=== PATIENT | female | born 1950 | race Caucasian/White ===

== ENCOUNTER 2017-08-18 22:00 | Emergency (ER) | payer BC, MEDICARE ==
[2017-08-18 23:10] LABS: BILIRUBIN,URINE NEGATIVE (NEG); CLARITY,URINE TURBID; COLOR,URINE YELLOW; GLUCOSE,URINE NEGATIVE (NEG); NITRITE,URINE POSITIVE (NEG); PH,URINE 6.5; PROTEIN,URINE 100 mg/dL (NEG-TRACE); UROBILINOGEN,URINE 0.2 mg/dL (0.2 mg/dL)
[2017-08-18 23:30] LABS: BACTERIA,URINE MANY /HPF (0-FEW); RBC,URINE 20-40 /HPF (0-2); SQUAMOUS EPITHELIAL CELL,UR FEW /LPF; WBC,URINE TNTC /HPF (0-4)
[2017-08-19] LABS: ADD MAN DIFF? NO
[2017-08-19 00:06] LABS: BASO # 0.1 x10^3/uL (0.0-0.2); BASO % 1 % (0-3); EOS % 0 % (0-3); HEMATOCRIT 37.1 % (36.0-47.0); HEMOGLOBIN 12.7 g/dL (12.0-15.5); LYMPH # 1.3 x10^3/uL (1.0-4.8); LYMPH % 17 % (24-48); MEAN CORPUSCULAR HEMOGLOBIN 34 pg (25-35); MEAN CORPUSCULAR HGB CONC 34 g/dL (31-37); MEAN CORPUSCULAR VOLUME 100 fL (79-100); MONO # 0.4 x10^3/uL (0.0-1.1); MONO % 5 % (0-9); NEUT % 77 % (31-73); PLATELET COUNT 148 x10^3/uL (140-400); RED BLOOD COUNT 3.73 x10^6/uL (3.50-5.40); RED CELL DISTRIBUTION WIDTH 17.4 % (11.5-14.5); WHITE BLOOD COUNT 7.8 x10^3/uL (4.0-11.0)
[2017-08-19 00:17] LABS: ANION GAP 8 (6-14); BLOOD UREA NITROGEN 18 mg/dL (7-20); BUN/CREATININE RATIO 16 (6-20); CALCIUM 9.2 mg/dL (8.5-10.1); CARBON DIOXIDE 25 mmol/L (21-32); CHLORIDE 104 mmol/L (98-107); CREATININE 1.1 mg/dL (0.6-1.0); GFR 49.4; GLUCOSE 127 mg/dL (70-99); POTASSIUM 3.7 mmol/L (3.5-5.1); SODIUM 137 mmol/L (136-145)
[2017-08-19 00:22] LABS: ALBUMIN 3.2 g/dL (3.4-5.0); ALBUMIN/GLOBULIN RATIO 0.7 (1.0-1.7); ALK PHOS 159 U/L (46-116); ALT (SGPT) 29 U/L (14-59); AST (SGOT) 32 U/L (15-37); TOTAL BILIRUBIN 0.9 mg/dL (0.2-1.0); TOTAL PROTEIN 7.7 g/dL (6.4-8.2)
[2017-08-19] MEDS: ERTAPENEM 1GM IVPB FOR OMNI 50 ML IV (00:52)
[2017-08-19] MEDS: HEPARIN PF 500 UNIT/5 ML DISP.SYRIN. IV (01:45)
== END 2017-08-19 01:50 | disposition home or self-care (01) ==
LOC: ER 08-19 01:50
DX: N39.0 Urinary tract infection, site not specified (principal); Z88.5 Allergy status to narcotic agent; Z88.8 Allergy status to other drugs, medicaments and biological substances; Z88.1 Allergy status to other antibiotic agents; Z91.041 Radiographic dye allergy status; M19.90 Unspecified osteoarthritis, unspecified site; E78.00 Pure hypercholesterolemia, unspecified; I11.0 Hypertensive heart disease with heart failure; I50.9 Heart failure, unspecified; J44.9 Chronic obstructive pulmonary disease, unspecified; K21.9 Gastro-esophageal reflux disease without esophagitis; Z90.710 Acquired absence of both cervix and uterus
CPT/HCPCS: 36415; 80053; 81001; 85025; 87040; 87086; 96365; 96375; 99284; J1335

== ENCOUNTER 2018-02-20 04:27 | Inpatient (IN) | payer BC, MEDICARE ==
[~2018-02-20] VITALS: Ht 174 cm; Wt 120.0 kg
[~2018-02-20 04:27] MED LIST: ACET-704 PO; ACET1TAB33 PO; ACET500T68 PO; ALKALOL NS; APIX5TAB PO; AREDIA IV; ARTHRO PO; BENZ100C PO; BENZONATATE; BISA-42 PO; BUDE8.6S NS; CARV25TA PO; CETI10TA16 PO; CHLORZOXAZONE PO; CHOL10003 PO; CHOL4000 PO; CHON250C PO; CICL12.52 NS; CYAN3000 SL; CYAN500T PO; CYCLOPHOSPHAMIDE IV; DENO120V SQ; DICL100G24 TP; DICL112S2 TP; DIPH1TAB5 PO; DIPH25CA58 PO; DIPH50CA PO; DOCO1CAP2 PO; DOCU-109 PO; DULO60CA44 PO; ERTA1VIA IJ; ESOM40CA PO; ESTA2TAB PO; EXEM25TA2 PO; FERR325T14 PO; FLEXAMIN PO; FLUOROURACIL IV; FLUT16SP NS; FULV250D IM; FURO40TA4 PO; GABA300C18 PO; GABA600T91 PO; GAS X PO; HYDR-2165 PO; HYDR-2761 PO; HYDR-2765 PO; KETO10TA PO; LACT1CAP6 PO; LETR2.5T18 PO; LEVO100T5 PO; LEVO5TAB2 PO; LEXAPRO20 MG PO; LIDO700A4 TP; LISI-334 PO; LISI-338 PO; LOPE2CAP88 PO; MANNOSE PO; MERO1VIA IV; METHOTREXATE IV; MINE120C TP; MULT-246 PO; NYST15PO9 TP; OMEG-91 PO; OMEP40CA5 PO; OXYM15MI4 NS; PALB125C PO; PHEN100T82 PO; POLY17PO29 PO; POTA20TA82 PO; POTA8CAP PO; POTA8TAB6 PO; PRAV20TA2 PO; PROC10TA57 PO; PROM118S5 PO; S AD PO; SALI44.3 MM; TRAM50TA PO; TRAS440V IV; TROS20TA2 PO; TURM500C4 PO; UBID200C27 PO; UBID200C7 PO; UREA TP; VANC125C10 PO; [UNRECOGNIZED DRUG - CODE] DT; [UNRECOGNIZED DRUG - CODE] IV; [UNRECOGNIZED DRUG - OTHER]; [UNRECOGNIZED DRUG - OTHER] IV; [UNRECOGNIZED DRUG - OTHER] PO; [UNRECOGNIZED DRUG - OTHER] PO; optiva EACHEYE
[2018-02-20] MEDS ORDERED: 0.9 % SOD CHL for STERILE FIELD 10 ML DISP.SYRIN. ONE (04:49)
--- NOTE | 2018-02-20 04:53 | PHYS DOC ---
Past Medical History Past Medical History: Arthritis, Cancer, CHF, COPD, Gallstones, GERD, High Cholesterol, Hypertension, Kidney Infection, Kidney Stone, Sinusitis, UTI Additional Past Medical Histor: PE,SLEEP APNEA, GOITER, SVT, TSS, BREAST CA METS TO COLON AND BONE Past Surgical History: Appendectomy, Cancer Surgery, Hysterectomy, Knee Replacement, Other Additional Past Surgical Histo: ureteral stent, lithotripsy, numerous nasal/ sinus surgeries, multiple other Alcohol Use: None Drug Use: None Adult General Chief Complaint Chief Complaint: MECHANICAL FALL HPI HPI Patient is a 67 year old female who presents with weakness. 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 Tonight due to weakness and diarrhea for approximately the past month she fell landing on her bottom. She notes that she is feeling weaker over time. Increased shortness of breath noted recently. No respirophasic chest pain. Patient reports that her last chemotherapy was approximately 20 days ago since she is due for her next chemotherapy in the next day or 2. She denies any fever[ ] Review of Systems Review of Systems Constitutional: Denies fever or chills [] Eyes: Denies change in visual acuity, redness, or eye pain [] HENT: Denies nasal congestion or sore throat [] Respiratory: Denies shortness of breath [] Cardiovascular: No chest pain or palpitations[] GI: See history of present illness[] : Denies dysuria or hematuria [] Musculoskeletal: Denies back pain or joint pain [] Integument: Denies rash or skin lesions [] Neurologic: Denies headache, focal weakness or sensory changes [] Endocrine: Denies polyuria or polydipsia [] All other systems were reviewed and found to be within normal limits, except as documented in this note. Current Medications Current Medications Current Medications Medications (Trade) Dose Ordered Sig/Deanna Start Time Stop Time Status Last Admin Dose Admin Acetaminophen/ Codeine Phosphate (Tylenol #3) 1 tab 0500,1400 02/20/18 14:00 UNV Acetaminophen/ Hydrocodone Bitart (Lortab 5/325) 1 tab PRN Q6HRS PRN 02/20/18 07:45 UNV Apixaban (Eliquis) 5 mg BID 02/20/18 09:00 UNV Bisacodyl (Dulcolax Tab) 5 mg PRN DAILY PRN 02/20/18 07:45 UNV Ceftriaxone Sodium (Rocephin) 1 gm 1X ONCE 02/20/18 07:45 02/20/18 07:46 UNV Docusate Sodium (Colace) 100 mg BID PRN 02/20/18 07:45 UNV Fluticasone Propionate (Flonase) 2 spray BID 02/20/18 09:00 UNV Info (CONTRAST GIVEN -- Rx MONITORING) 1 each PRN DAILY PRN 02/20/18 05:30 02/22/18 05:29 Iohexol (Omnipaque 300 Mg/ml) 75 ml 1X ONCE 02/20/18 06:00 02/20/18 06:01 DC 02/20/18 06:20 60 ML Ketorolac Tromethamine (Toradol 15mg Vial) 15 mg PRN Q6HRS PRN 02/20/18 08:00 02/25/18 07:59 UNV Levothyroxine Sodium (Synthroid) 100 mcg DAILYAC 02/21/18 07:30 UNV Non-Formulary Medication (Benzonatate (Tessalon Perle)) 200 mg PRN Q12HR PRN 02/20/18 07:45 UNV Non-Formulary Medication (Carvedilol (Coreg)) 25 mg BID 02/20/18 09:00 UNV Non-Formulary Medication (Cyanocobalamin (Vitamin B-12) (B-12)) 4,000 mcg QODAY 02/20/18 09:00 UNV Non-Formulary Medication (Diclofenac Sodium ) 100 gm PRN PRN 02/20/18 07:45 UNV Non-Formulary Medication (Duloxetine Hcl ) 60 mg HS 02/20/18 21:00 UNV Non-Formulary Medication (Esomeprazole Magnesium (Nexium Capsule)) 1 cap DAILYAC 02/21/18 07:30 UNV Non-Formulary Medication (Estazolam ) 2 mg HS 02/20/18 21:00 UNV Non-Formulary Medication (Gabapentin Enacarbil (Horizant)) 600 mg BID 02/20/18 09:00 UNV Non-Formulary Medication (Levocetirizine Dihydrochloride ) 1 tab DAILY 02/20/18 09:00 UNV Non-Formulary Medication (Lisinopril ) 1 tab QHS 02/20/18 21:00 UNV Non-Formulary Medication (Loperamide HCl (Imodium A-D)) 2 mg PRN Q6HRS PRN 02/20/18 07:45 UNV Non-Formulary Medication (Multivitamin (Multi-Vitamin Daily)) 1 each DAILY 02/20/18 09:00 UNV Non-Formulary Medication (Potassium Chloride ) 8 meq BID 02/20/18 09:00 UNV Non-Formulary Medication (Pravastatin Sodium ) 25 mg DAILY 02/20/18 09:00 UNV Non-Formulary Medication (S-Adenosylmethionine Sul Tosyl (Werner-E)) 400 mg DAILY 02/20/18 09:00 UNV Non-Formulary Medication (Trospium Chloride ) 20 mg BID 02/20/18 09:00 UNV Non-Formulary Medication (Turmeric/ Turmeric Root Extract (Turmeric 500 mg Capsule)) 1 each QHS 02/20/18 21:00 UNV Non-Formulary Medication (Ubidecarenone (Co Q-10)) 200 mg DAILY 02/20/18 09:00 UNV Non-Formulary Medication (Urea/Emollient Combination #65 (Uramaxin Gt 45% Kit)) 1 each PRN PRN 02/20/18 07:45 UNV Non-Formulary Medication ([arthro 7] ) 1 cap BID 02/20/18 09:00 UNV Non-Formulary Medication ([chloroxazone/ Parafon] ) 500 mg PRN Q6HRS PRN 02/20/18 07:45 UNV Non-Formulary Medication ([cytoxan,[id number]] ) 1 each [id number] 02/20/18 09:00 UNV Non-Formulary Medication ([gamagen] ) 50 gm Q4WK 02/20/18 09:00 UNV Non-Formulary Medication ([mannose] ) 1,500 mg DAILY07 02/21/18 07:00 UNV Nystatin (Nystop) 1 mir BID 02/20/18 09:00 UNV Sodium Chloride 1,000 ml @ 125 mls/hr 1X ONCE 02/20/18 06:15 02/20/18 14:14 Sodium Chloride (NORMAL SALINE FLUSH for STERILE FIELD) 10 ml STK-MED ONCE 02/20/18 04:49 02/20/18 04:51 DC Vitamin D (Vitamin D3) 2,000 unit DAILY 02/20/18 09:00 UNV Allergies Allergies Allergies Coded Allergies Type Severity Reaction Last Updated Verified cephalexin Allergy Intermediate 05/30/15 Yes cyclosporine Allergy Intermediate 05/30/15 Yes hydromorphone Allergy Intermediate 05/30/15 Yes morphine Allergy Intermediate 02/20/18 Yes nitrofurantoin Allergy Intermediate 05/30/15 Yes scopolamine Allergy Intermediate 05/30/15 Yes thimerosal Allergy Intermediate 05/30/15 Yes I S O L A T I O N *CONTACT* Allergy Unknown 06/19/15 Yes fentanyl Adverse Reaction Intermediate 06/19/15 Yes Physical Exam Physical Exam Constitutional: Well developed, well nourished, moderate discomfort, beebe, ashen looking.. [] HENT: Normocephalic, atraumatic, bilateral external ears normal, oropharynx moist, no oral exudates, nose normal. [] Eyes: PERRLA, EOMI, conjunctiva normal, no discharge. [] Neck: Normal range of motion, no tenderness, supple, no stridor. [] Cardiovascular:Heart rate regular rhythm, no murmur [] Lungs & Thorax: Bilateral breath sounds clear to auscultation [] Abdomen: Bowel sounds normal, tympanitic, diffuse tenderness, no masses, no pulsatile masses. [] Skin: Warm, dry, no erythema, no rash. [] Back: No tenderness, no CVA tenderness. [] Extremities: No tenderness, no cyanosis, no clubbing, ROM intact, no edema. [] Neurologic: Alert and oriented X 3, normal motor function, normal sensory function, no focal deficits noted. [] Psychologic: Affect normal, judgement normal, mood normal. [] Current Patient Data Vital Signs Vital Signs Date Time Temp Pulse Resp B/P (MAP) Pulse Ox O2 Delivery O2 Flow Rate FiO2 02/20/18 04:30 100.5 98 18 128/87 (101) 92 Nasal Cannula 3.0 100.5 Lab Values Laboratory Tests Test 02/20/18 05:13 02/20/18 05:22 02/20/18 05:57 White Blood Count 21.3 x10^3/uL (4.0-11.0) H Red Blood Count 3.48 x10^6/uL (3.50-5.40) L Hemoglobin 11.3 g/dL (12.0-15.5) L Hematocrit 34.3 % (36.0-47.0) L Mean Corpuscular Volume 99 fL (79-100) Mean Corpuscular Hemoglobin 32 pg (25-35) Mean Corpuscular Hemoglobin Concent 33 g/dL (31-37) Red Cell Distribution Width 19.0 % (11.5-14.5) H Platelet Count 180 x10^3/uL (140-400) Neutrophils (%) (Auto) 87 % (31-73) H Lymphocytes (%) (Auto) 10 % (24-48) L Monocytes (%) (Auto) 3 % (0-9) Eosinophils (%) (Auto) 0 % (0-3) Basophils (%) (Auto) 0 % (0-3) Neutrophils # (Auto) 18.6 x10^3uL (1.8-7.7) H Lymphocytes # (Auto) 2.1 x10^3/uL (1.0-4.8) Monocytes # (Auto) 0.6 x10^3/uL (0.0-1.1) Eosinophils # (Auto) 0.0 x10^3/uL (0.0-0.7) Basophils # (Auto) 0.0 x10^3/uL (0.0-0.2) Platelet Estimate Pending Sodium Level 142 mmol/L (136-145) Potassium Level 3.9 mmol/L (3.5-5.1) Chloride Level 106 mmol/L (98-107) Carbon Dioxide Level 23 mmol/L (21-32) Anion Gap 13 (6-14) Blood Urea Nitrogen 34 mg/dL (7-20) H Creatinine 1.2 mg/dL (0.6-1.0) H Estimated GFR (Cockcroft-Gault) 44.5 BUN/Creatinine Ratio 28 (6-20) H Glucose Level 135 mg/dL (70-99) H Lactic Acid Level 1.5 mmol/L (0.4-2.0) Calcium Level 9.9 mg/dL (8.5-10.1) Total Bilirubin 0.5 mg/dL (0.2-1.0) Aspartate Amino Transferase (AST) 56 U/L (15-37) H Alanine Aminotransferase (ALT) 17 U/L (14-59) Alkaline Phosphatase 254 U/L (46-116) H Troponin I Quantitative 0.022 ng/mL (0.000-0.055) GY-Kgh-S-Type Natriuretic Peptide 2343 pg/mL (0-124) H Total Protein 6.5 g/dL (6.4-8.2) Albumin 2.2 g/dL (3.4-5.0) L Albumin/Globulin Ratio 0.5 (1.0-1.7) L Lipase 29 U/L (73-393) L Prothrombin Time 15.6 SEC (11.7-14.0) H Prothrombin Time INR 1.3 (0.8-1.1) H Urine Collection Type Unknown Urine Color Arely Urine Clarity Clear Urine pH 6.0 Urine Specific Goff >=1.030 Urine Protein 30 mg/dL (NEG-TRACE) Urine Glucose (UA) Negative mg/dL (NEG) Urine Ketones (Stick) Negative mg/dL (NEG) Urine Blood Negative (NEG) Urine Nitrite Negative (NEG) Urine Bilirubin Small (NEG) Urine Urobilinogen Dipstick 0.2 mg/dL (0.2 mg/dL) Urine Leukocyte Esterase Negative (NEG) Urine RBC 0 /HPF (0-2) Urine WBC Occ /HPF (0-4) Urine Squamous Epithelial Cells Occ /LPF Urine Bacteria 0 /HPF (0-FEW) Urine Hyaline Casts Many /HPF Laboratory Tests 02/20/18 05:13 Laboratory Tests 02/20/18 05:13 EKG EKG [] Radiology/Procedures Radiology/Procedures [PROCEDURE: PORTABLE CHEST 1V AP portable chest 02/20/2018. Reason for exam: Weakness and shortness of breath. Comparison is made with a study of 08/18/2015. A right IJ central line remains in place. Depth of inspiration is much shallower. This accounts for at least some of the increased markings on each side. There may be mild infiltrate at the left base. No pleural fluid is seen. The heart appears mildly enlarged, but unchanged. IMPRESSION: Shallow inspiration. There could be mild infiltrate at the left base. ] PROCEDURE: CT ABD PELV W/ IV CONTRST ONLY PQRS Compliance statement: One or more of the following individualized dose reduction techniques were utilized for this examination: 1. Automated exposure control. 2. Adjustment of the mA and/or kV according to patient size. 3. Use of iterative reconstruction technique. Indication:breast ca with metatases to colon; increased shortness of breath-evaluate pe;nausea and vomiting, diarrhea x 3 weeks
per er physician give reduced dose iv contrast 60ml / gfr 44 02/20/2018
(pt unable to raise arms above head)

TECHNIQUE: CT angiogram of the chest with IV contrast with multiplanar MIP reformats. And CT abdomen pelvis in portal venous phase. COMPARISON: None FINDINGS: Limited exam for evaluation of PE due to breathing motion artifact and contrast bolus timing. No saddle or right and left main pulmonary artery and was. Evaluation of segmental and subsegmental pulmonary arteries is limited. Heart is normal in size. No pericardial or pleural effusion. Right chest wall Chemo-Port with its tip in the SVC. No enlarged axillary, mediastinal or hilar adenopathy. Left axillary lymph node dissection changes. Patulous esophagus with fluid. Central airways are patent. Patchy opacities are seen in the left lower lobe. No pneumothorax. Significant motion artifact is seen in the lungs limiting optimal evaluation. Sclerotic focus is seen in the right first rib. Sclerotic focus is seen in the inferior left scapula. Sclerotic appearance of the mid sternum. Multiple sclerotic foci seen in the thoracic spine. CT abdomen pelvis: Multiple low attenuating lesions are seen in the liver. Index lesions as follows: Segment 2 lesion measuring 1.6 cm (series 8 image 20). Segment 7 lesion measuring 1.5 cm (series 8 image 28). 2.6 cm lesion at the junction of the segment 2 and segment 4A (series 8 image 33). Concentrated bile or sludge is seen in the gallbladder. Spleen is unenlarged. Moderate volume ascites is seen. Pancreas is atrophic. Adrenal glands demonstrate no nodularity. No hydronephrosis or nephrolithiasis. Left significant pelvocaliectasis. No enlarged retroperitoneal or pelvic adenopathy. Status post proximal colectomy with anastomotic sutures in the right upper quadrant. Diffusely dilated small bowel loops are seen with air-fluid levels. Shotty mesenteric lymph nodes, nonspecific. No pneumoperitoneum or pneumatosis intestinalis. Urinary bladder demonstrates no radiopaque stones. Status post hysterectomy. Sclerotic focus is seen in the right femur (series 8 image 107). Lucent lesions seen in L2 vertebral body. IMPRESSION: 1. Significantly suboptimal PE study due to breathing motion artifact and contrast bolus timing. No saddle or right or left main pulmonary artery numbers. Evaluation of segmental and subsegmental pulmonary arteries is limited. 2. Patchy opacities in the left lower lobe may be secondary to aspiration, pneumonia or atelectasis. 3. Multiple liver lesions, indeterminate but in the context of malignancy may represent metastasis. Nonemergent MRI of the abdomen recommended for further evaluation. 4. Moderate volume ascites. 5. Diffusely dilated small bowel loops with air-fluid levels suggests diffuse ileus or small bowel obstruction although no discrete transition point is seen. 6. Significant left pelvocaliectasis without obstructing stone. Findings may be secondary to stricture or narrowing at left UPJ. 7. Multifocal lucent and sclerotic bony lesions concerning for osseous metastasis. Bone scan recommended. Course & Med Decision Making Course & Med Decision Making Pertinent Labs and Imaging studies reviewed. (See chart for details) ED course: Patient arrived, was placed in bed, tolerated exam well. Port-A-Cath was accessed for blood work as well as IV fluids. Patient care was endorsed to Dr. Shearer at 0600 pending laboratory testing and imaging that was previously ordered.[] 8:10 AM: Patient care was assumed from Dr. Harrison at shift change. Patient is an unfortunate 67-year-old female who presents for increasing weakness, and a fall, she slipped the floor and landed on her buttocks. She is somewhat lethargic upon my assessment, but her states she did not hit her head or injure her neck. The patient's states that she has had decreased oral intake and several episodes of vomiting, because she has developed a " bowel blockage", secondary to invasive breast cancer growing on her intestines. Her tetanus is also been reviewed. CT does show diffuse bowel enlargement without any definite transition zone. She also has large ascites. She is noted to have leukocytosis, but had similar leukocytosis earlier this month in January. I do not have a clear source of infection at this time, although given a sided spontaneous bacterial peritonitis is certainly in the differential. The patient be given an empiric dose of antibiotics to further definitive diagnosis can be obtained. The hospitalist will admit the patient for further evaluation and shooting. She remains hemodynamically stable at this time. Dragon Disclaimer Dragon Disclaimer This electronic medical record was generated, in whole or in part, using a voice recognition dictation system. Departure Departure Impression: Primary Impression: Weakness Additional Impressions: Dehydration Ileus Metastatic breast cancer Ascites Leukocytosis Acute renal insufficiency Disposition: 09 ADMITTED INPATIENT Admitting Physician: Helen Mccauley Condition: GUARDED Referrals: FRANC GONZALEZ MD (PCP) Problem Qualifiers LISSETTE HARRISON DO Feb 20, 2018 04:53 MABLE SHEARER MD Feb 20, 2018 06:39
[2018-02-20] MEDS ORDERED: CONTRAST GIVEN. MC PRN (05:30)
[2018-02-20 05:40] LABS: CALCIUM 9.9 mg/dL (8.5-10.1); CREATININE 1.2 mg/dL (0.6-1.0); GFR 44.5; POTASSIUM 3.9 mmol/L (3.5-5.1)
[2018-02-20 05:49] LABS: ALBUMIN 2.2 g/dL (3.4-5.0); ALBUMIN/GLOBULIN RATIO 0.5 (1.0-1.7); BASO % 0 % (0-3); EOS % 0 % (0-3); HEMATOCRIT 34.3 % (36.0-47.0); HEMOGLOBIN 11.3 g/dL (12.0-15.5); LYMPH # 2.1 x10^3/uL (1.0-4.8); LYMPH % 10 % (24-48); MEAN CORPUSCULAR HEMOGLOBIN 32 pg (25-35); MEAN CORPUSCULAR HGB CONC 33 g/dL (31-37); MEAN CORPUSCULAR VOLUME 99 fL (79-100); MONO # 0.6 x10^3/uL (0.0-1.1); MONO % 3 % (0-9); NEUT # 18.6 x10^3uL (1.8-7.7); NEUT % 87 % (31-73); PLATELET COUNT 180 x10^3/uL (140-400); RED BLOOD COUNT 3.48 x10^6/uL (3.50-5.40); TOTAL BILIRUBIN 0.5 mg/dL (0.2-1.0); TOTAL PROTEIN 6.5 g/dL (6.4-8.2); WHITE BLOOD COUNT 21.3 x10^3/uL (4.0-11.0)
--- NOTE | 2018-02-20 05:49 | RAD ---
AP portable chest 02/20/2018. Reason for exam: Weakness and shortness of breath. Comparison is made with a study of 08/18/2015. A right IJ central line remains in place. Depth of inspiration is much shallower. This accounts for at least some of the increased markings on each side. There may be mild infiltrate at the left base. No pleural fluid is seen. The heart appears mildly enlarged, but unchanged. IMPRESSION: Shallow inspiration. There could be mild infiltrate at the left base. Electronically signed by: Bruno Jesus Jr., MD (02/20/2018 5:45 AM) [facility]
[2018-02-20] MEDS ORDERED: IOHEXOL 300 MG/ML 100ML VIAL. IV ONE (06:00)
[2018-02-20] MEDS ORDERED: IV NORMAL SALINE 1000ML BAG 1,000 ML IV ONE (06:15)
[2018-02-20 06:17] LABS: BILIRUBIN,URINE SMALL (NEG); CLARITY,URINE CLEAR; COLOR,URINE AMBER; NITRITE,URINE NEGATIVE (NEG); PROTEIN,URINE 30 mg/dL (NEG-TRACE); UROBILINOGEN,URINE 0.2 mg/dL (0.2 mg/dL)
--- NOTE | 2018-02-20 06:20 | EKG ---
[facility] [address] [place] [address] Test Date: 2018-02-20 Test Time: 04:45:38 Pat Name: HAFSA NICHOLSON Department: Room: Gender: F Board Certified Family Physician: : [id number] Requested By: LISSETTE HICKMAN Order Number: [id number] Reading MD: Enrrique Ball Measurements Intervals [place] Rate: 99 P: [place]: QRS: -23 QRSD: 86 T: 64 QT: 398 QTc: 516 Interpretive Statements SINUS RHYTHM LEFTWARD AXIS T ABNORMALITY IN HIGH LATERAL LEADS PROLONGED QT ABNORMAL ECG Electronically Signed On 02-28-2018 8:06:17 FINANCE LECTURER by Enrrique Ball
--- NOTE | 2018-02-20 06:20 | EKG ---
[facility] [address] [place] [address] Test Date: 2018-02-20 Test Time: 06:04:42 Pat Name: HAFSA NICHOLSON Department: Room: Gender: F Data Center Operator: : [id number] Requested By: LISSETTE HICKMAN Order Number: [id number] Reading MD: Enrrique Ball Measurements Intervals [place] Rate: 99 P: -6 DE: 164 QRS: -18 QRSD: 86 T: 12 QT: 340 QTc: 441 Interpretive Statements SINUS RHYTHM COMPLEX(ES) WITH ABERRANT INTRAVENTRICULAR CONDUCTION VENTRICULAR PREMATURE COMPLEX(ES) LEFTWARD AXIS NON SPECIFIC T ABNORMALITY ABNORMAL ECG Electronically Signed On 02-28-2018 8:06:44 BOOTMAKER HAND by Enrrique Ball
[2018-02-20 06:21] LABS: PROTHROMBIN TIME PATIENT 15.6 SEC (11.7-14.0)
[2018-02-20 06:59] LABS: BACTERIA,URINE 0 /HPF (0-FEW); HYALINE CASTS, URINE MANY /HPF; RBC,URINE 0 /HPF (0-2); SQUAMOUS EPITHELIAL CELL,UR OCC /LPF; WBC,URINE OCC /HPF (0-4)
[2018-02-20] MEDS ORDERED: CHLORZOXAZONE PO PRN (07:45)
[2018-02-20] MEDS ORDERED: UREA TP PRN (07:45)
[2018-02-20] MEDS ORDERED: [UNRECOGNIZED DRUG - OTHER] TP PRN (07:45)
[2018-02-20] MEDS ORDERED: BISACODYL 5 MG TABLET.DR. PO PRN (07:45)
[2018-02-20] MEDS ORDERED: cefTRIAXone IV Push 1 GM VIAL. IVP ONE (07:45)
[2018-02-20] MEDS ORDERED: DOCUSATE SODIUM 100 MG CAPSULE. PO PRN (07:45)
[2018-02-20] MEDS ORDERED: [UNRECOGNIZED DRUG - OTHER] PO PRN (07:45)
--- NOTE | 2018-02-20 07:47 | RAD ---
PQRS Compliance statement: One or more of the following individualized dose reduction techniques were utilized for this examination: 1. Automated exposure control. 2. Adjustment of the mA and/or kV according to patient size. 3. Use of iterative reconstruction technique. Indication:breast ca with metatases to colon; increased shortness of breath-evaluate pe;nausea and vomiting, diarrhea x 3 weeks
per er physician give reduced dose iv contrast 60ml / gfr 44 02/20/2018
(pt unable to raise arms above head)

TECHNIQUE: CT angiogram of the chest with IV contrast with multiplanar MIP reformats. And CT abdomen pelvis in portal venous phase. COMPARISON: None FINDINGS: Limited exam for evaluation of PE due to breathing motion artifact and contrast bolus timing. No saddle or right and left main pulmonary artery and was. Evaluation of segmental and subsegmental pulmonary arteries is limited. Heart is normal in size. No pericardial or pleural effusion. Right chest wall Chemo-Port with its tip in the SVC. No enlarged axillary, mediastinal or hilar adenopathy. Left axillary lymph node dissection changes. Patulous esophagus with fluid. Central airways are patent. Patchy opacities are seen in the left lower lobe. No pneumothorax. Significant motion artifact is seen in the lungs limiting optimal evaluation. Sclerotic focus is seen in the right first rib. Sclerotic focus is seen in the inferior left scapula. Sclerotic appearance of the mid sternum. Multiple sclerotic foci seen in the thoracic spine. CT abdomen pelvis: Multiple low attenuating lesions are seen in the liver. Index lesions as follows: Segment 2 lesion measuring 1.6 cm (series 8 image 20). Segment 7 lesion measuring 1.5 cm (series 8 image 28). 2.6 cm lesion at the junction of the segment 2 and segment 4A (series 8 image 33). Concentrated bile or sludge is seen in the gallbladder. Spleen is unenlarged. Moderate volume ascites is seen. Pancreas is atrophic. Adrenal glands demonstrate no nodularity. No hydronephrosis or nephrolithiasis. Left significant pelvocaliectasis. No enlarged retroperitoneal or pelvic adenopathy. Status post proximal colectomy with anastomotic sutures in the right upper quadrant. Diffusely dilated small bowel loops are seen with air-fluid levels. Shotty mesenteric lymph nodes, nonspecific. No pneumoperitoneum or pneumatosis intestinalis. Urinary bladder demonstrates no radiopaque stones. Status post hysterectomy. Sclerotic focus is seen in the right femur (series 8 image 107). Lucent lesions seen in L2 vertebral body. IMPRESSION: 1. Significantly suboptimal PE study due to breathing motion artifact and contrast bolus timing. No saddle or right or left main pulmonary artery numbers. Evaluation of segmental and subsegmental pulmonary arteries is limited. 2. Patchy opacities in the left lower lobe may be secondary to aspiration, pneumonia or atelectasis. 3. Multiple liver lesions, indeterminate but in the context of malignancy may represent metastasis. Nonemergent MRI of the abdomen recommended for further evaluation. 4. Moderate volume ascites. 5. Diffusely dilated small bowel loops with air-fluid levels suggests diffuse ileus or small bowel obstruction although no discrete transition point is seen. 6. Significant left pelvocaliectasis without obstructing stone. Findings may be secondary to stricture or narrowing at left UPJ. 7. Multifocal lucent and sclerotic bony lesions concerning for osseous metastasis. Bone scan recommended. Electronically signed by: Barrett Orta DO (02/20/2018 7:42 AM) [facility]
[2018-02-20] MEDS ORDERED: KETOROLAC 15 MG/ML VIAL. IV PRN (08:00)
[2018-02-20] MEDS: PANTOPRAZOLE 40 MG TABLET.DR. PO SCH (08:30)
[2018-02-20] MEDS ORDERED: IV DEXTROSE 5%-LACT RINGERS 1,000 ML IV ONE (08:30)
[2018-02-20] MEDS ORDERED: LOPERAMIDE 2 MG CAPSULE PO PRN (08:45)
[2018-02-20 08:53] LABS: % BANDS 17 % (0-9); % LYMPHS 9 % (24-48); % METAS 3 % (0-0); % MONOS 2 % (0-10); % SEGS 69 % (35-66); NUCLEATED RBC 4
[2018-02-20 08:54] LABS: HYPOCHROMIA SLIGHT; PLT ESTIMATE ADEQUATE (ADEQUATE); POLYCHROMASIA SLIGHT
[2018-02-20 08:55] LABS: ANISOCYTOSIS SLIGHT; POIKILOCYTOSIS SLIGHT
[2018-02-20] MEDS: POTASSIUM CHLORIDE 10 MEQ TABLET.ER. PO SCH ×2 (09:00→17:00)
[2018-02-20] MEDS ORDERED: ARTHRO PO SCH (09:00)
[2018-02-20] MEDS ORDERED: [UNRECOGNIZED DRUG - OTHER] IV SCH (09:00)
[2018-02-20] MEDS ORDERED: DICLOFENAC SODIUM 1% TOPICAL GEL 100GM TUBE. TP PRN (09:00)
[2018-02-20] MEDS: MULTIVITAMIN with MINERAL TABLET. PO SCH (09:00)
[2018-02-20] MEDS ORDERED: S ADENOSYLMETHIONINE SUL TOSYL 400 MG PO SCH (09:00)
[2018-02-20] MEDS: CHOLECALCIFEROL (VITAMIN D3) 1,000 UNIT TABLET PO SCH (09:00)
[2018-02-20] MEDS ORDERED: BENZONATATE 100 MG CAPSULE. PO PRN (09:00)
[2018-02-20] MEDS ORDERED: [UNRECOGNIZED DRUG - OTHER] IV SCH (09:00)
[2018-02-20] MEDS: NYSTATIN TOPICAL POWDER 15GM BOTTLE. TP SCH ×2 (09:00→21:00)
[2018-02-20] MEDS: CYANOCOBALAMIN (VITAMIN B-12) 1,000 MCG TABLET. PO SCH (09:00)
[2018-02-20] MEDS ORDERED: NON FORMULARY ITEM (Ubidecarenone (Co Q-10) 200 MG) PO SCH (09:00)
[2018-02-20] MEDS: GABAPENTIN ENACARBIL 600 MG PO SCH ×2 (09:00→21:18)
[2018-02-20] MEDS: OXYBUTYNIN CHLORIDE 5 MG TABLET PO SCH ×3 (09:00→21:20)
[2018-02-20] MEDS: FLUTICASONE 50MCG/NASAL SPRAY 16GM BOTTLE. NS SCH ×2 (09:00→21:00)
[2018-02-20] MEDS: APIXABAN 5 MG TABLET. PO SCH ×2 (09:00→21:00)
[2018-02-20] MEDS: CETIRIZINE HCL 10 MG TABLET. PO SCH (09:00)
[2018-02-20] MEDS: IV NORMAL SALINE 1000ML BAG 1,000 ML IV SCH ×2 (09:15→21:15)
[2018-02-20] MEDS: CARVEDILOL 12.5 MG TABLET. PO SCH ×2 (09:15→17:00)
--- NOTE | 2018-02-20 09:16 | PDOC1 ---
History and Physical Date of Admission Date of Admission DATE: 02/20/18 TIME: 09:08 Identification/Chief Complaint Chief Complaint Fall at home Source Source: Caregiver, Chart review, Patient History of Present Illness History of Present Illness Most of the history obtained from the . Patient is a 67-year-old female with metastatic breast cancer to the liver and to the bone, on palliative chemotherapy, last chemotherapy December [address] Sr[address] Had a ground-level fall at home today, no presyncopal symptoms, hurt her tailbone and was unable to get up had to call the ambulance per whom the patient lives with. Otherwise patient has a walker at home and has decent quality of life. Patient is now asleep after pain management from ER. CT of the abdomen and chest etc. shows the multiple liver lesions, moderate ascites and maybe ileus or partial SBO. Patient was just here 2 weeks ago for ileus versus partial SBO treated conservatively with both GI and GS on board. Home meds I have reconciled including pain medicines antidepressants and the rest. We'll make nothing by mouth until GI sees again. NO reports of vomiting by the but there was some coughing that the thought she was aspirating and sat her up and thought that did well. There is some signs of aspiration possibly on chest imaging. Labs show maybe small signs of dehydration with a creatinine of 1.2 from 0.6 in the past and to be in of 34. WBC 21 in this chemotherapy patient. BNP is 2300 with low albumin 2.2 Past Medical History Cardiovascular: CHF, HTN, Hyperlipidemia Pulmonary: Pulmonary embolus CENTRAL NERVOUS SYSTEM: CVA GI: GERD Heme/Onc: Cancer Hepatobiliary: No pertinent hx Psych: No pertinent hx Rheumatologic: No pertinent hx Infectious disease: Other Renal/: UTI Endocrine: No pertinent hx Past Surgical History Past Surgical History: Appendectomy, Mastectomy, Total knee replacement Family History Family History: Diabetes Social History Smoke: No ALCOHOL: none Drugs: None Current Problem List Problem List Problems Medical Problems: (1) Acute renal insufficiency Status: Acute (2) Ascites Status: Acute (3) Dehydration Status: Acute (4) Ileus Status: Acute (5) Leukocytosis Status: Acute (6) Metastatic breast cancer Status: Acute (7) Weakness Status: Acute Current Medications Current Medications Current Medications Sodium Chloride (NORMAL SALINE FLUSH for STERILE FIELD) 10 ml STK-MED ONCE .ROUTE ; Start 02/20/18 at 04:49; Stop 02/20/18 at 04:51; Status DC Iohexol (Omnipaque 300 Mg/ml) 75 ml 1X ONCE IV Last administered on at 06:20; Start 02/20/18 at 06:00; Stop 02/20/18 at 06:01; Status DC Info (CONTRAST GIVEN -- Rx MONITORING) 1 each PRN DAILY PRN MC SEE COMMENTS; Start 02/20/18 at 05:30; Stop 02/22/18 at 05:29 Sodium Chloride 1,000 ml @ 125 mls/hr 1X ONCE IV ; Start 02/20/18 at 06:15; Stop 02/20/18 at 14:14 Acetaminophen/ Codeine Phosphate (Tylenol #3) 1 tab 0500,1400 PO ; Start at 14:00 Apixaban (Eliquis) 5 mg BID PO ; Start 02/20/18 at 09:00; Status UNV Bisacodyl (Dulcolax Tab) 5 mg PRN DAILY PRN PO CONSTIPATION; Start 02/20/18 at 07:45 Vitamin D (Vitamin D3) 2,000 unit DAILY PO ; Start 02/20/18 at 09:00; Status UNV Docusate Sodium (Colace) 100 mg BID PRN PO CONSTIPATION; Start 02/20/18 at 07: 45; Status UNV Fluticasone Propionate (Flonase) 2 spray BID NS ; Start 02/20/18 at 09:00; Status UNV Acetaminophen/ Hydrocodone Bitart (Lortab 5/325) 1 tab PRN Q6HRS PRN PO PAIN; Start 02/20/18 at 07:45; Status UNV Levothyroxine Sodium (Synthroid) 100 mcg DAILY06 PO ; Start 02/21/18 at 10:30; Status UNV Nystatin (Nystop) 1 bailey BID TP ; Start 02/20/18 at 09:00; Status UNV Benzonatate (Tessalon Perle) 200 mg PRN Q12HR PRN PO COUGH; Start 02/20/18 at 09:00 Carvedilol (Coreg) 25 mg BIDWMEALS PO ; Start 02/20/18 at 08:30; Status UNV Cyanocobalamin (Vitamin B-12) 4,000 mcg Q48H PO ; Start 02/20/18 at 09:00; Status UNV Diclofenac Sodium (Voltaren) 1 bailey PRN QID PRN TP JOINT PAIN; Start 02/20/18 at 09:00 Duloxetine HCl (Cymbalta) 60 mg QHS PO ; Start 02/20/18 at 21:00; Status UNV Pantoprazole Sodium (Protonix) 40 mg DAILYAC PO ; Start 02/20/18 at 08:30 Non-Formulary Medication (Estazolam ) 2 mg HS PO ; Start 02/20/18 at 21:00; Status UNV Non-Formulary Medication (Gabapentin Enacarbil (Horizant)) 600 mg BID PO ; Start 02/20/18 at 09:00; Status UNV Cetirizine HCl (ZyrTEC) 10 mg DAILY PO ; Start 02/20/18 at 09:00; Status UNV Lisinopril (Prinivil) 5 mg QHS PO ; Start 02/20/18 at 21:00; Status UNV Loperamide HCl (Imodium) 2 mg PRN Q6HRS PRN PO DIARRHEA; Start 02/20/18 at 08: 45; Status UNV Multivitamins (Thera M Plus) 1 tab DAILY PO ; Start 02/20/18 at 09:00; Status UNV Potassium Chloride (Klor-Con) 10 meq BIDWMEALS PO ; Start 02/20/18 at 09:00; Status UNV Atorvastatin Calcium (Lipitor) 5 mg QHS PO ; Start 02/20/18 at 21:00 Non-Formulary Medication (S-Adenosylmethionine Sul Tosyl (Werner-E)) 400 mg DAILY PO ; Start 02/20/18 at 09:00; Status UNV Oxybutynin Chloride (Ditropan) 5 mg GIT692 PO ; Start 02/20/18 at 09:00; Status UNV Non-Formulary Medication (Turmeric/ Turmeric Root Extract (Turmeric 500 mg Capsule)) 1 each QHS PO ; Start 02/20/18 at 21:00; Status UNV Non-Formulary Medication (Ubidecarenone (Co Q-10)) 200 mg DAILY PO ; Start at 09:00; Status UNV Non-Formulary Medication (Urea/Emollient Combination #65 (Uramaxin Gt 45% Kit)) 1 each PRN PRN TP dry skin; Start 02/20/18 at 07:45; Status UNV Non-Formulary Medication ([arthro 7] ) 1 cap BID PO ; Start 02/20/18 at 09:00; Status UNV Non-Formulary Medication ([chloroxazone/ Parafon] ) 500 mg PRN Q6HRS PRN PO MUSCLE SPASMS; Start 02/20/18 at 07:45; Status UNV Non-Formulary Medication ([cytoxan,[id number]] ) 1 each [id number] IV ; Start at 09:00; Status UNV Non-Formulary Medication ([gamagen] ) 50 gm Q4WK IV ; Start 02/20/18 at 09:00; Status UNV Non-Formulary Medication ([mannose] ) 1,500 mg DAILY07 PO ; Start 02/21/18 at 07:00; Status UNV Ketorolac Tromethamine (Toradol 15mg Vial) 15 mg PRN Q6HRS PRN IV PAIN; Start 02/20/18 at 08:00; Stop 02/25/18 at 07:59; Status UNV Ceftriaxone Sodium (Rocephin) 1 gm 1X ONCE IVP Last administered on at 08:34; Start 02/20/18 at 07:45; Stop 02/20/18 at 08:22; Status DC Dextrose/Lactated Ringer's 1,000 ml @ 125 mls/hr 1X ONCE IV ; Start 02/20/18 at 08:30; Stop 02/20/18 at 16:29; Status UNV Active Scripts Active Reported Uramaxin Gt 45% Kit (Urea/Emollient Combination #65) 1 Each Kt.crm.gel 1 Each TP PRN PRN Turmeric 500 mg Capsule (Turmeric/Turmeric Root Extract) 1 Each Capsule 1 Each PO QHS Trospium Chloride 20 Mg Tablet 20 Mg PO BID Prevident (Sodium Fluoride) 100 Ml Paste..ml. 100 Ml DT QHS Werner-E (S-Adenosylmethionine Sul Tosyl) 400 Mg Tablet 400 Mg PO DAILY Pennsaid (Diclofenac Sodium) 112 Gm Ebonie.md.informatica developer 112 Gm TP PRN PRN Nystatin 15 Gm Powder 1 Bailey TP BID [mannose] 1,500 Mg PO DAILY07 Levothyroxine Sodium 100 Mcg Tablet 1 Tab PO DAILYAC Levocetirizine Dihydrochloride 5 Mg Tablet 1 Tab PO DAILY Imodium A-D (Loperamide HCl) 2 Mg Capsule 2 Mg PO PRN Q6HRS PRN [gamagen] 50 Gm IV Q4WK Nexium Capsule (Esomeprazole Magnesium) 40 Mg Capsule. 1 Cap PO DAILYAC Dulcolax (Bisacodyl) 5 Mg Tablet.dr 5 Mg PO PRN DAILY PRN Diclofenac Sodium 100 Gm Gel..gram. 100 Gm TP PRN PRN [cytoxan,vagpgewen1IO] 1 Each IV [id number] Colace (Docusate Sodium) 100 Mg Capsule 1 Cap PO PRN PRN Coenzyme Q-10 (Ubidecarenone) 200 Mg Capsule 200 Mg PO QHS [chloroxazone/Parafon] 500 Mg PO PRN Q6HRS PRN [arthro 7] 1 Cap PO BID Eliquis (Apixaban) 5 Mg Tablet 5 Mg PO BID Vitamin D3 (Cholecalciferol (Vitamin D3)) 1,000 Unit Tablet 2,000 Unit PO DAILY Potassium Chloride 8 Meq Capsule.er 8 Meq PO BID Hydrocodone-Apap 5-325 (Hydrocodone Bit/Acetaminophen) 1 Each Tablet 1 Tab PO PRN Q6HRS PRN Acetaminophen-Cod #3 Tablet (Acetaminophen/Codeine Phosphate) 1 Each Tablet 2 Tab PO QHS Acetaminophen-Cod #3 Tablet (Acetaminophen/Codeine Phosphate) 1 Each Tablet 1 Tab PO 0500,1400 Pravastatin Sodium 20 Mg Tablet 25 Mg PO DAILY B-12 (Cyanocobalamin (Vitamin B-12)) 3,000 Mcg Tab.subl 4,000 Mcg SL QODAY Fluticasone Propionate Nasal [place] (Fluticasone Propionate) 16 Gm [place].susp 2 [place] NS BID Tessalon Perle (Benzonatate) 100 Mg Capsule 200 Mg PO PRN Q12HR PRN Eliquis (Apixaban) 5 Mg Tablet 5 Mg PO BID Horizant (Gabapentin Enacarbil) 600 Mg Tab.er.24h 600 Mg PO BID Lisinopril 5 Mg Tablet 1 Tab PO QHS Estazolam 2 Mg Tablet 2 Mg PO HS Duloxetine Hcl 60 Mg Capsule.dr 60 Mg PO HS Levothyroxine Sodium 100 Mcg Tablet 100 Mcg PO DAILYAC Multi-Vitamin Daily (Multivitamin) 1 Each Tablet 1 Each PO DAILY Co Q-10 (Ubidecarenone) 200 Mg Capsule 200 Mg PO DAILY Coreg (Carvedilol) 25 Mg Tablet 25 Mg PO BID Allergies Allergies: Coded Allergies: cephalexin (Verified Allergy, Intermediate, 05/30/15) cyclosporine (Verified Allergy, Intermediate, 05/30/15) hydromorphone (Verified Allergy, Intermediate, 05/30/15) morphine (Verified Allergy, Intermediate, 02/20/18) nitrofurantoin (Verified Allergy, Intermediate, 05/30/15) scopolamine (Verified Allergy, Intermediate, 05/30/15) thimerosal (Verified Allergy, Intermediate, 05/30/15) I S O L A T I O N *CONTACT* (Verified Allergy, Unknown, 06/19/15) ESBL + fentanyl (Verified Adverse Reaction, Intermediate, 06/19/15) headache, dizzy, nausea, lightheaded ROS Review of System Asleep I did not awaken, some coughing up,'s possible aspiration, weak, tailbone hurts otherwise rest of ROS 14 point negative Physical Exam General: No acute distress HEENT: Atraumatic, PERRLA, EOMI, Other (very pale skin, pupils equal conjunctivae) Lungs: Clear to auscultation, Normal air movement Heart: S1S2, RRR, no thrills, no rubs, no gallops, no murmurs Cardiovascular: S1, S2 Abdomen: Soft, Other (no tenderness but abdomen is quite distended and tympanitic on percussion) Rectal Exam: not examined PELVIC: Nml ext genitalia Extremities: No clubbing, No cyanosis, No edema, Normal pulses, No tenderness/ swelling Skin: No rashes, No breakdown, No significant lesion, Other (pale skin) Psych/Mental Status: Mental status NL Vitals Vitals Vital Signs Date Time Temp Pulse Resp B/P (MAP) Pulse Ox O2 Delivery O2 Flow Rate FiO2 02/20/18 04:30 100.5 98 18 128/87 (101) 92 Nasal Cannula 3.0 100.5 Labs Labs Laboratory Tests Test 02/20/18 05:13 02/20/18 05:22 02/20/18 05:57 White Blood Count 21.3 x10^3/uL (4.0-11.0) Red Blood Count 3.48 x10^6/uL (3.50-5.40) Hemoglobin 11.3 g/dL (12.0-15.5) Hematocrit 34.3 % (36.0-47.0) Mean Corpuscular Volume 99 fL (79-100) Mean Corpuscular Hemoglobin 32 pg (25-35) Mean Corpuscular Hemoglobin Concent 33 g/dL (31-37) Red Cell Distribution Width 19.0 % (11.5-14.5) Platelet Count 180 x10^3/uL (140-400) Neutrophils (%) (Auto) 87 % (31-73) Lymphocytes (%) (Auto) 10 % (24-48) Monocytes (%) (Auto) 3 % (0-9) Eosinophils (%) (Auto) 0 % (0-3) Basophils (%) (Auto) 0 % (0-3) Neutrophils # (Auto) 18.6 x10^3uL (1.8-7.7) Lymphocytes # (Auto) 2.1 x10^3/uL (1.0-4.8) Monocytes # (Auto) 0.6 x10^3/uL (0.0-1.1) Eosinophils # (Auto) 0.0 x10^3/uL (0.0-0.7) Basophils # (Auto) 0.0 x10^3/uL (0.0-0.2) Segmented Neutrophils % 69 % (35-66) Band Neutrophils % 17 % (0-9) Lymphocytes % 9 % (24-48) Monocytes % 2 % (0-10) Metamyelocytes % 3 % (0-0) Nucleated Red Blood Cells 4 Platelet Estimate Adequate (ADEQUATE) Polychromasia Slight Hypochromasia Slight Poikilocytosis Slight Anisocytosis Slight Sodium Level 142 mmol/L (136-145) Potassium Level 3.9 mmol/L (3.5-5.1) Chloride Level 106 mmol/L (98-107) Carbon Dioxide Level 23 mmol/L (21-32) Anion Gap 13 (6-14) Blood Urea Nitrogen 34 mg/dL (7-20) Creatinine 1.2 mg/dL (0.6-1.0) Estimated GFR (Cockcroft-Gault) 44.5 BUN/Creatinine Ratio 28 (6-20) Glucose Level 135 mg/dL (70-99) Lactic Acid Level 1.5 mmol/L (0.4-2.0) Calcium Level 9.9 mg/dL (8.5-10.1) Total Bilirubin 0.5 mg/dL (0.2-1.0) Aspartate Amino Transf (AST/SGOT) 56 U/L (15-37) Alanine Aminotransferase (ALT/SGPT) 17 U/L (14-59) Alkaline Phosphatase 254 U/L (46-116) Troponin I Quantitative 0.022 ng/mL (0.000-0.055) EB-Cbl-Y-Type Natriuretic Peptide 2343 pg/mL (0-124) Total Protein 6.5 g/dL (6.4-8.2) Albumin 2.2 g/dL (3.4-5.0) Albumin/Globulin Ratio 0.5 (1.0-1.7) Lipase 29 U/L (73-393) Prothrombin Time 15.6 SEC (11.7-14.0) Prothromb Time International Ratio 1.3 (0.8-1.1) Urine Collection Type Unknown Urine Color Arely Urine Clarity Clear Urine pH 6.0 Urine Specific [place] >=1.030 Urine Protein 30 mg/dL (NEG-TRACE) Urine Glucose (UA) Negative mg/dL (NEG) Urine Ketones (Stick) Negative mg/dL (NEG) Urine Blood Negative (NEG) Urine Nitrite Negative (NEG) Urine Bilirubin Small (NEG) Urine Urobilinogen Dipstick 0.2 mg/dL (0.2 mg/dL) Urine Leukocyte Esterase Negative (NEG) Urine RBC 0 /HPF (0-2) Urine WBC Occ /HPF (0-4) Urine Squamous Epithelial Cells Occ /LPF Urine Bacteria 0 /HPF (0-FEW) Urine Hyaline Casts Many /HPF Laboratory Tests Test 02/20/18 05:13 02/20/18 05:22 02/20/18 05:57 White Blood Count 21.3 x10^3/uL (4.0-11.0) Red Blood Count 3.48 x10^6/uL (3.50-5.40) Hemoglobin 11.3 g/dL (12.0-15.5) Hematocrit 34.3 % (36.0-47.0) Mean Corpuscular Volume 99 fL (79-100) Mean Corpuscular Hemoglobin 32 pg (25-35) Mean Corpuscular Hemoglobin Concent 33 g/dL (31-37) Red Cell Distribution Width 19.0 % (11.5-14.5) Platelet Count 180 x10^3/uL (140-400) Neutrophils (%) (Auto) 87 % (31-73) Lymphocytes (%) (Auto) 10 % (24-48) Monocytes (%) (Auto) 3 % (0-9) Eosinophils (%) (Auto) 0 % (0-3) Basophils (%) (Auto) 0 % (0-3) Neutrophils # (Auto) 18.6 x10^3uL (1.8-7.7) Lymphocytes # (Auto) 2.1 x10^3/uL (1.0-4.8) Monocytes # (Auto) 0.6 x10^3/uL (0.0-1.1) Eosinophils # (Auto) 0.0 x10^3/uL (0.0-0.7) Basophils # (Auto) 0.0 x10^3/uL (0.0-0.2) Segmented Neutrophils % 69 % (35-66) Band Neutrophils % 17 % (0-9) Lymphocytes % 9 % (24-48) Monocytes % 2 % (0-10) Metamyelocytes % 3 % (0-0) Nucleated Red Blood Cells 4 Platelet Estimate Adequate (ADEQUATE) Polychromasia Slight Hypochromasia Slight Poikilocytosis Slight Anisocytosis Slight Sodium Level 142 mmol/L (136-145) Potassium Level 3.9 mmol/L (3.5-5.1) Chloride Level 106 mmol/L (98-107) Carbon Dioxide Level 23 mmol/L (21-32) Anion Gap 13 (6-14) Blood Urea Nitrogen 34 mg/dL (7-20) Creatinine 1.2 mg/dL (0.6-1.0) Estimated GFR (Cockcroft-Gault) 44.5 BUN/Creatinine Ratio 28 (6-20) Glucose Level 135 mg/dL (70-99) Lactic Acid Level 1.5 mmol/L (0.4-2.0) Calcium Level 9.9 mg/dL (8.5-10.1) Total Bilirubin 0.5 mg/dL (0.2-1.0) Aspartate Amino Transf (AST/SGOT) 56 U/L (15-37) Alanine Aminotransferase (ALT/SGPT) 17 U/L (14-59) Alkaline Phosphatase 254 U/L (46-116) Troponin I Quantitative 0.022 ng/mL (0.000-0.055) MO-Eqk-V-Type Natriuretic Peptide 2343 pg/mL (0-124) Total Protein 6.5 g/dL (6.4-8.2) Albumin 2.2 g/dL (3.4-5.0) Albumin/Globulin Ratio 0.5 (1.0-1.7) Lipase 29 U/L (73-393) Prothrombin Time 15.6 SEC (11.7-14.0) Prothromb Time International Ratio 1.3 (0.8-1.1) Urine Collection Type Unknown Urine Color Arely Urine Clarity Clear Urine pH 6.0 Urine Specific [place] >=1.030 Urine Protein 30 mg/dL (NEG-TRACE) Urine Glucose (UA) Negative mg/dL (NEG) Urine Ketones (Stick) Negative mg/dL (NEG) Urine Blood Negative (NEG) Urine Nitrite Negative (NEG) Urine Bilirubin Small (NEG) Urine Urobilinogen Dipstick 0.2 mg/dL (0.2 mg/dL) Urine Leukocyte Esterase Negative (NEG) Urine RBC 0 /HPF (0-2) Urine WBC Occ /HPF (0-4) Urine Squamous Epithelial Cells Occ /LPF Urine Bacteria 0 /HPF (0-FEW) Urine Hyaline Casts Many /HPF VTE Prophylaxis Ordered VTE Prophylaxis Devices: Yes VTE Pharmacological Prophylaxi: Yes Assessment/Plan Assessment/Plan Noninjury fall at home, traumatic Metastatic cancer of breast, to bone and liver MOderate amount ascites Ileus versus partial SBO-recent ileus versus partial SBO Possible aspiration Acute on Chronic pain Moderate PCM-albumin 2.2 AK I/VMN, creatinine 1.2 Plan: Nothing by mouth since signs of aspiration clinically per 's relay and on CT chest-[employer]IAN eval IV fluid without nothing by mouth I did consult GI regarding the ileus versus SBO I held off GS consult for this patient as a poor surgical candidate anyways Nutrition consult for the moderate PCM with an albumin 2.2 I have reconciled home meds PT OT recheck creat tmr DNR dw and ER JEFF Santiago MD Feb 20, 2018 09:16
[2018-02-20] MEDS: LEVOTHYROXINE 100 MCG TABLET PO SCH (10:30)
--- NOTE | 2018-02-20 12:03 | NUR ---
Patient received to room 538 per flakito from ER accompanied by . Patient opened eyes briefly to tell RN preferred name "Taya", otherwise sleeping and admission history information obtained from patient's Michele and sisters Theodora and Ines. Patient's received information packet and patient code for release of information to family and friends. He verb. patient was on this unit a month ago and he is familiar with unit, hospital, room and routines. See admission, assessment and orders. Patient's family verb. understanding POC: continue contact isolation r/t patient history, IVF, cardiac monitoring, NPO for now. Side rails up times two, call light at hand, family at bedside. Continue cares and monitor.
--- NOTE | 2018-02-20 12:15 | NUR ---
Addendum: No scheduled oral, topical or nasal spray medications given as patient received to unit at 1030 and not responsive enough to answer questions and NPO.
[2018-02-20] MEDS ORDERED: ACETAMINOPHEN/CODEINE 300/30MG TABLET. PO SCH (14:00)
--- NOTE | 2018-02-20 14:04 | PDOC2 ---
GI CONSULT Reason For Consult: ileus on CT HPI: HPI: Most of the history obtained from sisters. Patient is a 67-year-old female with metastatic breast cancer to the liver and to the bone, on palliative chemotherapy, last chemotherapy December [address] Sr[address] Had a ground-level fall at home today, no presyncopal symptoms, hurt her tailbone and was unable to get up had to call the ambulance per whom the patient lives with. Otherwise patient has a walker at home and has decent quality of life. Patient is now asleep after pain management from ER. CT of the abdomen and chest etc. shows the multiple liver lesions, moderate ascites and maybe ileus or partial SBO. Patient was just here 2 weeks ago for ileus versus partial SBO treated conservatively with both GI and GS on board. Per her sisters, she was offered an EGD by Dr Payton, but she declined. She is scheduled to have an EGD by Dr Dixie Starks at tomorrow. NO reports of vomiting by the but there was some coughing that the thought she was aspirating and sat her up and thought that did well. There is some signs of aspiration possibly on chest imaging. GI-velasquez, h/o resection for cecal tumor @ in 2017. Last colonoscopy in 2017 showed tumor at hepatic flexure - had exploration, unfortunately inoperable. Last EGD w/ esophagitis, gastritis, and duodenitis in 03/2016 (says no Mendes's or H. pylori). H/o GERD on PPI - previously Prilosec, thinks recent switch to Protonix beneficial. Has cholelithiasis. No liver history. Atrophic pancreas on imaging. H/o C Diff x 5, most recently in 2016 and treated w/ Flagyl and vanco. Additional h/o Giardia. On Eliquis for PE, high dose Zofran for chemo-related n/v, also mentions Tigan. PMH: PMH: Past Medical History Cardiovascular: CHF, HTN, Hyperlipidemia Pulmonary: Pulmonary embolus CENTRAL NERVOUS SYSTEM: CVA GI: GERD Heme/Onc: Cancer Hepatobiliary: No pertinent hx Psych: No pertinent hx Rheumatologic: No pertinent hx Infectious disease: Other Renal/: UTI Endocrine: No pertinent hx PMH: PMH: PE, CHF< CVA, HTN, HLD, UTI, pyelonephritis, OA, neurogenic bladder s/p Botox inj, GERD, C Diff bilateral mastectomy, resection of cecal tumor/appendectomy, exploratory (for hepatic flexure tumor), hysterectomy, right tow amputation, left ankle surgery, right knee replacement, sinus surgeries, right inguinal hernia repair, port placement Past Surgical History Past Surgical History: Appendectomy, Mastectomy, Total knee replacement Family History Family History: Diabetes Social History Smoke: No ALCOHOL: none Drugs: None Current Medications Current Medications Current Medications Sodium Chloride (NORMAL SALINE FLUSH for STERILE FIELD) 10 ml STK-MED ONCE .ROUTE ; Start 02/20/18 at 04:49; Stop 02/20/18 at 04:51; Status DC Iohexol (Omnipaque 300 Mg/ml) 75 ml 1X ONCE IV Last administered on at 06:20; Start 02/20/18 at 06:00; Stop 02/20/18 at 06:01; Status DC Info (CONTRAST GIVEN -- Rx MONITORING) 1 each PRN DAILY PRN MC SEE COMMENTS; Start 02/20/18 at 05:30; Stop 02/22/18 at 05:29 Sodium Chloride 1,000 ml @ 125 mls/hr 1X ONCE IV ; Start 02/20/18 at 06:15; Stop 02/20/18 at 14:14 Acetaminophen/ Codeine Phosphate (Tylenol #3) 1 tab 0500,1400 PO ; Start at 14:00 Apixaban (Eliquis) 5 mg BID PO ; Start 02/20/18 at 09:00; Status UNV Bisacodyl (Dulcolax Tab) 5 mg PRN DAILY PRN PO CONSTIPATION; Start 02/20/18 at 07:45 Vitamin D (Vitamin D3) 2,000 unit DAILY PO ; Start 02/20/18 at 09:00; Status UNV Docusate Sodium (Colace) 100 mg BID PRN PO CONSTIPATION; Start 02/20/18 at 07: 45; Status UNV Fluticasone Propionate (Flonase) 2 spray BID NS ; Start 02/20/18 at 09:00; Status UNV Acetaminophen/ Hydrocodone Bitart (Lortab 5/325) 1 tab PRN Q6HRS PRN PO PAIN; Start 02/20/18 at 07:45; Status UNV Levothyroxine Sodium (Synthroid) 100 mcg DAILY06 PO ; Start 02/21/18 at 10:30; Status UNV Nystatin (Nystop) 1 bailey BID TP ; Start 02/20/18 at 09:00; Status UNV Benzonatate (Tessalon Perle) 200 mg PRN Q12HR PRN PO COUGH; Start 02/20/18 at 09:00 Carvedilol (Coreg) 25 mg BIDWMEALS PO ; Start 02/20/18 at 08:30; Status UNV Cyanocobalamin (Vitamin B-12) 4,000 mcg Q48H PO ; Start 02/20/18 at 09:00; Status UNV Diclofenac Sodium (Voltaren) 1 bailey PRN QID PRN TP JOINT PAIN; Start 02/20/18 at 09:00 Duloxetine HCl (Cymbalta) 60 mg QHS PO ; Start 02/20/18 at 21:00; Status UNV Pantoprazole Sodium (Protonix) 40 mg DAILYAC PO ; Start 02/20/18 at 08:30 Non-Formulary Medication (Estazolam ) 2 mg HS PO ; Start 02/20/18 at 21:00; Status UNV Non-Formulary Medication (Gabapentin Enacarbil (Horizant)) 600 mg BID PO ; Start 02/20/18 at 09:00; Status UNV Cetirizine HCl (ZyrTEC) 10 mg DAILY PO ; Start 02/20/18 at 09:00; Status UNV Lisinopril (Prinivil) 5 mg QHS PO ; Start 02/20/18 at 21:00; Status UNV Loperamide HCl (Imodium) 2 mg PRN Q6HRS PRN PO DIARRHEA; Start 02/20/18 at 08: 45; Status UNV Multivitamins (Thera M Plus) 1 tab DAILY PO ; Start 02/20/18 at 09:00; Status UNV Potassium Chloride (Klor-Con) 10 meq BIDWMEALS PO ; Start 02/20/18 at 09:00; Status UNV Atorvastatin Calcium (Lipitor) 5 mg QHS PO ; Start 02/20/18 at 21:00 Non-Formulary Medication (S-Adenosylmethionine Sul Tosyl (Werner-E)) 400 mg DAILY PO ; Start 02/20/18 at 09:00; Status UNV Oxybutynin Chloride (Ditropan) 5 mg [id number] PO ; Start 02/20/18 at 09:00; Status UNV Non-Formulary Medication (Turmeric/ Turmeric Root Extract (Turmeric 500 mg Capsule)) 1 each QHS PO ; Start 02/20/18 at 21:00; Status UNV Non-Formulary Medication (Ubidecarenone (Co Q-10)) 200 mg DAILY PO ; Start at 09:00; Status UNV Non-Formulary Medication (Urea/Emollient Combination #65 (Uramaxin Gt 45% Kit)) 1 each PRN PRN TP dry skin; Start 02/20/18 at 07:45; Status UNV Non-Formulary Medication ([arthro 7] ) 1 cap BID PO ; Start 02/20/18 at 09:00; Status UNV Non-Formulary Medication ([chloroxazone/ Parafon] ) 500 mg PRN Q6HRS PRN PO MUSCLE SPASMS; Start 02/20/18 at 07:45; Status UNV Non-Formulary Medication ([cytoxan,[id number]] ) 1 each [id number] IV ; Start at 09:00; Status UNV Non-Formulary Medication ([gamagen] ) 50 gm Q4WK IV ; Start 02/20/18 at 09:00; Status UNV Non-Formulary Medication ([mannose] ) 1,500 mg DAILY07 PO ; Start 02/21/18 at 07:00; Status UNV Ketorolac Tromethamine (Toradol 15mg Vial) 15 mg PRN Q6HRS PRN IV PAIN; Start 02/20/18 at 08:00; Stop 02/25/18 at 07:59; Status UNV Ceftriaxone Sodium (Rocephin) 1 gm 1X ONCE IVP Last administered on at 08:34; Start 02/20/18 at 07:45; Stop 02/20/18 at 08:22; Status DC Dextrose/Lactated Ringer's 1,000 ml @ 125 mls/hr 1X ONCE IV ; Start 02/20/18 at 08:30; Stop 02/20/18 at 16:29; Status UNV Active Scripts Active Reported Uramaxin Gt 45% Kit (Urea/Emollient Combination #65) 1 Each Kt.crm.gel 1 Each TP PRN PRN Turmeric 500 mg Capsule (Turmeric/Turmeric Root Extract) 1 Each Capsule 1 Each PO QHS Trospium Chloride 20 Mg Tablet 20 Mg PO BID Prevident (Sodium Fluoride) 100 Ml Paste..ml. 100 Ml DT QHS Werner-E (S-Adenosylmethionine Sul Tosyl) 400 Mg Tablet 400 Mg PO DAILY Pennsaid (Diclofenac Sodium) 112 Gm Ebonie.md.grain loader 112 Gm TP PRN PRN Nystatin 15 Gm Powder 1 Bailey TP BID [mannose] 1,500 Mg PO DAILY07 Levothyroxine Sodium 100 Mcg Tablet 1 Tab PO DAILYAC Levocetirizine Dihydrochloride 5 Mg Tablet 1 Tab PO DAILY Imodium A-D (Loperamide HCl) 2 Mg Capsule 2 Mg PO PRN Q6HRS PRN [gamagen] 50 Gm IV Q4WK Nexium Capsule (Esomeprazole Magnesium) 40 Mg Capsule. 1 Cap PO DAILYAC Dulcolax (Bisacodyl) 5 Mg Tablet.dr 5 Mg PO PRN DAILY PRN Diclofenac Sodium 100 Gm Gel..gram. 100 Gm TP PRN PRN [cytoxan,[id number]] 1 Each IV [id number] Colace (Docusate Sodium) 100 Mg Capsule 1 Cap PO PRN PRN Coenzyme Q-10 (Ubidecarenone) 200 Mg Capsule 200 Mg PO QHS [chloroxazone/Parafon] 500 Mg PO PRN Q6HRS PRN [arthro 7] 1 Cap PO BID Eliquis (Apixaban) 5 Mg Tablet 5 Mg PO BID Vitamin D3 (Cholecalciferol (Vitamin D3)) 1,000 Unit Tablet 2,000 Unit PO DAILY Potassium Chloride 8 Meq Capsule.er 8 Meq PO BID Hydrocodone-Apap 5-325 (Hydrocodone Bit/Acetaminophen) 1 Each Tablet 1 Tab PO PRN Q6HRS PRN Acetaminophen-Cod #3 Tablet (Acetaminophen/Codeine Phosphate) 1 Each Tablet 2 Tab PO QHS Acetaminophen-Cod #3 Tablet (Acetaminophen/Codeine Phosphate) 1 Each Tablet 1 Tab PO 0500,1400 Pravastatin Sodium 20 Mg Tablet 25 Mg PO DAILY B-12 (Cyanocobalamin (Vitamin B-12)) 3,000 Mcg Tab.subl 4,000 Mcg SL QODAY Fluticasone Propionate Nasal Pony (Fluticasone Propionate) 16 Gm Pony.susp 2 Pony NS BID Tessalon Perle (Benzonatate) 100 Mg Capsule 200 Mg PO PRN Q12HR PRN Eliquis (Apixaban) 5 Mg Tablet 5 Mg PO BID Horizant (Gabapentin Enacarbil) 600 Mg Tab.er.24h 600 Mg PO BID Lisinopril 5 Mg Tablet 1 Tab PO QHS Estazolam 2 Mg Tablet 2 Mg PO HS Duloxetine Hcl 60 Mg Capsule.dr 60 Mg PO HS Levothyroxine Sodium 100 Mcg Tablet 100 Mcg PO DAILYAC Multi-Vitamin Daily (Multivitamin) 1 Each Tablet 1 Each PO DAILY Co Q-10 (Ubidecarenone) 200 Mg Capsule 200 Mg PO DAILY Coreg (Carvedilol) 25 Mg Tablet 25 Mg PO BID Allergies Allergies: Coded Allergies: cephalexin (Verified Allergy, Intermediate, 05/30/15) cyclosporine (Verified Allergy, Intermediate, 05/30/15) hydromorphone (Verified Allergy, Intermediate, 05/30/15) morphine (Verified Allergy, Intermediate, 02/20/18) nitrofurantoin (Verified Allergy, Intermediate, 05/30/15) scopolamine (Verified Allergy, Intermediate, 05/30/15) thimerosal (Verified Allergy, Intermediate, 05/30/15) I S O L A T I O N *CONTACT* (Verified Allergy, Unknown, 06/19/15) ESBL + fentanyl (Verified Adverse Reaction, Intermediate, 06/19/15) headache, dizzy, nausea, lightheaded Social History: Smoke: No ALCOHOL: none Drugs: None ROS: ROS Review of System Asleep I did not awaken, some coughing up,'s possible aspiration, weak, tailbone hurts otherwise rest of ROS 14 point negative VItals: Vitals: Vital Signs Date Time Temp Pulse Resp B/P (MAP) Pulse Ox O2 Delivery O2 Flow Rate FiO2 02/20/18 09:30 92 18 93 02/20/18 04:30 100.5 128/87 (101) Nasal Cannula 3.0 100.5 Labs: Labs: Laboratory Tests Test 02/20/18 05:13 02/20/18 05:22 02/20/18 05:57 White Blood Count 21.3 x10^3/uL (4.0-11.0) Red Blood Count 3.48 x10^6/uL (3.50-5.40) Hemoglobin 11.3 g/dL (12.0-15.5) Hematocrit 34.3 % (36.0-47.0) Mean Corpuscular Volume 99 fL (79-100) Mean Corpuscular Hemoglobin 32 pg (25-35) Mean Corpuscular Hemoglobin Concent 33 g/dL (31-37) Red Cell Distribution Width 19.0 % (11.5-14.5) Platelet Count 180 x10^3/uL (140-400) Neutrophils (%) (Auto) 87 % (31-73) Lymphocytes (%) (Auto) 10 % (24-48) Monocytes (%) (Auto) 3 % (0-9) Eosinophils (%) (Auto) 0 % (0-3) Basophils (%) (Auto) 0 % (0-3) Neutrophils # (Auto) 18.6 x10^3uL (1.8-7.7) Lymphocytes # (Auto) 2.1 x10^3/uL (1.0-4.8) Monocytes # (Auto) 0.6 x10^3/uL (0.0-1.1) Eosinophils # (Auto) 0.0 x10^3/uL (0.0-0.7) Basophils # (Auto) 0.0 x10^3/uL (0.0-0.2) Segmented Neutrophils % 69 % (35-66) Band Neutrophils % 17 % (0-9) Lymphocytes % 9 % (24-48) Monocytes % 2 % (0-10) Metamyelocytes % 3 % (0-0) Nucleated Red Blood Cells 4 Platelet Estimate Adequate (ADEQUATE) Polychromasia Slight Hypochromasia Slight Poikilocytosis Slight Anisocytosis Slight Sodium Level 142 mmol/L (136-145) Potassium Level 3.9 mmol/L (3.5-5.1) Chloride Level 106 mmol/L (98-107) Carbon Dioxide Level 23 mmol/L (21-32) Anion Gap 13 (6-14) Blood Urea Nitrogen 34 mg/dL (7-20) Creatinine 1.2 mg/dL (0.6-1.0) Estimated GFR (Cockcroft-Gault) 44.5 BUN/Creatinine Ratio 28 (6-20) Glucose Level 135 mg/dL (70-99) Lactic Acid Level 1.5 mmol/L (0.4-2.0) Calcium Level 9.9 mg/dL (8.5-10.1) Total Bilirubin 0.5 mg/dL (0.2-1.0) Aspartate Amino Transf (AST/SGOT) 56 U/L (15-37) Alanine Aminotransferase (ALT/SGPT) 17 U/L (14-59) Alkaline Phosphatase 254 U/L (46-116) Troponin I Quantitative 0.022 ng/mL (0.000-0.055) NQ-Kyq-G-Type Natriuretic Peptide 2343 pg/mL (0-124) Total Protein 6.5 g/dL (6.4-8.2) Albumin 2.2 g/dL (3.4-5.0) Albumin/Globulin Ratio 0.5 (1.0-1.7) Lipase 29 U/L (73-393) Prothrombin Time 15.6 SEC (11.7-14.0) Prothromb Time International Ratio 1.3 (0.8-1.1) Urine Collection Type Unknown Urine Color Arely Urine Clarity Clear Urine pH 6.0 Urine Specific [place] >=1.030 Urine Protein 30 mg/dL (NEG-TRACE) Urine Glucose (UA) Negative mg/dL (NEG) Urine Ketones (Stick) Negative mg/dL (NEG) Urine Blood Negative (NEG) Urine Nitrite Negative (NEG) Urine Bilirubin Small (NEG) Urine Urobilinogen Dipstick 0.2 mg/dL (0.2 mg/dL) Urine Leukocyte Esterase Negative (NEG) Urine RBC 0 /HPF (0-2) Urine WBC Occ /HPF (0-4) Urine Squamous Epithelial Cells Occ /LPF Urine Bacteria 0 /HPF (0-FEW) Urine Hyaline Casts Many /HPF Imaging: Imaging: CT A/P MPRESSION: 1. Significantly suboptimal PE study due to breathing motion artifact and contrast bolus timing. No saddle or right or left main pulmonary artery numbers. Evaluation of segmental and subsegmental pulmonary arteries is limited. 2. Patchy opacities in the left lower lobe may be secondary to aspiration, pneumonia or atelectasis. 3. Multiple liver lesions, indeterminate but in the context of malignancy may represent metastasis. Nonemergent MRI of the abdomen recommended for further evaluation. 4. Moderate volume ascites. 5. Diffusely dilated small bowel loops with air-fluid levels suggests diffuse ileus or small bowel obstruction although no discrete transition point is seen. 6. Significant left pelvocaliectasis without obstructing stone. Findings may be secondary to stricture or narrowing at left UPJ. 7. Multifocal lucent and sclerotic bony lesions concerning for osseous metastasis. Bone scan recommended. PE: Physical Exam General: Somnolent HEENT: Atraumatic, PERRLA, EOMI, Other (very pale skin, pupils equal conjunctivae) Lungs: Clear to auscultation, Normal air movement Heart: S1S2, RRR, no thrills, no rubs, no gallops, no murmurs Cardiovascular: S1, S2 Abdomen: Soft, Distended and nontender Rectal Exam: not examined PELVIC: Nml ext genitalia Extremities: No clubbing, No cyanosis, No edema, Normal pulses, No tenderness/ swelling A/P: A/P: A) 1) N/V 2) Diarrhea 3) Ileus vs SBO on imaging P 1) she has previously declined EGD with Dr Payton. Per her sisters, her wants to pursue in house EGD. Sisters are not DPOA. Will discuss with Dr Payton and defer EGD plan to him SHANDA MORROW MD Feb 20, 2018 14:04
[2018-02-20 15:00] VITALS: BP 122/63
--- NOTE | 2018-02-20 15:16 | NUR ---
No further orders per [facility] with positive sepsis screen.
--- NOTE | 2018-02-20 16:39 | NUR ---
Patient's brought patient medications not available, sent to pharmacy and labeled for inpatient use.
--- NOTE | 2018-02-20 17:42 | NUR ---
Patient moved to P500 bed per protocol. Patient able to take Coreg with sips water. See orders. Patient remains very sleepy when not aroused. at bedside. Continue cares and monitor.
[2018-02-20 19:00] VITALS: BP 122/72
[2018-02-20] MEDS: ESTAZOLAM 2 MG PO SCH (21:00)
[2018-02-20] MEDS ORDERED: NON FORMULARY ITEM (Turmeric/Turmeric Root Extract (Turmeric 500 mg Capsule) 1 EACH) PO SCH (21:00)
[2018-02-20] MEDS: DULoxetine HCL 30 MG CAPSULE.DR PO SCH (21:19)
[2018-02-20] MEDS: ATORVASTATIN CALCIUM 10 MG TABLET. PO SCH (21:22)
[2018-02-20] MEDS: LISINOPRIL 5 MG TABLET. PO SCH (21:22)
[2018-02-20] MEDS: HYDROcodone/APAP 5/325MG 1 TAB TABLET PO PRN (21:25)
[2018-02-20] MEDS ORDERED: ACETAMINOPHEN/CODEINE 300/30MG TABLET. PO PRN (22:15)
[2018-02-20 23:00] VITALS: BP 98/60
[2018-02-21 03:07] VITALS: BP 95/53
[2018-02-21] MEDS: LEVOTHYROXINE 100 MCG TABLET PO SCH (05:23)
[2018-02-21 06:10] LABS: CALCIUM 9.1 mg/dL (8.5-10.1); CREATININE 0.9 mg/dL (0.6-1.0); GFR 62.1; POTASSIUM 3.7 mmol/L (3.5-5.1)
[2018-02-21 07:00] VITALS: BP 107/56
[2018-02-21] MEDS ORDERED: MANNOSE PO SCH (07:00)
--- NOTE | 2018-02-21 07:53 | PDOC ---
G I PROGRESS NOTE Reason for Follow-up N/V with peritoneal carcinomatosis Subjective More alert today s/p fall/concussion Physical Exam Lungs decreased BS CV S1 S2 ABD distended, hypoactive BS Review of Relevant I have reviewed the following items declan (where applicable) has been applied. Labs Laboratory Tests Test 02/20/18 05:13 02/20/18 05:22 02/20/18 05:57 02/21/18 05:05 White Blood Count 21.3 x10^3/uL (4.0-11.0) Red Blood Count 3.48 x10^6/uL (3.50-5.40) Hemoglobin 11.3 g/dL (12.0-15.5) Hematocrit 34.3 % (36.0-47.0) Mean Corpuscular Volume 99 fL (79-100) Mean Corpuscular Hemoglobin 32 pg (25-35) Mean Corpuscular Hemoglobin Concent 33 g/dL (31-37) Red Cell Distribution Width 19.0 % (11.5-14.5) Platelet Count 180 x10^3/uL (140-400) Neutrophils (%) (Auto) 87 % (31-73) Lymphocytes (%) (Auto) 10 % (24-48) Monocytes (%) (Auto) 3 % (0-9) Eosinophils (%) (Auto) 0 % (0-3) Basophils (%) (Auto) 0 % (0-3) Neutrophils # (Auto) 18.6 x10^3uL (1.8-7.7) Lymphocytes # (Auto) 2.1 x10^3/uL (1.0-4.8) Monocytes # (Auto) 0.6 x10^3/uL (0.0-1.1) Eosinophils # (Auto) 0.0 x10^3/uL (0.0-0.7) Basophils # (Auto) 0.0 x10^3/uL (0.0-0.2) Segmented Neutrophils % 69 % (35-66) Band Neutrophils % 17 % (0-9) Lymphocytes % 9 % (24-48) Monocytes % 2 % (0-10) Metamyelocytes % 3 % (0-0) Nucleated Red Blood Cells 4 Platelet Estimate Adequate (ADEQUATE) Polychromasia Slight Hypochromasia Slight Poikilocytosis Slight Anisocytosis Slight Sodium Level 142 mmol/L (136-145) 146 mmol/L (136-145) Potassium Level 3.9 mmol/L (3.5-5.1) 3.7 mmol/L (3.5-5.1) Chloride Level 106 mmol/L (98-107) 111 mmol/L (98-107) Carbon Dioxide Level 23 mmol/L (21-32) 26 mmol/L (21-32) Anion Gap 13 (6-14) 9 (6-14) Blood Urea Nitrogen 34 mg/dL (7-20) 28 mg/dL (7-20) Creatinine 1.2 mg/dL (0.6-1.0) 0.9 mg/dL (0.6-1.0) Estimated GFR (Cockcroft-Gault) 44.5 62.1 BUN/Creatinine Ratio 28 (6-20) Glucose Level 135 mg/dL (70-99) 99 mg/dL (70-99) Lactic Acid Level 1.5 mmol/L (0.4-2.0) Calcium Level 9.9 mg/dL (8.5-10.1) 9.1 mg/dL (8.5-10.1) Total Bilirubin 0.5 mg/dL (0.2-1.0) Aspartate Amino Transf (AST/SGOT) 56 U/L (15-37) Alanine Aminotransferase (ALT/SGPT) 17 U/L (14-59) Alkaline Phosphatase 254 U/L (46-116) Troponin I Quantitative 0.022 ng/mL (0.000-0.055) YX-Rij-[id number]-Type Natriuretic Peptide 2343 pg/mL (0-124) Total Protein 6.5 g/dL (6.4-8.2) Albumin 2.2 g/dL (3.4-5.0) Albumin/Globulin Ratio 0.5 (1.0-1.7) Lipase 29 U/L (73-393) Prothrombin Time 15.6 SEC (11.7-14.0) Prothromb Time International Ratio 1.3 (0.8-1.1) Urine Collection Type Unknown Urine Color Arely Urine Clarity Clear Urine pH 6.0 Urine Specific [place] >=1.030 Urine Protein 30 mg/dL (NEG-TRACE) Urine Glucose (UA) Negative mg/dL (NEG) Urine Ketones (Stick) Negative mg/dL (NEG) Urine Blood Negative (NEG) Urine Nitrite Negative (NEG) Urine Bilirubin Small (NEG) Urine Urobilinogen Dipstick 0.2 mg/dL (0.2 mg/dL) Urine Leukocyte Esterase Negative (NEG) Urine RBC 0 /HPF (0-2) Urine WBC Occ /HPF (0-4) Urine Squamous Epithelial Cells Occ /LPF Urine Bacteria 0 /HPF (0-FEW) Urine Hyaline Casts Many /HPF Laboratory Tests Test 02/21/18 05:05 Sodium Level 146 mmol/L (136-145) Potassium Level 3.7 mmol/L (3.5-5.1) Chloride Level 111 mmol/L (98-107) Carbon Dioxide Level 26 mmol/L (21-32) Anion Gap 9 (6-14) Blood Urea Nitrogen 28 mg/dL (7-20) Creatinine 0.9 mg/dL (0.6-1.0) Estimated GFR (Cockcroft-Gault) 62.1 Glucose Level 99 mg/dL (70-99) Calcium Level 9.1 mg/dL (8.5-10.1) Microbiology 02/20/18 Blood Culture - Preliminary, Resulted NO GROWTH AFTER 1 DAY Medications Current Medications Sodium Chloride (NORMAL SALINE FLUSH for STERILE FIELD) 10 ml Virtual Event Bags-MED ONCE .ROUTE ; Start 02/20/18 at 04:49; Stop 02/20/18 at 04:51; Status DC Iohexol (Omnipaque 300 Mg/ml) 75 ml 1X ONCE IV Last administered on at 06:20; Start 02/20/18 at 06:00; Stop 02/20/18 at 06:01; Status DC Info (CONTRAST GIVEN -- Rx MONITORING) 1 each PRN DAILY PRN MC SEE COMMENTS; Start 02/20/18 at 05:30; Stop 02/22/18 at 05:29 Sodium Chloride 1,000 ml @ 125 mls/hr 1X ONCE IV Last administered on at 06:15; Start 02/20/18 at 06:15; Stop 02/20/18 at 14:14; Status DC Acetaminophen/ Codeine Phosphate (Tylenol #3) 1 tab 0500,1400 PO ; Start at 14:00; Stop 02/20/18 at 22:13; Status DC Apixaban (Eliquis) 5 mg BID PO ; Start 02/20/18 at 09:00 Bisacodyl (Dulcolax Tab) 5 mg PRN DAILY PRN PO CONSTIPATION; Start 02/20/18 at 07:45 Vitamin D (Vitamin D3) 2,000 unit DAILY PO ; Start 02/20/18 at 09:00 Docusate Sodium (Colace) 100 mg PRN BID PRN PO CONSTIPATION; Start 02/20/18 at 07:45 Fluticasone Propionate (Flonase) 1 spray BID NS ; Start 02/20/18 at 09:00 Acetaminophen/ Hydrocodone Bitart (Lortab 5/325) 1 tab PRN Q6HRS PRN PO MODERATE PAIN Last administered on 02/20/18at 21:25; Start 02/20/18 at 07:45 Levothyroxine Sodium (Synthroid) 100 mcg DAILY06 PO Last administered on at 05:23; Start 02/20/18 at 10:30 Nystatin (Nystop) 1 bailey BID TP ; Start 02/20/18 at 09:00 Benzonatate (Tessalon Perle) 200 mg PRN Q12HR PRN PO COUGH; Start 02/20/18 at 09:00 Carvedilol (Coreg) 25 mg BIDWMEALS PO Last administered on 02/20/18at 17:00; Start 02/20/18 at 09:15 Cyanocobalamin (Vitamin B-12) 4,000 mcg Q48H PO ; Start 02/20/18 at 09:00 Diclofenac Sodium (Voltaren) 1 bailey PRN QID PRN TP JOINT PAIN; Start 02/20/18 at 09:00 Duloxetine HCl (Cymbalta) 60 mg QHS PO Last administered on 02/20/18at 21:19; Start 02/20/18 at 21:00 Pantoprazole Sodium (Protonix) 40 mg DAILYAC PO ; Start 02/20/18 at 08:30 Non-Formulary Medication (Estazolam ) 2 mg HS PO ; Start 02/20/18 at 21:00 Non-Formulary Medication (Gabapentin Enacarbil (Horizant)) 600 mg BID PO Last administered on 02/20/18at 21:18; Start 02/20/18 at 09:00 Cetirizine HCl (ZyrTEC) 10 mg DAILY PO ; Start 02/20/18 at 09:00 Lisinopril (Prinivil) 5 mg QHS PO Last administered on 02/20/18at 21:22; Start 02/20/18 at 21:00 Loperamide HCl (Imodium) 2 mg PRN Q6HRS PRN PO DIARRHEA; Start 02/20/18 at 08: 45 Multivitamins (Thera M Plus) 1 tab DAILY PO ; Start 02/20/18 at 09:00 Potassium Chloride (Klor-Con) 10 meq BIDWMEALS PO ; Start 02/20/18 at 09:00 Atorvastatin Calcium (Lipitor) 5 mg QHS PO Last administered on 02/20/18at 21: 22; Start 02/20/18 at 21:00 Non-Formulary Medication (S-Adenosylmethionine Sul Tosyl (Werner-E)) 400 mg DAILY PO ; Start 02/20/18 at 09:00; Status UNV Oxybutynin Chloride (Ditropan) 5 mg [id number] PO Last administered on 02/20/18at 21:20; Start 02/20/18 at 09:00 Non-Formulary Medication (Turmeric/ Turmeric Root Extract (Turmeric 500 mg Capsule)) 1 each QHS PO ; Start 02/20/18 at 21:00; Status UNV Non-Formulary Medication (Ubidecarenone (Co Q-10)) 200 mg DAILY PO ; Start at 09:00; Status UNV Non-Formulary Medication (Urea/Emollient Combination #65 (Uramaxin Gt 45% Kit)) 1 each PRN PRN TP dry skin; Start 02/20/18 at 07:45; Stop 02/20/18 at 11:58; Status DC Non-Formulary Medication ([arthro 7] ) 1 cap BID PO ; Start 02/20/18 at 09:00; Status UNV Non-Formulary Medication ([chloroxazone/ Parafon] ) 500 mg PRN Q6HRS PRN PO MUSCLE SPASMS; Start 02/20/18 at 07:45; Status UNV Non-Formulary Medication ([cytoxan,[id number]] ) 1 each [id number] IV ; Start at 09:00; Stop 02/20/18 at 11:57; Status DC Non-Formulary Medication ([gamagen] ) 50 gm Q4WK IV ; Start 02/20/18 at 09:00; Stop 02/20/18 at 11:57; Status DC Non-Formulary Medication ([mannose] ) 1,500 mg DAILY07 PO ; Start 02/21/18 at 07:00; Status UNV Ketorolac Tromethamine (Toradol 15mg Vial) 15 mg PRN Q6HRS PRN IV PAIN; Start 02/20/18 at 08:00; Stop 02/25/18 at 07:59 Ceftriaxone Sodium (Rocephin) 1 gm 1X ONCE IVP Last administered on at 08:34; Start 02/20/18 at 07:45; Stop 02/20/18 at 08:22; Status DC Dextrose/Lactated Ringer's 1,000 ml @ 125 mls/hr 1X ONCE IV Last administered on 02/20/18at 14:53; Start 02/20/18 at 08:30; Stop 02/20/18 at 16 :29; Status DC Sodium Chloride 1,000 ml @ 100 mls/hr Q10H IV Last administered on 02/20/18at 21:15; Start 02/20/18 at 09:15 Info (Anti-Coagulation Monitoring By Pharmacy) 1 each PRN DAILY PRN MC SEE COMMENTS; Start 02/20/18 at 09:15 Acetaminophen/ Codeine Phosphate (Tylenol #3) 1 tab PRN BID PRN PO MODERATE PAIN; Start 02/20/18 at 22:15 Active Scripts Active Reported Uramaxin Gt 45% Kit (Urea/Emollient Combination #65) 1 Each Kt.crm.gel 1 Each TP PRN PRN Turmeric 500 mg Capsule (Turmeric/Turmeric Root Extract) 1 Each Capsule 1 Each PO QHS Trospium Chloride 20 Mg Tablet 20 Mg PO BID Prevident (Sodium Fluoride) 100 Ml Paste..ml. 100 Ml DT QHS Werner-E (S-Adenosylmethionine Sul Tosyl) 400 Mg Tablet 400 Mg PO DAILY Pennsaid (Diclofenac Sodium) 112 Gm [place].md.manufacturing leader 112 Gm TP PRN PRN Nystatin 15 Gm Powder 1 Bailey TP BID [mannose] 1,500 Mg PO DAILY07 Levothyroxine Sodium 100 Mcg Tablet 1 Tab PO DAILYAC Levocetirizine Dihydrochloride 5 Mg Tablet 1 Tab PO DAILY Imodium A-D (Loperamide HCl) 2 Mg Capsule 2 Mg PO PRN Q6HRS PRN [gamagen] 50 Gm IV Q4WK Nexium Capsule (Esomeprazole Magnesium) 40 Mg Capsule.dr 1 Cap PO DAILYAC Dulcolax (Bisacodyl) 5 Mg Tablet.dr 5 Mg PO PRN DAILY PRN Diclofenac Sodium 100 Gm Gel..gram. 100 Gm TP PRN PRN [cytoxan,[id number]] 1 Each IV [id number] Colace (Docusate Sodium) 100 Mg Capsule 1 Cap PO PRN PRN Coenzyme Q-10 (Ubidecarenone) 200 Mg Capsule 200 Mg PO QHS [chloroxazone/Parafon] 500 Mg PO PRN Q6HRS PRN [arthro 7] 1 Cap PO BID Eliquis (Apixaban) 5 Mg Tablet 5 Mg PO BID Vitamin D3 (Cholecalciferol (Vitamin D3)) 1,000 Unit Tablet 2,000 Unit PO DAILY Potassium Chloride 8 Meq Capsule.er 8 Meq PO BID Hydrocodone-Apap 5-325 (Hydrocodone Bit/Acetaminophen) 1 Each Tablet 1 Tab PO PRN Q6HRS PRN Acetaminophen-Cod #3 Tablet (Acetaminophen/Codeine Phosphate) 1 Each Tablet 2 Tab PO QHS Acetaminophen-Cod #3 Tablet (Acetaminophen/Codeine Phosphate) 1 Each Tablet 1 Tab PO 0500,1400 Pravastatin Sodium 20 Mg Tablet 25 Mg PO DAILY B-12 (Cyanocobalamin (Vitamin B-12)) 3,000 Mcg Tab.subl 4,000 Mcg SL QODAY Fluticasone Propionate Nasal [place] (Fluticasone Propionate) 16 Gm [place].susp 2 [place] NS BID Tessalon Perle (Benzonatate) 100 Mg Capsule 200 Mg PO PRN Q12HR PRN Eliquis (Apixaban) 5 Mg Tablet 5 Mg PO BID Horizant (Gabapentin Enacarbil) 600 Mg Tab.er.24h 600 Mg PO BID Lisinopril 5 Mg Tablet 1 Tab PO QHS Estazolam 2 Mg Tablet 2 Mg PO HS Duloxetine Hcl 60 Mg Capsule.dr 60 Mg PO HS Levothyroxine Sodium 100 Mcg Tablet 100 Mcg PO DAILYAC Multi-Vitamin Daily (Multivitamin) 1 Each Tablet 1 Each PO DAILY Co Q-10 (Ubidecarenone) 200 Mg Capsule 200 Mg PO DAILY Coreg (Carvedilol) 25 Mg Tablet 25 Mg PO BID Vitals/I & O Vital Sign - Last 24 Hours 02/20/18 02/20/18 02/20/18 02/20/18 08:30 09:30 10:30 15:00 Temp 98.9 98.9 Pulse 87 92 87 Resp 18 B/P (MAP) 122/63 (82) Pulse Ox 92 93 94 O2 Delivery Nasal Cannula Nasal Cannula O2 Flow Rate 4.0 02/20/18 02/20/18 02/20/18 02/20/18 17:00 19:00 20:00 21:22 Temp 98.3 98.3 Pulse 98 82 82 Resp 20 B/P (MAP) 122/63 122/72 (89) 122/72 Pulse Ox 95 O2 Delivery Nasal Cannula Nasal Cannula O2 Flow Rate 4.0 02/20/18 02/20/18 02/20/18 02/21/18 21:25 22:25 23:00 03:07 Temp 98.4 97.5 98.4 97.5 Pulse 79 67 Resp 18 18 20 20 B/P (MAP) 98/60 (73) 95/53 (67) Pulse Ox 95 95 96 95 O2 Delivery Nasal Cannula Nasal Cannula Nasal Cannula Nasal Cannula O2 Flow Rate 4.0 4.0 Intake and Output 02/20/18 02/20/18 02/21/18 15:01 23:01 07:01 Intake Total 1000 ml 1100 ml Output Total 0 ml Balance 1000 ml 1100 ml 0 ml Problem List Problems Medical Problems: (1) Acute renal insufficiency Status: Acute (2) Ascites Status: Acute (3) Dehydration Status: Acute (4) Ileus Status: Acute (5) Leukocytosis Status: Acute (6) Metastatic breast cancer Status: Acute (7) Weakness Status: Acute Assessment SBO- with peritneal carcinomatosis, longterm porgnosis poor, patient defers NG tube but is willing to proceed with TPN with h er increasing muscle weakness, oncology input regarding any further adjuvant therapy needed versus hospice STEPHANIE LINDSEY MD Feb 21, 2018 07:53
[2018-02-21] MEDS: POTASSIUM CHLORIDE 10 MEQ TABLET.ER. PO SCH ×2 (08:45→17:29)
[2018-02-21] MEDS: MULTIVITAMIN with MINERAL TABLET. PO SCH (08:45)
[2018-02-21] MEDS: CARVEDILOL 12.5 MG TABLET. PO SCH ×2 (08:46→17:29)
[2018-02-21] MEDS: CHOLECALCIFEROL (VITAMIN D3) 1,000 UNIT TABLET PO SCH (08:46)
[2018-02-21] MEDS: PANTOPRAZOLE 40 MG TABLET.DR. PO SCH (08:46)
[2018-02-21] MEDS: OXYBUTYNIN CHLORIDE 5 MG TABLET PO SCH ×3 (08:47→20:56)
[2018-02-21] MEDS: GABAPENTIN ENACARBIL 600 MG PO SCH ×2 (08:47→20:56)
[2018-02-21] MEDS: CETIRIZINE HCL 10 MG TABLET. PO SCH (08:47)
[2018-02-21] MEDS: FLUTICASONE 50MCG/NASAL SPRAY 16GM BOTTLE. NS SCH ×2 (08:48→20:53)
[2018-02-21] MEDS: IV NORMAL SALINE 1000ML BAG 1,000 ML IV SCH ×3 (08:48→20:30)
[2018-02-21] MEDS: NYSTATIN TOPICAL POWDER 15GM BOTTLE. TP SCH ×2 (08:48→20:54)
[2018-02-21] MEDS: APIXABAN 5 MG TABLET. PO SCH (08:57)
--- NOTE | 2018-02-21 10:02 | NUR ---
IP: Pt has a hx of ESBL in urine in 2016. Pt last urine culture 08/18/17 was sensitive. Pt to remain in contact precautions until a second urine culture is verified.
--- NOTE | 2018-02-21 10:48 | PDOC ---
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 She is able to do the TPN by herself. They have been thinking about hospice for 2 years now. Sounds like she will continue with palliative chemotherapy with Dr. Sr as outpatient Plan: PICC line TPN, [facility] home tomorrow with home health with PICC line/TPN Discussed with her and multiple family at bedside, time 31 minutes at least in room alone NPO as per GI dw RN Vitals Vitals Vital Signs Date Time Temp Pulse Resp B/P (MAP) Pulse Ox O2 Delivery O2 Flow Rate FiO2 02/21/18 08:46 77 107/56 02/21/18 07:00 98.3 18 97 Nasal Cannula 98.3 02/20/18 22:25 4.0 Physical Exam General: Alert, Oriented X3, Cooperative, No acute distress Heart: Regular rate Lungs: Clear, Other Abdomen: Soft, Other (no tenderness but abdomen is quite distended and tympanitic on percussion) Extremities: No clubbing, No cyanosis, No edema, Normal pulses, No tenderness/ swelling Skin: No rashes, No breakdown, No significant lesion, Other (pale skin) Labs LABS Laboratory Tests Test 02/20/18 11:30 02/21/18 05:05 Nasal Screen MRSA (PCR) Negative (Negative) Sodium Level 146 mmol/L (136-145) Potassium Level 3.7 mmol/L (3.5-5.1) Chloride Level 111 mmol/L (98-107) Carbon Dioxide Level 26 mmol/L (21-32) Anion Gap 9 (6-14) Blood Urea Nitrogen 28 mg/dL (7-20) Creatinine 0.9 mg/dL (0.6-1.0) Estimated GFR (Cockcroft-Gault) 62.1 Glucose Level 99 mg/dL (70-99) Calcium Level 9.1 mg/dL (8.5-10.1) Review of Systems Review of Systems A 14 point ROS was completed with the following noted as positive: Other systems reviewed and negative. \CONSTITUTIONAL: No fever or chills EYES: No recent changes SKIN: No rash or itching CARDIOVASCULAR: No chest pain, syncope, palpitations, or edema RESPIRATORY: No SOB or cough GASTROINTESTINAL: No nausea, vomiting or abdominal pain NEUROLOGICAL: No headaches or weakness ENDOCRINE: No cold or heat intolerance GENITOURINARY: No urgency or frequency of urination MUSCULOSKELETAL: No back pain or joint pain LYMPHATICS: No enlarged lymph nodes PSYCHIATRIC: No anxiety or depression Assessment and Plan Assessmemt and Plan Problems Medical Problems: (1) Acute renal insufficiency Status: Acute (2) Ascites Status: Acute (3) Dehydration Status: Acute (4) Ileus Status: Acute (5) Leukocytosis Status: Acute (6) Metastatic breast cancer Status: Acute (7) Weakness Status: Acute Comment Review of Relevant I have reviewed the following items edclan (where applicable) has been applied. Labs Laboratory Tests Test 02/20/18 05:13 02/20/18 05:22 02/20/18 05:57 02/20/18 11:30 White Blood Count 21.3 x10^3/uL (4.0-11.0) Red Blood Count 3.48 x10^6/uL (3.50-5.40) Hemoglobin 11.3 g/dL (12.0-15.5) Hematocrit 34.3 % (36.0-47.0) Mean Corpuscular Volume 99 fL (79-100) Mean Corpuscular Hemoglobin 32 pg (25-35) Mean Corpuscular Hemoglobin Concent 33 g/dL (31-37) Red Cell Distribution Width 19.0 % (11.5-14.5) Platelet Count 180 x10^3/uL (140-400) Neutrophils (%) (Auto) 87 % (31-73) Lymphocytes (%) (Auto) 10 % (24-48) Monocytes (%) (Auto) 3 % (0-9) Eosinophils (%) (Auto) 0 % (0-3) Basophils (%) (Auto) 0 % (0-3) Neutrophils # (Auto) 18.6 x10^3uL (1.8-7.7) Lymphocytes # (Auto) 2.1 x10^3/uL (1.0-4.8) Monocytes # (Auto) 0.6 x10^3/uL (0.0-1.1) Eosinophils # (Auto) 0.0 x10^3/uL (0.0-0.7) Basophils # (Auto) 0.0 x10^3/uL (0.0-0.2) Segmented Neutrophils % 69 % (35-66) Band Neutrophils % 17 % (0-9) Lymphocytes % 9 % (24-48) Monocytes % 2 % (0-10) Metamyelocytes % 3 % (0-0) Nucleated Red Blood Cells 4 Platelet Estimate Adequate (ADEQUATE) Polychromasia Slight Hypochromasia Slight Poikilocytosis Slight Anisocytosis Slight Sodium Level 142 mmol/L (136-145) Potassium Level 3.9 mmol/L (3.5-5.1) Chloride Level 106 mmol/L (98-107) Carbon Dioxide Level 23 mmol/L (21-32) Anion Gap 13 (6-14) Blood Urea Nitrogen 34 mg/dL (7-20) Creatinine 1.2 mg/dL (0.6-1.0) Estimated GFR (Cockcroft-Gault) 44.5 BUN/Creatinine Ratio 28 (6-20) Glucose Level 135 mg/dL (70-99) Lactic Acid Level 1.5 mmol/L (0.4-2.0) Calcium Level 9.9 mg/dL (8.5-10.1) Total Bilirubin 0.5 mg/dL (0.2-1.0) Aspartate Amino Transf (AST/SGOT) 56 U/L (15-37) Alanine Aminotransferase (ALT/SGPT) 17 U/L (14-59) Alkaline Phosphatase 254 U/L (46-116) Troponin I Quantitative 0.022 ng/mL (0.000-0.055) IF-Jzu-[id number]-Type Natriuretic Peptide 2343 pg/mL (0-124) Total Protein 6.5 g/dL (6.4-8.2) Albumin 2.2 g/dL (3.4-5.0) Albumin/Globulin Ratio 0.5 (1.0-1.7) Lipase 29 U/L (73-393) Prothrombin Time 15.6 SEC (11.7-14.0) Prothromb Time International Ratio 1.3 (0.8-1.1) Urine Collection Type Unknown Urine Color Arely Urine Clarity Clear Urine pH 6.0 Urine Specific Maiden >=1.030 Urine Protein 30 mg/dL (NEG-TRACE) Urine Glucose (UA) Negative mg/dL (NEG) Urine Ketones (Stick) Negative mg/dL (NEG) Urine Blood Negative (NEG) Urine Nitrite Negative (NEG) Urine Bilirubin Small (NEG) Urine Urobilinogen Dipstick 0.2 mg/dL (0.2 mg/dL) Urine Leukocyte Esterase Negative (NEG) Urine RBC 0 /HPF (0-2) Urine WBC Occ /HPF (0-4) Urine Squamous Epithelial Cells Occ /LPF Urine Bacteria 0 /HPF (0-FEW) Urine Hyaline Casts Many /HPF Nasal Screen MRSA (PCR) Negative (Negative) Test 02/21/18 05:05 Sodium Level 146 mmol/L (136-145) Potassium Level 3.7 mmol/L (3.5-5.1) Chloride Level 111 mmol/L (98-107) Carbon Dioxide Level 26 mmol/L (21-32) Anion Gap 9 (6-14) Blood Urea Nitrogen 28 mg/dL (7-20) Creatinine 0.9 mg/dL (0.6-1.0) Estimated GFR (Cockcroft-Gault) 62.1 Glucose Level 99 mg/dL (70-99) Calcium Level 9.1 mg/dL (8.5-10.1) Laboratory Tests Test 02/20/18 11:30 02/21/18 05:05 Nasal Screen MRSA (PCR) Negative (Negative) Sodium Level 146 mmol/L (136-145) Potassium Level 3.7 mmol/L (3.5-5.1) Chloride Level 111 mmol/L (98-107) Carbon Dioxide Level 26 mmol/L (21-32) Anion Gap 9 (6-14) Blood Urea Nitrogen 28 mg/dL (7-20) Creatinine 0.9 mg/dL (0.6-1.0) Estimated GFR (Cockcroft-Gault) 62.1 Glucose Level 99 mg/dL (70-99) Calcium Level 9.1 mg/dL (8.5-10.1) Microbiology 02/20/18 Blood Culture - Preliminary, Resulted NO GROWTH AFTER 1 DAY Medications Current Medications Sodium Chloride (NORMAL SALINE FLUSH for STERILE FIELD) 10 ml STK-MED ONCE .ROUTE ; Start 02/20/18 at 04:49; Stop 02/20/18 at 04:51; Status DC Iohexol (Omnipaque 300 Mg/ml) 75 ml 1X ONCE IV Last administered on at 06:20; Start 02/20/18 at 06:00; Stop 02/20/18 at 06:01; Status DC Info (CONTRAST GIVEN -- Rx MONITORING) 1 each PRN DAILY PRN MC SEE COMMENTS; Start 02/20/18 at 05:30; Stop 02/22/18 at 05:29 Sodium Chloride 1,000 ml @ 125 mls/hr 1X ONCE IV Last administered on at 06:15; Start 02/20/18 at 06:15; Stop 02/20/18 at 14:14; Status DC Acetaminophen/ Codeine Phosphate (Tylenol #3) 1 tab 0500,1400 PO ; Start at 14:00; Stop 02/20/18 at 22:13; Status DC Apixaban (Eliquis) 5 mg BID PO ; Start 02/20/18 at 09:00 Bisacodyl (Dulcolax Tab) 5 mg PRN DAILY PRN PO CONSTIPATION; Start 02/20/18 at 07:45 Vitamin D (Vitamin D3) 2,000 unit DAILY PO Last administered on 02/21/18at 08: 46; Start 02/20/18 at 09:00 Docusate Sodium (Colace) 100 mg PRN BID PRN PO CONSTIPATION; Start 02/20/18 at 07:45 Fluticasone Propionate (Flonase) 1 spray BID NS Last administered on at 08:48; Start 02/20/18 at 09:00 Acetaminophen/ Hydrocodone Bitart (Lortab 5/325) 1 tab PRN Q6HRS PRN PO MODERATE PAIN Last administered on 02/20/18at 21:25; Start 02/20/18 at 07:45 Levothyroxine Sodium (Synthroid) 100 mcg DAILY06 PO Last administered on at 05:23; Start 02/20/18 at 10:30 Nystatin (Nystop) 1 bailey BID TP Last administered on 02/21/18at 08:48; Start at 09:00 Benzonatate (Tessalon Perle) 200 mg PRN Q12HR PRN PO COUGH; Start 02/20/18 at 09:00 Carvedilol (Coreg) 25 mg BIDWMEALS PO Last administered on 02/21/18 08:46; Start 02/20/18 at 09:15 Cyanocobalamin (Vitamin B-12) 4,000 mcg Q48H PO ; Start 02/20/18 at 09:00 Diclofenac Sodium (Voltaren) 1 bailey PRN QID PRN TP JOINT PAIN; Start 02/20/18 at 09:00 Duloxetine HCl (Cymbalta) 60 mg QHS PO Last administered on 02/20/18 21:19; Start 02/20/18 at 21:00 Pantoprazole Sodium (Protonix) 40 mg DAILYAC PO Last administered on 08:46; Start 02/20/18 at 08:30 Non-Formulary Medication (Estazolam ) 2 mg HS PO ; Start 02/20/18 at 21:00 Non-Formulary Medication (Gabapentin Enacarbil (Horizant)) 600 mg BID PO Last administered on 02/21/18 08:47; Start 02/20/18 at 09:00 Cetirizine HCl (ZyrTEC) 10 mg DAILY PO Last administered on 02/21/18 08:47; Start 02/20/18 at 09:00 Lisinopril (Prinivil) 5 mg QHS PO Last administered on 02/20/18 21:22; Start 02/20/18 at 21:00 Loperamide HCl (Imodium) 2 mg PRN Q6HRS PRN PO DIARRHEA; Start 02/20/18 at 08: 45 Multivitamins (Thera M Plus) 1 tab DAILY PO Last administered on 02/21/18at 08: 45; Start 02/20/18 at 09:00 Potassium Chloride (Klor-Con) 10 meq BIDWMEALS PO Last administered on at 08:45; Start 02/20/18 at 09:00 Atorvastatin Calcium (Lipitor) 5 mg QHS PO Last administered on 02/20/18at 21: 22; Start 02/20/18 at 21:00 Non-Formulary Medication (S-Adenosylmethionine Sul Tosyl (Werner-E)) 400 mg DAILY PO ; Start 02/20/18 at 09:00; Status UNV Oxybutynin Chloride (Ditropan) 5 mg [id number] PO Last administered on 02/21/18at 08:47; Start 02/20/18 at 09:00 Non-Formulary Medication (Turmeric/ Turmeric Root Extract (Turmeric 500 mg Capsule)) 1 each QHS PO ; Start 02/20/18 at 21:00; Status UNV Non-Formulary Medication (Ubidecarenone (Co Q-10)) 200 mg DAILY PO ; Start at 09:00; Status UNV Non-Formulary Medication (Urea/Emollient Combination #65 (Uramaxin Gt 45% Kit)) 1 each PRN PRN TP dry skin; Start 02/20/18 at 07:45; Stop 02/20/18 at 11:58; Status DC Non-Formulary Medication ([arthro 7] ) 1 cap BID PO ; Start 02/20/18 at 09:00; Status UNV Non-Formulary Medication ([chloroxazone/ Parafon] ) 500 mg PRN Q6HRS PRN PO MUSCLE SPASMS; Start 02/20/18 at 07:45; Status UNV Non-Formulary Medication ([cytoxan,[id number]] ) 1 each [id number] IV ; Start at 09:00; Stop 02/20/18 at 11:57; Status DC Non-Formulary Medication ([gamagen] ) 50 gm Q4WK IV ; Start 02/20/18 at 09:00; Stop 02/20/18 at 11:57; Status DC Non-Formulary Medication ([mannose] ) 1,500 mg DAILY07 PO ; Start 02/21/18 at 07:00; Status UNV Ketorolac Tromethamine (Toradol 15mg Vial) 15 mg PRN Q6HRS PRN IV PAIN; Start 02/20/18 at 08:00; Stop 02/25/18 at 07:59 Ceftriaxone Sodium (Rocephin) 1 gm 1X ONCE IVP Last administered on at 08:34; Start 02/20/18 at 07:45; Stop 02/20/18 at 08:22; Status DC Dextrose/Lactated Ringer's 1,000 ml @ 125 mls/hr 1X ONCE IV Last administered on 02/20/18at 14:53; Start 02/20/18 at 08:30; Stop 02/20/18 at 16 :29; Status DC Sodium Chloride 1,000 ml @ 100 mls/hr Q10H IV Last administered on 02/21/18at 08:48; Start 02/20/18 at 09:15 Info (Anti-Coagulation Monitoring By Pharmacy) 1 each PRN DAILY PRN MC SEE COMMENTS; Start 02/20/18 at 09:15 Acetaminophen/ Codeine Phosphate (Tylenol #3) 1 tab PRN BID PRN PO MODERATE PAIN; Start 02/20/18 at 22:15 Active Scripts Active Reported Uramaxin Gt 45% Kit (Urea/Emollient Combination #65) 1 Each Kt.crm.gel 1 Each TP PRN PRN Turmeric 500 mg Capsule (Turmeric/Turmeric Root Extract) 1 Each Capsule 1 Each PO QHS Trospium Chloride 20 Mg Tablet 20 Mg PO BID Prevident (Sodium Fluoride) 100 Ml Paste..ml. 100 Ml DT QHS Werner-E (S-Adenosylmethionine Sul Tosyl) 400 Mg Tablet 400 Mg PO DAILY Pennsaid (Diclofenac Sodium) 112 Gm Ebonie.md.rubberizing mechanic 112 Gm TP PRN PRN Nystatin 15 Gm Powder 1 Bailey TP BID [mannose] 1,500 Mg PO DAILY07 Levothyroxine Sodium 100 Mcg Tablet 1 Tab PO DAILYAC Levocetirizine Dihydrochloride 5 Mg Tablet 1 Tab PO DAILY Imodium A-D (Loperamide HCl) 2 Mg Capsule 2 Mg PO PRN Q6HRS PRN [gamagen] 50 Gm IV Q4WK Nexium Capsule (Esomeprazole Magnesium) 40 Mg Capsule. 1 Cap PO DAILYAC Dulcolax (Bisacodyl) 5 Mg Tablet.dr 5 Mg PO PRN DAILY PRN Diclofenac Sodium 100 Gm Gel..gram. 100 Gm TP PRN PRN [cytoxan,[id number]] 1 Each IV [id number] Colace (Docusate Sodium) 100 Mg Capsule 1 Cap PO PRN PRN Coenzyme Q-10 (Ubidecarenone) 200 Mg Capsule 200 Mg PO QHS [chloroxazone/Parafon] 500 Mg PO PRN Q6HRS PRN [arthro 7] 1 Cap PO BID Eliquis (Apixaban) 5 Mg Tablet 5 Mg PO BID Vitamin D3 (Cholecalciferol (Vitamin D3)) 1,000 Unit Tablet 2,000 Unit PO DAILY Potassium Chloride 8 Meq Capsule.er 8 Meq PO BID Hydrocodone-Apap 5-325 (Hydrocodone Bit/Acetaminophen) 1 Each Tablet 1 Tab PO PRN Q6HRS PRN Acetaminophen-Cod #3 Tablet (Acetaminophen/Codeine Phosphate) 1 Each Tablet 2 Tab PO QHS Acetaminophen-Cod #3 Tablet (Acetaminophen/Codeine Phosphate) 1 Each Tablet 1 Tab PO 0500,1400 Pravastatin Sodium 20 Mg Tablet 25 Mg PO DAILY B-12 (Cyanocobalamin (Vitamin B-12)) 3,000 Mcg Tab.subl 4,000 Mcg SL QODAY Fluticasone Propionate Nasal [place] (Fluticasone Propionate) 16 Gm [place].susp 2 [place] NS BID Tessalon Perle (Benzonatate) 100 Mg Capsule 200 Mg PO PRN Q12HR PRN Eliquis (Apixaban) 5 Mg Tablet 5 Mg PO BID Horizant (Gabapentin Enacarbil) 600 Mg Tab.er.24h 600 Mg PO BID Lisinopril 5 Mg Tablet 1 Tab PO QHS Estazolam 2 Mg Tablet 2 Mg PO HS Duloxetine Hcl 60 Mg Capsule.dr 60 Mg PO HS Levothyroxine Sodium 100 Mcg Tablet 100 Mcg PO DAILYAC Multi-Vitamin Daily (Multivitamin) 1 Each Tablet 1 Each PO DAILY Co Q-10 (Ubidecarenone) 200 Mg Capsule 200 Mg PO DAILY Coreg (Carvedilol) 25 Mg Tablet 25 Mg PO BID Vitals/I & O Vital Sign - Last 24 Hours 02/20/18 02/20/18 02/20/18 02/20/18 15:00 17:00 19:00 20:00 Temp 98.9 98.3 98.9 98.3 Pulse 87 98 82 Resp 18 20 B/P (MAP) 122/63 (82) 122/63 122/72 (89) Pulse Ox 94 95 O2 Delivery Nasal Cannula Nasal Cannula Nasal Cannula O2 Flow Rate 4.0 02/20/18 02/20/18 02/20/18 02/20/18 21:22 21:25 22:25 23:00 Temp 98.4 98.4 Pulse 82 79 Resp 18 18 20 B/P (MAP) 122/72 98/60 (73) Pulse Ox 95 95 96 O2 Delivery Nasal Cannula Nasal Cannula Nasal Cannula O2 Flow Rate 4.0 4.0 02/21/18 02/21/18 02/21/18 03:07 07:00 08:46 Temp 97.5 98.3 97.5 98.3 Pulse 67 77 77 Resp 20 18 B/P (MAP) 95/53 (67) 107/56 (73) 107/56 Pulse Ox 95 97 O2 Delivery Nasal Cannula Nasal Cannula Intake and Output 02/20/18 02/20/18 02/21/18 15:01 23:01 07:01 Intake Total 1000 ml 1100 ml Output Total 0 ml Balance 1000 ml 1100 ml 0 ml JEFF RIVERA MD Feb 21, 2018 10:48
[2018-02-21 11:00] VITALS: BP 102/62
[2018-02-21 13:37] LABS: MAGNESIUM 1.5 mg/dL (1.8-2.4); PHOSPHORUS 4.3 mg/dL (2.6-4.7)
[2018-02-21] MEDS: TPN PER PHARMACY MC PRN (13:48)
--- NOTE | 2018-02-21 13:51 | NUR ---
Pharmacy TPN Dosing Note S: BROTHERS,HAFSA is a 67 year old F Currently receiving Central Continuous TPN started 02/21/18 B:Pertinent PMH: Ileus vs. SBO Height: 5 feet, 8.5 inches Weight: 115.4 kg Current diet: NPO LABS: Sodium: 146 Potassium: 3.7 Chloride: 111 Calcium: 9.1 Corrected Calcium: 10.54 Magnesium: 1.5 CO2: 26 SCr: 0.9 Glucose: 99 Albumin: 2.2 AST: 56 ALT: 17 TPN FORMULA: TPN TYPE: Central Continuous AMINO ACIDS: 60 gm DEXTROSE: 195 gm LIPIDS: 20 gm SODIUM CHLORIDE: 20 mEq SODIUM ACETATE: 70 mEq POTASSIUM CHLORIDE: 50 mEq POTASSIUM PHOSPHATE: 13.6 mmol MAGNESIUM: 10 mEq CALCIUM: 10 mEq MULTIPLE VITAMIN: 10 ml TRACE ELEMENTS: 1 ml TPN PLAN: Initiate house formula TPN with sodium split over chloride/acetate salt forms. Magnesium replaced per labs w/1g IVPB 1x dose today. Labs ordered for am. R: Begin TPN Will monitor electrolytes, glucose, and tolerance to TPN. Melba Merrill [facility]MERLY [facility] [place], 02/21/18 [id number]
[2018-02-21] MEDS ORDERED: MAGNESIUM SULFATE 1GM 100 ML IV ONE (14:00)
[2018-02-21 15:00] VITALS: BP 109/53
[2018-02-21] MEDS: ANTI-COAG MONITOR BY PHARMACY. MC PRN (15:26)
[2018-02-21 19:10] VITALS: BP 77/64
--- NOTE | 2018-02-21 19:11 | PDOC2 ---
CONSULT Date of Consult Date of Consult DATE: 02/21/18 TIME: 18:59 Reason for consultation: Cancer patient, consider pall chemo? Consult: Hematology oncology, Dr. Elías Lugo covering for Dr Sr History of present illness: She is a 67-year-old female with metastatic breast cancer, on palliative chemotherapy, admitted with concern ileus/small bowel obstruction, with abdominal pain, diffuse extending to rest of abdomen, acute on chronic, associated with diarrhea and nausea, and weakness, has worsened over time, and will be starting TPN tonight. Her physicians have wanted to consider hospice and we were consulted. Dr. rS is her primary oncologist and he will return in the morning. Past medical history: SVT Back pain Metastatic breast cancer Bipolar Carpal tunnel syndrome Cataracts Chronic kidney disease Chronic headaches Colon polyps Depression Hyperlipidemia Fibromyalgia History of foot ulcer High blood pressure Kidney stones Possible prior inflammatory bowel disease? History of Lyme disease Miscarriage Obstructive sleep apnea Osteoarthritis Osteoporosis Panic disorder Peripheral neuropathy History of pulmonary embolism 2013 History of recurrent infections with hypogammaglobinemia History of TIA in 2004 Thyroid disorder History of UTI History of colon cancer SBO/ileus Past surgical history: sinus surgery foot surgery Mastectomy Hysterectomy Back surgery Knee surgery Ureteral stent Port placement Colonoscopy Upper endoscopy Right hemicolectomy Ankle surgery Bladder surgery Breast biopsy Hand surgery Hemorrhoidectomy Hernia repair Cataract surgery History of D&C Tonsillectomy Tubal ligation Kidney stents Oophorectomy Rectal sphincterotomy Allergies: Multiple, list reviewed Medications: See attached list Social history: , never smoker, very rare alcohol, 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 difficile, otherwise rest of review of systems negative. Physical exam: Vitals reviewed Gen.: obese elderly female resting in bed in no acute distress, on the phone HEENT: mucous membranes moist, head normocephalic atraumatic Neck: Supple Lungs: Breathing comfortably on NCO2, no evidence of respiratory distress Heart: tachycardia Abdomen: tender to palpation diffuse w/o rebound, distended, umbilical hernia Extremities: No cyanosis, does have BLE edema Skin: No obvious rashes or skin breakdown Neuro: Alert and oriented 3 Psych: talkative mood and affect Lab reviewed: White count 21, hemoglobin 11.3, platelets 180, creatinine 0.9 Rads reviewed: [address] angiogram abdomen and pelvis showed patchy opacities left lower lobe, suboptimal for PE, liver lesions, ascites, ileus/ possible small bowel obstruction, bony lesions Case discussed with: Patient, my nurse, records reviewed in [facility], including labs and radiology, please see note for summary details. Assessment and Plan: She is a 67-year-old female with metastatic breast cancer w / peritoneal carcinomatosis, on palliative chemotherapy, admitted with ileus symptoms, starting TPN tonight, with concern for potential transition to palliative care. Breast cancer: Chemotherapy on hold, for current admit, Dr. Sr will return in the morning to discuss further goals of care abdominal pain: TPN beginning tonight, GI is involved, their help is appreciated Prophylaxis: Currently on apixaban Thank you kindly for this consultation, and please don't hesitate to call with further questions. Past Medical History Cardiovascular: CHF, HTN, Hyperlipidemia Pulmonary: Pulmonary embolus CENTRAL NERVOUS SYSTEM: CVA GI: GERD Heme/Onc: Cancer Hepatobiliary: No pertinent hx Psych: No pertinent hx Rheumatologic: No pertinent hx Infectious disease: Other Renal/: UTI Endocrine: No pertinent hx Past Surgical History Past Surgical History: Appendectomy, Mastectomy, Total knee replacement Family History Family History: Diabetes Social History No ALCOHOL: none Drugs: None Current Problem List Problem List Problems Medical Problems: (1) Acute renal insufficiency Status: Acute (2) Ascites Status: Acute (3) Dehydration Status: Acute (4) Ileus Status: Acute (5) Leukocytosis Status: Acute (6) Metastatic breast cancer Status: Acute (7) Weakness Status: Acute Current Medications Current Medications Current Medications Sodium Chloride (NORMAL SALINE FLUSH for STERILE FIELD) 10 ml E96-MED ONCE .ROUTE ; Start 02/20/18 at 04:49; Stop 02/20/18 at 04:51; Status DC Iohexol (Omnipaque 300 Mg/ml) 75 ml 1X ONCE IV Last administered on at 06:20; Start 02/20/18 at 06:00; Stop 02/20/18 at 06:01; Status DC Info (CONTRAST GIVEN -- Rx MONITORING) 1 each PRN DAILY PRN MC SEE COMMENTS; Start 02/20/18 at 05:30; Stop 02/22/18 at 05:29 Sodium Chloride 1,000 ml @ 125 mls/hr 1X ONCE IV Last administered on at 06:15; Start 02/20/18 at 06:15; Stop 02/20/18 at 14:14; Status DC Acetaminophen/ Codeine Phosphate (Tylenol #3) 1 tab 0500,1400 PO ; Start at 14:00; Stop 02/20/18 at 22:13; Status DC Apixaban (Eliquis) 5 mg BID PO ; Start 02/20/18 at 09:00 Bisacodyl (Dulcolax Tab) 5 mg PRN DAILY PRN PO CONSTIPATION; Start 02/20/18 at 07:45 Vitamin D (Vitamin D3) 2,000 unit DAILY PO Last administered on 02/21/18at 08: 46; Start 02/20/18 at 09:00 Docusate Sodium (Colace) 100 mg PRN BID PRN PO HARD STOOLS; Start 02/20/18 at 07:45 Fluticasone Propionate (Flonase) 1 spray BID NS Last administered on at 08:48; Start 02/20/18 at 09:00 Acetaminophen/ Hydrocodone Bitart (Lortab 5/325) 1 tab PRN Q6HRS PRN PO SEVERE PAIN Last administered on 02/20/18at 21:25; Start 02/20/18 at 07:45 Levothyroxine Sodium (Synthroid) 100 mcg DAILY06 PO Last administered on at 05:23; Start 02/20/18 at 10:30 Nystatin (Nystop) 1 bailey BID TP Last administered on 02/21/18at 08:48; Start at 09:00 Benzonatate (Tessalon Perle) 200 mg PRN Q12HR PRN PO COUGH; Start 02/20/18 at 09:00 Carvedilol (Coreg) 25 mg BIDWMEALS PO Last administered on 02/21/18at 17:29; Start 02/20/18 at 09:15 Cyanocobalamin (Vitamin B-12) 4,000 mcg Q48H PO ; Start 02/20/18 at 09:00 Diclofenac Sodium (Voltaren) 1 bailey PRN QID PRN TP JOINT PAIN; Start 02/20/18 at 09:00 Duloxetine HCl (Cymbalta) 60 mg QHS PO Last administered on 02/20/18 21:19; Start 02/20/18 at 21:00 Pantoprazole Sodium (Protonix) 40 mg DAILYAC PO Last administered on at 08:46; Start 02/20/18 at 08:30 Non-Formulary Medication (Estazolam ) 2 mg HS PO ; Start 02/20/18 at 21:00 Non-Formulary Medication (Gabapentin Enacarbil (Horizant)) 600 mg BID PO Last administered on 02/21/18at 08:47; Start 02/20/18 at 09:00 Cetirizine HCl (ZyrTEC) 10 mg DAILY PO Last administered on 02/21/18 08:47; Start 02/20/18 at 09:00 Lisinopril (Prinivil) 5 mg QHS PO Last administered on 02/20/18 21:22; Start 02/20/18 at 21:00 Loperamide HCl (Imodium) 2 mg PRN Q6HRS PRN PO DIARRHEA; Start 02/20/18 at 08: 45 Multivitamins (Thera M Plus) 1 tab DAILY PO Last administered on 02/21/18at 08: 45; Start 02/20/18 at 09:00; Stop 02/21/18 at 13:47; Status DC Potassium Chloride (Klor-Con) 10 meq BIDWMEALS PO Last administered on at 17:29; Start 02/20/18 at 09:00 Atorvastatin Calcium (Lipitor) 5 mg QHS PO Last administered on 02/20/18at 21: 22; Start 02/20/18 at 21:00 Non-Formulary Medication (S-Adenosylmethionine Sul Tosyl (Werner-E)) 400 mg DAILY PO ; Start 02/20/18 at 09:00; Status UNV Oxybutynin Chloride (Ditropan) 5 mg [id number] PO Last administered on 02/21/18at 14:25; Start 02/20/18 at 09:00 Non-Formulary Medication (Turmeric/ Turmeric Root Extract (Turmeric 500 mg Capsule)) 1 each QHS PO ; Start 02/20/18 at 21:00; Status UNV Non-Formulary Medication (Ubidecarenone (Co Q-10)) 200 mg DAILY PO ; Start at 09:00; Status UNV Non-Formulary Medication (Urea/Emollient Combination #65 (Uramaxin Gt 45% Kit)) 1 each PRN PRN TP dry skin; Start 02/20/18 at 07:45; Stop 02/20/18 at 11:58; Status DC Non-Formulary Medication ([arthro 7] ) 1 cap BID PO ; Start 02/20/18 at 09:00; Status UNV Non-Formulary Medication ([chloroxazone/ Parafon] ) 500 mg PRN Q6HRS PRN PO MUSCLE SPASMS; Start 02/20/18 at 07:45; Status UNV Non-Formulary Medication ([cytoxan,[id number]] ) 1 each [id number] IV ; Start at 09:00; Stop 02/20/18 at 11:57; Status DC Non-Formulary Medication ([gamagen] ) 50 gm Q4WK IV ; Start 02/20/18 at 09:00; Stop 02/20/18 at 11:57; Status DC Non-Formulary Medication ([mannose] ) 1,500 mg DAILY07 PO ; Start 02/21/18 at 07:00; Status UNV Ketorolac Tromethamine (Toradol 15mg Vial) 15 mg PRN Q6HRS PRN IV PAIN; Start 02/20/18 at 08:00; Stop 02/25/18 at 07:59 Ceftriaxone Sodium (Rocephin) 1 gm 1X ONCE IVP Last administered on at 08:34; Start 02/20/18 at 07:45; Stop 02/20/18 at 08:22; Status DC Dextrose/Lactated Ringer's 1,000 ml @ 125 mls/hr 1X ONCE IV Last administered on 02/20/18at 14:53; Start 02/20/18 at 08:30; Stop 02/20/18 at 16 :29; Status DC Sodium Chloride 1,000 ml @ 100 mls/hr Q10H IV Last administered on 02/21/18at 17:30; Start 02/20/18 at 09:15; Stop 02/21/18 at 21:59 Info (Anti-Coagulation Monitoring By Pharmacy) 1 each PRN DAILY PRN MC SEE COMMENTS Last administered on 02/21/18at 15:26; Start 02/20/18 at 09:15 Acetaminophen/ Codeine Phosphate (Tylenol #3) 1 tab PRN BID PRN PO MODERATE PAIN; Start 02/20/18 at 22:15 Info (Tpn Per Pharmacy) 1 each PRN DAILY PRN MC SEE COMMENTS Last administered on 02/21/18at 13:48; Start 02/21/18 at 12:00 Magnesium Sulfate/ Dextrose 100 ml @ 100 mls/hr 1X ONCE IV Last administered on 02/21/18at 14:25; Start 02/21/18 at 14:00; Stop 02/21/18 at 14:59; Status DC Sodium Chloride 20 meq/Sodium Acetate 70 meq/ Potassium Chloride 50 meq/ Potassium Phosphate 13.6 mmol/Magnesium Sulfate 10 meq/ Calcium Gluconate 10 meq / Multivitamins 10 ml/Chromium/ Copper/Manganese/ Seleni/Zn 1 ml/ Total Parenteral Nutrition/Amino Acids/Dextrose/ Fat Emuls... 1,512 ml @ 63 mls/hr TPN CONT IV ; Start 02/21/18 at 22:00; Stop 02/22/18 at 21:59 Active Scripts Active Reported Uramaxin Gt 45% Kit (Urea/Emollient Combination #65) 1 Each Kt.crm.gel 1 Each TP PRN PRN Turmeric 500 mg Capsule (Turmeric/Turmeric Root Extract) 1 Each Capsule 1 Each PO QHS Trospium Chloride 20 Mg Tablet 20 Mg PO BID Prevident (Sodium Fluoride) 100 Ml Paste..ml. 100 Ml DT QHS Werner-E (S-Adenosylmethionine Sul Tosyl) 400 Mg Tablet 400 Mg PO DAILY [place] (Diclofenac Sodium) 112 Gm [place]..transportation agent 112 Gm TP PRN PRN Nystatin 15 Gm Powder 1 Bailey TP BID [mannose] 1,500 Mg PO DAILY07 Levothyroxine Sodium 100 Mcg Tablet 1 Tab PO DAILYAC Levocetirizine Dihydrochloride 5 Mg Tablet 1 Tab PO DAILY Imodium A-D (Loperamide HCl) 2 Mg Capsule 2 Mg PO PRN Q6HRS PRN [gamagen] 50 Gm IV Q4WK Nexium Capsule (Esomeprazole Magnesium) 40 Mg Capsule.dr 1 Cap PO DAILYAC Dulcolax (Bisacodyl) 5 Mg Tablet.dr 5 Mg PO PRN DAILY PRN Diclofenac Sodium 100 Gm Gel..gram. 100 Gm TP PRN PRN [cytoxan,[id number]] 1 Each IV [id number] Colace (Docusate Sodium) 100 Mg Capsule 1 Cap PO PRN PRN Coenzyme Q-10 (Ubidecarenone) 200 Mg Capsule 200 Mg PO QHS [chloroxazone/Parafon] 500 Mg PO PRN Q6HRS PRN [arthro 7] 1 Cap PO BID Eliquis (Apixaban) 5 Mg Tablet 5 Mg PO BID Vitamin D3 (Cholecalciferol (Vitamin D3)) 1,000 Unit Tablet 2,000 Unit PO DAILY Potassium Chloride 8 Meq Capsule.er 8 Meq PO BID Hydrocodone-Apap 5-325 (Hydrocodone Bit/Acetaminophen) 1 Each Tablet 1 Tab PO PRN Q6HRS PRN Acetaminophen-Cod #3 Tablet (Acetaminophen/Codeine Phosphate) 1 Each Tablet 2 Tab PO QHS Acetaminophen-Cod #3 Tablet (Acetaminophen/Codeine Phosphate) 1 Each Tablet 1 Tab PO 0500,1400 Pravastatin Sodium 20 Mg Tablet 25 Mg PO DAILY B-12 (Cyanocobalamin (Vitamin B-12)) 3,000 Mcg Tab.subl 4,000 Mcg SL QODAY Fluticasone Propionate Nasal [place] (Fluticasone Propionate) 16 Gm [place].susp 2 [place] NS BID Tessalon Perle (Benzonatate) 100 Mg Capsule 200 Mg PO PRN Q12HR PRN Eliquis (Apixaban) 5 Mg Tablet 5 Mg PO BID Horizant (Gabapentin Enacarbil) 600 Mg Tab.er.24h 600 Mg PO BID Lisinopril 5 Mg Tablet 1 Tab PO QHS Estazolam 2 Mg Tablet 2 Mg PO HS Duloxetine Hcl 60 Mg Capsule.dr 60 Mg PO HS Levothyroxine Sodium 100 Mcg Tablet 100 Mcg PO DAILYAC Multi-Vitamin Daily (Multivitamin) 1 Each Tablet 1 Each PO DAILY Co Q-10 (Ubidecarenone) 200 Mg Capsule 200 Mg PO DAILY Coreg (Carvedilol) 25 Mg Tablet 25 Mg PO BID Allergies Allergies: Coded Allergies: cephalexin (Verified Allergy, Intermediate, 05/30/15) cyclosporine (Verified Allergy, Intermediate, 05/30/15) hydromorphone (Verified Allergy, Intermediate, 05/30/15) morphine (Verified Allergy, Intermediate, 02/20/18) nitrofurantoin (Verified Allergy, Intermediate, 05/30/15) scopolamine (Verified Allergy, Intermediate, 05/30/15) thimerosal (Verified Allergy, Intermediate, 05/30/15) I S O L A T I O N *CONTACT* (Verified Allergy, Unknown, 06/19/15) ESBL + fentanyl (Verified Adverse Reaction, Intermediate, 06/19/15) headache, dizzy, nausea, lightheaded Vitals VITALS Vital Signs Date Time Temp Pulse Resp B/P (MAP) Pulse Ox O2 Delivery O2 Flow Rate FiO2 02/21/18 17:29 161 109/53 02/21/18 15:00 98.4 20 95 Nasal Cannula 98.4 02/21/18 08:00 4.0 Labs Labs Laboratory Tests Test 02/20/18 05:13 02/20/18 05:22 02/20/18 05:57 02/20/18 11:30 White Blood Count 21.3 x10^3/uL (4.0-11.0) Red Blood Count 3.48 x10^6/uL (3.50-5.40) Hemoglobin 11.3 g/dL (12.0-15.5) Hematocrit 34.3 % (36.0-47.0) Mean Corpuscular Volume 99 fL (79-100) Mean Corpuscular Hemoglobin 32 pg (25-35) Mean Corpuscular Hemoglobin Concent 33 g/dL (31-37) Red Cell Distribution Width 19.0 % (11.5-14.5) Platelet Count 180 x10^3/uL (140-400) Neutrophils (%) (Auto) 87 % (31-73) Lymphocytes (%) (Auto) 10 % (24-48) Monocytes (%) (Auto) 3 % (0-9) Eosinophils (%) (Auto) 0 % (0-3) Basophils (%) (Auto) 0 % (0-3) Neutrophils # (Auto) 18.6 x10^3uL (1.8-7.7) Lymphocytes # (Auto) 2.1 x10^3/uL (1.0-4.8) Monocytes # (Auto) 0.6 x10^3/uL (0.0-1.1) Eosinophils # (Auto) 0.0 x10^3/uL (0.0-0.7) Basophils # (Auto) 0.0 x10^3/uL (0.0-0.2) Segmented Neutrophils % 69 % (35-66) Band Neutrophils % 17 % (0-9) Lymphocytes % 9 % (24-48) Monocytes % 2 % (0-10) Metamyelocytes % 3 % (0-0) Nucleated Red Blood Cells 4 Platelet Estimate Adequate (ADEQUATE) Polychromasia Slight Hypochromasia Slight Poikilocytosis Slight Anisocytosis Slight Sodium Level 142 mmol/L (136-145) Potassium Level 3.9 mmol/L (3.5-5.1) Chloride Level 106 mmol/L (98-107) Carbon Dioxide Level 23 mmol/L (21-32) Anion Gap 13 (6-14) Blood Urea Nitrogen 34 mg/dL (7-20) Creatinine 1.2 mg/dL (0.6-1.0) Estimated GFR (Cockcroft-Gault) 44.5 BUN/Creatinine Ratio 28 (6-20) Glucose Level 135 mg/dL (70-99) Lactic Acid Level 1.5 mmol/L (0.4-2.0) Calcium Level 9.9 mg/dL (8.5-10.1) Total Bilirubin 0.5 mg/dL (0.2-1.0) Aspartate Amino Transf (AST/SGOT) 56 U/L (15-37) Alanine Aminotransferase (ALT/SGPT) 17 U/L (14-59) Alkaline Phosphatase 254 U/L (46-116) Troponin I Quantitative 0.022 ng/mL (0.000-0.055) AG-Sfu-A-Type Natriuretic Peptide 2343 pg/mL (0-124) Total Protein 6.5 g/dL (6.4-8.2) Albumin 2.2 g/dL (3.4-5.0) Albumin/Globulin Ratio 0.5 (1.0-1.7) Lipase 29 U/L (73-393) Prothrombin Time 15.6 SEC (11.7-14.0) Prothromb Time International Ratio 1.3 (0.8-1.1) Urine Collection Type Unknown Urine Color Raely Urine Clarity Clear Urine pH 6.0 Urine Specific [place] >=1.030 Urine Protein 30 mg/dL (NEG-TRACE) Urine Glucose (UA) Negative mg/dL (NEG) Urine Ketones (Stick) Negative mg/dL (NEG) Urine Blood Negative (NEG) Urine Nitrite Negative (NEG) Urine Bilirubin Small (NEG) Urine Urobilinogen Dipstick 0.2 mg/dL (0.2 mg/dL) Urine Leukocyte Esterase Negative (NEG) Urine RBC 0 /HPF (0-2) Urine WBC Occ /HPF (0-4) Urine Squamous Epithelial Cells Occ /LPF Urine Bacteria 0 /HPF (0-FEW) Urine Hyaline Casts Many /HPF Nasal Screen MRSA (PCR) Negative (Negative) Test 02/21/18 05:05 Sodium Level 146 mmol/L (136-145) Potassium Level 3.7 mmol/L (3.5-5.1) Chloride Level 111 mmol/L (98-107) Carbon Dioxide Level 26 mmol/L (21-32) Anion Gap 9 (6-14) Blood Urea Nitrogen 28 mg/dL (7-20) Creatinine 0.9 mg/dL (0.6-1.0) Estimated GFR (Cockcroft-Gault) 62.1 Glucose Level 99 mg/dL (70-99) Calcium Level 9.1 mg/dL (8.5-10.1) Phosphorus Level 4.3 mg/dL (2.6-4.7) Magnesium Level 1.5 mg/dL (1.8-2.4) Laboratory Tests Test 02/21/18 05:05 Sodium Level 146 mmol/L (136-145) Potassium Level 3.7 mmol/L (3.5-5.1) Chloride Level 111 mmol/L (98-107) Carbon Dioxide Level 26 mmol/L (21-32) Anion Gap 9 (6-14) Blood Urea Nitrogen 28 mg/dL (7-20) Creatinine 0.9 mg/dL (0.6-1.0) Estimated GFR (Cockcroft-Gault) 62.1 Glucose Level 99 mg/dL (70-99) Calcium Level 9.1 mg/dL (8.5-10.1) Phosphorus Level 4.3 mg/dL (2.6-4.7) Magnesium Level 1.5 mg/dL (1.8-2.4) ELÍAS LUGO MD Feb 21, 2018 19:11
--- NOTE | 2018-02-21 19:23 | NUR ---
This Patient was in Sinus Tachycardia (160s) starting around 1700, this RN gave the scheduled Coreg due. Patient's HR stayed in the 160s. This RN paged Dr. Washington, who gave this RN orders to consult cardiology and see what they think about a cardizem drip as well as an EKG. Dr. Washington gave ok to transfer to Cardiac unit. This RN spoke with Dr. Barillas, who agreed that patient needed to be on the cardiac floor and that he will come see patient and see about the possibility of a cardizem drip. This RN gave report to Maria G TORRES regarding patient history and plan of care. Dr. Barillas to see patient. Patient aware of plans and agreeable. This RN transported patient downstairs with help of Snow MURDOCK. All belongings with patient.
--- NOTE | 2018-02-21 19:35 | NUR ---
Pt transferred to room 201 per bed. tele monitor applied to pt vs obtained pt hr 157,bp 77/64 pt in svt call placed to cardiology re: pt heart rate and rhythm. Call light placed in reach assessment completed pt denies chest pain will resume care and continue to monitor pt.
--- NOTE | 2018-02-21 19:36 | NUR ---
Call placed to Dr. Nieves re orders for pt in svt
[2018-02-21] MEDS ORDERED: ADENOSINE 6 MG/2 ML VIAL. IV ONE (19:45)
--- NOTE | 2018-02-21 19:55 | NUR ---
Dr. Martinez returned call orders received. Adenosine 6mg iv given pt hr 90, bp 87/55 post adenosine
[2018-02-21] MEDS: LISINOPRIL 5 MG TABLET. PO SCH (20:54)
[2018-02-21] MEDS: DULoxetine HCL 30 MG CAPSULE.DR PO SCH (20:56)
[2018-02-21] MEDS: ESTAZOLAM 2 MG PO SCH (20:56)
[2018-02-21] MEDS: ATORVASTATIN CALCIUM 10 MG TABLET. PO SCH (20:56)
[2018-02-21] MEDS ORDERED: DEXTROSE 70% IV SCH ×11 (22:00)
[2018-02-21] MEDS ORDERED: [UNRECOGNIZED DRUG - OTHER] IV SCH ×11 (22:00)
[2018-02-21] MEDS ORDERED: AMINO ACID IV SCH ×11 (22:00)
[2018-02-21] MEDS ORDERED: TOTAL PARENTERAL NUTRITION IV SCH ×11 (22:00)
[2018-02-21 23:18] VITALS: BP 93/62
[2018-02-22 03:00] VITALS: BP 119/79
[2018-02-22 05:32] LABS: CALCIUM 8.4 mg/dL (8.5-10.1); CREATININE 0.8 mg/dL (0.6-1.0); GFR 71.1; MAGNESIUM 1.5 mg/dL (1.8-2.4); PHOSPHORUS 3.1 mg/dL (2.6-4.7); POTASSIUM 3.9 mmol/L (3.5-5.1)
[2018-02-22] MEDS: PANTOPRAZOLE 40 MG TABLET.DR. PO SCH (07:09)
[2018-02-22] MEDS: LEVOTHYROXINE 100 MCG TABLET PO SCH (07:09)
[2018-02-22 07:29] VITALS: BP 123/65
--- NOTE | 2018-02-22 07:41 | PDOC ---
Provider Note Provider Note IR NOTE Spoke with the patient about the use of her port, vs placement of a separate line for administration of tpn. Ultimately she decided to go ahead and use the port for now. Please don't hesitate to call if there are any additional questions. KONG RUBALCAVA MD Feb 22, 2018 07:41
--- NOTE | 2018-02-22 08:57 | PDOC ---
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 She is able to do the TPN by herself. They have been thinking about hospice for 2 years now. Sounds like she will continue with palliative chemotherapy with Dr. Sr as outpatient and is looking into Last night she was noted via tele with HR in the 180s but she was asymptomatic at that time. She tried vagal maneuver but did not work and was given adenosine which resolved her SVT. She recalls PSVT since age 9, declined EP ablation in the past. Plan: PICC line TPN - she d/w IR would like to use her port for TPN Discussed with her and multiple family at bedside, time 44 minutes at least in room alone NPO as per GI, she is considering EGD, requesting this dw RN Vitals Vitals Vital Signs Date Time Temp Pulse Resp B/P (MAP) Pulse Ox O2 Delivery O2 Flow Rate FiO2 02/22/18 07:50 96 4.0 02/22/18 07:29 98.0 80 22 123/65 (84) Nasal Cannula 98.0 Physical Exam General: Alert, Oriented X3, Cooperative, No acute distress Heart: Regular rate Lungs: Clear, Other Abdomen: Soft, Other (no tenderness but abdomen is quite distended and tympanitic on percussion) Extremities: No clubbing, No cyanosis, No edema, Normal pulses, No tenderness/ swelling Skin: No rashes, No breakdown, No significant lesion, Other (pale skin) Labs LABS Laboratory Tests Test 02/22/18 04:40 Sodium Level 144 mmol/L (136-145) Potassium Level 3.9 mmol/L (3.5-5.1) Chloride Level 110 mmol/L (98-107) Carbon Dioxide Level 25 mmol/L (21-32) Anion Gap 9 (6-14) Blood Urea Nitrogen 25 mg/dL (7-20) Creatinine 0.8 mg/dL (0.6-1.0) Estimated GFR (Cockcroft-Gault) 71.1 Glucose Level 109 mg/dL (70-99) Calcium Level 8.4 mg/dL (8.5-10.1) Phosphorus Level 3.1 mg/dL (2.6-4.7) Magnesium Level 1.5 mg/dL (1.8-2.4) Triglycerides Level 125 mg/dL (0-150) Assessment and Plan Assessmemt and Plan Problems Medical Problems: (1) Acute renal insufficiency Status: Acute (2) Ascites Status: Acute (3) Dehydration Status: Acute (4) Ileus Status: Acute (5) Leukocytosis Status: Acute (6) Metastatic breast cancer Status: Acute (7) Weakness Status: Acute Comment Review of Relevant I have reviewed the following items declan (where applicable) has been applied. Labs Laboratory Tests Test 02/20/18 11:30 02/21/18 05:05 02/22/18 04:40 Nasal Screen MRSA (PCR) Negative (Negative) Sodium Level 146 mmol/L (136-145) 144 mmol/L (136-145) Potassium Level 3.7 mmol/L (3.5-5.1) 3.9 mmol/L (3.5-5.1) Chloride Level 111 mmol/L (98-107) 110 mmol/L (98-107) Carbon Dioxide Level 26 mmol/L (21-32) 25 mmol/L (21-32) Anion Gap 9 (6-14) 9 (6-14) Blood Urea Nitrogen 28 mg/dL (7-20) 25 mg/dL (7-20) Creatinine 0.9 mg/dL (0.6-1.0) 0.8 mg/dL (0.6-1.0) Estimated GFR (Cockcroft-Gault) 62.1 71.1 Glucose Level 99 mg/dL (70-99) 109 mg/dL (70-99) Calcium Level 9.1 mg/dL (8.5-10.1) 8.4 mg/dL (8.5-10.1) Phosphorus Level 4.3 mg/dL (2.6-4.7) 3.1 mg/dL (2.6-4.7) Magnesium Level 1.5 mg/dL (1.8-2.4) 1.5 mg/dL (1.8-2.4) Triglycerides Level 125 mg/dL (0-150) Laboratory Tests Test 02/22/18 04:40 Sodium Level 144 mmol/L (136-145) Potassium Level 3.9 mmol/L (3.5-5.1) Chloride Level 110 mmol/L (98-107) Carbon Dioxide Level 25 mmol/L (21-32) Anion Gap 9 (6-14) Blood Urea Nitrogen 25 mg/dL (7-20) Creatinine 0.8 mg/dL (0.6-1.0) Estimated GFR (Cockcroft-Gault) 71.1 Glucose Level 109 mg/dL (70-99) Calcium Level 8.4 mg/dL (8.5-10.1) Phosphorus Level 3.1 mg/dL (2.6-4.7) Magnesium Level 1.5 mg/dL (1.8-2.4) Triglycerides Level 125 mg/dL (0-150) Microbiology 02/20/18 Blood Culture - Preliminary, Resulted NO GROWTH AFTER 2 DAYS Medications Current Medications Sodium Chloride (NORMAL SALINE FLUSH for STERILE FIELD) 10 ml STK-MED ONCE .ROUTE ; Start 02/20/18 at 04:49; Stop 02/20/18 at 04:51; Status DC Iohexol (Omnipaque 300 Mg/ml) 75 ml 1X ONCE IV Last administered on at 06:20; Start 02/20/18 at 06:00; Stop 02/20/18 at 06:01; Status DC Info (CONTRAST GIVEN -- Rx MONITORING) 1 each PRN DAILY PRN MC SEE COMMENTS; Start 02/20/18 at 05:30; Stop 02/22/18 at 05:29; Status DC Sodium Chloride 1,000 ml @ 125 mls/hr 1X ONCE IV Last administered on at 06:15; Start 02/20/18 at 06:15; Stop 02/20/18 at 14:14; Status DC Acetaminophen/ Codeine Phosphate (Tylenol #3) 1 tab 0500,1400 PO ; Start at 14:00; Stop 02/20/18 at 22:13; Status DC Apixaban (Eliquis) 5 mg BID PO ; Start 02/20/18 at 09:00; Stop 02/21/18 at 19: 45; Status DC Bisacodyl (Dulcolax Tab) 5 mg PRN DAILY PRN PO CONSTIPATION; Start 02/20/18 at 07:45 Vitamin D (Vitamin D3) 2,000 unit DAILY PO Last administered on 02/21/18at 08: 46; Start 02/20/18 at 09:00 Docusate Sodium (Colace) 100 mg PRN BID PRN PO HARD STOOLS; Start 02/20/18 at 07:45 Fluticasone Propionate (Flonase) 1 spray BID NS Last administered on at 08:48; Start 02/20/18 at 09:00 Acetaminophen/ Hydrocodone Bitart (Lortab 5/325) 1 tab PRN Q6HRS PRN PO SEVERE PAIN Last administered on 02/20/18at 21:25; Start 02/20/18 at 07:45 Levothyroxine Sodium (Synthroid) 100 mcg DAILY06 PO Last administered on at 07:09; Start 02/20/18 at 10:30 Nystatin (Nystop) 1 bailey BID TP Last administered on 02/21/18at 08:48; Start at 09:00 Benzonatate (Tessalon Perle) 200 mg PRN Q12HR PRN PO COUGH; Start 02/20/18 at 09:00 Carvedilol (Coreg) 25 mg BIDWMEALS PO Last administered on 02/21/18at 17:29; Start 02/20/18 at 09:15 Cyanocobalamin (Vitamin B-12) 4,000 mcg Q48H PO ; Start 02/20/18 at 09:00 Diclofenac Sodium (Voltaren) 1 bailey PRN QID PRN TP JOINT PAIN; Start 02/20/18 at 09:00 Duloxetine HCl (Cymbalta) 60 mg QHS PO Last administered on 02/21/18at 20:56; Start 02/20/18 at 21:00 Pantoprazole Sodium (Protonix) 40 mg DAILYAC PO Last administered on at 07:09; Start 02/20/18 at 08:30 Non-Formulary Medication (Estazolam ) 2 mg HS PO Last administered on at 20:56; Start 02/20/18 at 21:00 Non-Formulary Medication (Gabapentin Enacarbil (Horizant)) 600 mg BID PO Last administered on 02/21/18at 20:56; Start 02/20/18 at 09:00 Cetirizine HCl (ZyrTEC) 10 mg DAILY PO Last administered on 02/21/18at 08:47; Start 02/20/18 at 09:00 Lisinopril (Prinivil) 5 mg QHS PO Last administered on 02/20/18at 21:22; Start 02/20/18 at 21:00 Loperamide HCl (Imodium) 2 mg PRN Q6HRS PRN PO DIARRHEA; Start 02/20/18 at 08: 45 Multivitamins (Thera M Plus) 1 tab DAILY PO Last administered on 02/21/18at 08: 45; Start 02/20/18 at 09:00; Stop 02/21/18 at 13:47; Status DC Potassium Chloride (Klor-Con) 10 meq BIDWMEALS PO Last administered on at 17:29; Start 02/20/18 at 09:00 Atorvastatin Calcium (Lipitor) 5 mg QHS PO Last administered on 02/21/18at 20: 56; Start 02/20/18 at 21:00 Non-Formulary Medication (S-Adenosylmethionine Sul Tosyl (Werner-E)) 400 mg DAILY PO ; Start 02/20/18 at 09:00; Status UNV Oxybutynin Chloride (Ditropan) 5 mg [id number] PO Last administered on 02/21/18at 20:56; Start 02/20/18 at 09:00 Non-Formulary Medication (Turmeric/ Turmeric Root Extract (Turmeric 500 mg Capsule)) 1 each QHS PO ; Start 02/20/18 at 21:00; Status UNV Non-Formulary Medication (Ubidecarenone (Co Q-10)) 200 mg DAILY PO ; Start at 09:00; Status UNV Non-Formulary Medication (Urea/Emollient Combination #65 (Uramaxin Gt 45% Kit)) 1 each PRN PRN TP dry skin; Start 02/20/18 at 07:45; Stop 02/20/18 at 11:58; Status DC Non-Formulary Medication ([arthro 7] ) 1 cap BID PO ; Start 02/20/18 at 09:00; Status UNV Non-Formulary Medication ([chloroxazone/ Parafon] ) 500 mg PRN Q6HRS PRN PO MUSCLE SPASMS; Start 02/20/18 at 07:45; Status UNV Non-Formulary Medication ([cytoxan,[id number]] ) 1 each [id number] IV ; Start at 09:00; Stop 02/20/18 at 11:57; Status DC Non-Formulary Medication ([gamagen] ) 50 gm Q4WK IV ; Start 02/20/18 at 09:00; Stop 02/20/18 at 11:57; Status DC Non-Formulary Medication ([mannose] ) 1,500 mg DAILY07 PO ; Start 02/21/18 at 07:00; Status UNV Ketorolac Tromethamine (Toradol 15mg Vial) 15 mg PRN Q6HRS PRN IV PAIN; Start 02/20/18 at 08:00; Stop 02/25/18 at 07:59 Ceftriaxone Sodium (Rocephin) 1 gm 1X ONCE IVP Last administered on at 08:34; Start 02/20/18 at 07:45; Stop 02/20/18 at 08:22; Status DC Dextrose/Lactated Ringer's 1,000 ml @ 125 mls/hr 1X ONCE IV Last administered on 02/20/18at 14:53; Start 02/20/18 at 08:30; Stop 02/20/18 at 16 :29; Status DC Sodium Chloride 1,000 ml @ 100 mls/hr Q10H IV Last administered on 02/21/18at 17:30; Start 02/20/18 at 09:15; Stop 02/21/18 at 21:59; Status DC Info (Anti-Coagulation Monitoring By Pharmacy) 1 each PRN DAILY PRN MC SEE COMMENTS Last administered on 02/21/18at 15:26; Start 02/20/18 at 09:15 Acetaminophen/ Codeine Phosphate (Tylenol #3) 1 tab PRN BID PRN PO MODERATE PAIN; Start 02/20/18 at 22:15 Info (Tpn Per Pharmacy) 1 each PRN DAILY PRN MC SEE COMMENTS Last administered on 02/21/18at 13:48; Start 02/21/18 at 12:00 Magnesium Sulfate/ Dextrose 100 ml @ 100 mls/hr 1X ONCE IV Last administered on 02/21/18at 14:25; Start 02/21/18 at 14:00; Stop 02/21/18 at 14:59; Status DC Sodium Chloride 20 meq/Sodium Acetate 70 meq/ Potassium Chloride 50 meq/ Potassium Phosphate 13.6 mmol/Magnesium Sulfate 10 meq/ Calcium Gluconate 10 meq / Multivitamins 10 ml/Chromium/ Copper/Manganese/ Seleni/Zn 1 ml/ Total Parenteral Nutrition/Amino Acids/Dextrose/ Fat Emuls... 1,512 ml @ 63 mls/hr TPN CONT IV Last administered on 02/21/18at 23:13; Start 02/21/18 at 22:00; Stop 02/22/18 at 21:59 Adenosine (Adenocard) 6 mg 1X ONCE IV Last administered on 02/21/18at 20:01; Start 02/21/18 at 19:45; Stop 02/21/18 at 19:46; Status DC Sodium Chloride 1,000 ml @ 27 mls/hr Q24H IV Last administered on 02/21/18at 20:30; Start 02/21/18 at 20:15 Active Scripts Active Reported Uramaxin Gt 45% Kit (Urea/Emollient Combination #65) 1 Each Kt.crm.gel 1 Each TP PRN PRN Turmeric 500 mg Capsule (Turmeric/Turmeric Root Extract) 1 Each Capsule 1 Each PO QHS Trospium Chloride 20 Mg Tablet 20 Mg PO BID Prevident (Sodium Fluoride) 100 Ml Paste..ml. 100 Ml DT QHS Werner-E (S-Adenosylmethionine Sul Tosyl) 400 Mg Tablet 400 Mg PO DAILY Pennsaid (Diclofenac Sodium) 112 Gm Ebonie..frickertron checker 112 Gm TP PRN PRN Nystatin 15 Gm Powder 1 Bailey TP BID [mannose] 1,500 Mg PO DAILY07 Levothyroxine Sodium 100 Mcg Tablet 1 Tab PO DAILYAC Levocetirizine Dihydrochloride 5 Mg Tablet 1 Tab PO DAILY Imodium A-D (Loperamide HCl) 2 Mg Capsule 2 Mg PO PRN Q6HRS PRN [gamagen] 50 Gm IV Q4WK Nexium Capsule (Esomeprazole Magnesium) 40 Mg Capsule. 1 Cap PO DAILYAC Dulcolax (Bisacodyl) 5 Mg Tablet.dr 5 Mg PO PRN DAILY PRN Diclofenac Sodium 100 Gm Gel..gram. 100 Gm TP PRN PRN [cytoxan,[id number]] 1 Each IV [id number] Colace (Docusate Sodium) 100 Mg Capsule 1 Cap PO PRN PRN Coenzyme Q-10 (Ubidecarenone) 200 Mg Capsule 200 Mg PO QHS [chloroxazone/Parafon] 500 Mg PO PRN Q6HRS PRN [arthro 7] 1 Cap PO BID Eliquis (Apixaban) 5 Mg Tablet 5 Mg PO BID Vitamin D3 (Cholecalciferol (Vitamin D3)) 1,000 Unit Tablet 2,000 Unit PO DAILY Potassium Chloride 8 Meq Capsule.er 8 Meq PO BID Hydrocodone-Apap 5-325 (Hydrocodone Bit/Acetaminophen) 1 Each Tablet 1 Tab PO PRN Q6HRS PRN Acetaminophen-Cod #3 Tablet (Acetaminophen/Codeine Phosphate) 1 Each Tablet 2 Tab PO QHS Acetaminophen-Cod #3 Tablet (Acetaminophen/Codeine Phosphate) 1 Each Tablet 1 Tab PO 0500,1400 Pravastatin Sodium 20 Mg Tablet 25 Mg PO DAILY B-12 (Cyanocobalamin (Vitamin B-12)) 3,000 Mcg Tab.subl 4,000 Mcg SL QODAY Fluticasone Propionate Nasal [place] (Fluticasone Propionate) 16 Gm [place].susp 2 [place] NS BID Tessalon Perle (Benzonatate) 100 Mg Capsule 200 Mg PO PRN Q12HR PRN Eliquis (Apixaban) 5 Mg Tablet 5 Mg PO BID Horizant (Gabapentin Enacarbil) 600 Mg Tab.er.24h 600 Mg PO BID Lisinopril 5 Mg Tablet 1 Tab PO QHS Estazolam 2 Mg Tablet 2 Mg PO HS Duloxetine Hcl 60 Mg Capsule.dr 60 Mg PO HS Levothyroxine Sodium 100 Mcg Tablet 100 Mcg PO DAILYAC Multi-Vitamin Daily (Multivitamin) 1 Each Tablet 1 Each PO DAILY Co Q-10 (Ubidecarenone) 200 Mg Capsule 200 Mg PO DAILY Coreg (Carvedilol) 25 Mg Tablet 25 Mg PO BID Vitals/I & O Vital Sign - Last 24 Hours 02/21/18 02/21/18 02/21/18 02/21/18 11:00 15:00 17:29 19:10 Temp 96.4 98.4 98.3 96.4 98.4 98.3 Pulse 81 73 161 157 Resp 20 20 18 B/P (MAP) 102/62 (75) 109/53 (71) 109/53 77/64 (68) Pulse Ox 95 95 97 O2 Delivery Nasal Cannula Nasal Cannula Nasal Cannula O2 Flow Rate 4.0 02/21/18 02/21/18 02/21/18 02/22/18 19:20 20:54 23:18 03:00 Temp 98.3 98.3 98.3 98.3 Pulse 91 83 82 Resp 18 18 B/P (MAP) 81/47 93/62 (72) 119/79 (92) Pulse Ox 94 90 O2 Delivery Nasal Cannula Room Air BiPAP/CPAP O2 Flow Rate 4.0 4.0 02/22/18 02/22/18 07:29 07:50 Temp 98.0 98.0 Pulse 80 Resp 22 B/P (MAP) 123/65 (84) Pulse Ox 96 O2 Delivery Nasal Cannula O2 Flow Rate 4.0 4.0 Intake and Output 02/21/18 02/21/18 02/22/18 15:01 23:01 07:01 Intake Total 0 ml Output Total 1 ml 200 ml Balance -1 ml -200 ml MASOUD DUVAL MD Feb 22, 2018 08:57
[2018-02-22] MEDS: FLUTICASONE 50MCG/NASAL SPRAY 16GM BOTTLE. NS SCH ×2 (09:00→20:58)
[2018-02-22] MEDS: GABAPENTIN ENACARBIL 600 MG PO SCH ×2 (09:06→20:59)
[2018-02-22] MEDS: CYANOCOBALAMIN (VITAMIN B-12) 1,000 MCG TABLET. PO SCH (09:07)
[2018-02-22] MEDS: NYSTATIN TOPICAL POWDER 15GM BOTTLE. TP SCH ×2 (09:07→21:00)
[2018-02-22] MEDS: CETIRIZINE HCL 10 MG TABLET. PO SCH (09:08)
[2018-02-22] MEDS: OXYBUTYNIN CHLORIDE 5 MG TABLET PO SCH ×3 (09:08→20:57)
[2018-02-22] MEDS: CHOLECALCIFEROL (VITAMIN D3) 1,000 UNIT TABLET PO SCH (09:08)
[2018-02-22] MEDS: POTASSIUM CHLORIDE 10 MEQ TABLET.ER. PO SCH ×2 (09:09→17:53)
[2018-02-22] MEDS: CARVEDILOL 12.5 MG TABLET. PO SCH ×2 (09:09→17:52)
--- NOTE | 2018-02-22 10:11 | PDOC2 ---
CARDIAC CONSULT DATE OF CONSULT Date of Consult DATE: 02/22/18 TIME: 09:50 REASON FOR CONSULT Reason for Consult: Tachycardia REFERRING PHYSICIAN Referring Physician: Padmini SOURCE Source: Chart review, Patient HISTORY OF PRESENT ILLNESS HISTORY OF PRESENT ILLNESS This is a pleasant 67 yo female admitted for fall due to weakness and has been having diarrhea. Upon admission she was also noted with ileus. Last night she was noted via tele with HR in the 180s but she was asymptomatic at that time. she does have hx of PSVT to which she refused EP ablation in the past and currently does have coreg in her regimen. She tried vagal maneuver but did not work and was given adenosine which resolved her SVT. At home she has been having intermittent palpitations and sometimes she feels flushed when this happens and vagal maneuvers worked for her. This have been occurring frequently but at the same time she has been having diarrhea. Her falls is not related to dizziness or passing out. PAST MEDICAL HISTORY Past Medical History SVT Back pain Metastatic breast cancer Bipolar Carpal tunnel syndrome Cataracts Chronic kidney disease Chronic headaches Colon polyps Depression Hyperlipidemia Fibromyalgia History of foot ulcer High blood pressure Kidney stones Possible prior inflammatory bowel disease? History of Lyme disease Miscarriage Obstructive sleep apnea Osteoarthritis Osteoporosis Panic disorder Peripheral neuropathy History of pulmonary embolism 2013 History of recurrent infections with hypogammaglobinemia History of TIA in 2004 Thyroid disorder History of UTI History of colon cancer SBO/ileus ENT: Other (cataract) PAST SURGICAL HISTORY Past Surgical History sinus surgery foot surgery Mastectomy Hysterectomy Back surgery Knee surgery Ureteral stent Port placement Colonoscopy Upper endoscopy Right hemicolectomy Ankle surgery Bladder surgery Breast biopsy Hand surgery Hemorrhoidectomy Hernia repair Cataract surgery History of D&C Tonsillectomy Tubal ligation Kidney stents Oophorectomy Rectal sphincterotomy FAMILY HISTORY Family History: Diabetes, Other SOCIAL HISTORY Smoke: No ALCOHOL: none Drugs: None CURRENT MEDICATIONS CURRENT MEDICATIONS Current Medications Medications (Trade) Dose Ordered Sig/Deanna Route PRN Reason Start Time Stop Time Status Last Admin Dose Admin Info (Tpn Per Pharmacy) 1 each PRN DAILY PRN MC SEE COMMENTS 02/21/18 12:00 02/21/18 13:48 Magnesium Sulfate/ Dextrose 100 ml @ 100 mls/hr 1X ONCE IV 02/21/18 14:00 02/21/18 14:59 DC 02/21/18 14:25 Sodium Chloride 20 meq/Sodium Acetate 70 meq/ Potassium Chloride 50 meq/ Potassium Phosphate 13.6 mmol/Magnesium Sulfate 10 meq/ Calcium Gluconate 10 meq/ Multivitamins 10 ml/Chromium/ Copper/Manganese/ Seleni/Zn 1 ml/ Total Parenteral Nutrition/Amino Acids/Dextrose/ Fat Emuls... 1,512 ml @ 63 mls/hr TPN CONT IV 02/21/18 22:00 02/22/18 21:59 02/21/18 23:13 Adenosine (Adenocard) 6 mg 1X ONCE IV 02/21/18 19:45 02/21/18 19:46 DC 02/21/18 20:01 Sodium Chloride 1,000 ml @ 27 mls/hr Q24H IV 02/21/18 20:15 02/21/18 20:30 ALLERGIES ALLERGIES: Coded Allergies: cephalexin (Verified Allergy, Intermediate, 05/30/15) cyclosporine (Verified Allergy, Intermediate, 05/30/15) hydromorphone (Verified Allergy, Intermediate, 05/30/15) morphine (Verified Allergy, Intermediate, 02/20/18) nitrofurantoin (Verified Allergy, Intermediate, 05/30/15) scopolamine (Verified Allergy, Intermediate, 05/30/15) thimerosal (Verified Allergy, Intermediate, 05/30/15) I S O L A T I O N *CONTACT* (Verified Allergy, Unknown, 06/19/15) ESBL + fentanyl (Verified Adverse Reaction, Intermediate, 06/19/15) headache, dizzy, nausea, lightheaded ROS Review of System 14 point ROS evaluated with pertinent positives noted per HPI PHYSICAL EXAM General: Alert, Oriented X3, Cooperative, No acute distress HEENT: Atraumatic, Mucous membr. moist/pink Lungs: Clear to auscultation, Normal air movement Heart: Regular rate (SR), Normal S1, Normal S2, No murmurs Abdomen: Soft, No tenderness Extremities: No cyanosis, No edema Skin: No significant lesion Neuro: Normal speech, Sensation intact Psych/Mental Status: Mental status NL, Mood NL MUSCULOSKELETAL: Osteoarthritic changes both hands VITALS VITALS Vital Signs Date Time Temp Pulse Resp B/P (MAP) Pulse Ox O2 Delivery O2 Flow Rate FiO2 02/22/18 09:09 80 123/65 02/22/18 07:50 96 4.0 02/22/18 07:29 98.0 22 Nasal Cannula 98.0 LABS Lab: Laboratory Tests Test 02/22/18 04:40 Sodium Level 144 mmol/L (136-145) Potassium Level 3.9 mmol/L (3.5-5.1) Chloride Level 110 mmol/L (98-107) Carbon Dioxide Level 25 mmol/L (21-32) Anion Gap 9 (6-14) Blood Urea Nitrogen 25 mg/dL (7-20) Creatinine 0.8 mg/dL (0.6-1.0) Estimated GFR (Cockcroft-Gault) 71.1 Glucose Level 109 mg/dL (70-99) Calcium Level 8.4 mg/dL (8.5-10.1) Phosphorus Level 3.1 mg/dL (2.6-4.7) Magnesium Level 1.5 mg/dL (1.8-2.4) Triglycerides Level 125 mg/dL (0-150) ASSESSMENT/PLAN ASSESSMENT/PLAN 1. PSVT: Known AVNRT. multifactorial induced by fluid/lyte shifts and below. Maintaining SR. 2. Ileus 3. Possible aspiration 4. Metastatic breast CA 5. [place] with low mg: with depleted volume 6. Ascites 7. Hypothyroidism: on replacement Recommendations 1. Continue current regimen coreg. Replace Mg. TPN ongoing. 2. TTE today. Check TSH. 3. Supportive care. Encouraged vagal maneuver. [facility] Feb 22, 2018 10:11
[2018-02-22] MEDS ORDERED: MAGNESIUM SULFATE 1GM 100 ML IV ONE (10:30)
[2018-02-22 11:00] VITALS: BP 129/85
--- NOTE | 2018-02-22 11:22 | EKG ---
[facility] [address] [place] [address] Test Date: 2018-02-22 Test Time: 09:31:00 Pat Name: HAFSA NICHOLSON Department: Room: 201 1 Gender: F [employer]: KIRAN : 1950 Requested By: ZO VYAS Order Number: [id number] Reading MD: Bruno Currie Measurements Intervals [place] Rate: 80 P: 22 GA: 180 QRS: -3 QRSD: 94 T: 36 QT: 376 QTc: 437 Interpretive Statements SINUS RHYTHM LEFTWARD AXIS NONSPECIFIC ST-T WAVE CHANGES Electronically Signed On 02-28-2018 14:27:29 SPLICER APPRENTICE by Bruno Currie
--- NOTE | 2018-02-22 11:40 | CARD ---
MR#: [id number] Date of Study: 02/22/2018 Ordering Physician: ABDI CURRIE, Referring Physician: JEFF RIVERA Tech: Stefania Oreilly [facility] APPROVED REPORT EXAM: Two-dimensional and M-mode echocardiogram with Doppler and color Doppler. Other Information Quality : Good INDICATION Tachycardia 2D DIMENSIONS RVDd2.5 (2.9-3.5cm)Left Atrium(2D)3.9 (1.6-4.0cm) IVSd1.0 (0.7-1.1cm)Aortic Root(2D)3.1 (2.0-3.7cm) LVDd4.8 (3.9-5.9cm)LVOT Diameter2.3 (1.8-2.4cm) PWd1.0 (0.7-1.1cm)LVDs3.7 (2.5-4.0cm) FS (%) 30.0 %SV47.5 ml LVEF(%)60.0 (>50%) Aortic Valve AoV Peak Tanner.165.9cm/sAoV VTI34.5cm AO Peak GR.11.0mmHgLVOT VTI 18.51cm AO Mean GR.6mmHgAVA (VTI)2.20cm2 Mitral Valve MV E Oqnuqwzm99.9cm/sMV DECEL ERPO555vw MV A Wmgnmurx21.7cm/sE/A Ratio1.3 TDI Lateral E' P. V12.16cm/sMedial E' P. V7.34cm/s E/Lateral E'7.4E/Medial E'12.2 Tricuspid Valve TR P. Snlqqapq589rn/sRAP STVISVOR1vqHv TR Peak Gr.41mfMnCIYG11xzCp Pulmonary Vein S1 Khteuwpd73.6cm/sS2 Efzvnyup61.24cm/s D2 Kmegboyk44.2cm/s LEFT VENTRICLE The left ventricle is normal size. There is normal left ventricular wall thickness. The left ventricu lar systolic function is normal and the ejection fraction is within normal range. Left ventricular ej ection fraction is 55-60%. There is normal LV segmental wall motion. RIGHT VENTRICLE The right ventricle is normal size. The right ventricular systolic function is normal. ATRIA The left atrium size is normal. The right atrium size is normal. The interatrial septum is intact wit h no evidence for an atrial septal defect or patent foramen ovale as noted on 2-D or Doppler imaging. AORTIC VALVE The aortic valve is calcified but opens well. Doppler and Color Flow revealed no significant aortic r egurgitation. There is no significant aortic valvular stenosis. MITRAL VALVE The mitral valve is calcified but opens well. There is no evidence of mitral valve prolapse. There is no mitral valve stenosis. Doppler and Color-flow revealed trace mitral regurgitation. TRICUSPID VALVE The tricuspid valve is normal in structure and function. Doppler and Color Flow revealed trace to mil d tricuspid regurgitation. The PA pressure was estimated at 37 mmHg. There is no tricuspid valve sten osis. PULMONIC VALVE The pulmonic valve is not well visualized. Doppler and Color Flow revealed trace pulmonic valvular re gurgitation. There is no pulmonic valvular stenosis. GREAT VESSELS The aortic root is normal in size. The ascending aorta is mildly dilated at 3.5 cm. The IVC is normal in size and collapses >50% with inspiration. PERICARDIAL EFFUSION There is no evidence of significant pericardial effusion. Critical Notification Critical Value: No <Conclusion> The left ventricle is normal size. The left ventricular systolic function is normal and the ejection fraction is within normal range. Left ventricular ejection fraction is 55-60%. There is no significant aortic valvular stenosis. Doppler and Color Flow revealed no significant aortic regurgitation. Doppler and Color-flow revealed trace mitral regurgitation. Doppler and Color Flow revealed trace to mild tricuspid regurgitation. The PA pressure was estimated at 37 mmHg. The ascending aorta is mildly dilated at 3.5 cm. Signed by : Abdi Currie MD Electronically Approved : 02/22/2018 11:39:08
--- NOTE | 2018-02-22 12:20 | PDOC ---
PROGRESS NOTES Subjective Subjective HPI - f/u of Metastatic breast cancer w/ peritoneal carcinomatosis ROS - abd pain better Objective Objective Vital Signs Date Time Temp Pulse Resp B/P (MAP) Pulse Ox O2 Delivery O2 Flow Rate FiO2 02/22/18 11:00 98.6 78 22 129/85 (100) 96 Nasal Cannula 4.0 98.6 Intake and Output 02/22/18 07:01 Intake Total 0 ml Output Total 201 ml Balance -201 ml Intake Oral 0 ml Output Urine Total 201 ml # Voids 5 Physical Exam Heart: Normal S1, Normal S2 General: Alert, No acute distress Neuro: Normal speech Psych/Mental Status: Mental status NL Assessment Assessment Problems Medical Problems: (1) Acute renal insufficiency Status: Acute (2) Ascites Status: Acute (3) Dehydration Status: Acute (4) Ileus Status: Acute (5) Leukocytosis Status: Acute (6) Metastatic breast cancer Status: Acute (7) Weakness Status: Acute 1. Metastatic breast cancer w/ peritoneal carcinomatosis, on palliative chemotherapy, admitted with ileus symptoms, started TPN. I recommended hospice and transition to palliative care. She will think about it. agrees. I will consult palliative care. 2. N/V - ileus, GI is involved, their help is appreciated Comment Review of Relevant I have reviewed the following items declan (where applicable) has been applied. Labs Laboratory Tests Test 02/21/18 05:05 02/22/18 04:40 Sodium Level 146 mmol/L (136-145) 144 mmol/L (136-145) Potassium Level 3.7 mmol/L (3.5-5.1) 3.9 mmol/L (3.5-5.1) Chloride Level 111 mmol/L (98-107) 110 mmol/L (98-107) Carbon Dioxide Level 26 mmol/L (21-32) 25 mmol/L (21-32) Anion Gap 9 (6-14) 9 (6-14) Blood Urea Nitrogen 28 mg/dL (7-20) 25 mg/dL (7-20) Creatinine 0.9 mg/dL (0.6-1.0) 0.8 mg/dL (0.6-1.0) Estimated GFR (Cockcroft-Gault) 62.1 71.1 Glucose Level 99 mg/dL (70-99) 109 mg/dL (70-99) Calcium Level 9.1 mg/dL (8.5-10.1) 8.4 mg/dL (8.5-10.1) Phosphorus Level 4.3 mg/dL (2.6-4.7) 3.1 mg/dL (2.6-4.7) Magnesium Level 1.5 mg/dL (1.8-2.4) 1.5 mg/dL (1.8-2.4) Triglycerides Level 125 mg/dL (0-150) Thyroid Stimulating Hormone (TSH) 0.161 uIU/mL (0.358-3.74) Laboratory Tests Test 02/22/18 04:40 Sodium Level 144 mmol/L (136-145) Potassium Level 3.9 mmol/L (3.5-5.1) Chloride Level 110 mmol/L (98-107) Carbon Dioxide Level 25 mmol/L (21-32) Anion Gap 9 (6-14) Blood Urea Nitrogen 25 mg/dL (7-20) Creatinine 0.8 mg/dL (0.6-1.0) Estimated GFR (Cockcroft-Gault) 71.1 Glucose Level 109 mg/dL (70-99) Calcium Level 8.4 mg/dL (8.5-10.1) Phosphorus Level 3.1 mg/dL (2.6-4.7) Magnesium Level 1.5 mg/dL (1.8-2.4) Triglycerides Level 125 mg/dL (0-150) Thyroid Stimulating Hormone (TSH) 0.161 uIU/mL (0.358-3.74) Microbiology 02/20/18 Blood Culture - Preliminary, Resulted NO GROWTH AFTER 2 DAYS Medications Current Medications Sodium Chloride (NORMAL SALINE FLUSH for STERILE FIELD) 10 ml STK-MED ONCE .ROUTE ; Start 02/20/18 at 04:49; Stop 02/20/18 at 04:51; Status DC Iohexol (Omnipaque 300 Mg/ml) 75 ml 1X ONCE IV Last administered on at 06:20; Start 02/20/18 at 06:00; Stop 02/20/18 at 06:01; Status DC Info (CONTRAST GIVEN -- Rx MONITORING) 1 each PRN DAILY PRN MC SEE COMMENTS; Start 02/20/18 at 05:30; Stop 02/22/18 at 05:29; Status DC Sodium Chloride 1,000 ml @ 125 mls/hr 1X ONCE IV Last administered on at 06:15; Start 02/20/18 at 06:15; Stop 02/20/18 at 14:14; Status DC Acetaminophen/ Codeine Phosphate (Tylenol #3) 1 tab 0500,1400 PO ; Start at 14:00; Stop 02/20/18 at 22:13; Status DC Apixaban (Eliquis) 5 mg BID PO ; Start 02/20/18 at 09:00; Stop 02/21/18 at 19: 45; Status DC Bisacodyl (Dulcolax Tab) 5 mg PRN DAILY PRN PO CONSTIPATION; Start 02/20/18 at 07:45 Vitamin D (Vitamin D3) 2,000 unit DAILY PO Last administered on 02/22/18at 09: 08; Start 02/20/18 at 09:00 Docusate Sodium (Colace) 100 mg PRN BID PRN PO HARD STOOLS; Start 02/20/18 at 07:45 Fluticasone Propionate (Flonase) 1 spray BID NS Last administered on at 08:48; Start 02/20/18 at 09:00 Acetaminophen/ Hydrocodone Bitart (Lortab 5/325) 1 tab PRN Q6HRS PRN PO SEVERE PAIN Last administered on 02/20/18at 21:25; Start 02/20/18 at 07:45 Levothyroxine Sodium (Synthroid) 100 mcg DAILY06 PO Last administered on at 07:09; Start 02/20/18 at 10:30 Nystatin (Nystop) 1 bailey BID TP Last administered on 02/22/18at 09:07; Start at 09:00 Benzonatate (Tessalon Perle) 200 mg PRN Q12HR PRN PO COUGH; Start 02/20/18 at 09:00 Carvedilol (Coreg) 25 mg BIDWMEALS PO Last administered on 02/22/18at 09:09; Start 02/20/18 at 09:15 Cyanocobalamin (Vitamin B-12) 4,000 mcg Q48H PO Last administered on at 09:07; Start 02/20/18 at 09:00 Diclofenac Sodium (Voltaren) 1 bailey PRN QID PRN TP JOINT PAIN; Start 02/20/18 at 09:00 Duloxetine HCl (Cymbalta) 60 mg QHS PO Last administered on 02/21/18 20:56; Start 02/20/18 at 21:00 Pantoprazole Sodium (Protonix) 40 mg DAILYAC PO Last administered on 07:09; Start 02/20/18 at 08:30 Non-Formulary Medication (Estazolam ) 2 mg HS PO Last administered on 20:56; Start 02/20/18 at 21:00 Non-Formulary Medication (Gabapentin Enacarbil (Horizant)) 600 mg BID PO Last administered on 02/22/18 09:06; Start 02/20/18 at 09:00 Cetirizine HCl (ZyrTEC) 10 mg DAILY PO Last administered on 02/22/18 09:08; Start 02/20/18 at 09:00 Lisinopril (Prinivil) 5 mg QHS PO Last administered on 02/20/18 21:22; Start 02/20/18 at 21:00 Loperamide HCl (Imodium) 2 mg PRN Q6HRS PRN PO DIARRHEA; Start 02/20/18 at 08: 45 Multivitamins (Thera M Plus) 1 tab DAILY PO Last administered on 02/21/18 08: 45; Start 02/20/18 at 09:00; Stop 02/21/18 at 13:47; Status DC Potassium Chloride (Klor-Con) 10 meq BIDWMEALS PO Last administered on 09:09; Start 02/20/18 at 09:00 Atorvastatin Calcium (Lipitor) 5 mg QHS PO Last administered on 02/21/18 20: 56; Start 02/20/18 at 21:00 Non-Formulary Medication (S-Adenosylmethionine Sul Tosyl (Werner-E)) 400 mg DAILY PO ; Start 02/20/18 at 09:00; Status UNV Oxybutynin Chloride (Ditropan) 5 mg [id number] PO Last administered on 02/22/18 09:08; Start 02/20/18 at 09:00 Non-Formulary Medication (Turmeric/ Turmeric Root Extract (Turmeric 500 mg Capsule)) 1 each QHS PO ; Start 02/20/18 at 21:00; Status UNV Non-Formulary Medication (Ubidecarenone (Co Q-10)) 200 mg DAILY PO ; Start at 09:00; Status UNV Non-Formulary Medication (Urea/Emollient Combination #65 (Uramaxin Gt 45% Kit)) 1 each PRN PRN TP dry skin; Start 02/20/18 at 07:45; Stop 02/20/18 at 11:58; Status DC Non-Formulary Medication ([arthro 7] ) 1 cap BID PO ; Start 02/20/18 at 09:00; Status UNV Non-Formulary Medication ([chloroxazone/ Parafon] ) 500 mg PRN Q6HRS PRN PO MUSCLE SPASMS; Start 02/20/18 at 07:45; Status UNV Non-Formulary Medication ([cytoxan,[id number]] ) 1 each [id number] IV ; Start at 09:00; Stop 02/20/18 at 11:57; Status DC Non-Formulary Medication ([gamagen] ) 50 gm Q4WK IV ; Start 02/20/18 at 09:00; Stop 02/20/18 at 11:57; Status DC Non-Formulary Medication ([mannose] ) 1,500 mg DAILY07 PO ; Start 02/21/18 at 07:00; Status UNV Ketorolac Tromethamine (Toradol 15mg Vial) 15 mg PRN Q6HRS PRN IV PAIN; Start 02/20/18 at 08:00; Stop 02/25/18 at 07:59 Ceftriaxone Sodium (Rocephin) 1 gm 1X ONCE IVP Last administered on at 08:34; Start 02/20/18 at 07:45; Stop 02/20/18 at 08:22; Status DC Dextrose/Lactated Ringer's 1,000 ml @ 125 mls/hr 1X ONCE IV Last administered on 02/20/18at 14:53; Start 02/20/18 at 08:30; Stop 02/20/18 at 16 :29; Status DC Sodium Chloride 1,000 ml @ 100 mls/hr Q10H IV Last administered on 02/21/18at 17:30; Start 02/20/18 at 09:15; Stop 02/21/18 at 21:59; Status DC Info (Anti-Coagulation Monitoring By Pharmacy) 1 each PRN DAILY PRN MC SEE COMMENTS Last administered on 02/21/18at 15:26; Start 02/20/18 at 09:15 Acetaminophen/ Codeine Phosphate (Tylenol #3) 1 tab PRN BID PRN PO MODERATE PAIN; Start 02/20/18 at 22:15 Info (Tpn Per Pharmacy) 1 each PRN DAILY PRN MC SEE COMMENTS Last administered on 02/21/18at 13:48; Start 02/21/18 at 12:00 Magnesium Sulfate/ Dextrose 100 ml @ 100 mls/hr 1X ONCE IV Last administered on 02/21/18at 14:25; Start 02/21/18 at 14:00; Stop 02/21/18 at 14:59; Status DC Sodium Chloride 20 meq/Sodium Acetate 70 meq/ Potassium Chloride 50 meq/ Potassium Phosphate 13.6 mmol/Magnesium Sulfate 10 meq/ Calcium Gluconate 10 meq / Multivitamins 10 ml/Chromium/ Copper/Manganese/ Seleni/Zn 1 ml/ Total Parenteral Nutrition/Amino Acids/Dextrose/ Fat Emuls... 1,512 ml @ 63 mls/hr TPN CONT IV Last administered on 02/21/18at 23:13; Start 02/21/18 at 22:00; Stop 02/22/18 at 21:59 Adenosine (Adenocard) 6 mg 1X ONCE IV Last administered on 02/21/18at 20:01; Start 02/21/18 at 19:45; Stop 02/21/18 at 19:46; Status DC Sodium Chloride 1,000 ml @ 27 mls/hr Q24H IV Last administered on 02/21/18at 20:30; Start 02/21/18 at 20:15 Magnesium Sulfate/ Dextrose 100 ml @ 100 mls/hr 1X ONCE IV Last administered on 02/22/18at 11:24; Start 02/22/18 at 10:30; Stop 02/22/18 at 11:29; Status DC Active Scripts Active Reported Uramaxin Gt 45% Kit (Urea/Emollient Combination #65) 1 Each Kt.crm.gel 1 Each TP PRN PRN Turmeric 500 mg Capsule (Turmeric/Turmeric Root Extract) 1 Each Capsule 1 Each PO QHS Trospium Chloride 20 Mg Tablet 20 Mg PO BID Prevident (Sodium Fluoride) 100 Ml Paste..ml. 100 Ml DT QHS Werner-E (S-Adenosylmethionine Sul Tosyl) 400 Mg Tablet 400 Mg PO DAILY Pennsaid (Diclofenac Sodium) 112 Gm Ebonie.md.natural gas basis trader 112 Gm TP PRN PRN Nystatin 15 Gm Powder 1 Bailey TP BID [mannose] 1,500 Mg PO DAILY07 Levothyroxine Sodium 100 Mcg Tablet 1 Tab PO DAILYAC Levocetirizine Dihydrochloride 5 Mg Tablet 1 Tab PO DAILY Imodium A-D (Loperamide HCl) 2 Mg Capsule 2 Mg PO PRN Q6HRS PRN [gamagen] 50 Gm IV Q4WK Nexium Capsule (Esomeprazole Magnesium) 40 Mg Capsule.dr 1 Cap PO DAILYAC Dulcolax (Bisacodyl) 5 Mg Tablet.dr 5 Mg PO PRN DAILY PRN Diclofenac Sodium 100 Gm Gel..gram. 100 Gm TP PRN PRN [cytoxan,[id number]] 1 Each IV [id number] Colace (Docusate Sodium) 100 Mg Capsule 1 Cap PO PRN PRN Coenzyme Q-10 (Ubidecarenone) 200 Mg Capsule 200 Mg PO QHS [chloroxazone/Parafon] 500 Mg PO PRN Q6HRS PRN [arthro 7] 1 Cap PO BID Eliquis (Apixaban) 5 Mg Tablet 5 Mg PO BID Vitamin D3 (Cholecalciferol (Vitamin D3)) 1,000 Unit Tablet 2,000 Unit PO DAILY Potassium Chloride 8 Meq Capsule.er 8 Meq PO BID Hydrocodone-Apap 5-325 (Hydrocodone Bit/Acetaminophen) 1 Each Tablet 1 Tab PO PRN Q6HRS PRN Acetaminophen-Cod #3 Tablet (Acetaminophen/Codeine Phosphate) 1 Each Tablet 2 Tab PO QHS Acetaminophen-Cod #3 Tablet (Acetaminophen/Codeine Phosphate) 1 Each Tablet 1 Tab PO 0500,1400 Pravastatin Sodium 20 Mg Tablet 25 Mg PO DAILY B-12 (Cyanocobalamin (Vitamin B-12)) 3,000 Mcg Tab.subl 4,000 Mcg SL QODAY Fluticasone Propionate Nasal [place] (Fluticasone Propionate) 16 Gm [place].susp 2 [place] NS BID Tessalon Perle (Benzonatate) 100 Mg Capsule 200 Mg PO PRN Q12HR PRN Eliquis (Apixaban) 5 Mg Tablet 5 Mg PO BID Horizant (Gabapentin Enacarbil) 600 Mg Tab.er.24h 600 Mg PO BID Lisinopril 5 Mg Tablet 1 Tab PO QHS Estazolam 2 Mg Tablet 2 Mg PO HS Duloxetine Hcl 60 Mg Capsule.dr 60 Mg PO HS Levothyroxine Sodium 100 Mcg Tablet 100 Mcg PO DAILYAC Multi-Vitamin Daily (Multivitamin) 1 Each Tablet 1 Each PO DAILY Co Q-10 (Ubidecarenone) 200 Mg Capsule 200 Mg PO DAILY Coreg (Carvedilol) 25 Mg Tablet 25 Mg PO BID Vitals/I & O Vital Sign - Last 24 Hours 02/21/18 02/21/18 02/21/18 02/21/18 15:00 17:29 19:10 19:20 Temp 98.4 98.3 98.4 98.3 Pulse 73 161 157 Resp 20 18 B/P (MAP) 109/53 (71) 109/53 77/64 (68) Pulse Ox 95 97 O2 Delivery Nasal Cannula Nasal Cannula Nasal Cannula O2 Flow Rate 4.0 4.0 02/21/18 02/21/18 02/22/18 02/22/18 20:54 23:18 03:00 07:29 Temp 98.3 98.3 98.0 98.3 98.3 98.0 Pulse 91 83 82 80 Resp 18 18 22 B/P (MAP) 81/47 93/62 (72) 119/79 (92) 123/65 (84) Pulse Ox 94 90 O2 Delivery Room Air BiPAP/CPAP Nasal Cannula O2 Flow Rate 4.0 4.0 02/22/18 02/22/18 02/22/18 02/22/18 07:50 08:00 09:09 11:00 Temp 98.6 98.6 Pulse 80 78 Resp 22 B/P (MAP) 123/65 129/85 (100) Pulse Ox 96 96 O2 Delivery Nasal Cannula Nasal Cannula O2 Flow Rate 4.0 4.0 4.0 Intake and Output 02/21/18 02/21/18 02/22/18 15:01 23:01 07:01 Intake Total 0 ml Output Total 1 ml 200 ml Balance -1 ml -200 ml DYANA BILLINGSLEY MD Feb 22, 2018 12:20
[2018-02-22] MEDS ORDERED: ADENOSINE 6 MG/2 ML VIAL. IV ONE (12:30)
[2018-02-22] MEDS: TPN PER PHARMACY MC PRN (12:53)
--- NOTE | 2018-02-22 12:57 | NUR ---
Pharmacy TPN Dosing Note S: BROTHERS,HAFSA is a 67 year old F Currently receiving Central Continuous TPN started 02/21/18 B:Pertinent PMH: Ileus vs. SBO Height: 5 feet, 8.5 inches Weight: 116.894628 kg Current diet: NPO LABS: Sodium: 144 Potassium: 3.9 Chloride: 110 Calcium: 8.4 Corrected Calcium: 9.84 Magnesium: 1.5 CO2: 25 SCr: 0.8 Glucose: 99-109 Albumin: 2.2 AST: 56 (02/20) ALT: 17 ( TPN FORMULA: TPN TYPE: Central Continuous AMINO ACIDS: 60 gm DEXTROSE: 195 gm LIPIDS: 20 gm SODIUM CHLORIDE: 20 mEq SODIUM ACETATE: 70 mEq SODIUM PHOSPHATE: - mmol POTASSIUM CHLORIDE: 40 mEq POTASSIUM ACETATE: - mEq POTASSIUM PHOSPHATE: 20 mmol MAGNESIUM: 12 mEq CALCIUM: 10 mEq INSULIN: - units MULTIPLE VITAMIN: 10 ml TRACE ELEMENTS: 1 ml(s) TPN PLAN: -Per Dietitian continue standard TPN Macros (60 g AA, 20 g lipids, 195 g Dextrose) -Magnesium replaced per labs w/1g IVPB 1x dose today outside of TPN. Mag increased slightly in TPN. -Phos trending down. KPhos increased in TPN and KCl decreased to equal same total amount of potassium in TPN. -NS outside of TPN changed to 27 mL/hour and sodium trending down no additional changes to TPN at this time. -BMP, Mag, Phos and Ca ordered for 02/23/18 R: Continue TPN with increase in Mag and KPhos and decrease in KCl. Will monitor electrolytes, glucose, and tolerance to TPN. CONNIE SULLIVAN, [facility], 02/22/18 [id number]
--- NOTE | 2018-02-22 12:59 | PDOC ---
Subjective: Subjective: No n/v. Feels less distended w/ less abdominal discomfort. Passing gas, no stool (for 1.5 weeks). Objective: Vital Signs: Vital Signs Date Time Temp Pulse Resp B/P (MAP) Pulse Ox O2 Delivery O2 Flow Rate FiO2 02/22/18 11:00 98.6 78 22 129/85 (100) 96 Nasal Cannula 4.0 98.6 Labs: Laboratory Tests Test 02/22/18 04:40 Sodium Level 144 mmol/L Potassium Level 3.9 mmol/L Chloride Level 110 mmol/L Carbon Dioxide Level 25 mmol/L Anion Gap 9 Blood Urea Nitrogen 25 mg/dL Creatinine 0.8 mg/dL Estimated GFR (Cockcroft-Gault) 71.1 Glucose Level 109 mg/dL Calcium Level 8.4 mg/dL Phosphorus Level 3.1 mg/dL Magnesium Level 1.5 mg/dL Triglycerides Level 125 mg/dL Thyroid Stimulating Hormone (TSH) 0.161 uIU/mL PE: GEN: NAD LUNGS: NC HEART: tachycardic ABD: distended, soft, BS+ (some tympanic to right) NEURO/PSYCH: A & O 3 A/P: Metastatic breast cancer, peritoneal carcinomatosis N/v - resolved Ileus -- Spent significant time in room listening. Reviewed oncology note w/ recs for hospice/palliative care. The patient is interested in an EGD and flexible sigmoidoscopy along w/ Dr. Payton's recommendations on what she can eat (while on TPN). She also says another doctor at told her to ask about the possibility of G-tube placement for drainage. HR currently 147. ROBBIE HERNANDEZ Feb 22, 2018 12:59
--- NOTE | 2018-02-22 13:27 | NUR ---
Patients heart rate jumped up between 140's and 150's.Paged Sofia overhead and called the phone. no answer or call back received. Orders received per . Patient converted without giving Adenosine. Patient asymptomatic at this time. Will continue to monitor.
[2018-02-22] MEDS: ANTI-COAG MONITOR BY PHARMACY. MC PRN (14:20)
[2018-02-22 15:22] VITALS: BP 115/79
--- NOTE | 2018-02-22 16:25 | PDOC2 ---
PALLIATIVE CARE Palliative Care Note Palliative Care Consult requested by Dr. Sr to address plan of care. Medical Assessment per medical record; Metastatic breast cancer w/ peritoneal carcinomatosis, on palliative chemotherapy, admitted with ileus symptoms, started TPN. Hospice and transition to palliative care recommended. Met with patient and sister. Plan family meeting tomorrow at 10am. SARAH RAYO Feb 22, 2018 16:25
[2018-02-22 19:15] VITALS: BP 134/77
[2018-02-22] MEDS: DULoxetine HCL 30 MG CAPSULE.DR PO SCH (20:57)
[2018-02-22] MEDS: APIXABAN 5 MG TABLET. PO SCH (20:57)
[2018-02-22] MEDS: ATORVASTATIN CALCIUM 10 MG TABLET. PO SCH (20:57)
[2018-02-22] MEDS: LISINOPRIL 5 MG TABLET. PO SCH (20:58)
[2018-02-22] MEDS: ESTAZOLAM 2 MG PO SCH (21:00)
[2018-02-22] MEDS: IV NORMAL SALINE 1000ML BAG 1,000 ML IV SCH (21:01)
[2018-02-22] MEDS ORDERED: DEXTROSE 70% IV SCH ×11 (22:00)
[2018-02-22] MEDS ORDERED: AMINO ACID IV SCH ×11 (22:00)
[2018-02-22] MEDS ORDERED: TOTAL PARENTERAL NUTRITION IV SCH ×11 (22:00)
[2018-02-22] MEDS ORDERED: [UNRECOGNIZED DRUG - OTHER] IV SCH ×11 (22:00)
[2018-02-22 23:09] VITALS: BP 127/72
[2018-02-23 03:00] VITALS: BP 128/77
[2018-02-23] MEDS: PANTOPRAZOLE 40 MG TABLET.DR. PO SCH (06:08)
[2018-02-23] MEDS: LEVOTHYROXINE 100 MCG TABLET PO SCH (06:08)
[2018-02-23 06:41] LABS: CALCIUM 8.8 mg/dL (8.5-10.1); CREATININE 0.7 mg/dL (0.6-1.0); MAGNESIUM 1.6 mg/dL (1.8-2.4); PHOSPHORUS 2.8 mg/dL (2.6-4.7); POTASSIUM 4.2 mmol/L (3.5-5.1)
[2018-02-23 07:00] VITALS: BP 114/74
[2018-02-23] MEDS: OXYBUTYNIN CHLORIDE 5 MG TABLET PO SCH ×3 (08:48→20:58)
[2018-02-23] MEDS: POTASSIUM CHLORIDE 10 MEQ TABLET.ER. PO SCH ×2 (08:48→17:37)
[2018-02-23] MEDS: CETIRIZINE HCL 10 MG TABLET. PO SCH (08:49)
[2018-02-23] MEDS: CHOLECALCIFEROL (VITAMIN D3) 1,000 UNIT TABLET PO SCH (08:49)
[2018-02-23] MEDS: GABAPENTIN ENACARBIL 600 MG PO SCH ×2 (08:50→21:00)
[2018-02-23] MEDS: CARVEDILOL 12.5 MG TABLET. PO SCH ×2 (08:50→17:34)
[2018-02-23] MEDS: FLUTICASONE 50MCG/NASAL SPRAY 16GM BOTTLE. NS SCH ×3 (08:53→21:00)
[2018-02-23] MEDS: APIXABAN 5 MG TABLET. PO SCH ×2 (08:53→21:00)
[2018-02-23] MEDS: NYSTATIN TOPICAL POWDER 15GM BOTTLE. TP SCH ×3 (08:56→21:01)
--- NOTE | 2018-02-23 09:33 | PDOC ---
PROGRESS NOTES Subjective Subjective HPI - f/u of Metastatic breast cancer w/ peritoneal carcinomatosis ROS - had BM, feels better Objective Objective Vital Signs Date Time Temp Pulse Resp B/P (MAP) Pulse Ox O2 Delivery O2 Flow Rate FiO2 02/23/18 08:50 102 114/74 02/23/18 07:00 98.3 20 95 Nasal Cannula 4.0 98.3 Intake and Output 02/23/18 07:01 Intake Total 60 ml Output Total 475 ml Balance -415 ml Intake Oral 60 ml Output Urine Total 475 ml # Voids 8 # Bowel Movements 1 Physical Exam General: Alert, Oriented X3, No acute distress Neuro: Normal speech Psych/Mental Status: Mental status NL Assessment Assessment Problems Medical Problems: (1) Acute renal insufficiency Status: Acute (2) Ascites Status: Acute (3) Dehydration Status: Acute (4) Ileus Status: Acute (5) Leukocytosis Status: Acute (6) Metastatic breast cancer Status: Acute (7) Weakness Status: Acute Imp/Plan: 1. Metastatic breast cancer w/ peritoneal carcinomatosis, on palliative chemotherapy, admitted with ileus symptoms, started TPN. I recommended hospice and transition to palliative care but she wants to wait. Palliative care meeting today at 10 am. 2. N/V - ileus, GI is involved, their help is appreciated Comment Review of Relevant I have reviewed the following items declan (where applicable) has been applied. Labs Laboratory Tests Test 02/22/18 04:40 02/23/18 06:05 Sodium Level 144 mmol/L (136-145) 145 mmol/L (136-145) Potassium Level 3.9 mmol/L (3.5-5.1) 4.2 mmol/L (3.5-5.1) Chloride Level 110 mmol/L (98-107) 109 mmol/L (98-107) Carbon Dioxide Level 25 mmol/L (21-32) 26 mmol/L (21-32) Anion Gap 9 (6-14) 10 (6-14) Blood Urea Nitrogen 25 mg/dL (7-20) 16 mg/dL (7-20) Creatinine 0.8 mg/dL (0.6-1.0) 0.7 mg/dL (0.6-1.0) Estimated GFR (Cockcroft-Gault) 71.1 83.0 Glucose Level 109 mg/dL (70-99) 130 mg/dL (70-99) Calcium Level 8.4 mg/dL (8.5-10.1) 8.8 mg/dL (8.5-10.1) Phosphorus Level 3.1 mg/dL (2.6-4.7) 2.8 mg/dL (2.6-4.7) Magnesium Level 1.5 mg/dL (1.8-2.4) 1.6 mg/dL (1.8-2.4) Triglycerides Level 125 mg/dL (0-150) Thyroid Stimulating Hormone (TSH) 0.161 uIU/mL (0.358-3.74) Laboratory Tests Test 02/23/18 06:05 Sodium Level 145 mmol/L (136-145) Potassium Level 4.2 mmol/L (3.5-5.1) Chloride Level 109 mmol/L (98-107) Carbon Dioxide Level 26 mmol/L (21-32) Anion Gap 10 (6-14) Blood Urea Nitrogen 16 mg/dL (7-20) Creatinine 0.7 mg/dL (0.6-1.0) Estimated GFR (Cockcroft-Gault) 83.0 Glucose Level 130 mg/dL (70-99) Calcium Level 8.8 mg/dL (8.5-10.1) Phosphorus Level 2.8 mg/dL (2.6-4.7) Magnesium Level 1.6 mg/dL (1.8-2.4) Microbiology 02/20/18 Blood Culture - Preliminary, Resulted NO GROWTH AFTER 3 DAYS Medications Current Medications Sodium Chloride (NORMAL SALINE FLUSH for STERILE FIELD) 10 ml [employer]-MED ONCE .ROUTE ; Start 02/20/18 at 04:49; Stop 02/20/18 at 04:51; Status DC Iohexol (Omnipaque 300 Mg/ml) 75 ml 1X ONCE IV Last administered on at 06:20; Start 02/20/18 at 06:00; Stop 02/20/18 at 06:01; Status DC Info (CONTRAST GIVEN -- Rx MONITORING) 1 each PRN DAILY PRN MC SEE COMMENTS; Start 02/20/18 at 05:30; Stop 02/22/18 at 05:29; Status DC Sodium Chloride 1,000 ml @ 125 mls/hr 1X ONCE IV Last administered on at 06:15; Start 02/20/18 at 06:15; Stop 02/20/18 at 14:14; Status DC Acetaminophen/ Codeine Phosphate (Tylenol #3) 1 tab 0500,1400 PO ; Start at 14:00; Stop 02/20/18 at 22:13; Status DC Apixaban (Eliquis) 5 mg BID PO ; Start 02/20/18 at 09:00; Stop 02/21/18 at 19: 45; Status DC Bisacodyl (Dulcolax Tab) 5 mg PRN DAILY PRN PO CONSTIPATION; Start 02/20/18 at 07:45 Vitamin D (Vitamin D3) 2,000 unit DAILY PO Last administered on 02/23/18at 08: 49; Start 02/20/18 at 09:00 Docusate Sodium (Colace) 100 mg PRN BID PRN PO HARD STOOLS; Start 02/20/18 at 07:45 Fluticasone Propionate (Flonase) 1 spray BID NS Last administered on at 08:48; Start 02/20/18 at 09:00 Acetaminophen/ Hydrocodone Bitart (Lortab 5/325) 1 tab PRN Q6HRS PRN PO SEVERE PAIN Last administered on 02/20/18at 21:25; Start 02/20/18 at 07:45 Levothyroxine Sodium (Synthroid) 100 mcg DAILY06 PO Last administered on at 06:08; Start 02/20/18 at 10:30 Nystatin (Nystop) 1 bailey BID TP Last administered on 02/22/18at 09:07; Start at 09:00 Benzonatate (Tessalon Perle) 200 mg PRN Q12HR PRN PO COUGH; Start 02/20/18 at 09:00 Carvedilol (Coreg) 25 mg BIDWMEALS PO Last administered on 02/23/18at 08:50; Start 02/20/18 at 09:15 Cyanocobalamin (Vitamin B-12) 4,000 mcg Q48H PO Last administered on at 09:07; Start 02/20/18 at 09:00 Diclofenac Sodium (Voltaren) 1 bailey PRN QID PRN TP JOINT PAIN; Start 02/20/18 at 09:00 Duloxetine HCl (Cymbalta) 60 mg QHS PO Last administered on 02/22/18 20:57; Start 02/20/18 at 21:00 Pantoprazole Sodium (Protonix) 40 mg DAILYAC PO Last administered on 06:08; Start 02/20/18 at 08:30 Non-Formulary Medication (Estazolam ) 2 mg HS PO Last administered on 21:00; Start 02/20/18 at 21:00 Non-Formulary Medication (Gabapentin Enacarbil (Horizant)) 600 mg BID PO Last administered on 02/23/18 08:50; Start 02/20/18 at 09:00 Cetirizine HCl (ZyrTEC) 10 mg DAILY PO Last administered on 02/23/18 08:49; Start 02/20/18 at 09:00 Lisinopril (Prinivil) 5 mg QHS PO Last administered on 02/22/18at 20:58; Start 02/20/18 at 21:00 Loperamide HCl (Imodium) 2 mg PRN Q6HRS PRN PO DIARRHEA; Start 02/20/18 at 08: 45 Multivitamins (Thera M Plus) 1 tab DAILY PO Last administered on 02/21/18 08: 45; Start 02/20/18 at 09:00; Stop 02/21/18 at 13:47; Status DC Potassium Chloride (Klor-Con) 10 meq BIDWMEALS PO Last administered on at 08:48; Start 02/20/18 at 09:00 Atorvastatin Calcium (Lipitor) 5 mg QHS PO Last administered on 02/22/18at 20: 57; Start 02/20/18 at 21:00 Non-Formulary Medication (S-Adenosylmethionine Sul Tosyl (Werner-E)) 400 mg DAILY PO ; Start 02/20/18 at 09:00; Status UNV Oxybutynin Chloride (Ditropan) 5 mg [id number] PO Last administered on 02/23/18at 08:48; Start 02/20/18 at 09:00 Non-Formulary Medication (Turmeric/ Turmeric Root Extract (Turmeric 500 mg Capsule)) 1 each QHS PO ; Start 02/20/18 at 21:00; Status UNV Non-Formulary Medication (Ubidecarenone (Co Q-10)) 200 mg DAILY PO ; Start at 09:00; Status UNV Non-Formulary Medication (Urea/Emollient Combination #65 (Uramaxin Gt 45% Kit)) 1 each PRN PRN TP dry skin; Start 02/20/18 at 07:45; Stop 02/20/18 at 11:58; Status DC Non-Formulary Medication ([arthro 7] ) 1 cap BID PO ; Start 02/20/18 at 09:00; Status UNV Non-Formulary Medication ([chloroxazone/ Parafon] ) 500 mg PRN Q6HRS PRN PO MUSCLE SPASMS; Start 02/20/18 at 07:45; Status UNV Non-Formulary Medication ([cytoxan,[id number]] ) 1 each [id number] IV ; Start at 09:00; Stop 02/20/18 at 11:57; Status DC Non-Formulary Medication ([gamagen] ) 50 gm Q4WK IV ; Start 02/20/18 at 09:00; Stop 02/20/18 at 11:57; Status DC Non-Formulary Medication ([mannose] ) 1,500 mg DAILY07 PO ; Start 02/21/18 at 07:00; Status UNV Ketorolac Tromethamine (Toradol 15mg Vial) 15 mg PRN Q6HRS PRN IV PAIN; Start 02/20/18 at 08:00; Stop 02/25/18 at 07:59 Ceftriaxone Sodium (Rocephin) 1 gm 1X ONCE IVP Last administered on at 08:34; Start 02/20/18 at 07:45; Stop 02/20/18 at 08:22; Status DC Dextrose/Lactated Ringer's 1,000 ml @ 125 mls/hr 1X ONCE IV Last administered on 02/20/18at 14:53; Start 02/20/18 at 08:30; Stop 02/20/18 at 16 :29; Status DC Sodium Chloride 1,000 ml @ 100 mls/hr Q10H IV Last administered on 02/21/18at 17:30; Start 02/20/18 at 09:15; Stop 02/21/18 at 21:59; Status DC Info (Anti-Coagulation Monitoring By Pharmacy) 1 each PRN DAILY PRN MC SEE COMMENTS Last administered on 02/22/18at 14:20; Start 02/20/18 at 09:15 Acetaminophen/ Codeine Phosphate (Tylenol #3) 1 tab PRN BID PRN PO MODERATE PAIN; Start 02/20/18 at 22:15 Info (Tpn Per Pharmacy) 1 each PRN DAILY PRN MC SEE COMMENTS Last administered on 02/22/18at 12:53; Start 02/21/18 at 12:00 Magnesium Sulfate/ Dextrose 100 ml @ 100 mls/hr 1X ONCE IV Last administered on 02/21/18at 14:25; Start 02/21/18 at 14:00; Stop 02/21/18 at 14:59; Status DC Sodium Chloride 20 meq/Sodium Acetate 70 meq/ Potassium Chloride 50 meq/ Potassium Phosphate 13.6 mmol/Magnesium Sulfate 10 meq/ Calcium Gluconate 10 meq / Multivitamins 10 ml/Chromium/ Copper/Manganese/ Seleni/Zn 1 ml/ Total Parenteral Nutrition/Amino Acids/Dextrose/ Fat Emuls... 1,512 ml @ 63 mls/hr TPN CONT IV Last administered on 02/21/18at 23:13; Start 02/21/18 at 22:00; Stop 02/22/18 at 21:59; Status DC Adenosine (Adenocard) 6 mg 1X ONCE IV Last administered on 02/21/18at 20:01; Start 02/21/18 at 19:45; Stop 02/21/18 at 19:46; Status DC Sodium Chloride 1,000 ml @ 27 mls/hr Q24H IV Last administered on 02/22/18at 21:01; Start 02/21/18 at 20:15 Magnesium Sulfate/ Dextrose 100 ml @ 100 mls/hr 1X ONCE IV Last administered on 02/22/18at 11:24; Start 02/22/18 at 10:30; Stop 02/22/18 at 11:29; Status DC Adenosine (Adenocard) 6 mg 1X ONCE IV Last administered on 02/22/18at 14:07; Start 02/22/18 at 12:30; Stop 02/22/18 at 12:34; Status DC Sodium Chloride 20 meq/Sodium Acetate 70 meq/ Potassium Chloride 40 meq/ Potassium Phosphate 20 mmol/ Magnesium Sulfate 12 meq/Calcium Gluconate 10 meq/ Multivitamins 10 ml/Chromium/ Copper/Manganese/ Seleni/Zn 1 ml/ Total Parenteral Nutrition/Amino Acids/Dextrose/ Fat Emulsion Intravenous 1,512 ml @ 63 mls/hr TPN CONT IV Last administered on 02/22/18at 23:09; Start 02/22/18 at 22:00; Stop 02/23/18 at 21:59 Apixaban (Eliquis) 5 mg BID PO ; Start 02/22/18 at 21:00 Active Scripts Active Reported Uramaxin Gt 45% Kit (Urea/Emollient Combination #65) 1 Each Kt.crm.gel 1 Each TP PRN PRN Turmeric 500 mg Capsule (Turmeric/Turmeric Root Extract) 1 Each Capsule 1 Each PO QHS Trospium Chloride 20 Mg Tablet 20 Mg PO BID Prevident (Sodium Fluoride) 100 Ml Paste..ml. 100 Ml DT QHS Werner-E (S-Adenosylmethionine Sul Tosyl) 400 Mg Tablet 400 Mg PO DAILY Pennsaid (Diclofenac Sodium) 112 Gm Ebonie.md.hand shoe cutter 112 Gm TP PRN PRN Nystatin 15 Gm Powder 1 Bailey TP BID [mannose] 1,500 Mg PO DAILY07 Levothyroxine Sodium 100 Mcg Tablet 1 Tab PO DAILYAC Levocetirizine Dihydrochloride 5 Mg Tablet 1 Tab PO DAILY Imodium A-D (Loperamide HCl) 2 Mg Capsule 2 Mg PO PRN Q6HRS PRN [gamagen] 50 Gm IV Q4WK Nexium Capsule (Esomeprazole Magnesium) 40 Mg Capsule. 1 Cap PO DAILYAC Dulcolax (Bisacodyl) 5 Mg Tablet. 5 Mg PO PRN DAILY PRN Diclofenac Sodium 100 Gm Gel..gram. 100 Gm TP PRN PRN [cytoxan,[id number]] 1 Each IV [id number] Colace (Docusate Sodium) 100 Mg Capsule 1 Cap PO PRN PRN Coenzyme Q-10 (Ubidecarenone) 200 Mg Capsule 200 Mg PO QHS [chloroxazone/Parafon] 500 Mg PO PRN Q6HRS PRN [arthro 7] 1 Cap PO BID Eliquis (Apixaban) 5 Mg Tablet 5 Mg PO BID Vitamin D3 (Cholecalciferol (Vitamin D3)) 1,000 Unit Tablet 2,000 Unit PO DAILY Potassium Chloride 8 Meq Capsule.er 8 Meq PO BID Hydrocodone-Apap 5-325 (Hydrocodone Bit/Acetaminophen) 1 Each Tablet 1 Tab PO PRN Q6HRS PRN Acetaminophen-Cod #3 Tablet (Acetaminophen/Codeine Phosphate) 1 Each Tablet 2 Tab PO QHS Acetaminophen-Cod #3 Tablet (Acetaminophen/Codeine Phosphate) 1 Each Tablet 1 Tab PO 0500,1400 Pravastatin Sodium 20 Mg Tablet 25 Mg PO DAILY B-12 (Cyanocobalamin (Vitamin B-12)) 3,000 Mcg Tab.subl 4,000 Mcg SL QODAY Fluticasone Propionate Nasal [place] (Fluticasone Propionate) 16 Gm [place].susp 2 [place] NS BID Tessalon Perle (Benzonatate) 100 Mg Capsule 200 Mg PO PRN Q12HR PRN Eliquis (Apixaban) 5 Mg Tablet 5 Mg PO BID Horizant (Gabapentin Enacarbil) 600 Mg Tab.er.24h 600 Mg PO BID Lisinopril 5 Mg Tablet 1 Tab PO QHS Estazolam 2 Mg Tablet 2 Mg PO HS Duloxetine Hcl 60 Mg Capsule.dr 60 Mg PO HS Levothyroxine Sodium 100 Mcg Tablet 100 Mcg PO DAILYAC Multi-Vitamin Daily (Multivitamin) 1 Each Tablet 1 Each PO DAILY Co Q-10 (Ubidecarenone) 200 Mg Capsule 200 Mg PO DAILY Coreg (Carvedilol) 25 Mg Tablet 25 Mg PO BID Vitals/I & O Vital Sign - Last 24 Hours 02/22/18 02/22/18 02/22/18 02/22/18 11:00 15:22 17:52 19:15 Temp 98.6 98.3 98.6 98.3 Pulse 78 82 80 Resp 22 20 B/P (MAP) 129/85 (100) 115/79 (91) 131/72 Pulse Ox 96 97 O2 Delivery Nasal Cannula Nasal Cannula Nasal Cannula O2 Flow Rate 4.0 4.0 4.0 02/22/18 02/22/18 02/22/18 02/23/18 19:15 20:58 23:09 03:00 Temp 98.4 97.9 98.0 98.4 97.9 98.0 Pulse 81 81 82 80 Resp 18 18 18 B/P (MAP) 134/77 (96) 134/77 127/72 (90) 128/77 (94) Pulse Ox 96 90 94 O2 Delivery Nasal Cannula BiPAP/CPAP Nasal Cannula O2 Flow Rate 4.0 4.0 02/23/18 02/23/18 07:00 08:50 Temp 98.3 98.3 Pulse 79 102 Resp 20 B/P (MAP) 114/74 (87) 114/74 Pulse Ox 95 O2 Delivery Nasal Cannula O2 Flow Rate 4.0 Intake and Output 02/22/18 02/22/18 02/23/18 15:01 23:01 07:01 Intake Total 60 ml Output Total 75 ml 400 ml Balance -15 ml -400 ml DYANA BILLINGSLEY MD Feb 23, 2018 09:33
[2018-02-23] MEDS: TPN PER PHARMACY MC PRN ×3 (10:11→10:27)
--- NOTE | 2018-02-23 10:11 | PDOC ---
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 Sr as outpatient and is looking into home hospice/palliative care now, seriosly. Overnight 02/21/18 required adenosine for SVT, again on 02/22/18 during the day. She recalls PSVT since age 9, declined EP ablation in the past. Overnight had a BM, feels relieved with this. Oncology has recommended palliative care, to which she is amenable, she does not wish for hospice at this time. I have advised her TPN on d/c is high risk without a physician monitoring it. Plan: PICC line TPN - she d/w IR would like to use her port for TPN Will need home health - they are looking into [facility] for palliative care nursing, will need to confirm they are ok with TPN and I will call Dr. Bowden, her PCP about taking over this. Ok to eat clear liquid diet per me, if ok with GI. I will order. She no longer wants EGD after we discussed the risks and limit to potential benefits Discussed with her and multiple family at bedside, time 44 minutes at least in room alone cynthia RN Vitals Vitals Vital Signs Date Time Temp Pulse Resp B/P (MAP) Pulse Ox O2 Delivery O2 Flow Rate FiO2 02/23/18 08:50 102 114/74 02/23/18 08:00 Nasal Cannula 4.0 02/23/18 07:00 98.3 20 95 98.3 Physical Exam General: Alert, Oriented X3, No acute distress Heart: Normal S1, Normal S2 Lungs: Clear, Other Abdomen: Soft, No tenderness Extremities: No cyanosis, No edema Skin: No significant lesion Labs LABS Laboratory Tests Test 02/23/18 06:05 Sodium Level 145 mmol/L (136-145) Potassium Level 4.2 mmol/L (3.5-5.1) Chloride Level 109 mmol/L (98-107) Carbon Dioxide Level 26 mmol/L (21-32) Anion Gap 10 (6-14) Blood Urea Nitrogen 16 mg/dL (7-20) Creatinine 0.7 mg/dL (0.6-1.0) Estimated GFR (Cockcroft-Gault) 83.0 Glucose Level 130 mg/dL (70-99) Calcium Level 8.8 mg/dL (8.5-10.1) Phosphorus Level 2.8 mg/dL (2.6-4.7) Magnesium Level 1.6 mg/dL (1.8-2.4) Assessment and Plan Assessmemt and Plan Problems Medical Problems: (1) Acute renal insufficiency Status: Acute (2) Ascites Status: Acute (3) Dehydration Status: Acute (4) Ileus Status: Acute (5) Leukocytosis Status: Acute (6) Metastatic breast cancer Status: Acute (7) Weakness Status: Acute Comment Review of Relevant I have reviewed the following items declan (where applicable) has been applied. Labs Laboratory Tests Test 02/22/18 04:40 02/23/18 06:05 Sodium Level 144 mmol/L (136-145) 145 mmol/L (136-145) Potassium Level 3.9 mmol/L (3.5-5.1) 4.2 mmol/L (3.5-5.1) Chloride Level 110 mmol/L (98-107) 109 mmol/L (98-107) Carbon Dioxide Level 25 mmol/L (21-32) 26 mmol/L (21-32) Anion Gap 9 (6-14) 10 (6-14) Blood Urea Nitrogen 25 mg/dL (7-20) 16 mg/dL (7-20) Creatinine 0.8 mg/dL (0.6-1.0) 0.7 mg/dL (0.6-1.0) Estimated GFR (Cockcroft-Gault) 71.1 83.0 Glucose Level 109 mg/dL (70-99) 130 mg/dL (70-99) Calcium Level 8.4 mg/dL (8.5-10.1) 8.8 mg/dL (8.5-10.1) Phosphorus Level 3.1 mg/dL (2.6-4.7) 2.8 mg/dL (2.6-4.7) Magnesium Level 1.5 mg/dL (1.8-2.4) 1.6 mg/dL (1.8-2.4) Triglycerides Level 125 mg/dL (0-150) Thyroid Stimulating Hormone (TSH) 0.161 uIU/mL (0.358-3.74) Laboratory Tests Test 02/23/18 06:05 Sodium Level 145 mmol/L (136-145) Potassium Level 4.2 mmol/L (3.5-5.1) Chloride Level 109 mmol/L (98-107) Carbon Dioxide Level 26 mmol/L (21-32) Anion Gap 10 (6-14) Blood Urea Nitrogen 16 mg/dL (7-20) Creatinine 0.7 mg/dL (0.6-1.0) Estimated GFR (Cockcroft-Gault) 83.0 Glucose Level 130 mg/dL (70-99) Calcium Level 8.8 mg/dL (8.5-10.1) Phosphorus Level 2.8 mg/dL (2.6-4.7) Magnesium Level 1.6 mg/dL (1.8-2.4) Microbiology 02/20/18 Blood Culture - Preliminary, Resulted NO GROWTH AFTER 3 DAYS Medications Current Medications Sodium Chloride (NORMAL SALINE FLUSH for STERILE FIELD) 10 ml STK-MED ONCE .ROUTE ; Start 02/20/18 at 04:49; Stop 02/20/18 at 04:51; Status DC Iohexol (Omnipaque 300 Mg/ml) 75 ml 1X ONCE IV Last administered on at 06:20; Start 02/20/18 at 06:00; Stop 02/20/18 at 06:01; Status DC Info (CONTRAST GIVEN -- Rx MONITORING) 1 each PRN DAILY PRN MC SEE COMMENTS; Start 02/20/18 at 05:30; Stop 02/22/18 at 05:29; Status DC Sodium Chloride 1,000 ml @ 125 mls/hr 1X ONCE IV Last administered on at 06:15; Start 02/20/18 at 06:15; Stop 02/20/18 at 14:14; Status DC Acetaminophen/ Codeine Phosphate (Tylenol #3) 1 tab 0500,1400 PO ; Start at 14:00; Stop 02/20/18 at 22:13; Status DC Apixaban (Eliquis) 5 mg BID PO ; Start 02/20/18 at 09:00; Stop 02/21/18 at 19: 45; Status DC Bisacodyl (Dulcolax Tab) 5 mg PRN DAILY PRN PO CONSTIPATION; Start 02/20/18 at 07:45 Vitamin D (Vitamin D3) 2,000 unit DAILY PO Last administered on 02/23/18at 08: 49; Start 02/20/18 at 09:00 Docusate Sodium (Colace) 100 mg PRN BID PRN PO HARD STOOLS; Start 02/20/18 at 07:45 Fluticasone Propionate (Flonase) 1 spray BID NS Last administered on at 08:48; Start 02/20/18 at 09:00 Acetaminophen/ Hydrocodone Bitart (Lortab 5/325) 1 tab PRN Q6HRS PRN PO SEVERE PAIN Last administered on 02/20/18at 21:25; Start 02/20/18 at 07:45 Levothyroxine Sodium (Synthroid) 100 mcg DAILY06 PO Last administered on at 06:08; Start 02/20/18 at 10:30 Nystatin (Nystop) 1 bailey BID TP Last administered on 02/22/18at 09:07; Start at 09:00 Benzonatate (Tessalon Perle) 200 mg PRN Q12HR PRN PO COUGH; Start 02/20/18 at 09:00 Carvedilol (Coreg) 25 mg BIDWMEALS PO Last administered on 02/23/18at 08:50; Start 02/20/18 at 09:15 Cyanocobalamin (Vitamin B-12) 4,000 mcg Q48H PO Last administered on at 09:07; Start 02/20/18 at 09:00 Diclofenac Sodium (Voltaren) 1 bailey PRN QID PRN TP JOINT PAIN; Start 02/20/18 at 09:00 Duloxetine HCl (Cymbalta) 60 mg QHS PO Last administered on 02/22/18at 20:57; Start 02/20/18 at 21:00 Pantoprazole Sodium (Protonix) 40 mg DAILYAC PO Last administered on at 06:08; Start 02/20/18 at 08:30 Non-Formulary Medication (Estazolam ) 2 mg HS PO Last administered on at 21:00; Start 02/20/18 at 21:00 Non-Formulary Medication (Gabapentin Enacarbil (Horizant)) 600 mg BID PO Last administered on 02/23/18 08:50; Start 02/20/18 at 09:00 Cetirizine HCl (ZyrTEC) 10 mg DAILY PO Last administered on 02/23/18 08:49; Start 02/20/18 at 09:00 Lisinopril (Prinivil) 5 mg QHS PO Last administered on 02/22/18at 20:58; Start 02/20/18 at 21:00 Loperamide HCl (Imodium) 2 mg PRN Q6HRS PRN PO DIARRHEA; Start 02/20/18 at 08: 45 Multivitamins (Thera M Plus) 1 tab DAILY PO Last administered on 02/21/18 08: 45; Start 02/20/18 at 09:00; Stop 02/21/18 at 13:47; Status DC Potassium Chloride (Klor-Con) 10 meq BIDWMEALS PO Last administered on at 08:48; Start 02/20/18 at 09:00 Atorvastatin Calcium (Lipitor) 5 mg QHS PO Last administered on 02/22/18 20: 57; Start 02/20/18 at 21:00 Non-Formulary Medication (S-Adenosylmethionine Sul Tosyl (Werner-E)) 400 mg DAILY PO ; Start 02/20/18 at 09:00; Status UNV Oxybutynin Chloride (Ditropan) 5 mg [id number] PO Last administered on 02/23/18at 08:48; Start 02/20/18 at 09:00 Non-Formulary Medication (Turmeric/ Turmeric Root Extract (Turmeric 500 mg Capsule)) 1 each QHS PO ; Start 02/20/18 at 21:00; Status UNV Non-Formulary Medication (Ubidecarenone (Co Q-10)) 200 mg DAILY PO ; Start at 09:00; Status UNV Non-Formulary Medication (Urea/Emollient Combination #65 (Uramaxin Gt 45% Kit)) 1 each PRN PRN TP dry skin; Start 02/20/18 at 07:45; Stop 02/20/18 at 11:58; Status DC Non-Formulary Medication ([arthro 7] ) 1 cap BID PO ; Start 02/20/18 at 09:00; Status UNV Non-Formulary Medication ([chloroxazone/ Parafon] ) 500 mg PRN Q6HRS PRN PO MUSCLE SPASMS; Start 02/20/18 at 07:45; Status UNV Non-Formulary Medication ([cytoxan,[id number]] ) 1 each [id number] IV ; Start at 09:00; Stop 02/20/18 at 11:57; Status DC Non-Formulary Medication ([gamagen] ) 50 gm Q4WK IV ; Start 02/20/18 at 09:00; Stop 02/20/18 at 11:57; Status DC Non-Formulary Medication ([mannose] ) 1,500 mg DAILY07 PO ; Start 02/21/18 at 07:00; Status UNV Ketorolac Tromethamine (Toradol 15mg Vial) 15 mg PRN Q6HRS PRN IV PAIN; Start 02/20/18 at 08:00; Stop 02/25/18 at 07:59 Ceftriaxone Sodium (Rocephin) 1 gm 1X ONCE IVP Last administered on at 08:34; Start 02/20/18 at 07:45; Stop 02/20/18 at 08:22; Status DC Dextrose/Lactated Ringer's 1,000 ml @ 125 mls/hr 1X ONCE IV Last administered on 02/20/18at 14:53; Start 02/20/18 at 08:30; Stop 02/20/18 at 16 :29; Status DC Sodium Chloride 1,000 ml @ 100 mls/hr Q10H IV Last administered on 02/21/18at 17:30; Start 02/20/18 at 09:15; Stop 02/21/18 at 21:59; Status DC Info (Anti-Coagulation Monitoring By Pharmacy) 1 each PRN DAILY PRN MC SEE COMMENTS Last administered on 02/22/18at 14:20; Start 02/20/18 at 09:15 Acetaminophen/ Codeine Phosphate (Tylenol #3) 1 tab PRN BID PRN PO MODERATE PAIN; Start 02/20/18 at 22:15 Info (Tpn Per Pharmacy) 1 each PRN DAILY PRN MC SEE COMMENTS Last administered on 02/22/18at 12:53; Start 02/21/18 at 12:00 Magnesium Sulfate/ Dextrose 100 ml @ 100 mls/hr 1X ONCE IV Last administered on 02/21/18at 14:25; Start 02/21/18 at 14:00; Stop 02/21/18 at 14:59; Status DC Sodium Chloride 20 meq/Sodium Acetate 70 meq/ Potassium Chloride 50 meq/ Potassium Phosphate 13.6 mmol/Magnesium Sulfate 10 meq/ Calcium Gluconate 10 meq / Multivitamins 10 ml/Chromium/ Copper/Manganese/ Seleni/Zn 1 ml/ Total Parenteral Nutrition/Amino Acids/Dextrose/ Fat Emuls... 1,512 ml @ 63 mls/hr TPN CONT IV Last administered on 02/21/18at 23:13; Start 02/21/18 at 22:00; Stop 02/22/18 at 21:59; Status DC Adenosine (Adenocard) 6 mg 1X ONCE IV Last administered on 02/21/18at 20:01; Start 02/21/18 at 19:45; Stop 02/21/18 at 19:46; Status DC Sodium Chloride 1,000 ml @ 27 mls/hr Q24H IV Last administered on 02/22/18at 21:01; Start 02/21/18 at 20:15 Magnesium Sulfate/ Dextrose 100 ml @ 100 mls/hr 1X ONCE IV Last administered on 02/22/18at 11:24; Start 02/22/18 at 10:30; Stop 02/22/18 at 11:29; Status DC Adenosine (Adenocard) 6 mg 1X ONCE IV Last administered on 02/22/18at 14:07; Start 02/22/18 at 12:30; Stop 02/22/18 at 12:34; Status DC Sodium Chloride 20 meq/Sodium Acetate 70 meq/ Potassium Chloride 40 meq/ Potassium Phosphate 20 mmol/ Magnesium Sulfate 12 meq/Calcium Gluconate 10 meq/ Multivitamins 10 ml/Chromium/ Copper/Manganese/ Seleni/Zn 1 ml/ Total Parenteral Nutrition/Amino Acids/Dextrose/ Fat Emulsion Intravenous 1,512 ml @ 63 mls/hr TPN CONT IV Last administered on 02/22/18at 23:09; Start 02/22/18 at 22:00; Stop 02/23/18 at 21:59 Apixaban (Eliquis) 5 mg BID PO ; Start 02/22/18 at 21:00 Active Scripts Active Reported Uramaxin Gt 45% Kit (Urea/Emollient Combination #65) 1 Each Kt.crm.gel 1 Each TP PRN PRN Turmeric 500 mg Capsule (Turmeric/Turmeric Root Extract) 1 Each Capsule 1 Each PO QHS Trospium Chloride 20 Mg Tablet 20 Mg PO BID Prevident (Sodium Fluoride) 100 Ml Paste..ml. 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 1 Cap PO DAILYAC Dulcolax (Bisacodyl) 5 Mg Tablet.dr 5 Mg PO PRN DAILY PRN Diclofenac Sodium 100 Gm Gel..gram. 100 Gm TP PRN PRN [cytoxan,[id number]] 1 Each IV [id number] Colace (Docusate Sodium) 100 Mg Capsule 1 Cap PO PRN PRN Coenzyme Q-10 (Ubidecarenone) 200 Mg Capsule 200 Mg PO QHS [chloroxazone/Parafon] 500 Mg PO PRN Q6HRS PRN [arthro 7] 1 Cap PO BID Eliquis (Apixaban) 5 Mg Tablet 5 Mg PO BID Vitamin D3 (Cholecalciferol (Vitamin D3)) 1,000 Unit Tablet 2,000 Unit PO DAILY Potassium Chloride 8 Meq Capsule.er 8 Meq PO BID Hydrocodone-Apap 5-325 (Hydrocodone Bit/Acetaminophen) 1 Each Tablet 1 Tab PO PRN Q6HRS PRN Acetaminophen-Cod #3 Tablet (Acetaminophen/Codeine Phosphate) 1 Each Tablet 2 Tab PO QHS Acetaminophen-Cod #3 Tablet (Acetaminophen/Codeine Phosphate) 1 Each Tablet 1 Tab PO 0500,1400 Pravastatin Sodium 20 Mg Tablet 25 Mg PO DAILY B-12 (Cyanocobalamin (Vitamin B-12)) 3,000 Mcg Tab.subl 4,000 Mcg SL QODAY Fluticasone Propionate Nasal [place] (Fluticasone Propionate) 16 Gm [place].susp 2 [place] NS BID Tessalon Perle (Benzonatate) 100 Mg Capsule 200 Mg PO PRN Q12HR PRN Eliquis (Apixaban) 5 Mg Tablet 5 Mg PO BID Horizant (Gabapentin Enacarbil) 600 Mg Tab.er.24h 600 Mg PO BID Lisinopril 5 Mg Tablet 1 Tab PO QHS Estazolam 2 Mg Tablet 2 Mg PO HS Duloxetine Hcl 60 Mg Capsule.dr 60 Mg PO HS Levothyroxine Sodium 100 Mcg Tablet 100 Mcg PO DAILYAC Multi-Vitamin Daily (Multivitamin) 1 Each Tablet 1 Each PO DAILY Co Q-10 (Ubidecarenone) 200 Mg Capsule 200 Mg PO DAILY Coreg (Carvedilol) 25 Mg Tablet 25 Mg PO BID Vitals/I & O Vital Sign - Last 24 Hours 02/22/18 02/22/18 02/22/18 02/22/18 11:00 15:22 17:52 19:15 Temp 98.6 98.3 98.6 98.3 Pulse 78 82 80 Resp 22 20 B/P (MAP) 129/85 (100) 115/79 (91) 131/72 Pulse Ox 96 97 O2 Delivery Nasal Cannula Nasal Cannula Nasal Cannula O2 Flow Rate 4.0 4.0 4.0 02/22/18 02/22/18 02/22/18 02/23/18 19:15 20:58 23:09 03:00 Temp 98.4 97.9 98.0 98.4 97.9 98.0 Pulse 81 81 82 80 Resp 18 B/P (MAP) 134/77 (96) 134/77 127/72 (90) 128/77 (94) Pulse Ox 96 90 94 O2 Delivery Nasal Cannula BiPAP/CPAP Nasal Cannula O2 Flow Rate 4.0 4.0 02/23/18 02/23/18 02/23/18 07:00 08:00 08:50 Temp 98.3 98.3 Pulse 79 102 Resp 20 B/P (MAP) 114/74 (87) 114/74 Pulse Ox 95 O2 Delivery Nasal Cannula Nasal Cannula O2 Flow Rate 4.0 4.0 Intake and Output 02/22/18 02/22/18 02/23/18 15:01 23:01 07:01 Intake Total 60 ml Output Total 75 ml 400 ml Balance -15 ml -400 ml MASOUD DUVAL MD Feb 23, 2018 10:11
--- NOTE | 2018-02-23 10:28 | NUR ---
Pharmacy TPN Dosing Note S: BROTHERS,HAFSA is a 67 year old F Currently receiving Central Continuous TPN started 02/21/18 B:Pertinent PMH: Ileus vs. SBO Height: 5 feet, 8.5 inches Weight: 114.870713 kg Current diet: NPO LABS: Sodium: 145 Potassium: 4.2 Chloride: 109 Calcium: 8.8 Corrected Calcium: 10.24 Magnesium: 1.6 CO2: 26 SCr: 0.7 Glucose: 130 Albumin: 2.2 AST: 56 (02/20) ALT: 17 (02/20) TPN FORMULA: TPN TYPE: Central Continuous AMINO ACIDS: 60 gm DEXTROSE: 195 gm LIPIDS: 20 gm SODIUM CHLORIDE: - mEq SODIUM ACETATE: 70 mEq SODIUM PHOSPHATE: - mmol POTASSIUM CHLORIDE: 30 mEq POTASSIUM ACETATE: - mEq POTASSIUM PHOSPHATE: 25 mmol MAGNESIUM: 15 mEq CALCIUM: 10 mEq INSULIN: - units MULTIPLE VITAMIN: 10 ml TRACE ELEMENTS: 1 ml(s) TPN PLAN: -Per Dietitian continue standard TPN Macros (60 g AA, 20 g lipids, 195 g Dextrose) -Magnesium still low, Mag increased in TPN. -Phos trending down. KPhos increased in TPN and KCl decreased to equal same total amount of potassium in TPN. -NS outside of TPN running at 27 mL/hour, sodium still high, removed NaCl from TPN -BMP, Mag, Phos and Ca ordered for 02/24/18 R: Continue TPN as ordered Will monitor electrolytes, glucose, and tolerance to TPN. STARR SCHWAB, [facility], 02/23/18 [id number]
--- NOTE | 2018-02-23 10:59 | PDOC ---
Objective: Objective: Palliative care meeting in process - d/w Pat yesterday. D/w RN - having sips of water and ice chips, had a bowel movement. D/w Dr. Sidhu - plans for outpt TPN management? Vital Signs: Vital Signs Date Time Temp Pulse Resp B/P (MAP) Pulse Ox O2 Delivery O2 Flow Rate FiO2 02/23/18 08:50 102 114/74 02/23/18 08:00 Nasal Cannula 4.0 02/23/18 07:00 98.3 20 95 98.3 Labs: Laboratory Tests Test 02/23/18 06:05 Sodium Level 145 mmol/L Potassium Level 4.2 mmol/L Chloride Level 109 mmol/L Carbon Dioxide Level 26 mmol/L Anion Gap 10 Blood Urea Nitrogen 16 mg/dL Creatinine 0.7 mg/dL Estimated GFR (Cockcroft-Gault) 83.0 Glucose Level 130 mg/dL Calcium Level 8.8 mg/dL Phosphorus Level 2.8 mg/dL Magnesium Level 1.6 mg/dL PE: no exam A/P: Metastatic breast cancer, peritoneal carcinomatosis Ileus - resolved? -- Reviewed w/ Dr. Payton yesterday - do not recommend EGD and flex sig (which she requested), await outcome of family meeting. Reviewed w/ Dr. Payton re: TPN - can be managed by PCP as outpt. ROBBIE HERNANDEZ Feb 23, 2018 10:59
[2018-02-23 11:00] VITALS: BP 127/78
[2018-02-23] MEDS ORDERED: Tpn Per Pharmacy MC (12:52)
--- NOTE | 2018-02-23 12:55 | DISCH ---
DISCHARGE WITH HOME HEALTH DISCHARGE INFORMATION: Discharge Date: Feb 24, 2018 Final Diagnosis: Problems Medical Problems: (1) Acute renal insufficiency Status: Acute (2) Ascites Status: Acute (3) Dehydration Status: Acute (4) Ileus Status: Acute (5) Leukocytosis Status: Acute (6) Metastatic breast cancer Status: Acute (7) Weakness Status: Acute Condition on Discharge: Guarded CODE STATUS: Code Status: DNR/DNI HOME HEALTH: Face to Face: I certify this patient is under my care and that I, or a nurse practitioner or physician's licensed loan officer assistant working with me, had a face to face encounter that meets the physician face to face encounter requirements with this patient on 02/23/18. Medical Complications: Other Care Home For: Admin/Educate Injections, Assess & Educate Safety, Assess/ Skilled Observatio, IV Infusion Therapy (TPN), Medication Management Pt Meets Homebound Status: Extreme weakness w/ amb. POST DISCHARGE ORDERS: Activity Instructions for Disc: No restrictions Weight Bearing Status after Di: No restrictions Bathing Instructions: Shower-keep dressing dry DIET AFTER DISCHARGE: Full liquid diet Wound/Incision Care: No wound care needed CHECKS AFTER DISCHARGE: Checks after discharge: Check blood press - daily FOLLOW-UP: Follow up with: Dr. Sr - oncology Follow Up With: Dr. Bowden - PCP TREATMENT/EQUIPMENT ORDERS: Adaptive Equipment Issued: None Infusion Equipment, home use: PortaCath (Access MWF for TPN infusions) CERTIFICATION STATEMENT: Certification Statement: Certification Statement: Based on the above finding, I certify that this patient is confined to the home and needs intermittent nursing home care, physical therapy and/or speech therapy, or continues to need occupational therapy.~ This patient is under my care, and I have initiated the establishment of the plan of care.~ This patient will be followed by myself or a community physician who will periodically review the plan of care. Home Meds Active Scripts [Tpn Per Pharmacy] 1 EACH EACH No Conflict Check, 1 EACH MC PRN DAILY PRN for SEE COMMENTS See printed prescription 60g AA 165g dextrose 20% lipid emulsion Prov:MASOUD DUVAL MD 02/23/18 Reported Medications Urea/Emollient Combination #65 (URAMAXIN GT 45% KIT) 1 Each Kt.crm.gel, 1 EACH TP PRN PRN for dry skin, EACH 01/26/18 Turmeric/Turmeric Root Extract (Turmeric 500 mg Capsule) 1 Each Capsule, 1 EACH PO QHS for anti-inflammatory, CAP 01/26/18 Trospium Chloride (TROSPIUM CHLORIDE) 20 Mg Tablet, 20 MG PO BID for UTI control , TAB 01/26/18 Sodium Fluoride (PREVIDENT) 100 Ml Paste..ml., 100 ML DT QHS for dry mouth, MISC 01/26/18 S-Adenosylmethionine Sul Tosyl (AURORA-E) 400 Mg Tablet, 400 MG PO DAILY for brain chemical alignment, TAB 01/26/18 Diclofenac Sodium (PENNSAID) 112 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, 112 GM TP PRN PRN for joint pain , MISC 01/26/18 Nystatin (NYSTATIN) 15 Gm Powder, 1 RICHI TP BID for perineal rash, #1 BOTTLE 01/26/18 [mannose] No Conflict Check, 1500 MG PO DAILY07 for UTI prevention 01/26/18 Levothyroxine Sodium (LEVOTHYROXINE SODIUM) 100 Mcg Tablet, 1 TAB PO DAILYAC for hypothyroid, #30 TAB 5 Refills 01/26/18 Levocetirizine Dihydrochloride (LEVOCETIRIZINE DIHYDROCHLORIDE) 5 Mg Tablet, 1 TAB PO DAILY for allergy and sinusitis, #30 TAB 3 Refills 01/26/18 Loperamide HCl (Imodium A-D) 2 Mg Capsule, 2 MG PO PRN Q6HRS PRN for DIARRHEA, CAP 01/26/18 [gamagen] No Conflict Check, 50 GM IV Q4WK for low gamma globulin G level 01/26/18 Esomeprazole Magnesium (NEXIUM CAPSULE) 40 Mg Capsule.dr, 1 CAP PO DAILYAC for reflux, #30 CAP 5 Refills 01/26/18 Bisacodyl (DULCOLAX) 5 Mg Tablet.dr, 5 MG PO PRN DAILY PRN for CONSTIPATION, TAB 0 Refills 01/26/18 Diclofenac Sodium (DICLOFENAC SODIUM) 100 Gm Gel..gram., 100 GM TP PRN PRN for PAIN, EACH 01/26/18 [cytoxan,[id number]] No Conflict Check, 1 EACH IV [id number] for chemo 01/26/18 Docusate Sodium (COLACE) 100 Mg Capsule, 1 CAP PO PRN PRN for CONSTIPATION, #30 CAP 01/26/18 Ubidecarenone (Coenzyme Q-10) 200 Mg Capsule, 200 MG PO QHS for joint pain, CAP 01/26/18 [chloroxazone/Parafon] No Conflict Check, 500 MG PO PRN Q6HRS PRN for MUSCLE SPASMS 01/26/18 [arthro 7] No Conflict Check, 1 CAP PO BID for joint health 01/26/18 Apixaban (ELIQUIS) 5 Mg Tablet, 5 MG PO BID for PE, TAB 01/26/18 Cholecalciferol (Vitamin D3) (VITAMIN D3) 1,000 Unit Tablet, 2000 UNIT PO DAILY for vit d deficiency, TAB 01/26/18 Potassium Chloride (POTASSIUM CHLORIDE) 8 Meq Capsule.er, 8 MEQ PO BID for HYPOKALEMIA, CAP 01/26/18 Hydrocodone Bit/Acetaminophen (HYDROCODONE-APAP 5-325 ) 1 Each Tablet, 1 TAB PO PRN Q6HRS PRN for PAIN, TAB 0 Refills 01/26/18 Acetaminophen With Codeine (ACETAMINOPHEN-COD #3 TABLET) 1 Each Tablet, 2 TAB PO QHS for SEVERE JOINT PAIN, TAB 01/26/18 Acetaminophen With Codeine (ACETAMINOPHEN-COD #3 TABLET) 1 Each Tablet, 1 TAB PO 0500,1400 for SEVERE JOINT PAIN, TAB 01/26/18 Pravastatin Sodium (PRAVASTATIN SODIUM) 20 Mg Tablet, 25 MG PO DAILY for CHOLESTEROL, TAB 01/26/18 Cyanocobalamin (Vitamin B-12) (B-12) 3,000 Mcg Tab.subl, 4000 MCG SL QODAY for b12 deficiency, TAB 01/26/18 Fluticasone Propionate (FLUTICASONE PROPIONATE NASAL SPRAY) 16 Gm [place].susp, 2 SPRAY NS BID for allergies, #1 INHALER 11 Refills 01/26/18 Benzonatate (TESSALON PERLE) 100 Mg Capsule, 200 MG PO PRN Q12HR PRN for COUGH, CAP 01/26/18 Apixaban (ELIQUIS) 5 Mg Tablet, 5 MG PO BID for blood thinner, TAB 01/26/18 Gabapentin Enacarbil (HORIZANT) 600 Mg Tab.er.24h, 600 MG PO BID for rls, #60 08/18/15 Lisinopril (LISINOPRIL) 5 Mg Tablet, 1 TAB PO QHS for HTN, #30 TAB 5 Refills 05/29/15 Estazolam (ESTAZOLAM) 2 Mg Tablet, 2 MG PO HS 05/29/15 Duloxetine Hcl (DULOXETINE HCL) 60 Mg Capsule.dr, 60 MG PO HS for depression, CAP 05/29/15 Levothyroxine Sodium (LEVOTHYROXINE SODIUM) 100 Mcg Tablet, 100 MCG PO DAILYAC for THYROID SUPPLEMENT, #30 TAB 0 Refills 05/29/15 Multivitamin (MULTI-VITAMIN DAILY) 1 Each Tablet, 1 EACH PO DAILY 05/29/15 Ubidecarenone (CO Q-10) 200 Mg Capsule, 200 MG PO DAILY 05/29/15 Carvedilol (COREG) 25 Mg Tablet, 25 MG PO BID for SVT, TAB 05/29/15 MASOUD DUVAL MD Feb 23, 2018 12:55
--- NOTE | 2018-02-23 14:19 | PDOC2 ---
PALLIATIVE CARE Palliative Care Note Palliative Care Patient alert. Denies pain, nausea, SOB. Met with patient, Jakob, and 2 sisters. Patient is able to provide accurate review of her medical condition. Lobular Breast Cancer with mets to liver, bone. SBO/ileus Has been on chemotherapy and wishes to continue with treatments. Patient has had BM today and feels much better Would like to go home with TPN since she feels this is providing strength. Darling Henao is her primary physician. She will continue with Dr. White and [facility] onco. Discussed difference between Palliative Care and Hospice. Acknowledges understanding and wishes to pursue palliative care. Informed Palliative Care is provided under Home Health Care regulations. TPN will be provided through another co. Confirmed DNR/DNI. Outside the Hospital DNR/DNI form competed. Above reviewed with Dr. Sidhu and Jessica GUADARRAMA who will assist with discharge plan SARAH RAYO Feb 23, 2018 14:19
--- NOTE | 2018-02-23 14:47 | NUR ---
SS following for discharge planning. Pt is from home. SS met with palliative care RN and received update. SS met with pt to discuss discharge planning. Pt reported that she wants to remain at home as long as possible and would like palliative care and not hospice. Pt requested Palliative Care and is requesting home TPN. SS phoned and faxed orders for TPN to [facility], ; fax [phone] and orders for Palliative [facility] to [facility], ; fax [phone]. Pt also requested a Wheelchair at discharge. SS phoned and faxed order for wheelchair to [facility], ; fax [phone]. Pt's RN notified.
[2018-02-23 15:26] VITALS: BP 134/84
[2018-02-23 19:55] VITALS: BP 137/78
[2018-02-23] MEDS: IV NORMAL SALINE 1000ML BAG 1,000 ML IV SCH (20:15)
[2018-02-23] MEDS: ATORVASTATIN CALCIUM 10 MG TABLET. PO SCH (20:58)
[2018-02-23] MEDS: DULoxetine HCL 30 MG CAPSULE.DR PO SCH (20:58)
[2018-02-23] MEDS: LISINOPRIL 5 MG TABLET. PO SCH (20:59)
[2018-02-23] MEDS: ESTAZOLAM 2 MG PO SCH (21:00)
[2018-02-23] MEDS ORDERED: AMINO ACID IV SCH ×10 (22:00)
[2018-02-23] MEDS ORDERED: TOTAL PARENTERAL NUTRITION IV SCH ×10 (22:00)
[2018-02-23] MEDS ORDERED: [UNRECOGNIZED DRUG - OTHER] IV SCH ×10 (22:00)
[2018-02-23] MEDS ORDERED: DEXTROSE 70% IV SCH ×10 (22:00)
[2018-02-23 23:00] VITALS: BP 124/67
[2018-02-24 03:50] VITALS: BP 132/79
[2018-02-24] MEDS: LEVOTHYROXINE 100 MCG TABLET PO SCH (05:55)
[2018-02-24 06:56] LABS: CALCIUM 8.9 mg/dL (8.5-10.1); CREATININE 0.7 mg/dL (0.6-1.0); MAGNESIUM 1.7 mg/dL (1.8-2.4); PHOSPHORUS 3.4 mg/dL (2.6-4.7); POTASSIUM 4.3 mmol/L (3.5-5.1)
[2018-02-24 07:10] VITALS: BP 147/87
[2018-02-24] MEDS: PANTOPRAZOLE 40 MG TABLET.DR. PO SCH (07:51)
[2018-02-24] MEDS: APIXABAN 5 MG TABLET. PO SCH ×3 (09:00→21:07)
[2018-02-24] MEDS: POTASSIUM CHLORIDE 10 MEQ TABLET.ER. PO SCH ×2 (09:22→16:09)
[2018-02-24] MEDS: CETIRIZINE HCL 10 MG TABLET. PO SCH (09:22)
[2018-02-24] MEDS: OXYBUTYNIN CHLORIDE 5 MG TABLET PO SCH ×3 (09:22→21:07)
[2018-02-24] MEDS: CARVEDILOL 12.5 MG TABLET. PO SCH ×2 (09:23→16:09)
[2018-02-24] MEDS: FLUTICASONE 50MCG/NASAL SPRAY 16GM BOTTLE. NS SCH ×2 (09:23→21:00)
[2018-02-24] MEDS: NYSTATIN TOPICAL POWDER 15GM BOTTLE. TP SCH ×2 (09:23→21:00)
[2018-02-24] MEDS: GABAPENTIN ENACARBIL 600 MG PO SCH ×2 (09:24→21:06)
[2018-02-24] MEDS: CHOLECALCIFEROL (VITAMIN D3) 1,000 UNIT TABLET PO SCH (09:27)
[2018-02-24] MEDS: CYANOCOBALAMIN (VITAMIN B-12) 1,000 MCG TABLET. PO SCH (09:27)
--- NOTE | 2018-02-24 10:15 | PDOC ---
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 Sr as outpatient and is looking into home hospice/palliative care now, seriosly. Overnight 02/21/18 required adenosine for SVT, again on 02/22/18 during the day. She recalls PSVT since age 9, declined EP ablation in the past. Overnight had another BM, feels relieved with this. Tolerated clears ok, wishes for full liquid. Oncology has recommended palliative care, to which she is amenable, she does not wish for hospice at this time. I have advised her TPN on d/c is high risk without a physician monitoring it. Plan: PICC line TPN - she d/w IR would like to use her port for TPN Will need home health - they are going with [facility] for palliative care nursing, confirmed with their pharmacist they are ok with TPN and I have called Dr. Bowden, her PCP about taking over this and will replace her mag separately today from her TPN so as not to overload her TPN bag Ok to eat full liquid diet per me, if ok with GI. I will order. Discussed with her and multiple family at bedside, time 37 minutes at least in room alone today as most specialists have essentially signed off her case. cynthia RN, will discharge with home palliative care tomorrow Vitals Vitals Vital Signs Date Time Temp Pulse Resp B/P (MAP) Pulse Ox O2 Delivery O2 Flow Rate FiO2 02/24/18 09:23 74 147/87 02/24/18 08:00 Nasal Cannula 4.0 02/24/18 07:20 88 02/24/18 07:10 97.8 20 97.8 Physical Exam General: Alert, Oriented X3, No acute distress Heart: Normal S1, Normal S2 Lungs: Clear, Other Abdomen: Soft, No tenderness Extremities: No cyanosis, No edema Skin: No significant lesion Labs LABS Laboratory Tests Test 02/24/18 05:45 Sodium Level 143 mmol/L (136-145) Potassium Level 4.3 mmol/L (3.5-5.1) Chloride Level 107 mmol/L (98-107) Carbon Dioxide Level 27 mmol/L (21-32) Anion Gap 9 (6-14) Blood Urea Nitrogen 12 mg/dL (7-20) Creatinine 0.7 mg/dL (0.6-1.0) Estimated GFR (Cockcroft-Gault) 83.0 Glucose Level 131 mg/dL (70-99) Calcium Level 8.9 mg/dL (8.5-10.1) Phosphorus Level 3.4 mg/dL (2.6-4.7) Magnesium Level 1.7 mg/dL (1.8-2.4) Assessment and Plan Assessmemt and Plan Problems Medical Problems: (1) Acute renal insufficiency Status: Acute (2) Ascites Status: Acute (3) Dehydration Status: Acute (4) Ileus Status: Acute (5) Leukocytosis Status: Acute (6) Metastatic breast cancer Status: Acute (7) Weakness Status: Acute Comment Review of Relevant I have reviewed the following items declan (where applicable) has been applied. Labs Laboratory Tests Test 02/23/18 06:05 02/24/18 05:45 Sodium Level 145 mmol/L (136-145) 143 mmol/L (136-145) Potassium Level 4.2 mmol/L (3.5-5.1) 4.3 mmol/L (3.5-5.1) Chloride Level 109 mmol/L (98-107) 107 mmol/L (98-107) Carbon Dioxide Level 26 mmol/L (21-32) 27 mmol/L (21-32) Anion Gap 10 (6-14) 9 (6-14) Blood Urea Nitrogen 16 mg/dL (7-20) 12 mg/dL (7-20) Creatinine 0.7 mg/dL (0.6-1.0) 0.7 mg/dL (0.6-1.0) Estimated GFR (Cockcroft-Gault) 83.0 83.0 Glucose Level 130 mg/dL (70-99) 131 mg/dL (70-99) Calcium Level 8.8 mg/dL (8.5-10.1) 8.9 mg/dL (8.5-10.1) Phosphorus Level 2.8 mg/dL (2.6-4.7) 3.4 mg/dL (2.6-4.7) Magnesium Level 1.6 mg/dL (1.8-2.4) 1.7 mg/dL (1.8-2.4) Laboratory Tests Test 02/24/18 05:45 Sodium Level 143 mmol/L (136-145) Potassium Level 4.3 mmol/L (3.5-5.1) Chloride Level 107 mmol/L (98-107) Carbon Dioxide Level 27 mmol/L (21-32) Anion Gap 9 (6-14) Blood Urea Nitrogen 12 mg/dL (7-20) Creatinine 0.7 mg/dL (0.6-1.0) Estimated GFR (Cockcroft-Gault) 83.0 Glucose Level 131 mg/dL (70-99) Calcium Level 8.9 mg/dL (8.5-10.1) Phosphorus Level 3.4 mg/dL (2.6-4.7) Magnesium Level 1.7 mg/dL (1.8-2.4) Microbiology 02/20/18 Blood Culture - Preliminary, Resulted NO GROWTH AFTER 4 DAYS Medications Current Medications Sodium Chloride (NORMAL SALINE FLUSH for STERILE FIELD) 10 ml STK-MED ONCE .ROUTE ; Start 02/20/18 at 04:49; Stop 02/20/18 at 04:51; Status DC Iohexol (Omnipaque 300 Mg/ml) 75 ml 1X ONCE IV Last administered on at 06:20; Start 02/20/18 at 06:00; Stop 02/20/18 at 06:01; Status DC Info (CONTRAST GIVEN -- Rx MONITORING) 1 each PRN DAILY PRN MC SEE COMMENTS; Start 02/20/18 at 05:30; Stop 02/22/18 at 05:29; Status DC Sodium Chloride 1,000 ml @ 125 mls/hr 1X ONCE IV Last administered on at 06:15; Start 02/20/18 at 06:15; Stop 02/20/18 at 14:14; Status DC Acetaminophen/ Codeine Phosphate (Tylenol #3) 1 tab 0500,1400 PO ; Start at 14:00; Stop 02/20/18 at 22:13; Status DC Apixaban (Eliquis) 5 mg BID PO ; Start 02/20/18 at 09:00; Stop 02/21/18 at 19: 45; Status DC Bisacodyl (Dulcolax Tab) 5 mg PRN DAILY PRN PO CONSTIPATION; Start 02/20/18 at 07:45 Vitamin D (Vitamin D3) 2,000 unit DAILY PO Last administered on 02/24/18 09: 27; Start 02/20/18 at 09:00 Docusate Sodium (Colace) 100 mg PRN BID PRN PO HARD STOOLS; Start 02/20/18 at 07:45 Fluticasone Propionate (Flonase) 1 spray BID NS Last administered on 09:23; Start 02/20/18 at 09:00 Acetaminophen/ Hydrocodone Bitart (Lortab 5/325) 1 tab PRN Q6HRS PRN PO SEVERE PAIN Last administered on 02/20/18 21:25; Start 02/20/18 at 07:45 Levothyroxine Sodium (Synthroid) 100 mcg DAILY06 PO Last administered on at 05:55; Start 02/20/18 at 10:30 Nystatin (Nystop) 1 bailey BID TP Last administered on 02/24/18 09:23; Start at 09:00 Benzonatate (Tessalon Perle) 200 mg PRN Q12HR PRN PO COUGH; Start 02/20/18 at 09:00 Carvedilol (Coreg) 25 mg BIDWMEALS PO Last administered on 02/24/18 09:23; Start 02/20/18 at 09:15 Cyanocobalamin (Vitamin B-12) 4,000 mcg Q48H PO Last administered on 09:27; Start 02/20/18 at 09:00 Diclofenac Sodium (Voltaren) 1 bailey PRN QID PRN TP JOINT PAIN; Start 02/20/18 at 09:00 Duloxetine HCl (Cymbalta) 60 mg QHS PO Last administered on 02/23/18at 20:58; Start 02/20/18 at 21:00 Pantoprazole Sodium (Protonix) 40 mg DAILYAC PO Last administered on at 07:51; Start 02/20/18 at 08:30 Non-Formulary Medication (Estazolam ) 2 mg HS PO Last administered on at 21:00; Start 02/20/18 at 21:00 Non-Formulary Medication (Gabapentin Enacarbil (Horizant)) 600 mg BID PO Last administered on 02/24/18 09:24; Start 02/20/18 at 09:00 Cetirizine HCl (ZyrTEC) 10 mg DAILY PO Last administered on 02/24/18 09:22; Start 02/20/18 at 09:00 Lisinopril (Prinivil) 5 mg QHS PO Last administered on 02/23/18at 20:59; Start 02/20/18 at 21:00 Loperamide HCl (Imodium) 2 mg PRN Q6HRS PRN PO DIARRHEA; Start 02/20/18 at 08: 45 Multivitamins (Thera M Plus) 1 tab DAILY PO Last administered on 02/21/18 08: 45; Start 02/20/18 at 09:00; Stop 02/21/18 at 13:47; Status DC Potassium Chloride (Klor-Con) 10 meq BIDWMEALS PO Last administered on 09:22; Start 02/20/18 at 09:00 Atorvastatin Calcium (Lipitor) 5 mg QHS PO Last administered on 02/23/18 20: 58; Start 02/20/18 at 21:00 Non-Formulary Medication (S-Adenosylmethionine Sul Tosyl (Werner-E)) 400 mg DAILY PO ; Start 02/20/18 at 09:00; Status UNV Oxybutynin Chloride (Ditropan) 5 mg [id number] PO Last administered on 02/24/18 09:22; Start 02/20/18 at 09:00 Non-Formulary Medication (Turmeric/ Turmeric Root Extract (Turmeric 500 mg Capsule)) 1 each QHS PO ; Start 02/20/18 at 21:00; Status UNV Non-Formulary Medication (Ubidecarenone (Co Q-10)) 200 mg DAILY PO ; Start at 09:00; Status UNV Non-Formulary Medication (Urea/Emollient Combination #65 (Uramaxin Gt 45% Kit)) 1 each PRN PRN TP dry skin; Start 02/20/18 at 07:45; Stop 02/20/18 at 11:58; Status DC Non-Formulary Medication ([arthro 7] ) 1 cap BID PO ; Start 02/20/18 at 09:00; Status UNV Non-Formulary Medication ([chloroxazone/ Parafon] ) 500 mg PRN Q6HRS PRN PO MUSCLE SPASMS; Start 02/20/18 at 07:45; Status UNV Non-Formulary Medication ([cytoxan,[id number]] ) 1 each [id number] IV ; Start at 09:00; Stop 02/20/18 at 11:57; Status DC Non-Formulary Medication ([gamagen] ) 50 gm Q4WK IV ; Start 02/20/18 at 09:00; Stop 02/20/18 at 11:57; Status DC Non-Formulary Medication ([mannose] ) 1,500 mg DAILY07 PO ; Start 02/21/18 at 07:00; Status UNV Ketorolac Tromethamine (Toradol 15mg Vial) 15 mg PRN Q6HRS PRN IV PAIN; Start 02/20/18 at 08:00; Stop 02/25/18 at 07:59 Ceftriaxone Sodium (Rocephin) 1 gm 1X ONCE IVP Last administered on at 08:34; Start 02/20/18 at 07:45; Stop 02/20/18 at 08:22; Status DC Dextrose/Lactated Ringer's 1,000 ml @ 125 mls/hr 1X ONCE IV Last administered on 02/20/18at 14:53; Start 02/20/18 at 08:30; Stop 02/20/18 at 16 :29; Status DC Sodium Chloride 1,000 ml @ 100 mls/hr Q10H IV Last administered on 02/21/18at 17:30; Start 02/20/18 at 09:15; Stop 02/21/18 at 21:59; Status DC Info (Anti-Coagulation Monitoring By Pharmacy) 1 each PRN DAILY PRN MC SEE COMMENTS Last administered on 02/22/18at 14:20; Start 02/20/18 at 09:15 Acetaminophen/ Codeine Phosphate (Tylenol #3) 1 tab PRN BID PRN PO MODERATE PAIN Last administered on 02/24/18at 06:14; Start 02/20/18 at 22:15 Info (Tpn Per Pharmacy) 1 each PRN DAILY PRN MC SEE COMMENTS Last administered on 02/23/18at 10:27; Start 02/21/18 at 12:00 Magnesium Sulfate/ Dextrose 100 ml @ 100 mls/hr 1X ONCE IV Last administered on 02/21/18at 14:25; Start 02/21/18 at 14:00; Stop 02/21/18 at 14:59; Status DC Sodium Chloride 20 meq/Sodium Acetate 70 meq/ Potassium Chloride 50 meq/ Potassium Phosphate 13.6 mmol/Magnesium Sulfate 10 meq/ Calcium Gluconate 10 meq / Multivitamins 10 ml/Chromium/ Copper/Manganese/ Seleni/Zn 1 ml/ Total Parenteral Nutrition/Amino Acids/Dextrose/ Fat Emuls... 1,512 ml @ 63 mls/hr TPN CONT IV Last administered on 02/21/18at 23:13; Start 02/21/18 at 22:00; Stop 02/22/18 at 21:59; Status DC Adenosine (Adenocard) 6 mg 1X ONCE IV Last administered on 02/21/18at 20:01; Start 02/21/18 at 19:45; Stop 02/21/18 at 19:46; Status DC Sodium Chloride 1,000 ml @ 27 mls/hr Q24H IV Last administered on 02/23/18at 20:15; Start 02/21/18 at 20:15 Magnesium Sulfate/ Dextrose 100 ml @ 100 mls/hr 1X ONCE IV Last administered on 02/22/18at 11:24; Start 02/22/18 at 10:30; Stop 02/22/18 at 11:29; Status DC Adenosine (Adenocard) 6 mg 1X ONCE IV Last administered on 02/22/18at 14:07; Start 02/22/18 at 12:30; Stop 02/22/18 at 12:34; Status DC Sodium Chloride 20 meq/Sodium Acetate 70 meq/ Potassium Chloride 40 meq/ Potassium Phosphate 20 mmol/ Magnesium Sulfate 12 meq/Calcium Gluconate 10 meq/ Multivitamins 10 ml/Chromium/ Copper/Manganese/ Seleni/Zn 1 ml/ Total Parenteral Nutrition/Amino Acids/Dextrose/ Fat Emulsion Intravenous 1,512 ml @ 63 mls/hr TPN CONT IV Last administered on 02/22/18at 23:09; Start 02/22/18 at 22:00; Stop 02/23/18 at 21:59; Status DC Apixaban (Eliquis) 5 mg BID PO ; Start 02/22/18 at 21:00 Sodium Acetate 70 meq/Potassium Chloride 30 meq/ Potassium Phosphate 25 mmol/ Magnesium Sulfate 15 meq/Calcium Gluconate 10 meq/ Multivitamins 10 ml/Chromium / Copper/Manganese/ Seleni/Zn 1 ml/ Total Parenteral Nutrition/Amino Acids/ Dextrose/ Fat Emulsion Intravenous 1,512 ml @ 63 mls/hr TPN CONT IV Last administered on 02/23/18at 22:00; Start 02/23/18 at 22:00; Stop 02/24/18 at 21 :59 Active Scripts Active [Tpn Per Pharmacy] 1 EACH Each 1 Each MC PRN DAILY PRN See printed prescription 60g AA 165g dextrose 20% lipid emulsion Reported Uramaxin Gt 45% Kit (Urea/Emollient Combination #65) 1 Each Kt.crm.gel 1 Each TP PRN PRN Turmeric 500 mg Capsule (Turmeric/Turmeric Root Extract) 1 Each Capsule 1 Each PO QHS Trospium Chloride 20 Mg Tablet 20 Mg PO BID Prevident (Sodium Fluoride) 100 Ml Paste..ml. 100 Ml DT QHS Werner-E (S-Adenosylmethionine Sul Tosyl) 400 Mg Tablet 400 Mg PO DAILY Nystatin 15 Gm Powder 1 Bailey TP BID [mannose] 1,500 Mg PO DAILY07 Levothyroxine Sodium 100 Mcg Tablet 1 Tab PO DAILYAC Levocetirizine Dihydrochloride 5 Mg Tablet 1 Tab PO DAILY Imodium A-D (Loperamide HCl) 2 Mg Capsule 2 Mg PO PRN Q6HRS PRN [gamagen] 50 Gm IV Q4WK Nexium Capsule (Esomeprazole Magnesium) 40 Mg Capsule. 1 Cap PO DAILYAC Dulcolax (Bisacodyl) 5 Mg Tablet.dr 5 Mg PO PRN DAILY PRN Diclofenac Sodium 100 Gm Gel..gram. 100 Gm TP PRN PRN [cytoxan,[id number]] 1 Each IV [id number] Colace (Docusate Sodium) 100 Mg Capsule 1 Cap PO PRN PRN Coenzyme Q-10 (Ubidecarenone) 200 Mg Capsule 200 Mg PO QHS [chloroxazone/Parafon] 500 Mg PO PRN Q6HRS PRN [arthro 7] 1 Cap PO BID Eliquis (Apixaban) 5 Mg Tablet 5 Mg PO BID Vitamin D3 (Cholecalciferol (Vitamin D3)) 1,000 Unit Tablet 2,000 Unit PO DAILY Potassium Chloride 8 Meq Capsule.er 8 Meq PO BID Hydrocodone-Apap 5-325 (Hydrocodone Bit/Acetaminophen) 1 Each Tablet 1 Tab PO PRN Q6HRS PRN Pravastatin Sodium 20 Mg Tablet 25 Mg PO DAILY B-12 (Cyanocobalamin (Vitamin B-12)) 3,000 Mcg Tab.subl 4,000 Mcg SL QODAY Fluticasone Propionate Nasal Soper (Fluticasone Propionate) 16 Gm Soper.susp 2 Soper NS BID Tessalon Perle (Benzonatate) 100 Mg Capsule 200 Mg PO PRN Q12HR PRN Horizant (Gabapentin Enacarbil) 600 Mg Tab.er.24h 600 Mg PO BID Lisinopril 5 Mg Tablet 1 Tab PO QHS Estazolam 2 Mg Tablet 2 Mg PO HS Duloxetine Hcl 60 Mg Capsule.dr 60 Mg PO HS Multi-Vitamin Daily (Multivitamin) 1 Each Tablet 1 Each PO DAILY Co Q-10 (Ubidecarenone) 200 Mg Capsule 200 Mg PO DAILY Coreg (Carvedilol) 25 Mg Tablet 25 Mg PO BID Vitals/I & O Vital Sign - Last 24 Hours 02/23/18 02/23/18 02/23/18 02/23/18 11:00 15:26 17:34 19:55 Temp 98.0 98.2 98.2 98.0 98.2 98.2 Pulse 82 69 69 80 Resp 20 24 18 B/P (MAP) 127/78 (94) 134/84 (101) 134/84 137/78 (97) Pulse Ox 95 96 96 O2 Delivery Nasal Cannula Nasal Cannula Nasal Cannula O2 Flow Rate 4.0 4.0 4.0 02/23/18 02/23/18 02/23/18 02/24/18 20:00 20:59 23:00 03:50 Temp 98.1 97.8 98.1 97.8 Pulse 80 82 62 Resp 18 18 B/P (MAP) 137/78 124/67 (86) 132/79 (96) Pulse Ox 91 88 O2 Delivery Nasal Cannula BiPAP/CPAP Room Air O2 Flow Rate 4.0 02/24/18 02/24/18 02/24/18 02/24/18 06:14 07:10 07:20 08:00 Temp 97.8 97.8 Pulse 74 Resp 20 B/P (MAP) 147/87 (107) Pulse Ox 88 92 88 O2 Delivery Nasal Cannula Room Air Nasal Cannula Nasal Cannula O2 Flow Rate 4.0 4.0 4.0 02/24/18 09:23 Pulse 74 B/P (MAP) 147/87 Intake and Output 02/23/18 02/23/18 02/24/18 15:01 23:01 07:01 Intake Total 2387 ml Output Total 125 ml 0 ml Balance -125 ml 2387 ml MASOUD DUVAL MD Feb 24, 2018 10:14
[2018-02-24] MEDS ORDERED: MAGNESIUM SULFATE 2GM 50 ML IV ONE (11:00)
[2018-02-24 11:10] VITALS: BP 121/65
[2018-02-24] MEDS: TPN PER PHARMACY MC PRN (12:35)
--- NOTE | 2018-02-24 12:39 | NUR ---
Pharmacy TPN Dosing Note S: BROTHERS,HAFSA is a 67 year old F Currently receiving Central Continuous TPN started 02/21/18 B:Pertinent PMH: Ileus vs. SBO Height: 5 feet, 8.5 inches Weight: [id number] kg Current diet: Clear Liquid Diet LABS: Sodium: 143 Potassium: 4.3 Chloride: 107 Calcium: 8.9 Corrected Calcium: 10.34 Magnesium: 1.7 CO2: 27 SCr: 0.7 Glucose: 131 Albumin: 2.2(02/20) AST: 56 (02/20) ALT: 17 (02/20) TPN FORMULA: TPN TYPE: Central Continuous AMINO ACIDS: 60 gm DEXTROSE: 195 gm LIPIDS: 20 gm SODIUM CHLORIDE: - mEq SODIUM ACETATE: 70 mEq SODIUM PHOSPHATE: - mmol POTASSIUM CHLORIDE: 30 mEq POTASSIUM ACETATE: - mEq POTASSIUM PHOSPHATE: 25 mmol MAGNESIUM: 18 mEq CALCIUM: 10 mEq INSULIN: - units MULTIPLE VITAMIN: 10 ml TRACE ELEMENTS: 1 ml(s) TPN PLAN: -Per Dietitian continue standard TPN Macros (60 g AA, 20 g lipids, 195 g Dextrose) -Magnesium still slightly low. 2g Magnesium given outside of TPN. Mag increased in TPN. -Phos trending up no adjustment needed today. -NS outside of TPN running at 27 mL/hour, Na down to 143 today, no adjustment needed today. -BMP, Mag, Phos and Ca ordered for 02/25/18 R: Continue TPN with increased Magnesium Will monitor electrolytes, glucose, and tolerance to TPN. CONNIE SULLIVAN, [facility], 02/24/18 [id number]
[2018-02-24] MEDS: ANTI-COAG MONITOR BY PHARMACY. MC PRN (14:59)
[2018-02-24 15:44] VITALS: BP 125/81
--- NOTE | 2018-02-24 17:08 | NUR ---
PT WORKED WITH PT TODAY AND DECIDED TO CHANGE DISCHARGE TO SNF TO REGAIN STRENGTH. DR DUVAL AWARE AND WILL DISCHARGE ON MONDAY TO SNF.
[2018-02-24 19:05] VITALS: BP 111/74
[2018-02-24] MEDS: IV NORMAL SALINE 1000ML BAG 1,000 ML IV SCH (20:15)
[2018-02-24] MEDS: ESTAZOLAM 2 MG PO SCH (21:06)
[2018-02-24] MEDS: ATORVASTATIN CALCIUM 10 MG TABLET. PO SCH (21:07)
[2018-02-24] MEDS: LISINOPRIL 5 MG TABLET. PO SCH (21:07)
[2018-02-24] MEDS: DULoxetine HCL 30 MG CAPSULE.DR PO SCH (21:14)
[2018-02-24] MEDS ORDERED: AMINO ACID IV SCH ×10 (22:00)
[2018-02-24] MEDS ORDERED: DEXTROSE 70% IV SCH ×10 (22:00)
[2018-02-24] MEDS ORDERED: [UNRECOGNIZED DRUG - OTHER] IV SCH ×10 (22:00)
[2018-02-24] MEDS ORDERED: TOTAL PARENTERAL NUTRITION IV SCH ×10 (22:00)
[2018-02-24 23:00] VITALS: BP 114/69
[2018-02-25] MEDS: LEVOTHYROXINE 100 MCG TABLET PO SCH (06:39)
[2018-02-25 07:00] VITALS: BP 131/74
[2018-02-25] MEDS: POTASSIUM CHLORIDE 10 MEQ TABLET.ER. PO SCH ×2 (08:00→17:00)
[2018-02-25 08:36] LABS: CALCIUM 9.4 mg/dL (8.5-10.1); CREATININE 0.6 mg/dL (0.6-1.0); GFR 99.1; MAGNESIUM 1.9 mg/dL (1.8-2.4); PHOSPHORUS 3.8 mg/dL (2.6-4.7); POTASSIUM 4.6 mmol/L (3.5-5.1)
[2018-02-25] MEDS: FLUTICASONE 50MCG/NASAL SPRAY 16GM BOTTLE. NS SCH ×2 (09:00→20:43)
[2018-02-25] MEDS: NYSTATIN TOPICAL POWDER 15GM BOTTLE. TP SCH ×2 (09:00→20:45)
[2018-02-25] MEDS: PANTOPRAZOLE 40 MG TABLET.DR. PO SCH (09:35)
[2018-02-25] MEDS: CARVEDILOL 12.5 MG TABLET. PO SCH ×2 (09:36→16:58)
[2018-02-25] MEDS: OXYBUTYNIN CHLORIDE 5 MG TABLET PO SCH ×3 (09:37→20:43)
[2018-02-25] MEDS: CETIRIZINE HCL 10 MG TABLET. PO SCH (09:37)
[2018-02-25] MEDS: CHOLECALCIFEROL (VITAMIN D3) 1,000 UNIT TABLET PO SCH (09:37)
[2018-02-25] MEDS: APIXABAN 5 MG TABLET. PO SCH ×2 (09:37→20:50)
[2018-02-25] MEDS: GABAPENTIN ENACARBIL 600 MG PO SCH ×2 (09:43→20:45)
[2018-02-25] MEDS: TPN PER PHARMACY MC PRN (10:56)
[2018-02-25 11:00] VITALS: BP 136/75
--- NOTE | 2018-02-25 12:51 | NUR ---
Pharmacy TPN Dosing Note S: BROTHERS,HAFSA is a 67 year old F Currently receiving Central Continuous TPN started 02/21/18 B:Pertinent PMH: Ileus vs. SBO Height: 5 feet, 8.5 inches Weight: 118.737302 kg Current diet: Diet advancing to Full Liquid LABS: Sodium: 144 Potassium: 4.6 Chloride: 107 Calcium: 9.4 Corrected Calcium: 10.84 Magnesium: 1.9 CO2: 28 SCr: 0.6 Glucose: 120-136 Albumin: 2.2(02/20) AST: 56 (02/20) ALT: 17 (02/20) TPN FORMULA: TPN TYPE: Central Continuous AMINO ACIDS: 60 gm DEXTROSE: 195 gm LIPIDS: 20 gm SODIUM CHLORIDE: - mEq SODIUM ACETATE: 70 mEq SODIUM PHOSPHATE: - mmol POTASSIUM CHLORIDE: 30 mEq POTASSIUM ACETATE: - mEq POTASSIUM PHOSPHATE: 20 mmol MAGNESIUM: 18 mEq CALCIUM: 10 mEq INSULIN: - units MULTIPLE VITAMIN: 10 ml TRACE ELEMENTS: 1 ml(s) TPN PLAN: -Patient's diet continues to be advanced now to full liquid RN to clarify with Dr. Sidhu if TPN to continue. -Per Dietitian continue standard TPN Macros (60 g AA, 20 g lipids, 195 g Dextrose) -Magnesium trending up/within normal limit no adjustment needed today. -Phos and potassium continuing to trend up will decrease KPhos today. -NS outside of TPN running at 27 mL/hour, Na 144 today, no adjustment needed today. -Albumin level ordered for 02/26/18 to help assess corrected calcium. -BMP, Mag, Phos, Ca and Albumin ordered for 02/26/18 R: Continue TPN with adjustment to KPhos today Will monitor electrolytes, glucose, and tolerance to TPN. CONNIE SULLIVAN, [facility], 02/25/18 [id number]
[2018-02-25] MEDS: ANTI-COAG MONITOR BY PHARMACY. MC PRN (13:13)
[2018-02-25 15:34] VITALS: BP 134/80
--- NOTE | 2018-02-25 15:52 | PDOC ---
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 Sr as outpatient and is looking into home hospice/palliative care now, seriosly. Overnight 02/21/18 required adenosine for SVT, again on 02/22/18 during the day. She recalls PSVT since age 9, declined EP ablation in the past. Overnight had another BM, feels relieved with this, but worried it was a little loose, not foul smelling. Tolerated full liquid diet well, wishes to advance further. Oncology has recommended palliative care, to which she is amenable, she does not wish for hospice at this time. I have advised her TPN on d/c is high risk without a physician monitoring it. She was initially wishing for home with palliative care, but has looked into SNF at [facility] and wishes to go there tomorrow, wants her CT enterogram prior to that if possible. Plan: PICC line TPN - she d/w IR would like to use her port for TPN Will need home health - they are going with [facility] for palliative care nursing, but first wish to rehab at [facility], confirmed with their pharmacist they are ok with TPN and I have called Dr. Bowden, her PCP about taking over this and will replace her mag separately today from her TPN so as not to overload her TPN bag. Can lower K due to taking diet and change TPN to 3 days per week starting tomorrow MWF every week Ok to eat, if ok with GI. I will order. Discussed with her and multiple family at bedside, time 37 minutes at least in room alone today as most specialists have essentially signed off her case. cynthia RN, will discharge with home palliative care tomorrow Vitals Vitals Vital Signs Date Time Temp Pulse Resp B/P (MAP) Pulse Ox O2 Delivery O2 Flow Rate FiO2 02/25/18 15:34 98.8 83 18 134/80 (98) Nasal Cannula 3.5 98.8 02/25/18 11:00 95 Physical Exam General: Alert, Oriented X3, No acute distress Heart: Normal S1, Normal S2 Lungs: Clear, Other Abdomen: Soft, No tenderness Extremities: No cyanosis, No edema Skin: No significant lesion Labs LABS Laboratory Tests Test 02/24/18 20:55 02/25/18 06:30 02/25/18 06:37 02/25/18 07:43 Glucose (Fingerstick) 136 mg/dL (70-99) 122 mg/dL (70-99) 124 mg/dL (70-99) Sodium Level 144 mmol/L (136-145) Potassium Level 4.6 mmol/L (3.5-5.1) Chloride Level 107 mmol/L (98-107) Carbon Dioxide Level 28 mmol/L (21-32) Anion Gap 9 (6-14) Blood Urea Nitrogen 13 mg/dL (7-20) Creatinine 0.6 mg/dL (0.6-1.0) Estimated GFR (Cockcroft-Gault) 99.1 Glucose Level 120 mg/dL (70-99) Calcium Level 9.4 mg/dL (8.5-10.1) Phosphorus Level 3.8 mg/dL (2.6-4.7) Magnesium Level 1.9 mg/dL (1.8-2.4) Assessment and Plan Assessmemt and Plan Problems Medical Problems: (1) Acute renal insufficiency Status: Acute (2) Ascites Status: Acute (3) Dehydration Status: Acute (4) Ileus Status: Acute (5) Leukocytosis Status: Acute (6) Metastatic breast cancer Status: Acute (7) Weakness Status: Acute Comment Review of Relevant I have reviewed the following items declan (where applicable) has been applied. Labs Laboratory Tests Test 02/24/18 05:45 02/24/18 20:55 02/25/18 06:30 02/25/18 06:37 Sodium Level 143 mmol/L (136-145) 144 mmol/L (136-145) Potassium Level 4.3 mmol/L (3.5-5.1) 4.6 mmol/L (3.5-5.1) Chloride Level 107 mmol/L (98-107) 107 mmol/L (98-107) Carbon Dioxide Level 27 mmol/L (21-32) 28 mmol/L (21-32) Anion Gap 9 (6-14) 9 (6-14) Blood Urea Nitrogen 12 mg/dL (7-20) 13 mg/dL (7-20) Creatinine 0.7 mg/dL (0.6-1.0) 0.6 mg/dL (0.6-1.0) Estimated GFR (Cockcroft-Gault) 83.0 99.1 Glucose Level 131 mg/dL (70-99) 120 mg/dL (70-99) Calcium Level 8.9 mg/dL (8.5-10.1) 9.4 mg/dL (8.5-10.1) Phosphorus Level 3.4 mg/dL (2.6-4.7) 3.8 mg/dL (2.6-4.7) Magnesium Level 1.7 mg/dL (1.8-2.4) 1.9 mg/dL (1.8-2.4) Glucose (Fingerstick) 136 mg/dL (70-99) 122 mg/dL (70-99) Test 02/25/18 07:43 Glucose (Fingerstick) 124 mg/dL (70-99) Laboratory Tests Test 02/24/18 20:55 02/25/18 06:30 02/25/18 06:37 02/25/18 07:43 Glucose (Fingerstick) 136 mg/dL (70-99) 122 mg/dL (70-99) 124 mg/dL (70-99) Sodium Level 144 mmol/L (136-145) Potassium Level 4.6 mmol/L (3.5-5.1) Chloride Level 107 mmol/L (98-107) Carbon Dioxide Level 28 mmol/L (21-32) Anion Gap 9 (6-14) Blood Urea Nitrogen 13 mg/dL (7-20) Creatinine 0.6 mg/dL (0.6-1.0) Estimated GFR (Cockcroft-Gault) 99.1 Glucose Level 120 mg/dL (70-99) Calcium Level 9.4 mg/dL (8.5-10.1) Phosphorus Level 3.8 mg/dL (2.6-4.7) Magnesium Level 1.9 mg/dL (1.8-2.4) Microbiology 12/25/18 Blood Culture - Final, Complete NO GROWTH AFTER 5 DAYS Medications Current Medications Sodium Chloride (NORMAL SALINE FLUSH for STERILE FIELD) 10 ml STK-MED ONCE .ROUTE ; Start 02/20/18 at 04:49; Stop 02/20/18 at 04:51; Status DC Iohexol (Omnipaque 300 Mg/ml) 75 ml 1X ONCE IV Last administered on at 06:20; Start 02/20/18 at 06:00; Stop 02/20/18 at 06:01; Status DC Info (CONTRAST GIVEN -- Rx MONITORING) 1 each PRN DAILY PRN MC SEE COMMENTS; Start 02/20/18 at 05:30; Stop 02/22/18 at 05:29; Status DC Sodium Chloride 1,000 ml @ 125 mls/hr 1X ONCE IV Last administered on at 06:15; Start 02/20/18 at 06:15; Stop 02/20/18 at 14:14; Status DC Acetaminophen/ Codeine Phosphate (Tylenol #3) 1 tab 0500,1400 PO ; Start at 14:00; Stop 02/20/18 at 22:13; Status DC Apixaban (Eliquis) 5 mg BID PO ; Start 02/20/18 at 09:00; Stop 02/21/18 at 19: 45; Status DC Bisacodyl (Dulcolax Tab) 5 mg PRN DAILY PRN PO CONSTIPATION; Start 02/20/18 at 07:45 Vitamin D (Vitamin D3) 2,000 unit DAILY PO Last administered on 02/25/18at 09: 37; Start 02/20/18 at 09:00 Docusate Sodium (Colace) 100 mg PRN BID PRN PO HARD STOOLS; Start 02/20/18 at 07:45 Fluticasone Propionate (Flonase) 1 spray BID NS Last administered on at 09:23; Start 02/20/18 at 09:00 Acetaminophen/ Hydrocodone Bitart (Lortab 5/325) 1 tab PRN Q6HRS PRN PO SEVERE PAIN Last administered on 02/20/18at 21:25; Start 02/20/18 at 07:45 Levothyroxine Sodium (Synthroid) 100 mcg DAILY06 PO Last administered on at 06:39; Start 02/20/18 at 10:30 Nystatin (Nystop) 1 bailey BID TP Last administered on 02/24/18at 09:23; Start at 09:00 Benzonatate (Tessalon Perle) 200 mg PRN Q12HR PRN PO COUGH; Start 02/20/18 at 09:00 Carvedilol (Coreg) 25 mg BIDWMEALS PO Last administered on 02/25/18 09:36; Start 02/20/18 at 09:15 Cyanocobalamin (Vitamin B-12) 4,000 mcg Q48H PO Last administered on 09:27; Start 02/20/18 at 09:00 Diclofenac Sodium (Voltaren) 1 bailey PRN QID PRN TP JOINT PAIN; Start 02/20/18 at 09:00 Duloxetine HCl (Cymbalta) 60 mg QHS PO Last administered on 02/24/18 21:14; Start 02/20/18 at 21:00 Pantoprazole Sodium (Protonix) 40 mg DAILYAC PO Last administered on 09:35; Start 02/20/18 at 08:30 Non-Formulary Medication (Estazolam ) 2 mg HS PO Last administered on 21:06; Start 02/20/18 at 21:00 Non-Formulary Medication (Gabapentin Enacarbil (Horizant)) 600 mg BID PO Last administered on 02/25/18 09:43; Start 02/20/18 at 09:00 Cetirizine HCl (ZyrTEC) 10 mg DAILY PO Last administered on 02/25/18at 09:37; Start 02/20/18 at 09:00 Lisinopril (Prinivil) 5 mg QHS PO Last administered on 02/24/18 21:07; Start 02/20/18 at 21:00 Loperamide HCl (Imodium) 2 mg PRN Q6HRS PRN PO DIARRHEA; Start 02/20/18 at 08: 45 Multivitamins (Thera M Plus) 1 tab DAILY PO Last administered on 02/21/18at 08: 45; Start 02/20/18 at 09:00; Stop 02/21/18 at 13:47; Status DC Potassium Chloride (Klor-Con) 10 meq BIDWMEALS PO Last administered on at 16:09; Start 02/20/18 at 09:00 Atorvastatin Calcium (Lipitor) 5 mg QHS PO Last administered on 02/24/18at 21: 07; Start 02/20/18 at 21:00 Non-Formulary Medication (S-Adenosylmethionine Sul Tosyl (Werner-E)) 400 mg DAILY PO ; Start 02/20/18 at 09:00; Status UNV Oxybutynin Chloride (Ditropan) 5 mg [id number] PO Last administered on 02/25/18at 14:38; Start 02/20/18 at 09:00 Non-Formulary Medication (Turmeric/ Turmeric Root Extract (Turmeric 500 mg Capsule)) 1 each QHS PO ; Start 02/20/18 at 21:00; Status UNV Non-Formulary Medication (Ubidecarenone (Co Q-10)) 200 mg DAILY PO ; Start at 09:00; Status UNV Non-Formulary Medication (Urea/Emollient Combination #65 (Uramaxin Gt 45% Kit)) 1 each PRN PRN TP dry skin; Start 02/20/18 at 07:45; Stop 02/20/18 at 11:58; Status DC Non-Formulary Medication ([arthro 7] ) 1 cap BID PO ; Start 02/20/18 at 09:00; Status UNV Non-Formulary Medication ([chloroxazone/ Parafon] ) 500 mg PRN Q6HRS PRN PO MUSCLE SPASMS; Start 02/20/18 at 07:45; Status UNV Non-Formulary Medication ([cytoxan,[id number]] ) 1 each [id number] IV ; Start at 09:00; Stop 02/20/18 at 11:57; Status DC Non-Formulary Medication ([gamagen] ) 50 gm Q4WK IV ; Start 02/20/18 at 09:00; Stop 02/20/18 at 11:57; Status DC Non-Formulary Medication ([mannose] ) 1,500 mg DAILY07 PO ; Start 02/21/18 at 07:00; Status UNV Ketorolac Tromethamine (Toradol 15mg Vial) 15 mg PRN Q6HRS PRN IV PAIN Last administered on 02/24/18at 21:14; Start 02/20/18 at 08:00; Stop 02/25/18 at 07 :59; Status DC Ceftriaxone Sodium (Rocephin) 1 gm 1X ONCE IVP Last administered on at 08:34; Start 02/20/18 at 07:45; Stop 02/20/18 at 08:22; Status DC Dextrose/Lactated Ringer's 1,000 ml @ 125 mls/hr 1X ONCE IV Last administered on 02/20/18at 14:53; Start 02/20/18 at 08:30; Stop 02/20/18 at 16 :29; Status DC Sodium Chloride 1,000 ml @ 100 mls/hr Q10H IV Last administered on 02/21/18at 17:30; Start 02/20/18 at 09:15; Stop 02/21/18 at 21:59; Status DC Info (Anti-Coagulation Monitoring By Pharmacy) 1 each PRN DAILY PRN MC SEE COMMENTS Last administered on 02/25/18at 13:13; Start 02/20/18 at 09:15 Acetaminophen/ Codeine Phosphate (Tylenol #3) 1 tab PRN BID PRN PO MODERATE PAIN Last administered on 02/24/18at 06:14; Start 02/20/18 at 22:15 Info (Tpn Per Pharmacy) 1 each PRN DAILY PRN MC SEE COMMENTS Last administered on 02/25/18at 10:56; Start 02/21/18 at 12:00 Magnesium Sulfate/ Dextrose 100 ml @ 100 mls/hr 1X ONCE IV Last administered on 02/21/18at 14:25; Start 02/21/18 at 14:00; Stop 02/21/18 at 14:59; Status DC Sodium Chloride 20 meq/Sodium Acetate 70 meq/ Potassium Chloride 50 meq/ Potassium Phosphate 13.6 mmol/Magnesium Sulfate 10 meq/ Calcium Gluconate 10 meq / Multivitamins 10 ml/Chromium/ Copper/Manganese/ Seleni/Zn 1 ml/ Total Parenteral Nutrition/Amino Acids/Dextrose/ Fat Emuls... 1,512 ml @ 63 mls/hr TPN CONT IV Last administered on 02/21/18at 23:13; Start 02/21/18 at 22:00; Stop 02/22/18 at 21:59; Status DC Adenosine (Adenocard) 6 mg 1X ONCE IV Last administered on 02/21/18at 20:01; Start 02/21/18 at 19:45; Stop 02/21/18 at 19:46; Status DC Sodium Chloride 1,000 ml @ 27 mls/hr Q24H IV Last administered on 02/24/18at 20:15; Start 02/21/18 at 20:15 Magnesium Sulfate/ Dextrose 100 ml @ 100 mls/hr 1X ONCE IV Last administered on 02/22/18at 11:24; Start 02/22/18 at 10:30; Stop 02/22/18 at 11:29; Status DC Adenosine (Adenocard) 6 mg 1X ONCE IV Last administered on 02/22/18at 14:07; Start 02/22/18 at 12:30; Stop 02/22/18 at 12:34; Status DC Sodium Chloride 20 meq/Sodium Acetate 70 meq/ Potassium Chloride 40 meq/ Potassium Phosphate 20 mmol/ Magnesium Sulfate 12 meq/Calcium Gluconate 10 meq/ Multivitamins 10 ml/Chromium/ Copper/Manganese/ Seleni/Zn 1 ml/ Total Parenteral Nutrition/Amino Acids/Dextrose/ Fat Emulsion Intravenous 1,512 ml @ 63 mls/hr TPN CONT IV Last administered on 02/22/18at 23:09; Start 02/22/18 at 22:00; Stop 02/23/18 at 21:59; Status DC Apixaban (Eliquis) 5 mg BID PO Last administered on 02/25/18at 09:37; Start at 21:00 Sodium Acetate 70 meq/Potassium Chloride 30 meq/ Potassium Phosphate 25 mmol/ Magnesium Sulfate 15 meq/Calcium Gluconate 10 meq/ Multivitamins 10 ml/Chromium / Copper/Manganese/ Seleni/Zn 1 ml/ Total Parenteral Nutrition/Amino Acids/ Dextrose/ Fat Emulsion Intravenous 1,512 ml @ 63 mls/hr TPN CONT IV Last administered on 02/23/18at 22:00; Start 02/23/18 at 22:00; Stop 02/24/18 at 21 :59; Status DC Magnesium Sulfate 50 ml @ 25 mls/hr 1X ONCE IV Last administered on at 11:35; Start 02/24/18 at 11:00; Stop 02/24/18 at 12:59; Status DC Sodium Acetate 70 meq/Potassium Chloride 30 meq/ Potassium Phosphate 25 mmol/ Magnesium Sulfate 18 meq/Calcium Gluconate 10 meq/ Multivitamins 10 ml/Chromium / Copper/Manganese/ Seleni/Zn 1 ml/ Total Parenteral Nutrition/Amino Acids/ Dextrose/ Fat Emulsion Intravenous 1,512 ml @ 63 mls/hr TPN CONT IV Last administered on 02/24/18at 21:29; Start 02/24/18 at 22:00; Stop 02/25/18 at 21 :59 Sodium Acetate 70 meq/Potassium Chloride 30 meq/ Potassium Phosphate 20 mmol/ Magnesium Sulfate 18 meq/Calcium Gluconate 10 meq/ Multivitamins 10 ml/Chromium / Copper/Manganese/ Seleni/Zn 1 ml/ Total Parenteral Nutrition/Amino Acids/ Dextrose/ Fat Emulsion Intravenous 1,512 ml @ 63 mls/hr TPN CONT IV ; Start 02/25/18 at 22:00; Stop 02/26/18 at 21:59 Psyllium Hydrophilic Mucilloid (Metamucil Fiber Packet) 1 pkt DAILY PO ; Start 02/26/18 at 19:00; Status UNV Active Scripts Active [Tpn Per Pharmacy] 1 EACH Each 1 Each MC PRN DAILY PRN See printed prescription 60g AA 165g dextrose 20% lipid emulsion Reported Uramaxin Gt 45% Kit (Urea/Emollient Combination #65) 1 Each Kt.crm.gel 1 Each TP PRN PRN Turmeric 500 mg Capsule (Turmeric/Turmeric Root Extract) 1 Each Capsule 1 Each PO QHS Trospium Chloride 20 Mg Tablet 20 Mg PO BID Prevident (Sodium Fluoride) 100 Ml Paste..ml. 100 Ml DT QHS Werner-E (S-Adenosylmethionine Sul Tosyl) 400 Mg Tablet 400 Mg PO DAILY Nystatin 15 Gm Powder 1 Bailey TP BID [mannose] 1,500 Mg PO DAILY07 Levothyroxine Sodium 100 Mcg Tablet 1 Tab PO DAILYAC Levocetirizine Dihydrochloride 5 Mg Tablet 1 Tab PO DAILY Imodium A-D (Loperamide HCl) 2 Mg Capsule 2 Mg PO PRN Q6HRS PRN [gamagen] 50 Gm IV Q4WK Nexium Capsule (Esomeprazole Magnesium) 40 Mg Capsule. 1 Cap PO DAILYAC Dulcolax (Bisacodyl) 5 Mg Tablet.dr 5 Mg PO PRN DAILY PRN Diclofenac Sodium 100 Gm Gel..gram. 100 Gm TP PRN PRN [cytoxan,[id number]] 1 Each IV [id number] Colace (Docusate Sodium) 100 Mg Capsule 1 Cap PO PRN PRN Coenzyme Q-10 (Ubidecarenone) 200 Mg Capsule 200 Mg PO QHS [chloroxazone/Parafon] 500 Mg PO PRN Q6HRS PRN [arthro 7] 1 Cap PO BID Eliquis (Apixaban) 5 Mg Tablet 5 Mg PO BID Vitamin D3 (Cholecalciferol (Vitamin D3)) 1,000 Unit Tablet 2,000 Unit PO DAILY Potassium Chloride 8 Meq Capsule.er 8 Meq PO BID Hydrocodone-Apap 5-325 (Hydrocodone Bit/Acetaminophen) 1 Each Tablet 1 Tab PO PRN Q6HRS PRN Pravastatin Sodium 20 Mg Tablet 25 Mg PO DAILY B-12 (Cyanocobalamin (Vitamin B-12)) 3,000 Mcg Tab.subl 4,000 Mcg SL QODAY Fluticasone Propionate Nasal [place] (Fluticasone Propionate) 16 Gm [place].susp 2 [place] NS BID Tessalon Perle (Benzonatate) 100 Mg Capsule 200 Mg PO PRN Q12HR PRN Horizant (Gabapentin Enacarbil) 600 Mg Tab.er.24h 600 Mg PO BID Lisinopril 5 Mg Tablet 1 Tab PO QHS Estazolam 2 Mg Tablet 2 Mg PO HS Duloxetine Hcl 60 Mg Capsule.dr 60 Mg PO HS Multi-Vitamin Daily (Multivitamin) 1 Each Tablet 1 Each PO DAILY Co Q-10 (Ubidecarenone) 200 Mg Capsule 200 Mg PO DAILY Coreg (Carvedilol) 25 Mg Tablet 25 Mg PO BID Vitals/I & O Vital Sign - Last 24 Hours 02/24/18 02/24/18 02/24/18 02/24/18 16:09 19:05 20:00 21:07 Temp 97.5 97.5 Pulse 83 86 86 Resp 18 B/P (MAP) 125/81 111/74 (86) 111/74 Pulse Ox 98 O2 Delivery Nasal Cannula Nasal Cannula O2 Flow Rate 3.5 3.5 02/24/18 02/25/18 02/25/18 02/25/18 23:00 03:00 07:00 08:00 Temp 97.7 97.9 97.7 97.9 Pulse 79 76 76 Resp 18 18 B/P (MAP) 114/69 (84) 131/74 (93) Pulse Ox 96 95 O2 Delivery Nasal Cannula Nasal Cannula Nasal Cannula O2 Flow Rate 3.5 3.5 3.5 02/25/18 02/25/18 02/25/18 09:36 11:00 15:34 Temp 97.8 98.8 97.8 98.8 Pulse 81 87 83 Resp 18 18 B/P (MAP) 137/76 136/75 (95) 134/80 (98) Pulse Ox 95 O2 Delivery Nasal Cannula Nasal Cannula O2 Flow Rate 3.5 3.5 Intake and Output 02/24/18 02/24/18 02/25/18 15:01 23:01 07:01 Intake Total 240 ml 2000 ml 1120 ml Output Total 0 ml Balance 240 ml 2000 ml 1120 ml MASOUD DUVAL MD Feb 25, 2018 15:52
[2018-02-25] MEDS ORDERED: ACETAMINOPHEN 325 MG TABLET. PO PRN (16:30)
[2018-02-25 19:35] VITALS: BP 147/70
[2018-02-25] MEDS: IV NORMAL SALINE 1000ML BAG 1,000 ML IV SCH (20:15)
[2018-02-25] MEDS: LISINOPRIL 5 MG TABLET. PO SCH (20:43)
[2018-02-25] MEDS: PSYLLIUM HUSK (SUGAR FREE) 1 PKT PACKET PO SCH (20:43)
[2018-02-25] MEDS: ATORVASTATIN CALCIUM 10 MG TABLET. PO SCH (20:43)
[2018-02-25] MEDS: DULoxetine HCL 30 MG CAPSULE.DR PO SCH (20:43)
[2018-02-25] MEDS: ESTAZOLAM 2 MG PO SCH (20:44)
[2018-02-25] MEDS: HYDROcodone/APAP 5/325MG 1 TAB TABLET PO PRN (20:50)
[2018-02-25] MEDS ORDERED: [UNRECOGNIZED DRUG - OTHER] IV SCH ×10 (22:00)
[2018-02-25] MEDS ORDERED: DEXTROSE 70% IV SCH ×10 (22:00)
[2018-02-25] MEDS ORDERED: TOTAL PARENTERAL NUTRITION IV SCH ×10 (22:00)
[2018-02-25] MEDS ORDERED: AMINO ACID IV SCH ×10 (22:00)
[2018-02-25 23:10] VITALS: BP 123/59
[2018-02-26] VITALS (7 sets, daily range): BP systolic 108–135; BP diastolic 71–83
[2018-02-26] MEDS: LEVOTHYROXINE 100 MCG TABLET PO SCH (05:29)
[2018-02-26 07:22] LABS: ALBUMIN 1.7 g/dL (3.4-5.0); CALCIUM 9.3 mg/dL (8.5-10.1); CREATININE 0.7 mg/dL (0.6-1.0); MAGNESIUM 1.9 mg/dL (1.8-2.4); PHOSPHORUS 4.6 mg/dL (2.6-4.7); POTASSIUM 4.3 mmol/L (3.5-5.1)
[2018-02-26] MEDS: APIXABAN 5 MG TABLET. PO SCH ×2 (07:52→20:44)
[2018-02-26] MEDS: CYANOCOBALAMIN (VITAMIN B-12) 1,000 MCG TABLET. PO SCH (07:53)
[2018-02-26] MEDS: PANTOPRAZOLE 40 MG TABLET.DR. PO SCH (07:54)
[2018-02-26] MEDS: CHOLECALCIFEROL (VITAMIN D3) 1,000 UNIT TABLET PO SCH (07:54)
[2018-02-26] MEDS: CETIRIZINE HCL 10 MG TABLET. PO SCH (07:54)
[2018-02-26] MEDS: POTASSIUM CHLORIDE 10 MEQ TABLET.ER. PO SCH ×2 (07:55→16:39)
[2018-02-26] MEDS: CARVEDILOL 12.5 MG TABLET. PO SCH ×2 (07:55→16:39)
[2018-02-26] MEDS: OXYBUTYNIN CHLORIDE 5 MG TABLET PO SCH ×3 (07:55→20:44)
[2018-02-26] MEDS: FLUTICASONE 50MCG/NASAL SPRAY 16GM BOTTLE. NS SCH ×2 (07:56→20:44)
[2018-02-26] MEDS: GABAPENTIN ENACARBIL 600 MG PO SCH ×2 (07:56→20:45)
[2018-02-26] MEDS: PSYLLIUM HUSK (SUGAR FREE) 1 PKT PACKET PO SCH (07:56)
[2018-02-26] MEDS: NYSTATIN TOPICAL POWDER 15GM BOTTLE. TP SCH ×2 (07:57→20:45)
--- NOTE | 2018-02-26 09:10 | PDOC ---
PROGRESS NOTES Subjective Subjective HPI - f/u of Metastatic breast cancer w/ peritoneal carcinomatosis ROS - feels better, no n/v Objective Objective Vital Signs Date Time Temp Pulse Resp B/P (MAP) Pulse Ox O2 Delivery O2 Flow Rate FiO2 02/26/18 08:00 Nasal Cannula 2.0 02/26/18 07:55 75 130/77 02/26/18 07:31 97.6 18 94 97.6 Intake and Output 02/26/18 07:01 Intake Total 2880 ml Balance 2880 ml Intake Oral 620 ml IV Total 2260 ml # Voids 2 # Bowel Movements 1 Physical Exam Heart: Normal S1, Normal S2 General: Alert Lungs: Clear to auscultation Neuro: Normal speech Psych/Mental Status: Mental status NL Assessment Assessment Problems Medical Problems: (1) Acute renal insufficiency Status: Acute (2) Ascites Status: Acute (3) Dehydration Status: Acute (4) Ileus Status: Acute (5) Leukocytosis Status: Acute (6) Metastatic breast cancer Status: Acute (7) Weakness Status: Acute Imp/Plan: 1. Metastatic breast cancer w/ peritoneal carcinomatosis, on palliative chemotherapy, admitted with ileus symptoms, started TPN. I recommended hospice and transition to palliative care but she wants to wait and see if she gets better to continue chemo. She will be discharged to [facility] and she will call for f/u appt. 2. N/V - ileus, GI is involved, their help is appreciated Comment Review of Relevant I have reviewed the following items declan (where applicable) has been applied. Labs Laboratory Tests Test 02/24/18 20:55 02/25/18 06:30 02/25/18 06:37 02/25/18 07:43 Glucose (Fingerstick) 136 mg/dL (70-99) 122 mg/dL (70-99) 124 mg/dL (70-99) Sodium Level 144 mmol/L (136-145) Potassium Level 4.6 mmol/L (3.5-5.1) Chloride Level 107 mmol/L (98-107) Carbon Dioxide Level 28 mmol/L (21-32) Anion Gap 9 (6-14) Blood Urea Nitrogen 13 mg/dL (7-20) Creatinine 0.6 mg/dL (0.6-1.0) Estimated GFR (Cockcroft-Gault) 99.1 Glucose Level 120 mg/dL (70-99) Calcium Level 9.4 mg/dL (8.5-10.1) Phosphorus Level 3.8 mg/dL (2.6-4.7) Magnesium Level 1.9 mg/dL (1.8-2.4) Test 02/25/18 20:47 02/26/18 06:45 02/26/18 07:50 Glucose (Fingerstick) 129 mg/dL (70-99) 120 mg/dL (70-99) Sodium Level 142 mmol/L (136-145) Potassium Level 4.3 mmol/L (3.5-5.1) Chloride Level 105 mmol/L (98-107) Carbon Dioxide Level 29 mmol/L (21-32) Anion Gap 8 (6-14) Blood Urea Nitrogen 14 mg/dL (7-20) Creatinine 0.7 mg/dL (0.6-1.0) Estimated GFR (Cockcroft-Gault) 83.0 Glucose Level 132 mg/dL (70-99) Calcium Level 9.3 mg/dL (8.5-10.1) Phosphorus Level 4.6 mg/dL (2.6-4.7) Magnesium Level 1.9 mg/dL (1.8-2.4) Albumin 1.7 g/dL (3.4-5.0) Laboratory Tests Test 02/25/18 20:47 02/26/18 06:45 02/26/18 07:50 Glucose (Fingerstick) 129 mg/dL (70-99) 120 mg/dL (70-99) Sodium Level 142 mmol/L (136-145) Potassium Level 4.3 mmol/L (3.5-5.1) Chloride Level 105 mmol/L (98-107) Carbon Dioxide Level 29 mmol/L (21-32) Anion Gap 8 (6-14) Blood Urea Nitrogen 14 mg/dL (7-20) Creatinine 0.7 mg/dL (0.6-1.0) Estimated GFR (Cockcroft-Gault) 83.0 Glucose Level 132 mg/dL (70-99) Calcium Level 9.3 mg/dL (8.5-10.1) Phosphorus Level 4.6 mg/dL (2.6-4.7) Magnesium Level 1.9 mg/dL (1.8-2.4) Albumin 1.7 g/dL (3.4-5.0) Microbiology 02/20/18 Blood Culture - Final, Complete NO GROWTH AFTER 5 DAYS Medications Current Medications Sodium Chloride (NORMAL SALINE FLUSH for STERILE FIELD) 10 ml STK-MED ONCE .ROUTE ; Start 02/20/18 at 04:49; Stop 02/20/18 at 04:51; Status DC Iohexol (Omnipaque 300 Mg/ml) 75 ml 1X ONCE IV Last administered on at 06:20; Start 02/20/18 at 06:00; Stop 02/20/18 at 06:01; Status DC Info (CONTRAST GIVEN -- Rx MONITORING) 1 each PRN DAILY PRN MC SEE COMMENTS; Start 02/20/18 at 05:30; Stop 02/22/18 at 05:29; Status DC Sodium Chloride 1,000 ml @ 125 mls/hr 1X ONCE IV Last administered on at 06:15; Start 02/20/18 at 06:15; Stop 02/20/18 at 14:14; Status DC Acetaminophen/ Codeine Phosphate (Tylenol #3) 1 tab 0500,1400 PO ; Start at 14:00; Stop 02/20/18 at 22:13; Status DC Apixaban (Eliquis) 5 mg BID PO ; Start 02/20/18 at 09:00; Stop 02/21/18 at 19: 45; Status DC Bisacodyl (Dulcolax Tab) 5 mg PRN DAILY PRN PO CONSTIPATION; Start 02/20/18 at 07:45 Vitamin D (Vitamin D3) 2,000 unit DAILY PO Last administered on 02/26/18at 07: 54; Start 02/20/18 at 09:00 Docusate Sodium (Colace) 100 mg PRN BID PRN PO HARD STOOLS; Start 02/20/18 at 07:45 Fluticasone Propionate (Flonase) 1 spray BID NS Last administered on at 09:23; Start 02/20/18 at 09:00 Acetaminophen/ Hydrocodone Bitart (Lortab 5/325) 1 tab PRN Q6HRS PRN PO SEVERE PAIN Last administered on 02/25/18at 20:50; Start 02/20/18 at 07:45 Levothyroxine Sodium (Synthroid) 100 mcg DAILY06 PO Last administered on 05:29; Start 02/20/18 at 10:30 Nystatin (Nystop) 1 bailey BID TP Last administered on 02/24/18 09:23; Start at 09:00 Benzonatate (Tessalon Perle) 200 mg PRN Q12HR PRN PO COUGH; Start 02/20/18 at 09:00 Carvedilol (Coreg) 25 mg BIDWMEALS PO Last administered on 02/26/18 07:55; Start 02/20/18 at 09:15 Cyanocobalamin (Vitamin B-12) 4,000 mcg Q48H PO Last administered on 07:53; Start 02/20/18 at 09:00 Diclofenac Sodium (Voltaren) 1 bailey PRN QID PRN TP JOINT PAIN; Start 02/20/18 at 09:00 Duloxetine HCl (Cymbalta) 60 mg QHS PO Last administered on 02/25/18 20:43; Start 02/20/18 at 21:00 Pantoprazole Sodium (Protonix) 40 mg DAILYAC PO Last administered on 07:54; Start 02/20/18 at 08:30 Non-Formulary Medication (Estazolam ) 2 mg HS PO Last administered on 20:44; Start 02/20/18 at 21:00 Non-Formulary Medication (Gabapentin Enacarbil (Horizant)) 600 mg BID PO Last administered on 02/26/18 07:56; Start 02/20/18 at 09:00 Cetirizine HCl (ZyrTEC) 10 mg DAILY PO Last administered on 02/26/18 07:54; Start 02/20/18 at 09:00 Lisinopril (Prinivil) 5 mg QHS PO Last administered on 02/25/18 20:43; Start 02/20/18 at 21:00 Loperamide HCl (Imodium) 2 mg PRN Q6HRS PRN PO DIARRHEA; Start 02/20/18 at 08: 45 Multivitamins (Thera M Plus) 1 tab DAILY PO Last administered on 02/21/18 08: 45; Start 02/20/18 at 09:00; Stop 02/21/18 at 13:47; Status DC Potassium Chloride (Klor-Con) 10 meq BIDWMEALS PO Last administered on at 07:55; Start 02/20/18 at 09:00 Atorvastatin Calcium (Lipitor) 5 mg QHS PO Last administered on 02/25/18at 20: 43; Start 02/20/18 at 21:00 Non-Formulary Medication (S-Adenosylmethionine Sul Tosyl (Werner-E)) 400 mg DAILY PO ; Start 02/20/18 at 09:00; Status UNV Oxybutynin Chloride (Ditropan) 5 mg [id number] PO Last administered on 02/26/18at 07:55; Start 02/20/18 at 09:00 Non-Formulary Medication (Turmeric/ Turmeric Root Extract (Turmeric 500 mg Capsule)) 1 each QHS PO ; Start 02/20/18 at 21:00; Status UNV Non-Formulary Medication (Ubidecarenone (Co Q-10)) 200 mg DAILY PO ; Start at 09:00; Status UNV Non-Formulary Medication (Urea/Emollient Combination #65 (Uramaxin Gt 45% Kit)) 1 each PRN PRN TP dry skin; Start 02/20/18 at 07:45; Stop 02/20/18 at 11:58; Status DC Non-Formulary Medication ([arthro 7] ) 1 cap BID PO ; Start 02/20/18 at 09:00; Status UNV Non-Formulary Medication ([chloroxazone/ Parafon] ) 500 mg PRN Q6HRS PRN PO MUSCLE SPASMS; Start 02/20/18 at 07:45; Status UNV Non-Formulary Medication ([cytoxan,[id number]] ) 1 each [id number] IV ; Start at 09:00; Stop 02/20/18 at 11:57; Status DC Non-Formulary Medication ([gamagen] ) 50 gm Q4WK IV ; Start 02/20/18 at 09:00; Stop 02/20/18 at 11:57; Status DC Non-Formulary Medication ([mannose] ) 1,500 mg DAILY07 PO ; Start 02/21/18 at 07:00; Status UNV Ketorolac Tromethamine (Toradol 15mg Vial) 15 mg PRN Q6HRS PRN IV PAIN Last administered on 02/24/18at 21:14; Start 02/20/18 at 08:00; Stop 02/25/18 at 07 :59; Status DC Ceftriaxone Sodium (Rocephin) 1 gm 1X ONCE IVP Last administered on at 08:34; Start 02/20/18 at 07:45; Stop 02/20/18 at 08:22; Status DC Dextrose/Lactated Ringer's 1,000 ml @ 125 mls/hr 1X ONCE IV Last administered on 02/20/18at 14:53; Start 02/20/18 at 08:30; Stop 02/20/18 at 16 :29; Status DC Sodium Chloride 1,000 ml @ 100 mls/hr Q10H IV Last administered on 02/21/18at 17:30; Start 02/20/18 at 09:15; Stop 02/21/18 at 21:59; Status DC Info (Anti-Coagulation Monitoring By Pharmacy) 1 each PRN DAILY PRN MC SEE COMMENTS Last administered on 02/25/18at 13:13; Start 02/20/18 at 09:15 Acetaminophen/ Codeine Phosphate (Tylenol #3) 1 tab PRN BID PRN PO MODERATE PAIN Last administered on 02/24/18at 06:14; Start 02/20/18 at 22:15 Info (Tpn Per Pharmacy) 1 each PRN DAILY PRN MC SEE COMMENTS Last administered on 02/25/18at 10:56; Start 02/21/18 at 12:00 Magnesium Sulfate/ Dextrose 100 ml @ 100 mls/hr 1X ONCE IV Last administered on 02/21/18at 14:25; Start 02/21/18 at 14:00; Stop 02/21/18 at 14:59; Status DC Sodium Chloride 20 meq/Sodium Acetate 70 meq/ Potassium Chloride 50 meq/ Potassium Phosphate 13.6 mmol/Magnesium Sulfate 10 meq/ Calcium Gluconate 10 meq / Multivitamins 10 ml/Chromium/ Copper/Manganese/ Seleni/Zn 1 ml/ Total Parenteral Nutrition/Amino Acids/Dextrose/ Fat Emuls... 1,512 ml @ 63 mls/hr TPN CONT IV Last administered on 02/21/18at 23:13; Start 02/21/18 at 22:00; Stop 02/22/18 at 21:59; Status DC Adenosine (Adenocard) 6 mg 1X ONCE IV Last administered on 02/21/18at 20:01; Start 02/21/18 at 19:45; Stop 02/21/18 at 19:46; Status DC Sodium Chloride 1,000 ml @ 27 mls/hr Q24H IV Last administered on 02/25/18at 20:15; Start 02/21/18 at 20:15 Magnesium Sulfate/ Dextrose 100 ml @ 100 mls/hr 1X ONCE IV Last administered on 02/22/18at 11:24; Start 02/22/18 at 10:30; Stop 02/22/18 at 11:29; Status DC Adenosine (Adenocard) 6 mg 1X ONCE IV Last administered on 02/22/18at 14:07; Start 02/22/18 at 12:30; Stop 02/22/18 at 12:34; Status DC Sodium Chloride 20 meq/Sodium Acetate 70 meq/ Potassium Chloride 40 meq/ Potassium Phosphate 20 mmol/ Magnesium Sulfate 12 meq/Calcium Gluconate 10 meq/ Multivitamins 10 ml/Chromium/ Copper/Manganese/ Seleni/Zn 1 ml/ Total Parenteral Nutrition/Amino Acids/Dextrose/ Fat Emulsion Intravenous 1,512 ml @ 63 mls/hr TPN CONT IV Last administered on 02/22/18at 23:09; Start 02/22/18 at 22:00; Stop 02/23/18 at 21:59; Status DC Apixaban (Eliquis) 5 mg BID PO Last administered on 02/26/18at 07:52; Start at 21:00 Sodium Acetate 70 meq/Potassium Chloride 30 meq/ Potassium Phosphate 25 mmol/ Magnesium Sulfate 15 meq/Calcium Gluconate 10 meq/ Multivitamins 10 ml/Chromium / Copper/Manganese/ Seleni/Zn 1 ml/ Total Parenteral Nutrition/Amino Acids/ Dextrose/ Fat Emulsion Intravenous 1,512 ml @ 63 mls/hr TPN CONT IV Last administered on 02/23/18at 22:00; Start 02/23/18 at 22:00; Stop 02/24/18 at 21 :59; Status DC Magnesium Sulfate 50 ml @ 25 mls/hr 1X ONCE IV Last administered on at 11:35; Start 02/24/18 at 11:00; Stop 02/24/18 at 12:59; Status DC Sodium Acetate 70 meq/Potassium Chloride 30 meq/ Potassium Phosphate 25 mmol/ Magnesium Sulfate 18 meq/Calcium Gluconate 10 meq/ Multivitamins 10 ml/Chromium / Copper/Manganese/ Seleni/Zn 1 ml/ Total Parenteral Nutrition/Amino Acids/ Dextrose/ Fat Emulsion Intravenous 1,512 ml @ 63 mls/hr TPN CONT IV Last administered on 02/24/18at 21:29; Start 02/24/18 at 22:00; Stop 02/25/18 at 21 :59; Status DC Sodium Acetate 70 meq/Potassium Chloride 30 meq/ Potassium Phosphate 20 mmol/ Magnesium Sulfate 18 meq/Calcium Gluconate 10 meq/ Multivitamins 10 ml/Chromium / Copper/Manganese/ Seleni/Zn 1 ml/ Total Parenteral Nutrition/Amino Acids/ Dextrose/ Fat Emulsion Intravenous 1,512 ml @ 63 mls/hr TPN CONT IV Last administered on 02/25/18at 20:45; Start 02/25/18 at 22:00; Stop 02/26/18 at 21 :59 Psyllium Hydrophilic Mucilloid (Metamucil Fiber Packet) 1 pkt DAILY PO Last administered on 02/25/18at 20:43; Start 02/25/18 at 19:00 Acetaminophen (Tylenol) 650 mg PRN Q6HRS PRN PO MILD PAIN; Start 02/25/18 at 16:30 Active Scripts Active [Tpn Per Pharmacy] 1 EACH Each 1 Each MC PRN DAILY PRN See printed prescription 60g AA 165g dextrose 20% lipid emulsion Reported Uramaxin Gt 45% Kit (Urea/Emollient Combination #65) 1 Each Kt.crm.gel 1 Each TP PRN PRN Turmeric 500 mg Capsule (Turmeric/Turmeric Root Extract) 1 Each Capsule 1 Each PO QHS Trospium Chloride 20 Mg Tablet 20 Mg PO BID Prevident (Sodium Fluoride) 100 Ml Paste..ml. 100 Ml DT QHS Werner-E (S-Adenosylmethionine Sul Tosyl) 400 Mg Tablet 400 Mg PO DAILY Nystatin 15 Gm Powder 1 Bailey TP BID [mannose] 1,500 Mg PO DAILY07 Levothyroxine Sodium 100 Mcg Tablet 1 Tab PO DAILYAC Levocetirizine Dihydrochloride 5 Mg Tablet 1 Tab PO DAILY Imodium A-D (Loperamide HCl) 2 Mg Capsule 2 Mg PO PRN Q6HRS PRN [gamagen] 50 Gm IV Q4WK Nexium Capsule (Esomeprazole Magnesium) 40 Mg Capsule. 1 Cap PO DAILYAC Dulcolax (Bisacodyl) 5 Mg Tablet. 5 Mg PO PRN DAILY PRN Diclofenac Sodium 100 Gm Gel..gram. 100 Gm TP PRN PRN [cytoxan,[id number]] 1 Each IV [id number] Colace (Docusate Sodium) 100 Mg Capsule 1 Cap PO PRN PRN Coenzyme Q-10 (Ubidecarenone) 200 Mg Capsule 200 Mg PO QHS [chloroxazone/Parafon] 500 Mg PO PRN Q6HRS PRN [arthro 7] 1 Cap PO BID Eliquis (Apixaban) 5 Mg Tablet 5 Mg PO BID Vitamin D3 (Cholecalciferol (Vitamin D3)) 1,000 Unit Tablet 2,000 Unit PO DAILY Potassium Chloride 8 Meq Capsule.er 8 Meq PO BID Hydrocodone-Apap 5-325 (Hydrocodone Bit/Acetaminophen) 1 Each Tablet 1 Tab PO PRN Q6HRS PRN Pravastatin Sodium 20 Mg Tablet 25 Mg PO DAILY B-12 (Cyanocobalamin (Vitamin B-12)) 3,000 Mcg Tab.subl 4,000 Mcg SL QODAY Fluticasone Propionate Nasal [place] (Fluticasone Propionate) 16 Gm [place].susp 2 [place] NS BID Tessalon Perle (Benzonatate) 100 Mg Capsule 200 Mg PO PRN Q12HR PRN Horizant (Gabapentin Enacarbil) 600 Mg Tab.er.24h 600 Mg PO BID Lisinopril 5 Mg Tablet 1 Tab PO QHS Estazolam 2 Mg Tablet 2 Mg PO HS Duloxetine Hcl 60 Mg Capsule.dr 60 Mg PO HS Multi-Vitamin Daily (Multivitamin) 1 Each Tablet 1 Each PO DAILY Co Q-10 (Ubidecarenone) 200 Mg Capsule 200 Mg PO DAILY Coreg (Carvedilol) 25 Mg Tablet 25 Mg PO BID Vitals/I & O Vital Sign - Last 24 Hours 02/25/18 02/25/18 02/25/18 02/25/18 09:36 11:00 15:34 16:58 Temp 97.8 98.8 97.8 98.8 Pulse 81 87 83 83 Resp 18 18 B/P (MAP) 137/76 136/75 (95) 134/80 (98) 134/80 Pulse Ox 95 O2 Delivery Nasal Cannula Nasal Cannula O2 Flow Rate 3.5 3.5 02/25/18 02/25/18 02/25/18 02/25/18 19:35 20:00 20:43 20:50 Temp 98.0 98.0 Pulse 82 82 Resp 20 B/P (MAP) 147/70 (95) 147/70 Pulse Ox 91 91 O2 Delivery Room Air Nasal Cannula Nasal Cannula O2 Flow Rate 2.0 2.0 02/25/18 02/25/18 02/26/18 02/26/18 21:50 23:10 03:40 07:31 Temp 98.5 97.9 97.6 98.5 97.9 97.6 Pulse 83 76 75 Resp 20 20 18 B/P (MAP) 123/59 (80) 135/74 (94) 130/77 (94) Pulse Ox 92 92 91 94 O2 Delivery Nasal Cannula BiPAP/CPAP Room Air Nasal Cannula O2 Flow Rate 2.0 2.0 02/26/18 02/26/18 07:55 08:00 Pulse 75 B/P (MAP) 130/77 O2 Delivery Nasal Cannula O2 Flow Rate 2.0 Intake and Output 02/25/18 02/25/18 02/26/18 15:01 23:01 07:01 Intake Total 320 ml 2560 ml Balance 320 ml 2560 ml DYANA BILLINGSLEY MD Feb 26, 2018 09:10
--- NOTE | 2018-02-26 09:31 | NUR ---
SS following up with discharge planning. Pt requesting to go to group home unit at [facility] to gain strength prior to returning home. SS phoned and faxed referral to [facility], ; fax [phone]. SS will await acceptance decision and insurance determination and will proceed accordingly. If pt is declined for [facility] pt will return to home with Palliative Care and TPN with [facility]. [facility] contacted SS and notified SS that pt is covered at 100% for TPN. Pt's RN notified.
[2018-02-26] MEDS ORDERED: IOHEXOL 300 MG/ML 100ML VIAL. ONE (09:32)
[2018-02-26 10:53] LABS: BASO # 0.1 x10^3/uL (0.0-0.2); BASO % 1 % (0-3); EOS # 0.2 x10^3/uL (0.0-0.7); EOS % 2 % (0-3); HEMATOCRIT 27.7 % (36.0-47.0); HEMOGLOBIN 9.4 g/dL (12.0-15.5); LYMPH % 10 % (24-48); MEAN CORPUSCULAR HEMOGLOBIN 33 pg (25-35); MEAN CORPUSCULAR HGB CONC 34 g/dL (31-37); MEAN CORPUSCULAR VOLUME 97 fL (79-100); MONO # 0.6 x10^3/uL (0.0-1.1); MONO % 6 % (0-9); NEUT # 8.3 x10^3uL (1.8-7.7); NEUT % 82 % (31-73); PLATELET COUNT 99 x10^3/uL (140-400); RED BLOOD COUNT 2.86 x10^6/uL (3.50-5.40); RED CELL DISTRIBUTION WIDTH 18.9 % (11.5-14.5); WHITE BLOOD COUNT 10.1 x10^3/uL (4.0-11.0)
--- NOTE | 2018-02-26 11:24 | NUR ---
SS following up with discharge planning. SS received notification from [facility] that pt has been clinically denied. SS met with pt and and spouse in room and informed them of denial for [facility]. SS discussed possibility of LTAC with pt and spouse. Pt and spouse agreeable to referral to [facility], ; fax [phone]. SS phoned and faxed referral to [facility]. SS will await acceptance decision and insurance determination and will proceed accordingly. Pt's RN notified.
--- NOTE | 2018-02-26 12:17 | NUR ---
SS following up with discharge planning. SS received notification that pt has been clinically accepted at [facility], ; fax [phone], pending insurance authorization. SS will await insurance determination and will proceed accordingly. Pt's RN notified.
--- NOTE | 2018-02-26 12:38 | NUR ---
Patient reports emesis x 1 after breakfast and after drinking CT contrast
[2018-02-26] MEDS: TPN PER PHARMACY MC PRN (13:25)
--- NOTE | 2018-02-26 13:25 | NUR ---
Pharmacy TPN Dosing Note S: BROTHERS,HAFSA is a 67 year old F Currently receiving Central Continuous TPN started 02/21/18 B:Pertinent PMH: Ileus vs. SBO Height: 5 feet, 8.5 inches Weight: 121.7 kg Current diet: Full Liquid LABS: Sodium: 142 Potassium: 4.3 Chloride: 105 Calcium: 9.3 Corrected Calcium: 11.14 Magnesium: 1.9 CO2: 29 SCr: 0.7 Glucose: 132, 120 Albumin: 1.7 AST: 56 (02/20) ALT: 17 (02/20) TPN FORMULA: TPN TYPE: Central Continuous AMINO ACIDS: 60 gm DEXTROSE: 195 gm SODIUM ACETATE: 70 mEq POTASSIUM CHLORIDE: 30 mEq POTASSIUM PHOSPHATE: 13.6 mmol MAGNESIUM: 18 mEq MULTIPLE VITAMIN: 10 ml TRACE ELEMENTS: 1 ml TPN PLAN: -Serum phos trending to upper range of normal, reduce KPhos to 13.6 mmol/day. -Corrected calcium greater than 11; remove calcium from TPN. -Other electrolytes appear WNL and stable. -BMP, mag, phos, calcium tomorrow per GI R: Continue TPN @ current rate and with above changes Will monitor electrolytes, glucose, and tolerance to TPN. ANASTASIIA [facility]AU [facility], 02/26/18 2029
--- NOTE | 2018-02-26 14:22 | PDOC ---
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 Sr as outpatient and is looking into home hospice/palliative care now, seriosly. Overnight 02/21/18 required adenosine for SVT, again on 02/22/18 during the day. She recalls PSVT since age 9, declined EP ablation in the past. Overnight had another BM, feels relieved with this, but worried it was a little loose, not foul smelling. Tolerated full liquid diet well, wishes to advance further. Oncology has recommended palliative care, to which she is amenable, she does not wish for hospice at this time. I have advised her TPN on d/c is high risk without a physician monitoring it. She was initially wishing for home with palliative care, but has looked into SNF at [facility] and wishes to go there tomorrow, wants her CT enterogram prior to that if possible. Vitals Vitals Vital Signs Date Time Temp Pulse Resp B/P (MAP) Pulse Ox O2 Delivery O2 Flow Rate FiO2 02/26/18 12:05 98.4 63 16 133/71 (91) 96 Nasal Cannula 2.0 98.4 Physical Exam General: Alert Heart: Normal S1, Normal S2 Lungs: Clear, Other Abdomen: Soft, No tenderness Extremities: No cyanosis, No edema Skin: No significant lesion Labs LABS Laboratory Tests Test 02/25/18 20:47 02/26/18 06:45 02/26/18 07:50 Glucose (Fingerstick) 129 mg/dL (70-99) 120 mg/dL (70-99) White Blood Count 10.1 x10^3/uL (4.0-11.0) Red Blood Count 2.86 x10^6/uL (3.50-5.40) Hemoglobin 9.4 g/dL (12.0-15.5) Hematocrit 27.7 % (36.0-47.0) Mean Corpuscular Volume 97 fL (79-100) Mean Corpuscular Hemoglobin 33 pg (25-35) Mean Corpuscular Hemoglobin Concent 34 g/dL (31-37) Red Cell Distribution Width 18.9 % (11.5-14.5) Platelet Count 99 x10^3/uL (140-400) Neutrophils (%) (Auto) 82 % (31-73) Lymphocytes (%) (Auto) 10 % (24-48) Monocytes (%) (Auto) 6 % (0-9) Eosinophils (%) (Auto) 2 % (0-3) Basophils (%) (Auto) 1 % (0-3) Neutrophils # (Auto) 8.3 x10^3uL (1.8-7.7) Lymphocytes # (Auto) 1.0 x10^3/uL (1.0-4.8) Monocytes # (Auto) 0.6 x10^3/uL (0.0-1.1) Eosinophils # (Auto) 0.2 x10^3/uL (0.0-0.7) Basophils # (Auto) 0.1 x10^3/uL (0.0-0.2) Sodium Level 142 mmol/L (136-145) Potassium Level 4.3 mmol/L (3.5-5.1) Chloride Level 105 mmol/L (98-107) Carbon Dioxide Level 29 mmol/L (21-32) Anion Gap 8 (6-14) Blood Urea Nitrogen 14 mg/dL (7-20) Creatinine 0.7 mg/dL (0.6-1.0) Estimated GFR (Cockcroft-Gault) 83.0 Glucose Level 132 mg/dL (70-99) Calcium Level 9.3 mg/dL (8.5-10.1) Phosphorus Level 4.6 mg/dL (2.6-4.7) Magnesium Level 1.9 mg/dL (1.8-2.4) Albumin 1.7 g/dL (3.4-5.0) Assessment and Plan Assessmemt and Plan Problems Medical Problems: (1) Acute renal insufficiency Status: Acute (2) Ascites Status: Acute (3) Dehydration Status: Acute (4) Ileus Status: Acute (5) Leukocytosis Status: Acute (6) Metastatic breast cancer Status: Acute (7) Weakness Status: Acute Comment Review of Relevant I have reviewed the following items declan (where applicable) has been applied. Labs Laboratory Tests Test 02/24/18 20:55 02/25/18 06:30 02/25/18 06:37 02/25/18 07:43 Glucose (Fingerstick) 136 mg/dL (70-99) 122 mg/dL (70-99) 124 mg/dL (70-99) Sodium Level 144 mmol/L (136-145) Potassium Level 4.6 mmol/L (3.5-5.1) Chloride Level 107 mmol/L (98-107) Carbon Dioxide Level 28 mmol/L (21-32) Anion Gap 9 (6-14) Blood Urea Nitrogen 13 mg/dL (7-20) Creatinine 0.6 mg/dL (0.6-1.0) Estimated GFR (Cockcroft-Gault) 99.1 Glucose Level 120 mg/dL (70-99) Calcium Level 9.4 mg/dL (8.5-10.1) Phosphorus Level 3.8 mg/dL (2.6-4.7) Magnesium Level 1.9 mg/dL (1.8-2.4) Test 02/25/18 20:47 02/26/18 06:45 02/26/18 07:50 Glucose (Fingerstick) 129 mg/dL (70-99) 120 mg/dL (70-99) White Blood Count 10.1 x10^3/uL (4.0-11.0) Red Blood Count 2.86 x10^6/uL (3.50-5.40) Hemoglobin 9.4 g/dL (12.0-15.5) Hematocrit 27.7 % (36.0-47.0) Mean Corpuscular Volume 97 fL (79-100) Mean Corpuscular Hemoglobin 33 pg (25-35) Mean Corpuscular Hemoglobin Concent 34 g/dL (31-37) Red Cell Distribution Width 18.9 % (11.5-14.5) Platelet Count 99 x10^3/uL (140-400) Neutrophils (%) (Auto) 82 % (31-73) Lymphocytes (%) (Auto) 10 % (24-48) Monocytes (%) (Auto) 6 % (0-9) Eosinophils (%) (Auto) 2 % (0-3) Basophils (%) (Auto) 1 % (0-3) Neutrophils # (Auto) 8.3 x10^3uL (1.8-7.7) Lymphocytes # (Auto) 1.0 x10^3/uL (1.0-4.8) Monocytes # (Auto) 0.6 x10^3/uL (0.0-1.1) Eosinophils # (Auto) 0.2 x10^3/uL (0.0-0.7) Basophils # (Auto) 0.1 x10^3/uL (0.0-0.2) Sodium Level 142 mmol/L (136-145) Potassium Level 4.3 mmol/L (3.5-5.1) Chloride Level 105 mmol/L (98-107) Carbon Dioxide Level 29 mmol/L (21-32) Anion Gap 8 (6-14) Blood Urea Nitrogen 14 mg/dL (7-20) Creatinine 0.7 mg/dL (0.6-1.0) Estimated GFR (Cockcroft-Gault) 83.0 Glucose Level 132 mg/dL (70-99) Calcium Level 9.3 mg/dL (8.5-10.1) Phosphorus Level 4.6 mg/dL (2.6-4.7) Magnesium Level 1.9 mg/dL (1.8-2.4) Albumin 1.7 g/dL (3.4-5.0) Laboratory Tests Test 02/25/18 20:47 02/26/18 06:45 02/26/18 07:50 Glucose (Fingerstick) 129 mg/dL (70-99) 120 mg/dL (70-99) White Blood Count 10.1 x10^3/uL (4.0-11.0) Red Blood Count 2.86 x10^6/uL (3.50-5.40) Hemoglobin 9.4 g/dL (12.0-15.5) Hematocrit 27.7 % (36.0-47.0) Mean Corpuscular Volume 97 fL (79-100) Mean Corpuscular Hemoglobin 33 pg (25-35) Mean Corpuscular Hemoglobin Concent 34 g/dL (31-37) Red Cell Distribution Width 18.9 % (11.5-14.5) Platelet Count 99 x10^3/uL (140-400) Neutrophils (%) (Auto) 82 % (31-73) Lymphocytes (%) (Auto) 10 % (24-48) Monocytes (%) (Auto) 6 % (0-9) Eosinophils (%) (Auto) 2 % (0-3) Basophils (%) (Auto) 1 % (0-3) Neutrophils # (Auto) 8.3 x10^3uL (1.8-7.7) Lymphocytes # (Auto) 1.0 x10^3/uL (1.0-4.8) Monocytes # (Auto) 0.6 x10^3/uL (0.0-1.1) Eosinophils # (Auto) 0.2 x10^3/uL (0.0-0.7) Basophils # (Auto) 0.1 x10^3/uL (0.0-0.2) Sodium Level 142 mmol/L (136-145) Potassium Level 4.3 mmol/L (3.5-5.1) Chloride Level 105 mmol/L (98-107) Carbon Dioxide Level 29 mmol/L (21-32) Anion Gap 8 (6-14) Blood Urea Nitrogen 14 mg/dL (7-20) Creatinine 0.7 mg/dL (0.6-1.0) Estimated GFR (Cockcroft-Gault) 83.0 Glucose Level 132 mg/dL (70-99) Calcium Level 9.3 mg/dL (8.5-10.1) Phosphorus Level 4.6 mg/dL (2.6-4.7) Magnesium Level 1.9 mg/dL (1.8-2.4) Albumin 1.7 g/dL (3.4-5.0) Microbiology 02/20/18 Blood Culture - Final, Complete NO GROWTH AFTER 5 DAYS Medications Current Medications Sodium Chloride (NORMAL SALINE FLUSH for STERILE FIELD) 10 ml STK-MED ONCE .ROUTE ; Start 02/20/18 at 04:49; Stop 02/20/18 at 04:51; Status DC Iohexol (Omnipaque 300 Mg/ml) 75 ml 1X ONCE IV Last administered on at 06:20; Start 02/20/18 at 06:00; Stop 02/20/18 at 06:01; Status DC Info (CONTRAST GIVEN -- Rx MONITORING) 1 each PRN DAILY PRN MC SEE COMMENTS; Start 02/20/18 at 05:30; Stop 02/22/18 at 05:29; Status DC Sodium Chloride 1,000 ml @ 125 mls/hr 1X ONCE IV Last administered on at 06:15; Start 02/20/18 at 06:15; Stop 02/20/18 at 14:14; Status DC Acetaminophen/ Codeine Phosphate (Tylenol #3) 1 tab 0500,1400 PO ; Start at 14:00; Stop 02/20/18 at 22:13; Status DC Apixaban (Eliquis) 5 mg BID PO ; Start 02/20/18 at 09:00; Stop 02/21/18 at 19: 45; Status DC Bisacodyl (Dulcolax Tab) 5 mg PRN DAILY PRN PO CONSTIPATION; Start 02/20/18 at 07:45 Vitamin D (Vitamin D3) 2,000 unit DAILY PO Last administered on 02/26/18at 07: 54; Start 02/20/18 at 09:00 Docusate Sodium (Colace) 100 mg PRN BID PRN PO HARD STOOLS; Start 02/20/18 at 07:45 Fluticasone Propionate (Flonase) 1 spray BID NS Last administered on at 09:23; Start 02/20/18 at 09:00 Acetaminophen/ Hydrocodone Bitart (Lortab 5/325) 1 tab PRN Q6HRS PRN PO SEVERE PAIN Last administered on 02/25/18at 20:50; Start 02/20/18 at 07:45 Levothyroxine Sodium (Synthroid) 100 mcg DAILY06 PO Last administered on at 05:29; Start 02/20/18 at 10:30 Nystatin (Nystop) 1 bailey BID TP Last administered on 02/24/18at 09:23; Start at 09:00 Benzonatate (Tessalon Perle) 200 mg PRN Q12HR PRN PO COUGH; Start 02/20/18 at 09:00 Carvedilol (Coreg) 25 mg BIDWMEALS PO Last administered on 02/26/18 07:55; Start 02/20/18 at 09:15 Cyanocobalamin (Vitamin B-12) 4,000 mcg Q48H PO Last administered on 07:53; Start 02/20/18 at 09:00 Diclofenac Sodium (Voltaren) 1 bailey PRN QID PRN TP JOINT PAIN; Start 02/20/18 at 09:00 Duloxetine HCl (Cymbalta) 60 mg QHS PO Last administered on 02/25/18 20:43; Start 02/20/18 at 21:00 Pantoprazole Sodium (Protonix) 40 mg DAILYAC PO Last administered on 07:54; Start 02/20/18 at 08:30 Non-Formulary Medication (Estazolam ) 2 mg HS PO Last administered on 20:44; Start 02/20/18 at 21:00 Non-Formulary Medication (Gabapentin Enacarbil (Horizant)) 600 mg BID PO Last administered on 02/26/18 07:56; Start 02/20/18 at 09:00 Cetirizine HCl (ZyrTEC) 10 mg DAILY PO Last administered on 02/26/18 07:54; Start 02/20/18 at 09:00 Lisinopril (Prinivil) 5 mg QHS PO Last administered on 02/25/18 20:43; Start 02/20/18 at 21:00 Loperamide HCl (Imodium) 2 mg PRN Q6HRS PRN PO DIARRHEA; Start 02/20/18 at 08: 45 Multivitamins (Thera M Plus) 1 tab DAILY PO Last administered on 02/21/18 08: 45; Start 02/20/18 at 09:00; Stop 02/21/18 at 13:47; Status DC Potassium Chloride (Klor-Con) 10 meq BIDWMEALS PO Last administered on 07:55; Start 02/20/18 at 09:00 Atorvastatin Calcium (Lipitor) 5 mg QHS PO Last administered on 02/25/18 20: 43; Start 02/20/18 at 21:00 Non-Formulary Medication (S-Adenosylmethionine Sul Tosyl (Werner-E)) 400 mg DAILY PO ; Start 02/20/18 at 09:00; Status UNV Oxybutynin Chloride (Ditropan) 5 mg [id number] PO Last administered on 02/26/18at 07:55; Start 02/20/18 at 09:00 Non-Formulary Medication (Turmeric/ Turmeric Root Extract (Turmeric 500 mg Capsule)) 1 each QHS PO ; Start 02/20/18 at 21:00; Status UNV Non-Formulary Medication (Ubidecarenone (Co Q-10)) 200 mg DAILY PO ; Start at 09:00; Status UNV Non-Formulary Medication (Urea/Emollient Combination #65 (Uramaxin Gt 45% Kit)) 1 each PRN PRN TP dry skin; Start 02/20/18 at 07:45; Stop 02/20/18 at 11:58; Status DC Non-Formulary Medication ([arthro 7] ) 1 cap BID PO ; Start 02/20/18 at 09:00; Status UNV Non-Formulary Medication ([chloroxazone/ Parafon] ) 500 mg PRN Q6HRS PRN PO MUSCLE SPASMS; Start 02/20/18 at 07:45; Status UNV Non-Formulary Medication ([cytoxan,[id number]] ) 1 each [id number] IV ; Start at 09:00; Stop 02/20/18 at 11:57; Status DC Non-Formulary Medication ([gamagen] ) 50 gm Q4WK IV ; Start 02/20/18 at 09:00; Stop 02/20/18 at 11:57; Status DC Non-Formulary Medication ([mannose] ) 1,500 mg DAILY07 PO ; Start 02/21/18 at 07:00; Status UNV Ketorolac Tromethamine (Toradol 15mg Vial) 15 mg PRN Q6HRS PRN IV PAIN Last administered on 02/24/18at 21:14; Start 02/20/18 at 08:00; Stop 02/25/18 at 07 :59; Status DC Ceftriaxone Sodium (Rocephin) 1 gm 1X ONCE IVP Last administered on at 08:34; Start 02/20/18 at 07:45; Stop 02/20/18 at 08:22; Status DC Dextrose/Lactated Ringer's 1,000 ml @ 125 mls/hr 1X ONCE IV Last administered on 02/20/18at 14:53; Start 02/20/18 at 08:30; Stop 02/20/18 at 16 :29; Status DC Sodium Chloride 1,000 ml @ 100 mls/hr Q10H IV Last administered on 02/21/18at 17:30; Start 02/20/18 at 09:15; Stop 02/21/18 at 21:59; Status DC Info (Anti-Coagulation Monitoring By Pharmacy) 1 each PRN DAILY PRN MC SEE COMMENTS Last administered on 02/25/18at 13:13; Start 02/20/18 at 09:15 Acetaminophen/ Codeine Phosphate (Tylenol #3) 1 tab PRN BID PRN PO MODERATE PAIN Last administered on 02/24/18at 06:14; Start 02/20/18 at 22:15 Info (Tpn Per Pharmacy) 1 each PRN DAILY PRN MC SEE COMMENTS Last administered on 02/26/18at 13:25; Start 02/21/18 at 12:00 Magnesium Sulfate/ Dextrose 100 ml @ 100 mls/hr 1X ONCE IV Last administered on 02/21/18at 14:25; Start 02/21/18 at 14:00; Stop 02/21/18 at 14:59; Status DC Sodium Chloride 20 meq/Sodium Acetate 70 meq/ Potassium Chloride 50 meq/ Potassium Phosphate 13.6 mmol/Magnesium Sulfate 10 meq/ Calcium Gluconate 10 meq / Multivitamins 10 ml/Chromium/ Copper/Manganese/ Seleni/Zn 1 ml/ Total Parenteral Nutrition/Amino Acids/Dextrose/ Fat Emuls... 1,512 ml @ 63 mls/hr TPN CONT IV Last administered on 02/21/18at 23:13; Start 02/21/18 at 22:00; Stop 02/22/18 at 21:59; Status DC Adenosine (Adenocard) 6 mg 1X ONCE IV Last administered on 02/21/18at 20:01; Start 02/21/18 at 19:45; Stop 02/21/18 at 19:46; Status DC Sodium Chloride 1,000 ml @ 27 mls/hr Q24H IV Last administered on 02/25/18at 20:15; Start 02/21/18 at 20:15; Stop 02/26/18 at 10:59; Status DC Magnesium Sulfate/ Dextrose 100 ml @ 100 mls/hr 1X ONCE IV Last administered on 02/22/18at 11:24; Start 02/22/18 at 10:30; Stop 02/22/18 at 11:29; Status DC Adenosine (Adenocard) 6 mg 1X ONCE IV Last administered on 02/22/18at 14:07; Start 02/22/18 at 12:30; Stop 02/22/18 at 12:34; Status DC Sodium Chloride 20 meq/Sodium Acetate 70 meq/ Potassium Chloride 40 meq/ Potassium Phosphate 20 mmol/ Magnesium Sulfate 12 meq/Calcium Gluconate 10 meq/ Multivitamins 10 ml/Chromium/ Copper/Manganese/ Seleni/Zn 1 ml/ Total Parenteral Nutrition/Amino Acids/Dextrose/ Fat Emulsion Intravenous 1,512 ml @ 63 mls/hr TPN CONT IV Last administered on 02/22/18at 23:09; Start 02/22/18 at 22:00; Stop 02/23/18 at 21:59; Status DC Apixaban (Eliquis) 5 mg BID PO Last administered on 02/26/18at 07:52; Start at 21:00 Sodium Acetate 70 meq/Potassium Chloride 30 meq/ Potassium Phosphate 25 mmol/ Magnesium Sulfate 15 meq/Calcium Gluconate 10 meq/ Multivitamins 10 ml/Chromium / Copper/Manganese/ Seleni/Zn 1 ml/ Total Parenteral Nutrition/Amino Acids/ Dextrose/ Fat Emulsion Intravenous 1,512 ml @ 63 mls/hr TPN CONT IV Last administered on 02/23/18at 22:00; Start 02/23/18 at 22:00; Stop 02/24/18 at 21 :59; Status DC Magnesium Sulfate 50 ml @ 25 mls/hr 1X ONCE IV Last administered on at 11:35; Start 02/24/18 at 11:00; Stop 02/24/18 at 12:59; Status DC Sodium Acetate 70 meq/Potassium Chloride 30 meq/ Potassium Phosphate 25 mmol/ Magnesium Sulfate 18 meq/Calcium Gluconate 10 meq/ Multivitamins 10 ml/Chromium / Copper/Manganese/ Seleni/Zn 1 ml/ Total Parenteral Nutrition/Amino Acids/ Dextrose/ Fat Emulsion Intravenous 1,512 ml @ 63 mls/hr TPN CONT IV Last administered on 02/24/18at 21:29; Start 02/24/18 at 22:00; Stop 02/25/18 at 21 :59; Status DC Sodium Acetate 70 meq/Potassium Chloride 30 meq/ Potassium Phosphate 20 mmol/ Magnesium Sulfate 18 meq/Calcium Gluconate 10 meq/ Multivitamins 10 ml/Chromium / Copper/Manganese/ Seleni/Zn 1 ml/ Total Parenteral Nutrition/Amino Acids/ Dextrose/ Fat Emulsion Intravenous 1,512 ml @ 63 mls/hr TPN CONT IV Last administered on 02/25/18at 20:45; Start 02/25/18 at 22:00; Stop 02/26/18 at 21 :59 Psyllium Hydrophilic Mucilloid (Metamucil Fiber Packet) 1 pkt DAILY PO Last administered on 02/25/18at 20:43; Start 02/25/18 at 19:00 Acetaminophen (Tylenol) 650 mg PRN Q6HRS PRN PO MILD PAIN; Start 02/25/18 at 16:30 Iohexol (Omnipaque 300 Mg/ml) 100 ml STK-MED ONCE .ROUTE ; Start 02/26/18 at 09 :32; Stop 02/26/18 at 09:33; Status DC Sodium Acetate 70 meq/Potassium Chloride 30 meq/ Potassium Phosphate 13.6 mmol/ Magnesium Sulfate 18 meq/ Multivitamins 10 ml/Chromium/ Copper/Manganese/ Seleni /Zn 1 ml/ Total Parenteral Nutrition/Amino Acids/Dextrose/ Fat Emulsion Intravenous 1,512 ml @ 63 mls/hr TPN CONT IV ; Start 02/26/18 at 22:00; Stop 02/27/18 at 21:59 Active Scripts Active [Tpn Per Pharmacy] 1 EACH Each 1 Each MC PRN DAILY PRN See printed prescription 60g AA 165g dextrose 20% lipid emulsion Reported Uramaxin Gt 45% Kit (Urea/Emollient Combination #65) 1 Each Kt.crm.gel 1 Each TP PRN PRN Turmeric 500 mg Capsule (Turmeric/Turmeric Root Extract) 1 Each Capsule 1 Each PO QHS Trospium Chloride 20 Mg Tablet 20 Mg PO BID Prevident (Sodium Fluoride) 100 Ml Paste..ml. 100 Ml DT QHS Werner-E (S-Adenosylmethionine Sul Tosyl) 400 Mg Tablet 400 Mg PO DAILY Nystatin 15 Gm Powder 1 Bailey TP BID [mannose] 1,500 Mg PO DAILY07 Levothyroxine Sodium 100 Mcg Tablet 1 Tab PO DAILYAC Levocetirizine Dihydrochloride 5 Mg Tablet 1 Tab PO DAILY Imodium A-D (Loperamide HCl) 2 Mg Capsule 2 Mg PO PRN Q6HRS PRN [gamagen] 50 Gm IV Q4WK Nexium Capsule (Esomeprazole Magnesium) 40 Mg Capsule. 1 Cap PO DAILYAC Dulcolax (Bisacodyl) 5 Mg Tablet.dr 5 Mg PO PRN DAILY PRN Diclofenac Sodium 100 Gm Gel..gram. 100 Gm TP PRN PRN [cytoxan,[id number]] 1 Each IV [id number] Colace (Docusate Sodium) 100 Mg Capsule 1 Cap PO PRN PRN Coenzyme Q-10 (Ubidecarenone) 200 Mg Capsule 200 Mg PO QHS [chloroxazone/Parafon] 500 Mg PO PRN Q6HRS PRN [arthro 7] 1 Cap PO BID Eliquis (Apixaban) 5 Mg Tablet 5 Mg PO BID Vitamin D3 (Cholecalciferol (Vitamin D3)) 1,000 Unit Tablet 2,000 Unit PO DAILY Potassium Chloride 8 Meq Capsule.er 8 Meq PO BID Hydrocodone-Apap 5-325 (Hydrocodone Bit/Acetaminophen) 1 Each Tablet 1 Tab PO PRN Q6HRS PRN Pravastatin Sodium 20 Mg Tablet 25 Mg PO DAILY B-12 (Cyanocobalamin (Vitamin B-12)) 3,000 Mcg Tab.subl 4,000 Mcg SL QODAY Fluticasone Propionate Nasal Horton (Fluticasone Propionate) 16 Gm Horton.susp 2 Horton NS BID Tessalon Perle (Benzonatate) 100 Mg Capsule 200 Mg PO PRN Q12HR PRN Horizant (Gabapentin Enacarbil) 600 Mg Tab.er.24h 600 Mg PO BID Lisinopril 5 Mg Tablet 1 Tab PO QHS Estazolam 2 Mg Tablet 2 Mg PO HS Duloxetine Hcl 60 Mg Capsule.dr 60 Mg PO HS Multi-Vitamin Daily (Multivitamin) 1 Each Tablet 1 Each PO DAILY Co Q-10 (Ubidecarenone) 200 Mg Capsule 200 Mg PO DAILY Coreg (Carvedilol) 25 Mg Tablet 25 Mg PO BID Vitals/I & O Vital Sign - Last 24 Hours 02/25/18 02/25/18 02/25/18 02/25/18 15:34 16:58 19:35 20:00 Temp 98.8 98.0 98.8 98.0 Pulse 83 83 82 Resp 18 20 B/P (MAP) 134/80 (98) 134/80 147/70 (95) Pulse Ox 91 O2 Delivery Nasal Cannula Room Air Nasal Cannula O2 Flow Rate 3.5 2.0 02/25/18 02/25/18 02/25/18 02/25/18 20:43 20:50 21:50 23:10 Temp 98.5 98.5 Pulse 82 83 Resp 20 B/P (MAP) 147/70 123/59 (80) Pulse Ox 91 92 92 O2 Delivery Nasal Cannula Nasal Cannula BiPAP/CPAP O2 Flow Rate 2.0 2.0 02/26/18 02/26/18 02/26/18 02/26/18 03:40 07:31 07:55 08:00 Temp 97.9 97.6 97.9 97.6 Pulse 76 75 75 Resp 20 18 B/P (MAP) 135/74 (94) 130/77 (94) 130/77 Pulse Ox 91 94 O2 Delivery Room Air Nasal Cannula Nasal Cannula O2 Flow Rate 2.0 2.0 02/26/18 02/26/18 11:00 12:05 Temp 98.4 98.4 98.4 98.4 Pulse 63 63 Resp 16 16 B/P (MAP) 133/71 (91) 133/71 (91) Pulse Ox 96 96 O2 Delivery Nasal Cannula Nasal Cannula O2 Flow Rate 2.0 2.0 Intake and Output 02/25/18 02/25/18 02/26/18 15:01 23:01 07:01 Intake Total 320 ml 2560 ml Balance 320 ml 2560 ml ADY OBRIEN MD Feb 26, 2018 14:22
--- NOTE | 2018-02-26 14:45 | RAD ---
CT abdomen and pelvis with contrast 02/26/2018 CLINICAL INDICATION: Metastatic colon carcinoma. TECHNIQUE: Multiple CT images of the abdomen and pelvis were obtained following the intravenous administration of 75 mL Omnipaque 300. *One or more of the following individualized dose reduction techniques were utilized for this examination: 1. Automated exposure control. 2. Adjustment of the mA and/or kV according to patient size. 3. Use of iterative reconstruction technique. FINDINGS: Heart size is normal. Coronary artery calcifications. Central venous catheter terminating in the superior caval atrial junction. There are small bilateral pleural effusions with subjacent compressive atelectasis. There are few scattered cysts in both lobes of the liver, the largest in segment 4A measuring 2.2 cm series 2/image 30. Additional cysts segment 8 series 2/image 24, junction segment 7/8 image 24 and segment 2 series 03/2016. There are few additional subcentimeter hypodensities which are not clearly cysts in both lobes of the liver suggests seen in segment 2 measuring 0.3 cm series 2/image 21 segment 4A series 2/image 24 measuring 0.5 cm, segment 7 measuring 0.4 cm series 2/image 28. Probable cyst in hepatic segment 6 on image 47. Mild dilatation of the gallbladder measuring 4.3 cm with layering cholelithiasis. No biliary ductal dilatation. Spleen is normal in size without suspicious focal lesion. There is a peripherally calcified splenic arterial aneurysm at the hilum measuring 1.0 cm. Adrenal glands unremarkable. Moderate fatty atrophy of the pancreas. Both kidneys present. Worsening severe bilateral hydronephrosis with transition to normal caliber ureter at the UPJ. There are scattered areas of cortical scarring in both kidneys. Abdominal aorta normal in caliber with mild aortoiliac calcified plaque. Major portal veins are patent. Mild periportal edema. Progression in lower esophageal dilatation with reflux oral retained fluid. There are postsurgical changes of a right hemicolectomy and ileocolic anastomosis. Slight interval increase in multilevel fluid and gas dilated small bowel loops measuring up to 4.6 cm in the anterior mid abdomen, previously 4.3 cm, with suspicion of tethered small bowel loops near the transition point adjacent to soft tissue thickening. There is focal transition point in the right lower quadrant series 2/image 76 with mild gas and fluid distal to the transition point. There is short segment circumferential thickening of the mid transverse colon series 2/image 54-55 with complete decompression of the distal large bowel loop and the narrowing is fixed compared to the February 20, 2018 examination. There are multiple dilated small bowel loops that are anterior to the transverse colon. There has been interval increase in moderate volume abdominopelvic ascites. There are multiple areas of peritoneal thickening most prominent adjacent to the anterior inferior aspect of the spleen series 2/image 38 and deep and only in the right right lower quadrant adjacent to the tethered and decompressed small bowel loops series 2/image 77 which is difficult to accurately measure due to irregular extent. There is deep and intraperitoneal soft tissue thickening series 2/image 80. No retroperitoneal or mesenteric lymphadenopathy by CT size criteria. Mild distended unopacified urinary bladder unremarkable. Hysterectomy with the vaginal cuff unremarkable. No iliac or inguinal lymphadenopathy. Stable mild L3 superior endplate compression deformity. No significant change in multiple mixed lytic and sclerotic lesions in the visualized thoracic spine, lumbar spine and bony pelvis. Small ascites containing periumbilical hernia. There is mild linear fluid in the subcutaneous tissues posterior to the left gluteus musculature series 2/image 103. IMPRESSION: 1. Slight interval increase in probably fluid-filled small bowel dilatation with focal transition point in the right lower quadrant consistent with small bowel obstruction. Right hemicolectomy with fixed short segment narrowing of the mid transverse colon. Findings may be due to a benign or malignant stricture, local recurrent tumor versus infectious, inflammatory or ischemic colitis. 2. Right lower quadrant small bowel loops have a tethered configuration adjacent to peritoneal soft tissue thickening concerning for peritoneal metastatic disease and resulting obstruction. 3. There are multiple additional areas of peritoneal soft tissue thickening. 4. Stable hepatic cysts and additional hypodensities which are too small to definitively characterize. If further evaluation is clinically indicated, MRI could be obtained. Hepatic metastatic disease is not excluded. 5. Progression in severe bilateral hydronephrosis with normal caliber ureters. Definitive obstructive site is not identified, though peritoneal metastatic disease could produce this appearance. 6. Moderate volume abdominopelvic ascites. 7. Mixed lytic and sclerotic osseous metastatic disease. 8. Mildly dilated gallbladder with cholelithiasis. Clinical correlation is recommended. 9. Linear fluid in the subjacent tissues posterior to the left gluteal musculature is indeterminate. Clinical correlation is recommended. Electronically signed by: Omi Khan MD (02/26/2018 2:41 PM) [id number]
[2018-02-26] MEDS: HYDROcodone/APAP 5/325MG 1 TAB TABLET PO PRN (19:39)
[2018-02-26] MEDS: LISINOPRIL 5 MG TABLET. PO SCH (20:44)
[2018-02-26] MEDS: DULoxetine HCL 30 MG CAPSULE.DR PO SCH (20:44)
[2018-02-26] MEDS: ATORVASTATIN CALCIUM 10 MG TABLET. PO SCH (20:44)
[2018-02-26] MEDS: ESTAZOLAM 2 MG PO SCH (20:45)
[2018-02-26] MEDS ORDERED: AMINO ACID IV SCH ×9 (22:00)
[2018-02-26] MEDS ORDERED: DEXTROSE 70% IV SCH ×9 (22:00)
[2018-02-26] MEDS ORDERED: TOTAL PARENTERAL NUTRITION IV SCH ×9 (22:00)
[2018-02-26] MEDS ORDERED: [UNRECOGNIZED DRUG - OTHER] IV SCH ×9 (22:00)
[2018-02-27] VITALS (8 sets, daily range): BP systolic 105–159; BP diastolic 65–91
[2018-02-27] MEDS: LEVOTHYROXINE 100 MCG TABLET PO SCH (06:12)
[2018-02-27] MEDS: PANTOPRAZOLE 40 MG TABLET.DR. PO SCH (08:01)
[2018-02-27] MEDS: POTASSIUM CHLORIDE 10 MEQ TABLET.ER. PO SCH ×2 (08:02→17:34)
[2018-02-27] MEDS: CARVEDILOL 12.5 MG TABLET. PO SCH ×2 (08:03→17:34)
[2018-02-27] MEDS: PSYLLIUM HUSK (SUGAR FREE) 1 PKT PACKET PO SCH (09:00)
[2018-02-27] MEDS: NYSTATIN TOPICAL POWDER 15GM BOTTLE. TP SCH ×2 (09:00→21:00)
[2018-02-27] MEDS: FLUTICASONE 50MCG/NASAL SPRAY 16GM BOTTLE. NS SCH ×2 (09:00→21:00)
[2018-02-27] MEDS: APIXABAN 5 MG TABLET. PO SCH ×2 (09:06→21:00)
[2018-02-27] MEDS: OXYBUTYNIN CHLORIDE 5 MG TABLET PO SCH ×3 (09:06→21:00)
[2018-02-27] MEDS: GABAPENTIN ENACARBIL 600 MG PO SCH ×2 (09:07→21:00)
[2018-02-27] MEDS: CETIRIZINE HCL 10 MG TABLET. PO SCH (09:07)
[2018-02-27] MEDS: CHOLECALCIFEROL (VITAMIN D3) 1,000 UNIT TABLET PO SCH (09:07)
[2018-02-27 11:13] LABS: CALCIUM 9.5 mg/dL (8.5-10.1); CREATININE 0.7 mg/dL (0.6-1.0); PHOSPHORUS 5.1 mg/dL (2.6-4.7); POTASSIUM 4.6 mmol/L (3.5-5.1)
--- NOTE | 2018-02-27 11:56 | PDOC ---
PROGRESS NOTES Chief Complaint Chief Complaint Head Concussion secondary to below Noninjury fall at home, traumatic Metastatic cancer of breast, to bone and liver, peritoneal carcinomatos MOderate amount ascites Ileus versus partial SBO-recent ileus versus partial SBO Possible aspiration Acute on Chronic pain Moderate PCM-albumin 2.2 AK I/VMN, creatinine 1.2 plan: fu with onco recommend hospice, but pt refused PP refused pt, will try select with SW cont TPN, full liquid for now KUB tmr History of Present Illness History of Present Illness She is wide awake now and able to do long stories about 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 Sr as outpatient and is looking into home hospice/palliative care now, seriosly. Overnight 02/21/18 required adenosine for SVT, again on 02/22/18 during the day. She recalls PSVT since age 9, declined EP ablation in the past. Overnight had another BM, feels relieved with this, but worried it was a little loose, not foul smelling. Tolerated full liquid diet well, wishes to advance further. Oncology has recommended palliative care, to which she is amenable, she does not wish for hospice at this time. I have advised her TPN on d/c is high risk without a physician monitoring it. She was initially wishing for home with palliative care, but has looked into SNF at [facility] and wishes to go there tomorrow, wants her CT enterogram prior to that if possible. pt is concern about sbo, not wanna eat much, drink some soup. CT repeated 02/26 still showed some sbo. has passed much gas, and BM Vitals Vitals Vital Signs Date Time Temp Pulse Resp B/P (MAP) Pulse Ox O2 Delivery O2 Flow Rate FiO2 02/27/18 10:49 97.7 81 18 127/75 (92) 93 Nasal Cannula 2.0 97.7 Physical Exam General: Alert Heart: Normal S1, Normal S2 Lungs: Clear, Other Abdomen: Soft, No tenderness, Other (moderate distended. loud bs) Extremities: No cyanosis, No edema Skin: No significant lesion Labs LABS Laboratory Tests Test 02/26/18 20:41 02/27/18 05:00 Glucose (Fingerstick) 127 mg/dL (70-99) Sodium Level 141 mmol/L (136-145) Potassium Level 4.6 mmol/L (3.5-5.1) Chloride Level 103 mmol/L (98-107) Carbon Dioxide Level 29 mmol/L (21-32) Anion Gap 9 (6-14) Blood Urea Nitrogen 14 mg/dL (7-20) Creatinine 0.7 mg/dL (0.6-1.0) Estimated GFR (Cockcroft-Gault) 83.0 Glucose Level 161 mg/dL (70-99) Calcium Level 9.5 mg/dL (8.5-10.1) Phosphorus Level 5.1 mg/dL (2.6-4.7) Magnesium Level 2.0 mg/dL (1.8-2.4) Assessment and Plan Assessmemt and Plan Problems Medical Problems: (1) Acute renal insufficiency Status: Acute (2) Ascites Status: Acute (3) Dehydration Status: Acute (4) Ileus Status: Acute (5) Leukocytosis Status: Acute (6) Metastatic breast cancer Status: Acute (7) Weakness Status: Acute Comment Review of Relevant I have reviewed the following items declan (where applicable) has been applied. Labs Laboratory Tests Test 02/25/18 20:47 02/26/18 06:45 02/26/18 07:50 02/26/18 20:41 Glucose (Fingerstick) 129 mg/dL (70-99) 120 mg/dL (70-99) 127 mg/dL (70-99) White Blood Count 10.1 x10^3/uL (4.0-11.0) Red Blood Count 2.86 x10^6/uL (3.50-5.40) Hemoglobin 9.4 g/dL (12.0-15.5) Hematocrit 27.7 % (36.0-47.0) Mean Corpuscular Volume 97 fL (79-100) Mean Corpuscular Hemoglobin 33 pg (25-35) Mean Corpuscular Hemoglobin Concent 34 g/dL (31-37) Red Cell Distribution Width 18.9 % (11.5-14.5) Platelet Count 99 x10^3/uL (140-400) Neutrophils (%) (Auto) 82 % (31-73) Lymphocytes (%) (Auto) 10 % (24-48) Monocytes (%) (Auto) 6 % (0-9) Eosinophils (%) (Auto) 2 % (0-3) Basophils (%) (Auto) 1 % (0-3) Neutrophils # (Auto) 8.3 x10^3uL (1.8-7.7) Lymphocytes # (Auto) 1.0 x10^3/uL (1.0-4.8) Monocytes # (Auto) 0.6 x10^3/uL (0.0-1.1) Eosinophils # (Auto) 0.2 x10^3/uL (0.0-0.7) Basophils # (Auto) 0.1 x10^3/uL (0.0-0.2) Sodium Level 142 mmol/L (136-145) Potassium Level 4.3 mmol/L (3.5-5.1) Chloride Level 105 mmol/L (98-107) Carbon Dioxide Level 29 mmol/L (21-32) Anion Gap 8 (6-14) Blood Urea Nitrogen 14 mg/dL (7-20) Creatinine 0.7 mg/dL (0.6-1.0) Estimated GFR (Cockcroft-Gault) 83.0 Glucose Level 132 mg/dL (70-99) Calcium Level 9.3 mg/dL (8.5-10.1) Phosphorus Level 4.6 mg/dL (2.6-4.7) Magnesium Level 1.9 mg/dL (1.8-2.4) Albumin 1.7 g/dL (3.4-5.0) Test 02/27/18 05:00 Sodium Level 141 mmol/L (136-145) Potassium Level 4.6 mmol/L (3.5-5.1) Chloride Level 103 mmol/L (98-107) Carbon Dioxide Level 29 mmol/L (21-32) Anion Gap 9 (6-14) Blood Urea Nitrogen 14 mg/dL (7-20) Creatinine 0.7 mg/dL (0.6-1.0) Estimated GFR (Cockcroft-Gault) 83.0 Glucose Level 161 mg/dL (70-99) Calcium Level 9.5 mg/dL (8.5-10.1) Phosphorus Level 5.1 mg/dL (2.6-4.7) Magnesium Level 2.0 mg/dL (1.8-2.4) Laboratory Tests Test 02/26/18 20:41 02/27/18 05:00 Glucose (Fingerstick) 127 mg/dL (70-99) Sodium Level 141 mmol/L (136-145) Potassium Level 4.6 mmol/L (3.5-5.1) Chloride Level 103 mmol/L (98-107) Carbon Dioxide Level 29 mmol/L (21-32) Anion Gap 9 (6-14) Blood Urea Nitrogen 14 mg/dL (7-20) Creatinine 0.7 mg/dL (0.6-1.0) Estimated GFR (Cockcroft-Gault) 83.0 Glucose Level 161 mg/dL (70-99) Calcium Level 9.5 mg/dL (8.5-10.1) Phosphorus Level 5.1 mg/dL (2.6-4.7) Magnesium Level 2.0 mg/dL (1.8-2.4) Microbiology 02/20/18 Blood Culture - Final, Complete NO GROWTH AFTER 5 DAYS Medications Current Medications Sodium Chloride (NORMAL SALINE FLUSH for STERILE FIELD) 10 ml STK-MED ONCE .ROUTE ; Start 02/20/18 at 04:49; Stop 02/20/18 at 04:51; Status DC Iohexol (Omnipaque 300 Mg/ml) 75 ml 1X ONCE IV Last administered on at 06:20; Start 02/20/18 at 06:00; Stop 02/20/18 at 06:01; Status DC Info (CONTRAST GIVEN -- Rx MONITORING) 1 each PRN DAILY PRN MC SEE COMMENTS; Start 02/20/18 at 05:30; Stop 02/22/18 at 05:29; Status DC Sodium Chloride 1,000 ml @ 125 mls/hr 1X ONCE IV Last administered on at 06:15; Start 02/20/18 at 06:15; Stop 02/20/18 at 14:14; Status DC Acetaminophen/ Codeine Phosphate (Tylenol #3) 1 tab 0500,1400 PO ; Start at 14:00; Stop 02/20/18 at 22:13; Status DC Apixaban (Eliquis) 5 mg BID PO ; Start 02/20/18 at 09:00; Stop 02/21/18 at 19: 45; Status DC Bisacodyl (Dulcolax Tab) 5 mg PRN DAILY PRN PO CONSTIPATION; Start 02/20/18 at 07:45 Vitamin D (Vitamin D3) 2,000 unit DAILY PO Last administered on 02/27/18 09:07 ; Start 02/20/18 at 09:00 Docusate Sodium (Colace) 100 mg PRN BID PRN PO HARD STOOLS; Start 02/20/18 at 07:45 Fluticasone Propionate (Flonase) 1 spray BID NS Last administered on 09:23; Start 02/20/18 at 09:00 Acetaminophen/ Hydrocodone Bitart (Lortab 5/325) 1 tab PRN Q6HRS PRN PO SEVERE PAIN Last administered on 02/26/18 19:39; Start 02/20/18 at 07:45 Levothyroxine Sodium (Synthroid) 100 mcg DAILY06 PO Last administered on 06:12; Start 02/20/18 at 10:30 Nystatin (Nystop) 1 bailey BID TP Last administered on 02/24/18 09:23; Start at 09:00 Benzonatate (Tessalon Perle) 200 mg PRN Q12HR PRN PO COUGH; Start 02/20/18 at 09:00 Carvedilol (Coreg) 25 mg BIDWMEALS PO Last administered on 02/27/18 08:03; Start 02/20/18 at 09:15 Cyanocobalamin (Vitamin B-12) 4,000 mcg Q48H PO Last administered on 07:53; Start 02/20/18 at 09:00 Diclofenac Sodium (Voltaren) 1 abiley PRN QID PRN TP JOINT PAIN; Start 02/20/18 at 09:00 Duloxetine HCl (Cymbalta) 60 mg QHS PO Last administered on 02/26/18 20:44; Start 02/20/18 at 21:00 Pantoprazole Sodium (Protonix) 40 mg DAILYAC PO Last administered on 02/27/18 08:01; Start 02/20/18 at 08:30 Non-Formulary Medication (Estazolam ) 2 mg HS PO Last administered on 20:45; Start 02/20/18 at 21:00 Non-Formulary Medication (Gabapentin Enacarbil (Horizant)) 600 mg BID PO Last administered on 02/27/18 09:07; Start 02/20/18 at 09:00 Cetirizine HCl (ZyrTEC) 10 mg DAILY PO Last administered on 02/27/18 09:07; Start 02/20/18 at 09:00 Lisinopril (Prinivil) 5 mg QHS PO Last administered on 02/26/18at 20:44; Start 02/20/18 at 21:00 Loperamide HCl (Imodium) 2 mg PRN Q6HRS PRN PO DIARRHEA Last administered on 19:38; Start 02/20/18 at 08:45 Multivitamins (Thera M Plus) 1 tab DAILY PO Last administered on 02/21/18 08: 45; Start 02/20/18 at 09:00; Stop 02/21/18 at 13:47; Status DC Potassium Chloride (Klor-Con) 10 meq BIDWMEALS PO Last administered on 08:02; Start 02/20/18 at 09:00 Atorvastatin Calcium (Lipitor) 5 mg QHS PO Last administered on 02/26/18 20: 44; Start 02/20/18 at 21:00 Non-Formulary Medication (S-Adenosylmethionine Sul Tosyl (Werner-E)) 400 mg DAILY PO ; Start 02/20/18 at 09:00; Status UNV Oxybutynin Chloride (Ditropan) 5 mg [id number] PO Last administered on 02/27/18 09: 06; Start 02/20/18 at 09:00 Non-Formulary Medication (Turmeric/ Turmeric Root Extract (Turmeric 500 mg Capsule)) 1 each QHS PO ; Start 02/20/18 at 21:00; Status UNV Non-Formulary Medication (Ubidecarenone (Co Q-10)) 200 mg DAILY PO ; Start at 09:00; Status UNV Non-Formulary Medication (Urea/Emollient Combination #65 (Uramaxin Gt 45% Kit)) 1 each PRN PRN TP dry skin; Start 02/20/18 at 07:45; Stop 02/20/18 at 11:58; Status DC Non-Formulary Medication ([arthro 7] ) 1 cap BID PO ; Start 02/20/18 at 09:00; Status UNV Non-Formulary Medication ([chloroxazone/ Parafon] ) 500 mg PRN Q6HRS PRN PO MUSCLE SPASMS; Start 02/20/18 at 07:45; Status UNV Non-Formulary Medication ([cytoxan,[id number]] ) 1 each [id number] IV ; Start at 09:00; Stop 02/20/18 at 11:57; Status DC Non-Formulary Medication ([gamagen] ) 50 gm Q4WK IV ; Start 02/20/18 at 09:00; Stop 02/20/18 at 11:57; Status DC Non-Formulary Medication ([mannose] ) 1,500 mg DAILY07 PO ; Start 02/21/18 at 07:00; Status UNV Ketorolac Tromethamine (Toradol 15mg Vial) 15 mg PRN Q6HRS PRN IV PAIN Last administered on 02/24/18at 21:14; Start 02/20/18 at 08:00; Stop 02/25/18 at 07 :59; Status DC Ceftriaxone Sodium (Rocephin) 1 gm 1X ONCE IVP Last administered on at 08:34; Start 02/20/18 at 07:45; Stop 02/20/18 at 08:22; Status DC Dextrose/Lactated Ringer's 1,000 ml @ 125 mls/hr 1X ONCE IV Last administered on 02/20/18at 14:53; Start 02/20/18 at 08:30; Stop 02/20/18 at 16 :29; Status DC Sodium Chloride 1,000 ml @ 100 mls/hr Q10H IV Last administered on 02/21/18at 17:30; Start 02/20/18 at 09:15; Stop 02/21/18 at 21:59; Status DC Info (Anti-Coagulation Monitoring By Pharmacy) 1 each PRN DAILY PRN MC SEE COMMENTS Last administered on 02/25/18at 13:13; Start 02/20/18 at 09:15 Acetaminophen/ Codeine Phosphate (Tylenol #3) 1 tab PRN BID PRN PO MODERATE PAIN Last administered on 02/24/18at 06:14; Start 02/20/18 at 22:15 Info (Tpn Per Pharmacy) 1 each PRN DAILY PRN MC SEE COMMENTS Last administered on 02/26/18at 13:25; Start 02/21/18 at 12:00 Magnesium Sulfate/ Dextrose 100 ml @ 100 mls/hr 1X ONCE IV Last administered on 02/21/18at 14:25; Start 02/21/18 at 14:00; Stop 02/21/18 at 14:59; Status DC Sodium Chloride 20 meq/Sodium Acetate 70 meq/ Potassium Chloride 50 meq/ Potassium Phosphate 13.6 mmol/Magnesium Sulfate 10 meq/ Calcium Gluconate 10 meq / Multivitamins 10 ml/Chromium/ Copper/Manganese/ Seleni/Zn 1 ml/ Total Parenteral Nutrition/Amino Acids/Dextrose/ Fat Emuls... 1,512 ml @ 63 mls/hr TPN CONT IV Last administered on 02/21/18at 23:13; Start 02/21/18 at 22:00; Stop 02/22/18 at 21:59; Status DC Adenosine (Adenocard) 6 mg 1X ONCE IV Last administered on 02/21/18at 20:01; Start 02/21/18 at 19:45; Stop 02/21/18 at 19:46; Status DC Sodium Chloride 1,000 ml @ 27 mls/hr Q24H IV Last administered on 02/25/18at 20:15; Start 02/21/18 at 20:15; Stop 02/26/18 at 10:59; Status DC Magnesium Sulfate/ Dextrose 100 ml @ 100 mls/hr 1X ONCE IV Last administered on 02/22/18at 11:24; Start 02/22/18 at 10:30; Stop 02/22/18 at 11:29; Status DC Adenosine (Adenocard) 6 mg 1X ONCE IV Last administered on 02/22/18at 14:07; Start 02/22/18 at 12:30; Stop 02/22/18 at 12:34; Status DC Sodium Chloride 20 meq/Sodium Acetate 70 meq/ Potassium Chloride 40 meq/ Potassium Phosphate 20 mmol/ Magnesium Sulfate 12 meq/Calcium Gluconate 10 meq/ Multivitamins 10 ml/Chromium/ Copper/Manganese/ Seleni/Zn 1 ml/ Total Parenteral Nutrition/Amino Acids/Dextrose/ Fat Emulsion Intravenous 1,512 ml @ 63 mls/hr TPN CONT IV Last administered on 02/22/18at 23:09; Start 02/22/18 at 22:00; Stop 02/23/18 at 21:59; Status DC Apixaban (Eliquis) 5 mg BID PO Last administered on 02/27/18at 09:06; Start at 21:00 Sodium Acetate 70 meq/Potassium Chloride 30 meq/ Potassium Phosphate 25 mmol/ Magnesium Sulfate 15 meq/Calcium Gluconate 10 meq/ Multivitamins 10 ml/Chromium / Copper/Manganese/ Seleni/Zn 1 ml/ Total Parenteral Nutrition/Amino Acids/ Dextrose/ Fat Emulsion Intravenous 1,512 ml @ 63 mls/hr TPN CONT IV Last administered on 02/23/18at 22:00; Start 02/23/18 at 22:00; Stop 02/24/18 at 21 :59; Status DC Magnesium Sulfate 50 ml @ 25 mls/hr 1X ONCE IV Last administered on at 11:35; Start 02/24/18 at 11:00; Stop 02/24/18 at 12:59; Status DC Sodium Acetate 70 meq/Potassium Chloride 30 meq/ Potassium Phosphate 25 mmol/ Magnesium Sulfate 18 meq/Calcium Gluconate 10 meq/ Multivitamins 10 ml/Chromium / Copper/Manganese/ Seleni/Zn 1 ml/ Total Parenteral Nutrition/Amino Acids/ Dextrose/ Fat Emulsion Intravenous 1,512 ml @ 63 mls/hr TPN CONT IV Last administered on 02/24/18at 21:29; Start 02/24/18 at 22:00; Stop 02/25/18 at 21 :59; Status DC Sodium Acetate 70 meq/Potassium Chloride 30 meq/ Potassium Phosphate 20 mmol/ Magnesium Sulfate 18 meq/Calcium Gluconate 10 meq/ Multivitamins 10 ml/Chromium / Copper/Manganese/ Seleni/Zn 1 ml/ Total Parenteral Nutrition/Amino Acids/ Dextrose/ Fat Emulsion Intravenous 1,512 ml @ 63 mls/hr TPN CONT IV Last administered on 02/25/18at 20:45; Start 02/25/18 at 22:00; Stop 02/26/18 at 21 :59; Status DC Psyllium Hydrophilic Mucilloid (Metamucil Fiber Packet) 1 pkt DAILY PO Last administered on 02/25/18at 20:43; Start 02/25/18 at 19:00 Acetaminophen (Tylenol) 650 mg PRN Q6HRS PRN PO MILD PAIN; Start 02/25/18 at 16:30 Iohexol (Omnipaque 300 Mg/ml) 100 ml STK-MED ONCE .ROUTE ; Start 02/26/18 at 09 :32; Stop 02/26/18 at 09:33; Status DC Sodium Acetate 70 meq/Potassium Chloride 30 meq/ Potassium Phosphate 13.6 mmol/ Magnesium Sulfate 18 meq/ Multivitamins 10 ml/Chromium/ Copper/Manganese/ Seleni /Zn 1 ml/ Total Parenteral Nutrition/Amino Acids/Dextrose/ Fat Emulsion Intravenous 1,512 ml @ 63 mls/hr TPN CONT IV Last administered on 02/26/18at 20:44; Start 02/26/18 at 22:00; Stop 02/27/18 at 21:59 Active Scripts Active [Tpn Per Pharmacy] 1 EACH Each 1 Each MC PRN DAILY PRN See printed prescription 60g AA 165g dextrose 20% lipid emulsion Reported Uramaxin Gt 45% Kit (Urea/Emollient Combination #65) 1 Each Kt.crm.gel 1 Each TP PRN PRN Turmeric 500 mg Capsule (Turmeric/Turmeric Root Extract) 1 Each Capsule 1 Each PO QHS Trospium Chloride 20 Mg Tablet 20 Mg PO BID Prevident (Sodium Fluoride) 100 Ml Paste..ml. 100 Ml DT QHS Werner-E (S-Adenosylmethionine Sul Tosyl) 400 Mg Tablet 400 Mg PO DAILY Nystatin 15 Gm Powder 1 Bailey TP BID [mannose] 1,500 Mg PO DAILY07 Levothyroxine Sodium 100 Mcg Tablet 1 Tab PO DAILYAC Levocetirizine Dihydrochloride 5 Mg Tablet 1 Tab PO DAILY Imodium A-D (Loperamide HCl) 2 Mg Capsule 2 Mg PO PRN Q6HRS PRN [gamagen] 50 Gm IV Q4WK Nexium Capsule (Esomeprazole Magnesium) 40 Mg Capsule. 1 Cap PO DAILYAC Dulcolax (Bisacodyl) 5 Mg Tablet.dr 5 Mg PO PRN DAILY PRN Diclofenac Sodium 100 Gm Gel..gram. 100 Gm TP PRN PRN [cytoxan,[id number]] 1 Each IV [id number] Colace (Docusate Sodium) 100 Mg Capsule 1 Cap PO PRN PRN Coenzyme Q-10 (Ubidecarenone) 200 Mg Capsule 200 Mg PO QHS [chloroxazone/Parafon] 500 Mg PO PRN Q6HRS PRN [arthro 7] 1 Cap PO BID Eliquis (Apixaban) 5 Mg Tablet 5 Mg PO BID Vitamin D3 (Cholecalciferol (Vitamin D3)) 1,000 Unit Tablet 2,000 Unit PO DAILY Potassium Chloride 8 Meq Capsule.er 8 Meq PO BID Hydrocodone-Apap 5-325 (Hydrocodone Bit/Acetaminophen) 1 Each Tablet 1 Tab PO PRN Q6HRS PRN Pravastatin Sodium 20 Mg Tablet 25 Mg PO DAILY B-12 (Cyanocobalamin (Vitamin B-12)) 3,000 Mcg Tab.subl 4,000 Mcg SL QODAY Fluticasone Propionate Nasal [place] (Fluticasone Propionate) 16 Gm [place].susp 2 [place] NS BID Tessalon Perle (Benzonatate) 100 Mg Capsule 200 Mg PO PRN Q12HR PRN Horizant (Gabapentin Enacarbil) 600 Mg Tab.er.24h 600 Mg PO BID Lisinopril 5 Mg Tablet 1 Tab PO QHS Estazolam 2 Mg Tablet 2 Mg PO HS Duloxetine Hcl 60 Mg Capsule.dr 60 Mg PO HS Multi-Vitamin Daily (Multivitamin) 1 Each Tablet 1 Each PO DAILY Co Q-10 (Ubidecarenone) 200 Mg Capsule 200 Mg PO DAILY Coreg (Carvedilol) 25 Mg Tablet 25 Mg PO BID Vitals/I & O Vital Sign - Last 24 Hours 02/26/18 02/26/18 02/26/18 02/26/18 12:05 15:00 16:39 19:39 Temp 98.4 97.8 98.4 97.8 Pulse 63 92 89 Resp 16 14 B/P (MAP) 133/71 (91) 131/83 (99) 131/83 Pulse Ox 96 94 94 O2 Delivery Nasal Cannula Nasal Cannula Nasal Cannula O2 Flow Rate 2.0 2.0 2.0 02/26/18 02/26/18 02/26/18 02/26/18 19:48 20:00 20:39 20:44 Temp 98.7 98.7 Pulse 85 85 Resp 18 B/P (MAP) 132/83 (99) 132/83 Pulse Ox 93 93 O2 Delivery Nasal Cannula Nasal Cannula Nasal Cannula O2 Flow Rate 2.0 2.0 2.0 02/26/18 02/27/18 02/27/18 02/27/18 23:27 03:35 07:34 08:00 Temp 98.4 98.3 97.7 98.4 98.3 97.7 Pulse 83 80 73 Resp 22 18 18 B/P (MAP) 108/73 (85) 119/76 (90) 129/77 (94) Pulse Ox 91 93 93 O2 Delivery Room Air Room Air Nasal Cannula Nasal Cannula O2 Flow Rate 2.0 2.0 02/27/18 02/27/18 08:03 10:49 Temp 97.7 97.7 Pulse 73 81 Resp 18 B/P (MAP) 129/77 127/75 (92) Pulse Ox 93 O2 Delivery Nasal Cannula O2 Flow Rate 2.0 Intake and Output 02/26/18 02/26/18 02/27/18 15:01 23:01 07:01 Intake Total 120 ml 300 ml Output Total 0 ml 0 ml Balance 0 ml 120 ml 300 ml ADY OBRIEN MD Feb 27, 2018 11:56
[2018-02-27] MEDS: TPN PER PHARMACY MC PRN (12:34)
--- NOTE | 2018-02-27 12:39 | NUR ---
Pharmacy TPN Dosing Note S: BROTHERS,HAFSA is a 67 year old F Currently receiving Central Continuous TPN started 02/21/18 B:Pertinent PMH: Ileus vs. SBO Height: 5 feet, 8.5 inches Weight: 121.916210 kg Current diet: Full Liquid Diet LABS: Sodium: 141 Potassium: 4.6 Chloride: 103 Calcium: 9.5 Corrected Calcium: 11.34 Magnesium: 2 CO2: 29 SCr: 0.7 Glucose: 120-161 Albumin: 1.7 (02/26) AST: 56 (02/20) ALT: 17 (02/20) TPN FORMULA: TPN TYPE: Central Continuous AMINO ACIDS: 60 gm DEXTROSE: 195 gm LIPIDS: 20 gm SODIUM CHLORIDE: - mEq SODIUM ACETATE: 70 mEq SODIUM PHOSPHATE: - mmol POTASSIUM CHLORIDE: 40 mEq POTASSIUM ACETATE: - mEq POTASSIUM PHOSPHATE: - mmol MAGNESIUM: 18 mEq CALCIUM: - mEq INSULIN: - units MULTIPLE VITAMIN: 10 ml TRACE ELEMENTS: 1 ml(s) TPN PLAN: -Serum phos slighlty elevated will remove KPhos from TPN today. -Will increase KCl due to removal of KPhos, note patient eating some outside of TPN and receiving po KCl outside of TPN. -Corrected calcium elevated will continue without calcium in TPN. -Other electrolytes appear WNL and stable. -BMP,mag,phos,calcium tomorrow R: Continue TPN with removal of KPhos and increase of KCl. Will monitor electrolytes, glucose, and tolerance to TPN. CONNIE SULLIVAN, [facility], 02/27/18 [id number]
[2018-02-27] MEDS: ANTI-COAG MONITOR BY PHARMACY. MC PRN (15:53)
[2018-02-27] MEDS: LISINOPRIL 5 MG TABLET. PO SCH (21:00)
[2018-02-27] MEDS: ESTAZOLAM 2 MG PO SCH (21:00)
[2018-02-27] MEDS: DULoxetine HCL 30 MG CAPSULE.DR PO SCH (21:00)
[2018-02-27] MEDS: ATORVASTATIN CALCIUM 10 MG TABLET. PO SCH (21:00)
[2018-02-27] MEDS ORDERED: TOTAL PARENTERAL NUTRITION IV SCH ×8 (22:00)
[2018-02-27] MEDS ORDERED: [UNRECOGNIZED DRUG - OTHER] IV SCH ×8 (22:00)
[2018-02-27] MEDS ORDERED: AMINO ACID IV SCH ×8 (22:00)
[2018-02-27] MEDS ORDERED: DEXTROSE 70% IV SCH ×8 (22:00)
[2018-02-28] VITALS (7 sets, daily range): BP systolic 110–158; BP diastolic 66–85
[2018-02-28] MEDS: LEVOTHYROXINE 100 MCG TABLET PO SCH (07:35)
[2018-02-28] MEDS: PANTOPRAZOLE 40 MG TABLET.DR. PO SCH (07:35)
--- NOTE | 2018-02-28 07:59 | RAD ---
EXAM: Supine AP view of the abdomen DATE: 02/28/2018 6:05 AM INDICATION: SOB VS ILEUS COMPARISON: CT 02/26/2018 FINDINGS: Dilation of several small bowel loops is seen measuring approximately 5-6 cm. No significant colonic gas or stool is identified. Mild mass effect on the bowel loops with central deviation likely ascites. Evaluation for free intraperitoneal gas is limited on this supine exam. IMPRESSION: 1. Dilation of the small bowel consistent with small bowel obstruction as also seen on recent CT, in general grossly stable degree of dilatation Electronically signed by: Trace Kwan MD (02/28/2018 7:55 AM) [facility]
[2018-02-28] MEDS: FLUTICASONE 50MCG/NASAL SPRAY 16GM BOTTLE. NS SCH ×2 (08:45→21:00)
[2018-02-28] MEDS: GABAPENTIN ENACARBIL 600 MG PO SCH ×2 (08:46→21:36)
[2018-02-28] MEDS: CARVEDILOL 12.5 MG TABLET. PO SCH ×2 (08:46→17:50)
[2018-02-28] MEDS: OXYBUTYNIN CHLORIDE 5 MG TABLET PO SCH ×3 (08:47→21:34)
[2018-02-28] MEDS: APIXABAN 5 MG TABLET. PO SCH ×2 (08:47→21:38)
[2018-02-28] MEDS: CETIRIZINE HCL 10 MG TABLET. PO SCH (08:47)
[2018-02-28] MEDS: CHOLECALCIFEROL (VITAMIN D3) 1,000 UNIT TABLET PO SCH (08:47)
[2018-02-28] MEDS: CYANOCOBALAMIN (VITAMIN B-12) 1,000 MCG TABLET. PO SCH (08:47)
[2018-02-28] MEDS: NYSTATIN TOPICAL POWDER 15GM BOTTLE. TP SCH ×2 (09:00→21:39)
[2018-02-28] MEDS: traMADol 50 MG TABLET PO SCH ×2 (10:32→21:38)
[2018-02-28] MEDS ORDERED: CONTRAST GIVEN. MC PRN (11:45)
[2018-02-28] MEDS ORDERED: IOHEXOL 300 MG/ML 100ML VIAL. IV ONE (11:45)
[2018-02-28 11:54] LABS: CALCIUM 9.4 mg/dL (8.5-10.1); CREATININE 0.8 mg/dL (0.6-1.0); GFR 71.1; PHOSPHORUS 4.3 mg/dL (2.6-4.7)
--- NOTE | 2018-02-28 12:32 | NUR ---
SS following up with discharge planning. SS contacted [facility] for update on insurance authorization. [facility] reported that they are still awaiting authorization from [facility] at this time. SS will await insurance authorization and will proceed accordingly with discharge.
--- NOTE | 2018-02-28 12:50 | RAD ---
PQRS Compliance Statement: One or more of the following individualized dose reduction techniques were utilized for this examination: 1. Automated exposure control 2. Adjustment of the mA and/or kV according to patient size 3. Use of iterative reconstruction technique CT neck with contrast February 28, 2018 INDICATION: Left jaw enlarged. No adenopathy. COMPARISON: None available TECHNIQUE: Multiple axial CT images of the neck were obtained after the intravenous demonstration of nonionic contrast. Coronal and sagittal reformats are provided. FINDINGS: No suspicious abnormality is identified involving the visualized portions of the brain parenchyma and posterior fossa. Visualized portions of the [place] appear intact. Orbits are normal in appearance with exception of bilateral lens replacement. Superior ophthalmic veins appear mildly engorged, nonspecific. Paranasal sinuses are well aerated. Nasal cavity is intact. Pipe Testing Technician space, oral cavity, floor of mouth, and sublingual space appear intact. Submandibular spaces and parotid glands are normal in appearance. Vascular spaces including the jugular veins and carotid vessels appear intact. There is retropharyngeal course of the left cervical internal carotid artery. Parapharyngeal fat is preserved. No suspicious abnormalities identified involving the mucosal surfaces of the nasopharynx, oropharynx and hypopharynx. Epiglottis is intact. Aryepiglottic folds, vallecula and piriform sinuses are normal. Paraglottic fat is intact. There is mild atrophy of the right true cord. No suspicious mucosal abnormality involving the larynx. Trachea is intact. Small left pleural effusion. No suspicious parenchymal abnormality involving the lungs. Biapical pleural parenchymal scarring is noted. There are no pathologically enlarged cervical lymph nodes. Specifically, no submandibular lymph nodes are identified which are suspicious. Thyroid gland is normal in appearance. Mild nodular soft tissue attenuation in the left supraclavicular region may represent a venous varix measuring 14 mm (series 2, image 26). No suspicious osseous amount is identified. Anterior cervical discectomy and fusion hardware is identified at C5-C7. Mild cervical spondylosis. Maxilla and mandible appear intact. IMPRESSION: No pathologically enlarged cervical lymph nodes. Minimal atrophy of the right true cord. No suspicious mucosal abnormality involving the larynx and pharynx. Electronically signed by: Regla Caballero MD (02/28/2018 12:45 PM) [id number]
[2018-02-28] MEDS: TPN PER PHARMACY MC PRN (13:13)
--- NOTE | 2018-02-28 13:14 | NUR ---
Pharmacy TPN Dosing Note S: BROTHERS,HAFSA is a 67 year old F Currently receiving Central Continuous TPN started 02/21/18 B:Pertinent PMH: prolonged SBO Height: 5 feet, 8.5 inches Weight: 121.6 kg Current diet: Full Liquid Diet LABS: Sodium: 141 Potassium: 4.0 Chloride: 103 Calcium: 9.4 Corrected Calcium: 11.24 Magnesium: 2 CO2: 28 SCr: 0.8 Glucose: 132, 142 Albumin: 1.7 AST: 56 (02/20) ALT: 17 (02/20) TPN FORMULA: TPN TYPE: Central Continuous AMINO ACIDS: 60 gm DEXTROSE: 195 gm LIPIDS: 20 gm SODIUM ACETATE: 70 mEq POTASSIUM CHLORIDE: 40 mEq MAGNESIUM: 18 mEq MULTIPLE VITAMIN: 10 ml TRACE ELEMENTS: 1 ml TPN PLAN: -Serum phos trending down to normal range, continue with no phos in TPN. -Other electrolytes appear WNL and stable. -Check serum potassium and phosphorus tomorrow due to lyte trends and TPN adjustment yesterday. R: Continue TPN @ current rate with no electrolyte changes. Will monitor electrolytes, glucose, and tolerance to TPN. ANASTASIIA CHAU [facility], 02/28/18 [id number]
--- NOTE | 2018-02-28 13:57 | PDOC ---
PROGRESS NOTES Chief Complaint Chief Complaint Head Concussion secondary to below Noninjury fall at home, traumatic Metastatic cancer of breast, to bone and liver, peritoneal carcinomatos MOderate amount ascites Ileus versus partial SBO-recent ileus versus partial SBO Possible aspiration Acute on Chronic pain Moderate PCM-albumin 2.2 AK I/VMN, creatinine 1.2 plan: fu with onco, GI recommend hospice, but pt refused insurance refused to trandfer to [facility] and [facility], fu with SW cont TPN, full liquid for now got neck CT BUT NEG lymphnodes. 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 Sr as outpatient and is looking into home hospice/palliative care now, seriosly. Overnight 02/21/18 required adenosine for SVT, again on 02/22/18 during the day. She recalls PSVT since age 9, declined EP ablation in the past. Overnight had another BM, feels relieved with this, but worried it was a little loose, not foul smelling. Tolerated full liquid diet well, wishes to advance further. Oncology has recommended palliative care, to which she is amenable, she does not wish for hospice at this time. I have advised her TPN on d/c is high risk without a physician monitoring it. She was initially wishing for home with palliative care, but has looked into SNF at [facility] and wishes to go there tomorrow, wants her CT enterogram prior to that if possible. pt is concern about sbo, not wanna eat much, drink some soup. CT repeated 02/26 still showed some sbo. KUB 02/28 showed sbo has passed much gas, and BM 02/26 pt c/o left neck enlarged lymphnodes, neg on CT Vitals Vitals Vital Signs Date Time Temp Pulse Resp B/P (MAP) Pulse Ox O2 Delivery O2 Flow Rate FiO2 02/28/18 11:00 98.5 71 20 131/79 (96) 94 Room Air 98.5 02/27/18 20:00 2.0 Physical Exam General: Alert Heart: Normal S1, Normal S2 Lungs: Clear, Other Abdomen: Soft, No tenderness, Other (moderate distended. loud bs) Extremities: No cyanosis, No edema Skin: No significant lesion Labs LABS Laboratory Tests Test 02/27/18 20:43 02/28/18 07:21 02/28/18 10:03 Glucose (Fingerstick) 143 mg/dL (70-99) 132 mg/dL (70-99) Platelet Count 107 x10^3/uL (140-400) Sodium Level 141 mmol/L (136-145) Potassium Level 4.0 mmol/L (3.5-5.1) Chloride Level 103 mmol/L (98-107) Carbon Dioxide Level 28 mmol/L (21-32) Anion Gap 10 (6-14) Blood Urea Nitrogen 15 mg/dL (7-20) Creatinine 0.8 mg/dL (0.6-1.0) Estimated GFR (Cockcroft-Gault) 71.1 Glucose Level 142 mg/dL (70-99) Calcium Level 9.4 mg/dL (8.5-10.1) Phosphorus Level 4.3 mg/dL (2.6-4.7) Magnesium Level 2.0 mg/dL (1.8-2.4) Assessment and Plan Assessmemt and Plan Problems Medical Problems: (1) Acute renal insufficiency Status: Acute (2) Ascites Status: Acute (3) Dehydration Status: Acute (4) Ileus Status: Acute (5) Leukocytosis Status: Acute (6) Metastatic breast cancer Status: Acute (7) Weakness Status: Acute Comment Review of Relevant I have reviewed the following items declan (where applicable) has been applied. Labs Laboratory Tests Test 02/26/18 20:41 02/27/18 05:00 02/27/18 20:43 02/28/18 07:21 Glucose (Fingerstick) 127 mg/dL (70-99) 143 mg/dL (70-99) 132 mg/dL (70-99) Sodium Level 141 mmol/L (136-145) Potassium Level 4.6 mmol/L (3.5-5.1) Chloride Level 103 mmol/L (98-107) Carbon Dioxide Level 29 mmol/L (21-32) Anion Gap 9 (6-14) Blood Urea Nitrogen 14 mg/dL (7-20) Creatinine 0.7 mg/dL (0.6-1.0) Estimated GFR (Cockcroft-Gault) 83.0 Glucose Level 161 mg/dL (70-99) Calcium Level 9.5 mg/dL (8.5-10.1) Phosphorus Level 5.1 mg/dL (2.6-4.7) Magnesium Level 2.0 mg/dL (1.8-2.4) Test 02/28/18 10:03 Platelet Count 107 x10^3/uL (140-400) Sodium Level 141 mmol/L (136-145) Potassium Level 4.0 mmol/L (3.5-5.1) Chloride Level 103 mmol/L (98-107) Carbon Dioxide Level 28 mmol/L (21-32) Anion Gap 10 (6-14) Blood Urea Nitrogen 15 mg/dL (7-20) Creatinine 0.8 mg/dL (0.6-1.0) Estimated GFR (Cockcroft-Gault) 71.1 Glucose Level 142 mg/dL (70-99) Calcium Level 9.4 mg/dL (8.5-10.1) Phosphorus Level 4.3 mg/dL (2.6-4.7) Magnesium Level 2.0 mg/dL (1.8-2.4) Laboratory Tests Test 02/27/18 20:43 02/28/18 07:21 02/28/18 10:03 Glucose (Fingerstick) 143 mg/dL (70-99) 132 mg/dL (70-99) Platelet Count 107 x10^3/uL (140-400) Sodium Level 141 mmol/L (136-145) Potassium Level 4.0 mmol/L (3.5-5.1) Chloride Level 103 mmol/L (98-107) Carbon Dioxide Level 28 mmol/L (21-32) Anion Gap 10 (6-14) Blood Urea Nitrogen 15 mg/dL (7-20) Creatinine 0.8 mg/dL (0.6-1.0) Estimated GFR (Cockcroft-Gault) 71.1 Glucose Level 142 mg/dL (70-99) Calcium Level 9.4 mg/dL (8.5-10.1) Phosphorus Level 4.3 mg/dL (2.6-4.7) Magnesium Level 2.0 mg/dL (1.8-2.4) Microbiology 02/20/18 Blood Culture - Final, Complete NO GROWTH AFTER 5 DAYS Medications Current Medications Sodium Chloride (NORMAL SALINE FLUSH for STERILE FIELD) 10 ml Innovalight ONCE .ROUTE ; Start 02/20/18 at 04:49; Stop 02/20/18 at 04:51; Status DC Iohexol (Omnipaque 300 Mg/ml) 75 ml 1X ONCE IV Last administered on at 06:20; Start 02/20/18 at 06:00; Stop 02/20/18 at 06:01; Status DC Info (CONTRAST GIVEN -- Rx MONITORING) 1 each PRN DAILY PRN MC SEE COMMENTS; Start 02/20/18 at 05:30; Stop 02/22/18 at 05:29; Status DC Sodium Chloride 1,000 ml @ 125 mls/hr 1X ONCE IV Last administered on at 06:15; Start 02/20/18 at 06:15; Stop 02/20/18 at 14:14; Status DC Acetaminophen/ Codeine Phosphate (Tylenol #3) 1 tab 0500,1400 PO ; Start at 14:00; Stop 02/20/18 at 22:13; Status DC Apixaban (Eliquis) 5 mg BID PO ; Start 02/20/18 at 09:00; Stop 02/21/18 at 19: 45; Status DC Bisacodyl (Dulcolax Tab) 5 mg PRN DAILY PRN PO CONSTIPATION; Start 02/20/18 at 07:45 Vitamin D (Vitamin D3) 2,000 unit DAILY PO Last administered on 02/28/18at 08:47 ; Start 02/20/18 at 09:00 Docusate Sodium (Colace) 100 mg PRN BID PRN PO HARD STOOLS; Start 02/20/18 at 07:45 Fluticasone Propionate (Flonase) 1 spray BID NS Last administered on at 09:23; Start 02/20/18 at 09:00 Acetaminophen/ Hydrocodone Bitart (Lortab 5/325) 1 tab PRN Q6HRS PRN PO SEVERE PAIN Last administered on 02/26/18at 19:39; Start 02/20/18 at 07:45 Levothyroxine Sodium (Synthroid) 100 mcg DAILY06 PO Last administered on 07:35; Start 02/20/18 at 10:30 Nystatin (Nystop) 1 bailey BID TP Last administered on 02/27/18 21:00; Start at 09:00 Benzonatate (Tessalon Perle) 200 mg PRN Q12HR PRN PO COUGH; Start 02/20/18 at 09:00 Carvedilol (Coreg) 25 mg BIDWMEALS PO Last administered on 02/28/18 08:46; Start 02/20/18 at 09:15 Cyanocobalamin (Vitamin B-12) 4,000 mcg Q48H PO Last administered on 02/28/18 08:47; Start 02/20/18 at 09:00 Diclofenac Sodium (Voltaren) 1 bailey PRN QID PRN TP JOINT PAIN; Start 02/20/18 at 09:00 Duloxetine HCl (Cymbalta) 60 mg QHS PO Last administered on 02/27/18 21:00; Start 02/20/18 at 21:00 Pantoprazole Sodium (Protonix) 40 mg DAILYAC PO Last administered on 02/28/18 07:35; Start 02/20/18 at 08:30 Non-Formulary Medication (Estazolam ) 2 mg HS PO Last administered on 02/27/18 21:00; Start 02/20/18 at 21:00 Non-Formulary Medication (Gabapentin Enacarbil (Horizant)) 600 mg BID PO Last administered on 02/28/18 08:46; Start 02/20/18 at 09:00 Cetirizine HCl (ZyrTEC) 10 mg DAILY PO Last administered on 02/28/18 08:47; Start 02/20/18 at 09:00 Lisinopril (Prinivil) 5 mg QHS PO Last administered on 02/27/18 21:00; Start 02/20/18 at 21:00 Loperamide HCl (Imodium) 2 mg PRN Q6HRS PRN PO DIARRHEA Last administered on 19:38; Start 02/20/18 at 08:45 Multivitamins (Thera M Plus) 1 tab DAILY PO Last administered on 02/21/18at 08: 45; Start 02/20/18 at 09:00; Stop 02/21/18 at 13:47; Status DC Potassium Chloride (Klor-Con) 10 meq BIDWMEALS PO Last administered on 17:34; Start 02/20/18 at 09:00 Atorvastatin Calcium (Lipitor) 5 mg QHS PO Last administered on 02/27/18at 21:00 ; Start 02/20/18 at 21:00 Non-Formulary Medication (S-Adenosylmethionine Sul Tosyl (Werner-E)) 400 mg DAILY PO ; Start 02/20/18 at 09:00; Status UNV Oxybutynin Chloride (Ditropan) 5 mg [id number] PO Last administered on 02/28/18at 08: 47; Start 02/20/18 at 09:00 Non-Formulary Medication (Turmeric/ Turmeric Root Extract (Turmeric 500 mg Capsule)) 1 each QHS PO ; Start 02/20/18 at 21:00; Status UNV Non-Formulary Medication (Ubidecarenone (Co Q-10)) 200 mg DAILY PO ; Start at 09:00; Status UNV Non-Formulary Medication (Urea/Emollient Combination #65 (Uramaxin Gt 45% Kit)) 1 each PRN PRN TP dry skin; Start 02/20/18 at 07:45; Stop 02/20/18 at 11:58; Status DC Non-Formulary Medication ([arthro 7] ) 1 cap BID PO ; Start 02/20/18 at 09:00; Status UNV Non-Formulary Medication ([chloroxazone/ Parafon] ) 500 mg PRN Q6HRS PRN PO MUSCLE SPASMS; Start 02/20/18 at 07:45; Status UNV Non-Formulary Medication ([cytoxan,[id number]] ) 1 each [id number] IV ; Start at 09:00; Stop 02/20/18 at 11:57; Status DC Non-Formulary Medication ([gamagen] ) 50 gm Q4WK IV ; Start 02/20/18 at 09:00; Stop 02/20/18 at 11:57; Status DC Non-Formulary Medication ([mannose] ) 1,500 mg DAILY07 PO ; Start 02/21/18 at 07:00; Status UNV Ketorolac Tromethamine (Toradol 15mg Vial) 15 mg PRN Q6HRS PRN IV PAIN Last administered on 02/24/18at 21:14; Start 02/20/18 at 08:00; Stop 02/25/18 at 07 :59; Status DC Ceftriaxone Sodium (Rocephin) 1 gm 1X ONCE IVP Last administered on at 08:34; Start 02/20/18 at 07:45; Stop 02/20/18 at 08:22; Status DC Dextrose/Lactated Ringer's 1,000 ml @ 125 mls/hr 1X ONCE IV Last administered on 02/20/18at 14:53; Start 02/20/18 at 08:30; Stop 02/20/18 at 16 :29; Status DC Sodium Chloride 1,000 ml @ 100 mls/hr Q10H IV Last administered on 02/21/18at 17:30; Start 02/20/18 at 09:15; Stop 02/21/18 at 21:59; Status DC Info (Anti-Coagulation Monitoring By Pharmacy) 1 each PRN DAILY PRN MC SEE COMMENTS Last administered on 02/27/18at 15:53; Start 02/20/18 at 09:15 Acetaminophen/ Codeine Phosphate (Tylenol #3) 1 tab PRN BID PRN PO MODERATE PAIN Last administered on 02/24/18at 06:14; Start 02/20/18 at 22:15 Info (Tpn Per Pharmacy) 1 each PRN DAILY PRN MC SEE COMMENTS Last administered on 02/28/18at 13:13; Start 02/21/18 at 12:00 Magnesium Sulfate/ Dextrose 100 ml @ 100 mls/hr 1X ONCE IV Last administered on 02/21/18at 14:25; Start 02/21/18 at 14:00; Stop 02/21/18 at 14:59; Status DC Sodium Chloride 20 meq/Sodium Acetate 70 meq/ Potassium Chloride 50 meq/ Potassium Phosphate 13.6 mmol/Magnesium Sulfate 10 meq/ Calcium Gluconate 10 meq / Multivitamins 10 ml/Chromium/ Copper/Manganese/ Seleni/Zn 1 ml/ Total Parenteral Nutrition/Amino Acids/Dextrose/ Fat Emuls... 1,512 ml @ 63 mls/hr TPN CONT IV Last administered on 02/21/18at 23:13; Start 02/21/18 at 22:00; Stop 02/22/18 at 21:59; Status DC Adenosine (Adenocard) 6 mg 1X ONCE IV Last administered on 02/21/18at 20:01; Start 02/21/18 at 19:45; Stop 02/21/18 at 19:46; Status DC Sodium Chloride 1,000 ml @ 27 mls/hr Q24H IV Last administered on 02/25/18at 20:15; Start 02/21/18 at 20:15; Stop 02/26/18 at 10:59; Status DC Magnesium Sulfate/ Dextrose 100 ml @ 100 mls/hr 1X ONCE IV Last administered on 02/22/18at 11:24; Start 02/22/18 at 10:30; Stop 02/22/18 at 11:29; Status DC Adenosine (Adenocard) 6 mg 1X ONCE IV Last administered on 02/22/18at 14:07; Start 02/22/18 at 12:30; Stop 02/22/18 at 12:34; Status DC Sodium Chloride 20 meq/Sodium Acetate 70 meq/ Potassium Chloride 40 meq/ Potassium Phosphate 20 mmol/ Magnesium Sulfate 12 meq/Calcium Gluconate 10 meq/ Multivitamins 10 ml/Chromium/ Copper/Manganese/ Seleni/Zn 1 ml/ Total Parenteral Nutrition/Amino Acids/Dextrose/ Fat Emulsion Intravenous 1,512 ml @ 63 mls/hr TPN CONT IV Last administered on 02/22/18at 23:09; Start 02/22/18 at 22:00; Stop 02/23/18 at 21:59; Status DC Apixaban (Eliquis) 5 mg BID PO Last administered on 02/28/18at 08:47; Start at 21:00 Sodium Acetate 70 meq/Potassium Chloride 30 meq/ Potassium Phosphate 25 mmol/ Magnesium Sulfate 15 meq/Calcium Gluconate 10 meq/ Multivitamins 10 ml/Chromium / Copper/Manganese/ Seleni/Zn 1 ml/ Total Parenteral Nutrition/Amino Acids/ Dextrose/ Fat Emulsion Intravenous 1,512 ml @ 63 mls/hr TPN CONT IV Last administered on 02/23/18at 22:00; Start 02/23/18 at 22:00; Stop 02/24/18 at 21 :59; Status DC Magnesium Sulfate 50 ml @ 25 mls/hr 1X ONCE IV Last administered on at 11:35; Start 02/24/18 at 11:00; Stop 02/24/18 at 12:59; Status DC Sodium Acetate 70 meq/Potassium Chloride 30 meq/ Potassium Phosphate 25 mmol/ Magnesium Sulfate 18 meq/Calcium Gluconate 10 meq/ Multivitamins 10 ml/Chromium / Copper/Manganese/ Seleni/Zn 1 ml/ Total Parenteral Nutrition/Amino Acids/ Dextrose/ Fat Emulsion Intravenous 1,512 ml @ 63 mls/hr TPN CONT IV Last administered on 02/24/18at 21:29; Start 02/24/18 at 22:00; Stop 02/25/18 at 21 :59; Status DC Sodium Acetate 70 meq/Potassium Chloride 30 meq/ Potassium Phosphate 20 mmol/ Magnesium Sulfate 18 meq/Calcium Gluconate 10 meq/ Multivitamins 10 ml/Chromium / Copper/Manganese/ Seleni/Zn 1 ml/ Total Parenteral Nutrition/Amino Acids/ Dextrose/ Fat Emulsion Intravenous 1,512 ml @ 63 mls/hr TPN CONT IV Last administered on 02/25/18at 20:45; Start 02/25/18 at 22:00; Stop 02/26/18 at 21 :59; Status DC Psyllium Hydrophilic Mucilloid (Metamucil Fiber Packet) 1 pkt DAILY PO Last administered on 02/25/18at 20:43; Start 02/25/18 at 19:00 Acetaminophen (Tylenol) 650 mg PRN Q6HRS PRN PO MILD PAIN Last administered on 02/28/18at 09:19; Start 02/25/18 at 16:30 Iohexol (Omnipaque 300 Mg/ml) 100 ml STK-MED ONCE .ROUTE ; Start 02/26/18 at 09 :32; Stop 02/26/18 at 09:33; Status DC Sodium Acetate 70 meq/Potassium Chloride 30 meq/ Potassium Phosphate 13.6 mmol/ Magnesium Sulfate 18 meq/ Multivitamins 10 ml/Chromium/ Copper/Manganese/ Seleni /Zn 1 ml/ Total Parenteral Nutrition/Amino Acids/Dextrose/ Fat Emulsion Intravenous 1,512 ml @ 63 mls/hr TPN CONT IV Last administered on 02/26/18at 20:44; Start 02/26/18 at 22:00; Stop 02/27/18 at 21:59; Status DC Sodium Acetate 70 meq/Potassium Chloride 40 meq/ Magnesium Sulfate 18 meq/ Multivitamins 10 ml/Chromium/ Copper/Manganese/ Seleni/Zn 1 ml/ Total Parenteral Nutrition/Amino Acids/Dextrose/ Fat Emulsion Intravenous 1,512 ml @ 63 mls/hr TPN CONT IV Last administered on 02/27/18at 21:00; Start 02/27/18 at 22 :00; Stop 02/28/18 at 21:59 Tramadol HCl (Ultram) 50 mg BID PO Last administered on 02/28/18at 10:32; Start 02/28/18 at 10:30 Iohexol (Omnipaque 300 Mg/ml) 75 ml 1X ONCE IV Last administered on 02/28/18at 11:45; Start 02/28/18 at 11:45; Stop 02/28/18 at 11:46; Status DC Info (CONTRAST GIVEN -- Rx MONITORING) 1 each PRN DAILY PRN MC SEE COMMENTS; Start 02/28/18 at 11:45; Stop 03/02/18 at 11:44 Sodium Acetate 70 meq/Potassium Chloride 40 meq/ Magnesium Sulfate 18 meq/ Multivitamins 10 ml/Chromium/ Copper/Manganese/ Seleni/Zn 1 ml/ Total Parenteral Nutrition/Amino Acids/Dextrose/ Fat Emulsion Intravenous 1,512 ml @ 63 mls/hr TPN CONT IV ; Start 02/28/18 at 22:00; Stop 03/01/18 at 21:59 Active Scripts Active [Tpn Per Pharmacy] 1 EACH Each 1 Each MC PRN DAILY PRN See printed prescription 60g AA 165g dextrose 20% lipid emulsion Reported Uramaxin Gt 45% Kit (Urea/Emollient Combination #65) 1 Each Kt.crm.gel 1 Each TP PRN PRN Turmeric 500 mg Capsule (Turmeric/Turmeric Root Extract) 1 Each Capsule 1 Each PO QHS Trospium Chloride 20 Mg Tablet 20 Mg PO BID Prevident (Sodium Fluoride) 100 Ml Paste..ml. 100 Ml DT QHS Werner-E (S-Adenosylmethionine Sul Tosyl) 400 Mg Tablet 400 Mg PO DAILY Nystatin 15 Gm Powder 1 Bailey TP BID [mannose] 1,500 Mg PO DAILY07 Levothyroxine Sodium 100 Mcg Tablet 1 Tab PO DAILYAC Levocetirizine Dihydrochloride 5 Mg Tablet 1 Tab PO DAILY Imodium A-D (Loperamide HCl) 2 Mg Capsule 2 Mg PO PRN Q6HRS PRN [gamagen] 50 Gm IV Q4WK Nexium Capsule (Esomeprazole Magnesium) 40 Mg Capsule.dr 1 Cap PO DAILYAC Dulcolax (Bisacodyl) 5 Mg Tablet.dr 5 Mg PO PRN DAILY PRN Diclofenac Sodium 100 Gm Gel..gram. 100 Gm TP PRN PRN [cytoxan,[id number]] 1 Each IV [id number] Colace (Docusate Sodium) 100 Mg Capsule 1 Cap PO PRN PRN Coenzyme Q-10 (Ubidecarenone) 200 Mg Capsule 200 Mg PO QHS [chloroxazone/Parafon] 500 Mg PO PRN Q6HRS PRN [arthro 7] 1 Cap PO BID Eliquis (Apixaban) 5 Mg Tablet 5 Mg PO BID Vitamin D3 (Cholecalciferol (Vitamin D3)) 1,000 Unit Tablet 2,000 Unit PO DAILY Potassium Chloride 8 Meq Capsule.er 8 Meq PO BID Hydrocodone-Apap 5-325 (Hydrocodone Bit/Acetaminophen) 1 Each Tablet 1 Tab PO PRN Q6HRS PRN Pravastatin Sodium 20 Mg Tablet 25 Mg PO DAILY B-12 (Cyanocobalamin (Vitamin B-12)) 3,000 Mcg Tab.subl 4,000 Mcg SL QODAY Fluticasone Propionate Nasal [place] (Fluticasone Propionate) 16 Gm [place].susp 2 [place] NS BID Tessalon Perle (Benzonatate) 100 Mg Capsule 200 Mg PO PRN Q12HR PRN Horizant (Gabapentin Enacarbil) 600 Mg Tab.er.24h 600 Mg PO BID Lisinopril 5 Mg Tablet 1 Tab PO QHS Estazolam 2 Mg Tablet 2 Mg PO HS Duloxetine Hcl 60 Mg Capsule.dr 60 Mg PO HS Multi-Vitamin Daily (Multivitamin) 1 Each Tablet 1 Each PO DAILY Co Q-10 (Ubidecarenone) 200 Mg Capsule 200 Mg PO DAILY Coreg (Carvedilol) 25 Mg Tablet 25 Mg PO BID Vitals/I & O Vital Sign - Last 24 Hours 02/27/18 02/27/18 02/27/18 02/27/18 14:44 17:34 19:00 19:05 Temp 98.0 97.3 97.6 98.0 97.3 97.6 Pulse 81 81 67 79 Resp 18 18 18 B/P (MAP) 124/77 (93) 124/77 159/91 (113) 111/65 (80) Pulse Ox 91 96 96 O2 Delivery Nasal Cannula Nasal Cannula Nasal Cannula O2 Flow Rate 2.0 2.0 02/27/18 02/27/18 02/27/181/19 20:00 21:00 23:00 23:35 Temp 97.6 98.5 97.6 98.5 Pulse 78 78 71 Resp 18 21 B/P (MAP) 125/78 125/78 (94) 105/65 (78) Pulse Ox 97 96 O2 Delivery Nasal Cannula Room Air BiPAP/CPAP O2 Flow Rate 2.0 02/28/18 02/28/18 02/28/18 02/28/18 03:00 03:30 07:15 08:46 Temp 97.5 98.3 98.6 97.5 98.3 98.6 Pulse 66 82 81 83 Resp 18 20 20 B/P (MAP) 126/66 (86) 137/76 (96) 158/85 (109) 158/85 Pulse Ox 95 97 93 O2 Delivery Room Air BiPAP/CPAP BiPAP/CPAP 02/28/18 02/28/18 10:32 11:00 Temp 98.5 98.5 Pulse 71 Resp 20 20 B/P (MAP) 131/79 (96) Pulse Ox 94 O2 Delivery Room Air Intake and Output 02/27/18 02/27/18 02/28/18 15:01 23:01 07:01 Intake Total 250 ml 170 ml Output Total 515 ml 200 ml 2300 ml Balance -515 ml 50 ml -2130 ml ADY OBRIEN MD Feb 28, 2018 13:57
[2018-02-28] MEDS: PSYLLIUM HUSK (SUGAR FREE) 1 PKT PACKET PO SCH (14:54)
[2018-02-28] MEDS: POTASSIUM CHLORIDE 10 MEQ TABLET.ER. PO SCH ×2 (14:56→17:50)
--- NOTE | 2018-02-28 16:36 | NUR ---
SS following up with discharge planning. pe manager met with pt to discuss insurance denial for LTAC. Pt reported that she would like to return to home with TPN and Palliative Care through [facility], ; fax [phone]. SS contacted [facility] and updated them of pt's request to return to home tomorrow with TPN and Palliative Care. Hardyma verified that pt's TPN is covered at 100% and will start on 03/02/2018. SS phoned and faxed new referral to [facility] for start of care 03/02/2018. Pt's RN notified.
[2018-02-28] MEDS: ESTAZOLAM 2 MG PO SCH (21:34)
[2018-02-28] MEDS: DULoxetine HCL 30 MG CAPSULE.DR PO SCH (21:35)
[2018-02-28] MEDS: LISINOPRIL 5 MG TABLET. PO SCH (21:35)
[2018-02-28] MEDS: ATORVASTATIN CALCIUM 10 MG TABLET. PO SCH (21:36)
[2018-02-28] MEDS ORDERED: TOTAL PARENTERAL NUTRITION IV SCH ×8 (22:00)
[2018-02-28] MEDS ORDERED: [UNRECOGNIZED DRUG - OTHER] IV SCH ×8 (22:00)
[2018-02-28] MEDS ORDERED: AMINO ACID IV SCH ×8 (22:00)
[2018-02-28] MEDS ORDERED: DEXTROSE 70% IV SCH ×8 (22:00)
[2018-03-01 03:00] VITALS: BP 142/85
[2018-03-01] MEDS: HYDROcodone/APAP 5/325MG 1 TAB TABLET PO PRN (03:05)
[2018-03-01] MEDS: LEVOTHYROXINE 100 MCG TABLET PO SCH (05:53)
[2018-03-01 07:00] VITALS: BP 149/82
[2018-03-01] MEDS: FLUTICASONE 50MCG/NASAL SPRAY 16GM BOTTLE. NS SCH (09:54)
[2018-03-01] MEDS: PSYLLIUM HUSK (SUGAR FREE) 1 PKT PACKET PO SCH (09:54)
[2018-03-01] MEDS: NYSTATIN TOPICAL POWDER 15GM BOTTLE. TP SCH (09:54)
[2018-03-01] MEDS: GABAPENTIN ENACARBIL 600 MG PO SCH (09:54)
[2018-03-01] MEDS: APIXABAN 5 MG TABLET. PO SCH (09:55)
[2018-03-01] MEDS: PANTOPRAZOLE 40 MG TABLET.DR. PO SCH (09:55)
[2018-03-01] MEDS: POTASSIUM CHLORIDE 10 MEQ TABLET.ER. PO SCH (09:55)
[2018-03-01] MEDS: OXYBUTYNIN CHLORIDE 5 MG TABLET PO SCH ×2 (09:55→14:10)
[2018-03-01] MEDS: CETIRIZINE HCL 10 MG TABLET. PO SCH (09:56)
[2018-03-01] MEDS: CHOLECALCIFEROL (VITAMIN D3) 1,000 UNIT TABLET PO SCH (09:56)
[2018-03-01] MEDS: CARVEDILOL 12.5 MG TABLET. PO SCH (10:02)
[2018-03-01] MEDS ORDERED: traMADol 50 MG TABLET PO ONE (10:45)
[2018-03-01 10:46] VITALS: BP 131/72
--- NOTE | 2018-03-01 11:52 | DISCH ---
DISCHARGE WITH HOME HEALTH DISCHARGE INFORMATION: Discharge Date: Mar 01, 2018 Final Diagnosis: Problems Medical Problems: (1) Acute renal insufficiency Status: Acute (2) Ascites Status: Acute (3) Dehydration Status: Acute (4) Ileus Status: Acute (5) Leukocytosis Status: Acute (6) Metastatic breast cancer Status: Acute (7) Weakness Status: Acute Condition on Discharge: Guarded CODE STATUS: Code Status: DNR/DNI HOME HEALTH: Face to Face: I certify this patient is under my care and that I, or a nurse practitioner or physician's faculty research assistant working with me, had a face to face encounter that meets the physician face to face encounter requirements with this patient on []. Physical Therapy For: Evalulation/Treatment Occupational Therapy For: Evaluation/Treatment POST DISCHARGE ORDERS: Activity Instructions for Disc: No restrictions, Activity as tolerated Weight Bearing Status after Di: No restrictions Bathing Instructions: Shower-keep dressing dry DIET AFTER DISCHARGE: Full liquid diet Wound/Incision Care: No wound care needed CHECKS AFTER DISCHARGE: Checks after discharge: Check blood press - daily FOLLOW-UP: Follow up with: oncology, ENT, gi as needed. recommend hospice. Follow Up With: Dr. Bowden - PCP TREATMENT/EQUIPMENT ORDERS: Adaptive Equipment Issued: None Infusion Equipment, home use: PortaCath (Access MWF for TPN infusions) CERTIFICATION STATEMENT: Certification Statement: Certification Statement: Based on the above finding, I certify that this patient is confined to the home and needs intermittent alf care, physical therapy and/or speech therapy, or continues to need occupational therapy.~ This patient is under my care, and I have initiated the establishment of the plan of care.~ This patient will be followed by myself or a community physician who will periodically review the plan of care. Home Meds Active Scripts [Tpn Per Pharmacy] 1 EACH EACH No Conflict Check, 1 EACH MC PRN DAILY PRN for SEE COMMENTS See printed prescription 60g AA 165g dextrose 20% lipid emulsion Prov:MASOUD DUVAL MD 02/23/18 Reported Medications Urea/Emollient Combination #65 (URAMAXIN GT 45% KIT) 1 Each Kt.crm.gel, 1 EACH TP PRN PRN for dry skin, EACH 01/26/18 Turmeric/Turmeric Root Extract (Turmeric 500 mg Capsule) 1 Each Capsule, 1 EACH PO QHS for anti-inflammatory, CAP 01/26/18 Trospium Chloride (TROSPIUM CHLORIDE) 20 Mg Tablet, 20 MG PO BID for UTI control , TAB 01/26/18 Sodium Fluoride (PREVIDENT) 100 Ml Paste..ml., 100 ML DT QHS for dry mouth, MISC 01/26/18 S-Adenosylmethionine Sul Tosyl (AURORA-E) 400 Mg Tablet, 400 MG PO DAILY for brain chemical alignment, TAB 01/26/18 Nystatin (NYSTATIN) 15 Gm Powder, 1 RICHI TP BID for perineal rash, #1 BOTTLE 01/26/18 [mannose] No Conflict Check, 1500 MG PO DAILY07 for UTI prevention 01/26/18 Levothyroxine Sodium (LEVOTHYROXINE SODIUM) 100 Mcg Tablet, 1 TAB PO DAILYAC for hypothyroid, #30 TAB 5 Refills 01/26/18 Levocetirizine Dihydrochloride (LEVOCETIRIZINE DIHYDROCHLORIDE) 5 Mg Tablet, 1 TAB PO DAILY for allergy and sinusitis, #30 TAB 3 Refills 01/26/18 Loperamide HCl (Imodium A-D) 2 Mg Capsule, 2 MG PO PRN Q6HRS PRN for DIARRHEA, CAP 01/26/18 [gamagen] No Conflict Check, 50 GM IV Q4WK for low gamma globulin G level 01/26/18 Esomeprazole Magnesium (NEXIUM CAPSULE) 40 Mg Capsule.dr, 1 CAP PO DAILYAC for reflux, #30 CAP 5 Refills 01/26/18 Bisacodyl (DULCOLAX) 5 Mg Tablet.dr, 5 MG PO PRN DAILY PRN for CONSTIPATION, TAB 0 Refills 01/26/18 Diclofenac Sodium (DICLOFENAC SODIUM) 100 Gm Gel..gram., 100 GM TP PRN PRN for PAIN, EACH 01/26/18 [cytoxan,[id number]] No Conflict Check, 1 EACH IV [id number] for chemo 01/26/18 Docusate Sodium (COLACE) 100 Mg Capsule, 1 CAP PO PRN PRN for CONSTIPATION, #30 CAP 01/26/18 Ubidecarenone (Coenzyme Q-10) 200 Mg Capsule, 200 MG PO QHS for joint pain, CAP 01/26/18 [chloroxazone/Parafon] No Conflict Check, 500 MG PO PRN Q6HRS PRN for MUSCLE SPASMS 01/26/18 [arthro 7] No Conflict Check, 1 CAP PO BID for joint health 01/26/18 Apixaban (ELIQUIS) 5 Mg Tablet, 5 MG PO BID for PE, TAB 01/26/18 Cholecalciferol (Vitamin D3) (VITAMIN D3) 1,000 Unit Tablet, 2000 UNIT PO DAILY for vit d deficiency, TAB 01/26/18 Potassium Chloride (POTASSIUM CHLORIDE) 8 Meq Capsule.er, 8 MEQ PO BID for HYPOKALEMIA, CAP 01/26/18 Hydrocodone Bit/Acetaminophen (HYDROCODONE-APAP 5-325 ) 1 Each Tablet, 1 TAB PO PRN Q6HRS PRN for PAIN, TAB 0 Refills 01/26/18 Pravastatin Sodium (PRAVASTATIN SODIUM) 20 Mg Tablet, 25 MG PO DAILY for CHOLESTEROL, TAB 01/26/18 Cyanocobalamin (Vitamin B-12) (B-12) 3,000 Mcg Tab.subl, 4000 MCG SL QODAY for b12 deficiency, TAB 01/26/18 Fluticasone Propionate (FLUTICASONE PROPIONATE NASAL SPRAY) 16 Gm [place].susp, 2 SPRAY NS BID for allergies, #1 INHALER 11 Refills 01/26/18 Benzonatate (TESSALON PERLE) 100 Mg Capsule, 200 MG PO PRN Q12HR PRN for COUGH, CAP 01/26/18 Gabapentin Enacarbil (HORIZANT) 600 Mg Tab.er.24h, 600 MG PO BID for rls, #60 08/18/15 Lisinopril (LISINOPRIL) 5 Mg Tablet, 1 TAB PO QHS for HTN, #30 TAB 5 Refills 05/29/15 Estazolam (ESTAZOLAM) 2 Mg Tablet, 2 MG PO HS 05/29/15 Duloxetine Hcl (DULOXETINE HCL) 60 Mg Capsule.dr, 60 MG PO HS for depression, CAP 05/29/15 Multivitamin (MULTI-VITAMIN DAILY) 1 Each Tablet, 1 EACH PO DAILY 05/29/15 Ubidecarenone (CO Q-10) 200 Mg Capsule, 200 MG PO DAILY 05/29/15 Carvedilol (COREG) 25 Mg Tablet, 25 MG PO BID for SVT, TAB 05/29/15 Discontinued Reported Medications Diclofenac Sodium (PENNSAID) 112 Gm [place].md.sharepoint 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
--- NOTE | 2018-03-01 12:02 | NUR ---
SS following up with discharge planning. SS met with pt, spouse, and pt's sister and discussed discharge planning. Pt also spoke with [employer] via phone. Pt now agreeable to discharge to home with Palliative Care, ; fax [phone] and [facility], . SS phoned and faxed discharge orders to [facility]iative [facility]. Palliative Care to contact pt today and discuss treatment times. Pt choice and rights forms signed by pt and placed in chart. Pt and family requesting transport to home via ambulance. Pt will discharge today and return to home with [facility] and [facility] at 1500 via ambulance, . Pt's RN notified.
--- NOTE | 2018-03-01 12:50 | PDOC3 ---
Discharge Summary [facility] Date of Admission: Feb 20, 2018 Discharge Date: Mar 01, 2018 Admitting Diagnosis Head Concussion secondary to below Noninjury fall at home, traumatic Metastatic cancer of breast, to bone and liver, peritoneal carcinomatos MOderate amount ascites Ileus versus partial SBO-recent ileus versus partial SBO Possible aspiration Acute on Chronic pain Moderate PCM-albumin 2.2 AK I/VMN, creatinine 1.2 Final Diagnosis CONSULTS onco gi Brief Hospital Course pt is a 67yoF, with h/o BCa with extensive mets to liver, bones and peritoneal carcinomatos, with abd severe distended, came post fall and has head concussion. pt was found sbo vs ileus, cont have passing gas and BM, last bm was 3ds ago, repeated ct AND KUB showed sbo. pt able to eat full liquid ,on TPN for nutrition. recommend hospice, pt refused. insurance refused LTAC and PP refused her too. pt agreed to go home with palliative care ,not hospice, with TPN every other day. yesterday developed left jaw swallen, CT did not show any significant finding. ENT consult called, but i told pt that our ENT doesnot come to [facility] to see non emergent issues and asked her to fu with her own ENT in [place]. dc time 35min. General: Alert Heart: Normal S1, Normal S2 Lungs: Clear, Other Abdomen: Soft, No tenderness, Other (severe distended. loud bs) Extremities: No cyanosis, No edema Skin: No significant lesion Patient History: FH: NV (myocardial infarction) Paternal Uncle, , Age:94 FH: aneurysm Paternal Uncle, , Age:94 Paternal Grandmother, FH: brain tumor Paternal Uncle, , Age:94 FH: colon cancer Paternal Aunt, , Age:88 Maternal Grandfather, , Age:80 FHx: alcoholism Paternal Aunt, , Age:88 FHx: carotid endarterectomy Paternal Grandmother, FHx: smoking Paternal Aunt, , Age:88 Pulmonary hypertension 32 MOTHER, , Age:88 Disposition home with palliative care CONDITION AT DISCHARGE: Improved Scheduled Apixaban (Eliquis), 5 MG PO BID, (Reported) Carvedilol (Coreg), 25 MG PO BID, (Reported) Cholecalciferol (Vitamin D3) (Vitamin D3), 2,000 UNIT PO DAILY, (Reported) Cyanocobalamin (Vitamin B-12) (B-12), 4,000 MCG SL QODAY, (Reported) Duloxetine Hcl (Duloxetine Hcl), 60 MG PO HS, (Reported) Esomeprazole Magnesium (Nexium Capsule), 1 CAP PO DAILYAC, (Reported) Estazolam (Estazolam), 2 MG PO HS, (Reported) Fluticasone Propionate (Fluticasone Propionate Nasal [place]), 2 SPRAY NS BID, ( Reported) Gabapentin Enacarbil (Horizant), 600 MG PO BID, (Reported) Levocetirizine Dihydrochloride (Levocetirizine Dihydrochloride), 1 TAB PO DAILY, (Reported) Levothyroxine Sodium (Levothyroxine Sodium), 1 TAB PO DAILYAC, (Reported) Lisinopril (Lisinopril), 1 TAB PO QHS, (Reported) Multivitamin (Multi-Vitamin Daily), 1 EACH PO DAILY, (Reported) Nystatin (Nystatin), 1 RICHI TP BID, (Reported) Potassium Chloride (Potassium Chloride), 8 MEQ PO BID, (Reported) Pravastatin Sodium (Pravastatin Sodium), 25 MG PO DAILY, (Reported) S-Adenosylmethionine Sul Tosyl ([place]erner-E), 400 MG PO DAILY, (Reported) Sodium Fluoride (Prevident), 100 ML DT QHS, (Reported) Trospium Chloride (Trospium Chloride), 20 MG PO BID, (Reported) Turmeric/Turmeric Root Extract (Turmeric 500 mg Capsule), 1 EACH PO QHS, ( Reported) Ubidecarenone (Co Q-10), 200 MG PO DAILY, (Reported) Ubidecarenone (Coenzyme Q-10), 200 MG PO QHS, (Reported) [arthro 7], 1 CAP PO BID, (Reported) [cytoxan,[id number]], 1 EACH IV [id number], (Reported) [gamagen], 50 GM IV Q4WK, (Reported) [mannose], 1,500 MG PO DAILY07, (Reported) Scheduled PRN Benzonatate (Tessalon Perle), 200 MG PO PRN Q12HR PRN for COUGH, (Reported) Bisacodyl (Dulcolax), 5 MG PO PRN DAILY PRN for CONSTIPATION, (Reported) Diclofenac Sodium (Diclofenac Sodium), 100 GM TP PRN PRN for PAIN, (Reported) Docusate Sodium (Colace), 1 CAP PO PRN PRN for CONSTIPATION, (Reported) Hydrocodone Bit/Acetaminophen (Hydrocodone-Apap 5-325 ), 1 TAB PO PRN Q6HRS PRN for PAIN, (Reported) Loperamide HCl (Imodium A-D), 2 MG PO PRN Q6HRS PRN for DIARRHEA, (Reported) Urea/Emollient Combination #65 (Uramaxin Gt 45% Kit), 1 EACH TP PRN PRN for dry skin, (Reported) [Tpn Per Pharmacy], 1 EACH MC PRN DAILY PRN for SEE COMMENTS [chloroxazone/Parafon], 500 MG PO PRN Q6HRS PRN for MUSCLE SPASMS, (Reported) Discontinued Medications Acetaminophen With Codeine (Acetaminophen-Cod #3 Tablet), 1 TAB PO 0500,1400, ( Reported) Acetaminophen With Codeine (Acetaminophen-Cod #3 Tablet), 2 TAB PO QHS, ( Reported) Apixaban (Eliquis), 5 MG PO BID, (Reported) Diclofenac Sodium (Pennsaid), 112 GM TP PRN PRN for joint pain, (Reported) Levothyroxine Sodium (Levothyroxine Sodium), 100 MCG PO DAILYAC, (Reported) ADY OBRIEN MD Mar 01, 2018 12:50
[2018-03-01] MEDS ORDERED: HEPARIN PF 500 UNIT/5 ML DISP.SYRIN. IV ONE (13:45)
--- NOTE | 2018-03-01 14:30 | NUR ---
Port heparinized and de-accessed.
--- NOTE | 2018-03-01 15:00 | NUR ---
Discharge Note: BROTHMADHAVI,ROMIE [place] Discharge instructions and discharge home medications reviewed with Patient and a copy given. All questions have been answered and understanding verbalized. The following instructions and handouts were given: dicharge instructions and follow. Patient states she already has appts set with her docs at [facility]. Discontinued lines and drains: port de-accessed. Informed [facility] and [facility] pallitive care of need to re-access port for TPN infusions. Patient discharged to home with sister via ambulance on stretcher.
[2018-03-01] MEDS ORDERED: traMADol 50 MG TABLET PO SCH (21:00)
[2018-03-04] MEDS ORDERED: ACET500T68 PO (08:25)
[2018-03-04] MEDS ORDERED: TROS20TA2 PO (08:25)
[2018-03-04] MEDS ORDERED: BACL10TA PO (08:25)
[2018-03-04] MEDS ORDERED: LEVO5TAB2 PO (08:25)
[2018-03-04] MEDS ORDERED: PANT20TA2 PO (08:25)
[2018-03-04] MEDS ORDERED: APIX5TAB PO (08:25)
[2018-03-04] MEDS ORDERED: POTA10TA12 PO (08:25)
[2018-03-04] MEDS ORDERED: METH1TAB20 PO (08:25)
[2018-03-04] MEDS ORDERED: S AD PO (09:35)
[2018-03-04] MEDS ORDERED: CARV25TA PO (09:35)
[2018-03-04] MEDS ORDERED: TRAM-48 PO (09:35)
[2018-03-04] MEDS ORDERED: UBID100C26 PO (09:35)
[2018-03-04] MEDS ORDERED: CHOL200078 PO (09:35)
[2018-03-04] MEDS ORDERED: CYAN10005 PO (09:35)
[2018-03-04] MEDS ORDERED: MULT1TAB52 PO (09:35)
[2018-03-04] MEDS ORDERED: DULO60CA6 PO (09:35)
[2018-03-04] MEDS ORDERED: PRAV20TA2 PO (09:40)
[2018-03-04] MEDS ORDERED: LISI-338 PO (09:40)
[2018-03-04] MEDS ORDERED: GABA600T91 PO (09:40)
[2018-03-04] MEDS ORDERED: ESTA2TAB PO (09:40)
== END 2018-03-01 15:00 | disposition home or self-care (01) | DRG 388 ==
LOC: ER 04:31 → 5 NORTH 08:57 → 2 NORTH 02-21 18:41
PROVIDERS: ADMIT Internal Medicine; ATTEND Internal Medicine
DX: K56.609 Unspecified intestinal obstruction, unspecified as to partial versus complete obstruction (principal); N17.0 Acute kidney failure with tubular necrosis; S06.0X9A Concussion with loss of consciousness of unspecified duration, initial encounter; E44.0 Moderate protein-calorie malnutrition; I13.0 Hypertensive heart and chronic kidney disease with heart failure and stage 1 through stage 4 chronic kidney disease, or unspecified chronic kidney disease; I47.1 Supraventricular tachycardia; R18.8 Other ascites; C78.6 Secondary malignant neoplasm of retroperitoneum and peritoneum; C79.51 Secondary malignant neoplasm of bone; D72.829 Elevated white blood cell count, unspecified; K56.7 Ileus, unspecified; E03.9 Hypothyroidism, unspecified; Z68.39 Body mass index [BMI] 39.0-39.9, adult; E78.00 Pure hypercholesterolemia, unspecified; E78.5 Hyperlipidemia, unspecified; E86.0 Dehydration; F41.0 Panic disorder [episodic paroxysmal anxiety]; G47.33 Obstructive sleep apnea (adult) (pediatric); G89.29 Other chronic pain; I50.9 Heart failure, unspecified; J44.9 Chronic obstructive pulmonary disease, unspecified; K21.9 Gastro-esophageal reflux disease without esophagitis; M79.7 Fibromyalgia; M81.0 Age-related osteoporosis without current pathological fracture; N18.9 Chronic kidney disease, unspecified; T45.1X5A Adverse effect of antineoplastic and immunosuppressive drugs, initial encounter; W01.0XXA Fall on same level from slipping, tripping and stumbling without subsequent striking against object, initial encounter; Y92.009 Unspecified place in unspecified non-institutional (private) residence as the place of occurrence of the external cause; Z51.5 Encounter for palliative care; Z80.8 Family history of malignant neoplasm of other organs or systems; Z82.49 Family history of ischemic heart disease and other diseases of the circulatory system; Z83.3 Family history of diabetes mellitus; Z85.038 Personal history of other malignant neoplasm of large intestine; Z85.3 Personal history of malignant neoplasm of breast; Z86.010 Personal history of colon polyps; Z86.19 Personal history of other infectious and parasitic diseases; Z86.711 Personal history of pulmonary embolism; Z86.73 Personal history of transient ischemic attack (TIA), and cerebral infarction without residual deficits; Z87.440 Personal history of urinary (tract) infections; Z90.13 Acquired absence of bilateral breasts and nipples; Z90.49 Acquired absence of other specified parts of digestive tract; Z90.710 Acquired absence of both cervix and uterus; Z96.651 Presence of right artificial knee joint; H26.9 Unspecified cataract; G56.00 Carpal tunnel syndrome, unspecified upper limb; G62.9 Polyneuropathy, unspecified; M19.90 Unspecified osteoarthritis, unspecified site; Z88.1 Allergy status to other antibiotic agents; Z88.5 Allergy status to narcotic agent; Z88.8 Allergy status to other drugs, medicaments and biological substances; C50.919 Malignant neoplasm of unspecified site of unspecified female breast; F31.9 Bipolar disorder, unspecified
CPT/HCPCS: 36415; 70491; 71045; 71275; 74018; 74170; 74177; 80048; 80053; 81001; 82040; 82962; 83605; 83690; 83735; 83880; 84100; 84443; 84478; 84484; 85007; 85025; 85049; 85610; 87040; 87641; 93005; 93306; 96374; J0153; J0610; J0696; J1885; J3475; J3480; J7030; Q9967; 97110; 97116; 97530; 97535; 99285-25